=== PATIENT | female | born 1955 | race Caucasian/White ===

== ENCOUNTER 2020-04-05 02:11 | Emergency (ER) | payer MEDICARE, OTHER ==
[2020-04-05 02:26] VITALS: TEMP 97
--- NOTE | 2020-04-05 02:40 | ED ---
Fall HPI - General Chief Complaint: Fall Stated Complaint: Fall Time Seen by Provider: 04/05/20 02:13 Source: patient, EMS, RN notes reviewed, old records reviewed Mode of arrival: EMS Limitations: no limitations - History of Present Illness Initial Comments: This is a 64-year-old female DF for evaluation of fall fall from standing. Patient suffers from severe Down syndrome unable to speak unable to give complaints. Patient did have facial left frontal face injury patient does have loose teeth. Patient again is refusing treatment, patient denying any need for pain medications but again she is a poor story currently with question secondary severe Down syndrome stress reaction MD Complaint: fall -: minutes(s) Fall From: standing When Fall Occurred: unsure Fall Witnessed: yes, by living facility staff Place Fall Occurred: home, jail/SNF Loss of Consciousness: none Prolonged Down Time?: no Symptoms Prior to Fall: none Location: head Severity: moderate Severity scale (1-10): 2 Context: tripped/slipped Associated Symptoms: denies - Related Data Home Medications Medication Instructions Recorded Confirmed Acetaminophen Oral Susp [Tylenol] 650 mg PO Q4H PRN 04/07/20 04/07/20 Acetaminophen Suppository [Tylenol 650 mg RECTAL Q4H PRN 04/07/20 04/07/20 Suppository] Acetaminophen Tab [Tylenol] 650 mg PO Q4H PRN 04/07/20 04/07/20 Acetaminophen Tab [Tylenol] 650 mg PO TID@0800,1200,1700 04/07/20 04/07/20 Artificial Tears-Hypromellose 1 drop BOTH EYES DAILY PRN 04/07/20 04/07/20 [Artificial Tear Drops] Artificial Tears-Hypromellose 1 drop BOTH EYES QID 04/07/20 04/07/20 [Artificial Tear Drops] Baclofen [Lioresal] 20 mg PO HS@209904/07/20 04/07/20 Bisacodyl [Dulcolax] 10 mg RECTAL DAILY PRN 04/07/20 04/07/20 Docusate [Colace] 100 mg PO BID@0800,1700 04/07/20 04/07/20 Doxepin [SINEquan] 10 mg PO HS@209904/07/20 04/07/20 Ergocalciferol [Vitamin D2] 50,000 unit PO TH 04/07/20 04/07/20 Loperamide [Imodium] 2 mg PO DAILY PRN 04/07/20 04/07/20 Magnesium Hydroxide [Milk of 7,200 mg PO Q48H PRN 04/07/20 04/07/20 Magnesia Concentrate] Menthol [Biofreeze] 1 applic TOPICAL Q12H PRN 04/07/20 04/07/20 Na Phos,M-B/Na Phos,Di-Ba [Fleet 133 ml RECTAL DAILY PRN 04/07/20 04/07/20 Adult] Raloxifene [Evista] 60 mg PO DAILY@0800 04/07/20 04/07/20 Selsun Blue Deep Cleansing Shampoo 1 applic TOPICAL MO 04/07/20 04/07/20 3%(Salicylic Acid) Sertraline [Zoloft] 100 mg PO DAILY@0800 04/07/20 04/07/20 guaiFENesin [guaiFENesin Oral 200 mg PO Q4H PRN 04/07/20 04/07/20 Solution] traMADol HCL 50 mg PO TID@0600,1400,2100 04/07/20 04/07/20 traZODone HCL 200 mg PO HS@2100 04/07/20 04/07/20 Allergies Allergy/AdvReac Type Severity Reaction Status Date / Time No Known Allergies Allergy Verified 04/07/20 18:29 Review of Systems ROS Statement: Those systems with pertinent positive or pertinent negative responses have been documented in the HPI. ROS Other: All systems not noted in ROS Statement are negative. Past Medical History Past Medical History: Osteoarthritis (OA) Additional Past Medical History / Comment(s): down syndrome, cerebral palsy, nonverbal History of Any Multi-Drug Resistant Organisms: None Reported Past Surgical History: No Surgical Hx Reported Past Psychological History: No Psychological Hx Reported, Depression Smoking Status: Never smoker Past Alcohol Use History: None Reported Past Drug Use History: None Reported General Exam Limitations: no limitations General appearance: alert, in no apparent distress Head exam: Present: normocephalic, normal inspection. Absent: atraumatic (Patient does have significant loose teeth on abrasion follow-up) Eye exam: Present: normal appearance, PERRL, EOMI. Absent: scleral icterus, conjunctival injection, periorbital swelling ENT exam: Present: normal exam, mucous membranes moist Neck exam: Present: normal inspection. Absent: tenderness, meningismus, lymphadenopathy Respiratory exam: Present: normal lung sounds bilaterally. Absent: respiratory distress, wheezes, rales, rhonchi, stridor Cardiovascular Exam: Present: regular rate, normal rhythm, normal heart sounds. Absent: systolic murmur, diastolic murmur, rubs, gallop, clicks GI/Abdominal exam: Present: soft, normal bowel sounds. Absent: distended, tenderness, guarding, rebound, rigid Extremities exam: Present: normal inspection, full ROM, normal capillary refill. Absent: tenderness, pedal edema, joint swelling, calf tenderness Back exam: Present: normal inspection Neurological exam: Present: alert, oriented X3, CN II-XII intact Psychiatric exam: Present: normal affect, normal mood Skin exam: Present: warm, dry, intact, normal color. Absent: rash Course Vital Signs 04/05/20 04/05/20 04/05/20 02:13 02:26 04:20 Temperature 97 F L Pulse Rate 90 70 Respiratory 18 Rate Blood Pressure 133/89 108/61 O2 Sat by Pulse 97 99 Oximetry - Reevaluation(s) Reevaluation #1: Medical records reviewed No complaints here in the ER Medical Decision Making - Medical Decision Making 64 female DF for evaluation. Patient presents today for evaluation of fussiness pain facial pain and loose teeth. Patient has normal CT scans and can be discharged home - Radiology Data Radiology results: report reviewed (CT brain patient was negative for acute disease), image reviewed Disposition Clinical Impression: Fall, Loose, teeth, Loose tooth due to trauma Disposition: HOME SELF-CARE Condition: Good Instructions (If sedation given, give patient instructions): Fall Prevention for Older Adults (ED), Head Injury (ED) Is patient prescribed a controlled substance at d/c from ED?: No Referrals: David Gutierrez MD [Primary Care Provider] - 1-2 days
--- NOTE | 2020-04-05 03:40 | CT ---
EXAMINATION TYPE: CT brain cspine wo con DATE OF EXAM: 04/05/2020 COMPARISON: None HISTORY: Fall Headache. Neck pain CT DLP: mGycm Automated exposure control for dose reduction was used. There is marked enlargement of the left lateral ventricle. There is hypodensity in the periventricula r white matter. There is no midline shift. There is no sign of intracranial hemorrhage. The calvarium is intact. There is hypodensity in the bilateral internal capsule and left centrum semiovale. The cervical vertebra show some straightening. There is some degenerative mild disc space narrowing t hroughout the cervical spine. There is no compression fracture. The facet joints are intact. Exam patrick ited slightly by motion. There is no evidence of cervical spine fracture. IMPRESSION: Spondylotic changes in the cervical spine. No fracture. Limited exam. Old left side cerebral hemisphere encephalomalacia with enlargement of the left lateral ventricle. Ch ronic small vessel ischemia. No acute intracranial abnormality. No hemorrhage.
[2020-04-05 04:20] VITALS: BP 108/61; PULSE 70; RESP 18
--- NOTE | 2020-04-05 05:42 | CT ---
EXAMINATION TYPE: CT discontinued procedure DATE OF EXAM: 04/05/2020 COMPARISON: None HISTORY: Fall CT DLP: Not recorded mGycm Automated exposure control for dose reduction was used. FINDINGS: The patient was moving excessively within the gantry. No diagnostic images were obtained. The procedu re was discontinued. IMPRESSION: DISCONTINUED PROCEDURE.
== END 2020-04-05 04:45 | disposition home or self-care (01) ==
LOC: EC 02:11 → EEVIPCON 02:11 → EC 04:45
DX: K08.89 Other specified disorders of teeth and supporting structures (principal); M19.90 Unspecified osteoarthritis, unspecified site; Z79.891 Long term (current) use of opiate analgesic; Z79.899 Other long term (current) drug therapy; W01.0XXA Fall on same level from slipping, tripping and stumbling without subsequent striking against object, initial encounter; Y92.129 Unspecified place in nursing home as the place of occurrence of the external cause
CPT/HCPCS: 70450; 72125; 76380; 99284

== ENCOUNTER 2020-04-07 18:11 | Emergency (ER) | payer MEDICARE, OTHER ==
[2020-04-07 18:28] VITALS: TEMP 98.6
[2020-04-07] MEDS ORDERED: LORazepam 2 MG/ML INJ IV STA (18:31)
[2020-04-07] MEDS ORDERED: LORazepam 2 MG/ML INJ IM STA (18:50)
--- NOTE | 2020-04-07 19:11 | ED ---
General Adult HPI - General Chief complaint: Extremity Injury, Lower Stated complaint: fall/hip pain Time Seen by Provider: 04/07/20 18:11 Source: patient, EMS, RN notes reviewed, old records reviewed Mode of arrival: EMS Limitations: language barrier, altered mental status, physical limitation - History of Present Illness Initial comments: This is a 64-year-old female presents emergency Department with a past history of Down syndrome. She is unable to give any history on her own. Patient had a fall on Monday and was brought to the emergency department and sent back to the facility. Staff wanted her to come in because she was complaining and acting a lot more as if she was in pain they couldn't tell where they thought maybe her right hip but it is very difficult to tell because she is very histrionic normally according to the staff member. There are some bruises on the lateral aspect of the right leg so we will be examining that area. Patient does not normally walk but she does help to assist in transfer. - Related Data Home Medications Medication Instructions Recorded Confirmed Acetaminophen Oral Susp [Tylenol] 650 mg PO Q4H PRN 04/07/20 04/07/20 Acetaminophen Suppository [Tylenol 650 mg RECTAL Q4H PRN 04/07/20 04/07/20 Suppository] Acetaminophen Tab [Tylenol] 650 mg PO Q4H PRN 04/07/20 04/07/20 Acetaminophen Tab [Tylenol] 650 mg PO TID@0800,1200,1700 04/07/20 04/07/20 Artificial Tears-Hypromellose 1 drop BOTH EYES DAILY PRN 04/07/20 04/07/20 [Artificial Tear Drops] Artificial Tears-Hypromellose 1 drop BOTH EYES QID 04/07/20 04/07/20 [Artificial Tear Drops] Baclofen [Lioresal] 20 mg PO HS@209904/07/20 04/07/20 Bisacodyl [Dulcolax] 10 mg RECTAL DAILY PRN 04/07/20 04/07/20 Docusate [Colace] 100 mg PO BID@0800,1700 04/07/20 04/07/20 Doxepin [SINEquan] 10 mg PO HS@209904/07/20 04/07/20 Ergocalciferol [Vitamin D2] 50,000 unit PO TH 04/07/20 04/07/20 Loperamide [Imodium] 2 mg PO DAILY PRN 04/07/20 04/07/20 Magnesium Hydroxide [Milk of 7,200 mg PO Q48H PRN 04/07/20 04/07/20 Magnesia Concentrate] Menthol [Biofreeze] 1 applic TOPICAL Q12H PRN 04/07/20 04/07/20 Na Phos,M-B/Na Phos,Di-Ba [Fleet 133 ml RECTAL DAILY PRN 04/07/20 04/07/20 Adult] Raloxifene [Evista] 60 mg PO DAILY@0800 04/07/20 04/07/20 Selsun Blue Deep Cleansing Shampoo 1 applic TOPICAL MO 04/07/20 04/07/20 3%(Salicylic Acid) Sertraline [Zoloft] 100 mg PO DAILY@0800 04/07/20 04/07/20 guaiFENesin [guaiFENesin Oral 200 mg PO Q4H PRN 04/07/20 04/07/20 Solution] traMADol HCL 50 mg PO TID@0600,1400,2100 04/07/20 04/07/20 traZODone HCL 200 mg PO HS@2100 04/07/20 04/07/20 Allergies Allergy/AdvReac Type Severity Reaction Status Date / Time No Known Allergies Allergy Verified 04/07/20 18:29 Review of Systems ROS Statement: Those systems with pertinent positive or pertinent negative responses have been documented in the HPI. ROS Other: All systems not noted in ROS Statement are negative. Past Medical History Past Medical History: Osteoarthritis (OA) Additional Past Medical History / Comment(s): down syndrome, cerebral palsy, nonverbal History of Any Multi-Drug Resistant Organisms: None Reported Past Surgical History: No Surgical Hx Reported Past Psychological History: No Psychological Hx Reported, Depression Smoking Status: Never smoker Past Alcohol Use History: None Reported Past Drug Use History: None Reported General Exam - General Exam Comments Initial Comments: GENERAL: Patient is well-developed and well-nourished. Patient is nontoxic and well- hydrated and is in moderate distress. ENT: Neck is soft and supple. No significant lymphadenopathy is noted. Oropharynx is clear. Moist mucous membranes. Neck has full range of motion without eliciting any pain. EYES: The sclera were anicteric and conjunctiva were pink and moist. Extraocular movements were intact and pupils were equal round and reactive to light. Eyelids were unremarkable. PULMONARY: Unlabored respirations. Good breath sounds bilaterally. No audible rales rhonchi or wheezing was noted. CARDIOVASCULAR: There is a regular rate and rhythm without any murmurs gallops or rubs. ABDOMEN: Soft and nontender with normal bowel sounds. SKIN: Patient had a small bruise to the mid lateral aspect of the right thigh NEUROLOGIC: Patient is alert and oriented at her baseline per staff. Cranial nerves II through XII are grossly intact. MUSCULOSKELETAL: Patient had full range of motion with the upper extremity as well as the left lower extremity. Patient's left hip appeared to hurt her when I try to flex it but other times I was able to flex without her yelling out. LYMPHATICS: No significant lymphadenopathy is noted PSYCHIATRIC: Unable to assess Limitations: language barrier, altered mental status, physical limitation Course Vital Signs 04/07/20 18:12 Temperature 98.6 F Pulse Rate 130 H Respiratory 18 Rate Blood Pressure 135/104 O2 Sat by Pulse 96 Oximetry Medical Decision Making - Medical Decision Making X-ray of the hip shows no acute abnormality. X-ray of the knee shows no acute abnormality. Patient still was planning at the mid thighs I did one view x-ray of the femur and it showed no acute abnormality. Disposition Clinical Impression: Contusion, thigh Disposition: HOME SELF-CARE Condition: Good Instructions (If sedation given, give patient instructions): Contusion in Adults (ED) Is patient prescribed a controlled substance at d/c from ED?: No Referrals: David Gutierrez MD [Primary Care Provider] - 1-2 days Time of Disposition: 20:50
--- NOTE | 2020-04-07 20:09 | XR ---
EXAMINATION TYPE: XR knee complete RT DATE OF EXAM: 04/07/2020 COMPARISON: NONE HISTORY: Knee pain TECHNIQUE: 3 views FINDINGS: There is some mild soft tissue swelling anteriorly below the patella. There is no sign of j oint effusion. I see no fracture nor dislocation. IMPRESSION: Mild soft tissue swelling. No fracture seen.
--- NOTE | 2020-04-07 20:11 | XR ---
EXAMINATION TYPE: XR Hip RT and AP Pelvis DATE OF EXAM: 04/07/2020 COMPARISON: NONE HISTORY: Hip pain TECHNIQUE: 3 views FINDINGS: Pelvic ring is intact. Proximal femurs are intact. There is no sign of hip dysplasia. Sacro iliac joints appear normal. There is no evidence of a fracture. IMPRESSION: Negative exam. No fracture seen. No evidence of right hip fracture.
[2020-04-07] MEDS ORDERED: KETOROLAC 60 MG/2 ML VIAL IM STA (20:42)
[2020-04-07 21:02] VITALS: BP 96/64; PULSE 75; RESP 20
--- NOTE | 2020-04-07 21:13 | XR ---
EXAMINATION TYPE: XR Femur RT 1 View DATE OF EXAM: 04/07/2020 COMPARISON: NONE HISTORY: Right hip pain TECHNIQUE: 2 views FINDINGS: The hip joint is intact. Knee joint appears intact. There is no evidence of femoral fractur e. There is no evidence of a soft tissue mass. IMPRESSION: No fracture seen.
== END 2020-04-07 21:52 | disposition home or self-care (01) ==
LOC: EC 18:11
DX: S70.11XA Contusion of right thigh, initial encounter (principal); R41.82 Altered mental status, unspecified; F32.9 Major depressive disorder, single episode, unspecified; M19.90 Unspecified osteoarthritis, unspecified site; Z79.1 Long term (current) use of non-steroidal anti-inflammatories (NSAID); Z79.899 Other long term (current) drug therapy; Q90.9 Down syndrome, unspecified; W18.30XA Fall on same level, unspecified, initial encounter
CPT/HCPCS: 73502; 73551; 73562; 99284; 96372 ×2; J2060; J1885

== ENCOUNTER 2022-03-10 14:33 | Emergency (ER) | payer MEDICARE, OTHER ==
[2022-03-10] MEDS ORDERED: IBUPROFEN 800 MG TAB PO STA (15:45)
[2022-03-10 15:57] LABS: Appearance,Urine Cloudy (Clear); Bacteria,Urine Few /hpf; Bilirubin,Urine Negative (Negative); Blood,Urine Small (Negative); Color,Urine Light Yellow; Glucose,Urine (UA) Negative (Negative); Ketones,Urine Negative (Negative); Leukocyte Esterase,Urine Small (Negative); Nitrite,Urine Negative (Negative); Protein,Urine Negative (Negative); RBC,Urine 1 /hpf (0-5); Specific Gravity,Urine 1.009 (1.001-1.035); Squamous Epithelial Cell,Urine <1 /hpf (0-4); Urobilinogen,Urine <2.0 mg/dL (<2.0); WBC,Urine 2 /hpf (0-5)
--- NOTE | 2022-03-10 16:05 | XR ---
EXAMINATION TYPE: XR foot complete RT DATE OF EXAM: 03/10/2022 COMPARISON: NONE HISTORY: Pain TECHNIQUE: Three views are submitted. FINDINGS: The osseous structures are intact. There is no acute fracture or dislocation. Joint spaces are p reserved. Diffuse osteopenia. IMPRESSION: 1. No acute fracture or dislocation. If symptoms persist, follow-up exam in 7 to 10 days could be ob tained.
--- NOTE | 2022-03-10 16:34 | CT ---
EXAMINATION TYPE: CT brain kristinaine wo con DATE OF EXAM: 03/10/2022 COMPARISON: 04/05/2020 HISTORY: 66-year-old female pain after Fall. CT DLP: 1915.5 mGycm Automated exposure control for dose reduction was used. Technique: Examination of the head was done in axial plane without intravenous contrast. Coronal and sagittal reconstructions performed. CT of the cervical spine was obtained in axial plane without intravenous injection of contrast mater ial. Coronal and sagittal reformatted images were obtained from the axial views for evaluation of f ractures, spinal alignment and canal. FINDINGS: Head: Unchanged ballooning of the body and frontal horn of the left lateral ventricle. Overall unchanged ap pearance. Moderate confluent white matter hypodensities in the periventricular and deep white matter regions. There is no evidence of acute intracranial hemorrhage, acute ischemic changes, mass, mass-effect, or extra-axial fluid collection. There is no effacement of cerebral sulci or basal subarachnoid cister ns. There is no hydrocephalus. There is no midline shift. Corrigan-white matter distinction is preserv ed. No calvarial fracture. Trace mucosal thickening ethmoid air cells. Rightward nasal septal deviation. Mastoid air cells well pneumatized. Orbits and globes are intact. Cervical spine: No craniocervical junction abnormality, predental space widening, or prevertebral soft tissue swellin g. Resolving normal cervical lordosis but with preserved alignment. Moderate disc/endplate degenerative change C2-C7 levels. Disc osteophyte complexes contribute to vari able mild to moderate spinal canal stenoses. Excessive motion artifact limiting the evaluation. No definite acute fracture identified. Uncovertebral joint arthropathy especially mid cervical spine. Extensive breathing motion artifact limiting the upper chest Compatible moderate to severe bilateral neuroforaminal stenosis. Sagittal and coronal reformatted images confirm above findings. COMBINED IMPRESSION: 1. Chronic dilatation frontal horn and body of the left lateral ventricle, similar appearance compare d to 04/05/2020. Moderate burden of chronic small vessel ischemic disease. No acute intracranial abnor mality seen. 2. Excessive motion artifact limiting evaluation. No definite acute fracture of the cervical spine. R eversal of the normal cervical lordosis but with preserved alignment. Moderate to advanced multilevel spondylotic change.
--- NOTE | 2022-03-10 17:06 | ED ---
Fall HPI - General Chief Complaint: Fall Stated Complaint: fall Time Seen by Provider: 03/10/22 14:57 Source: EMS Mode of arrival: EMS - History of Present Illness Initial Comments: Patient is a 66-year-old female who presents with her pipe covering molder for evaluation of fall. Patient has cerebral palsy and is mostly nonverbal. Patient was sitting on her chair in the shower and fell out of it today onto her left side. Patient did hit the left side of her forehead. She did not lose consciousness. She is not on blood thinners. Patient was able to ambulate after the fall. Although patient is mostly nonverbal she is able to answer my questions about pain. Patient has small abrasions underneath her second, third, and fourth right toe. She reports pain in these toes otherwise denies pain. Denies headache, chest pain, shortness of breath, abdominal pain, and other concerns. Patient's pipe covering molder also reports the patient has had trouble urinating. She has concern patient has urinary tract infection. - Related Data Home Medications Medication Instructions Recorded Confirmed Acetaminophen Oral Susp [Tylenol] 650 mg PO Q4H PRN 04/07/20 04/07/20 Acetaminophen Suppository [Tylenol 650 mg RECTAL Q4H PRN 04/07/20 04/07/20 Suppository] Acetaminophen Tab [Tylenol] 650 mg PO Q4H PRN 04/07/20 04/07/20 Acetaminophen Tab [Tylenol] 650 mg PO TID@0800,1200,1700 04/07/20 04/07/20 Artificial Tears-Hypromellose 1 drop BOTH EYES DAILY PRN 04/07/20 04/07/20 [Artificial Tear Drops] Artificial Tears-Hypromellose 1 drop BOTH EYES QID 04/07/20 04/07/20 [Artificial Tear Drops] Baclofen [Lioresal] 20 mg PO HS@209904/07/20 04/07/20 Docusate [Colace] 100 mg PO BID@0800,1700 04/07/20 04/07/20 Doxepin [SINEquan] 10 mg PO HS@209904/07/20 04/07/20 Ergocalciferol [Vitamin D2] 50,000 unit PO TH 04/07/20 04/07/20 Loperamide [Imodium] 2 mg PO DAILY PRN 04/07/20 04/07/20 Magnesium Hydroxide [Milk of 7,200 mg PO Q48H PRN 04/07/20 04/07/20 Magnesia Concentrate] Menthol [Biofreeze] 1 applic TOPICAL Q12H PRN 04/07/20 04/07/20 Na Phos,M-B/Na Phos,Di-Ba [Fleet 133 ml RECTAL DAILY PRN 04/07/20 04/07/20 Adult] Raloxifene [Evista] 60 mg PO DAILY@0800 04/07/20 04/07/20 Selsun Blue Deep Cleansing Shampoo 1 applic TOPICAL MO 04/07/20 04/07/20 3%(Salicylic Acid) Sertraline [Zoloft] 100 mg PO DAILY@0800 04/07/20 04/07/20 bisacodyL [Dulcolax] 10 mg RECTAL DAILY PRN 04/07/20 04/07/20 guaiFENesin [guaiFENesin Oral 200 mg PO Q4H PRN 04/07/20 04/07/20 Solution] traMADol HCL 50 mg PO TID@0600,1400,2100 04/07/20 04/07/20 traZODone HCL 200 mg PO HS@2100 04/07/20 04/07/20 Allergies Allergy/AdvReac Type Severity Reaction Status Date / Time No Known Allergies Allergy Verified 04/07/20 18:29 Review of Systems ROS Statement: Those systems with pertinent positive or pertinent negative responses have been documented in the HPI. ROS Other: All systems not noted in ROS Statement are negative. Past Medical History Past Medical History: Osteoarthritis (OA) Additional Past Medical History / Comment(s): down syndrome, cerebral palsy, nonverbal History of Any Multi-Drug Resistant Organisms: None Reported Past Surgical History: No Surgical Hx Reported Past Psychological History: No Psychological Hx Reported, Depression Past Alcohol Use History: None Reported Past Drug Use History: None Reported General Exam Limitations: altered mental status, physical limitation General appearance: alert, in no apparent distress Head exam: Absent: normal inspection (Small hematoma over left forehead otherwise normocephalic/atraumatic) Eye exam: Present: normal appearance, PERRL, EOMI. Absent: scleral icterus, conjunctival injection, periorbital swelling ENT exam: Present: TM's normal bilaterally Neck exam: Present: normal inspection, full ROM. Absent: tenderness Respiratory exam: Present: normal lung sounds bilaterally. Absent: respiratory distress, wheezes, rales, rhonchi, stridor Cardiovascular Exam: Present: regular rate, normal rhythm, normal heart sounds. Absent: systolic murmur, diastolic murmur, rubs, gallop, clicks GI/Abdominal exam: Present: soft, normal bowel sounds. Absent: distended, tenderness, guarding, rebound, rigid Right Foot/Toe exam: Present: full ROM, abrasion (2-4 phalanges ). Absent: swelling, laceration, deformity, dislocation, erythema Neurovascular tendon exam: Present: no vascular compromise. Absent: pulse deficit, pallor, foot drop Neurological exam: Present: alert, CN II-XII intact Psychiatric exam: Present: normal affect, normal mood Skin exam: Present: warm, dry, intact, normal color. Absent: rash Course Vital Signs 03/10/22 14:34 Temperature 97.4 F L Pulse Rate 81 Respiratory 16 Rate Blood Pressure 132/74 O2 Sat by Pulse 100 Oximetry Medical Decision Making - Medical Decision Making This is a 66-year-old female who presents for evaluation of fall. Thorough history and examination were performed. Patient is well-appearing and in no apparent distress. There is a small hematoma over the left forehead. Patient is not on blood thinners. Patient also has small abrasions in the plantar region of the second through fourth phalanges of the right foot with no deformity, swelling, erythema, or other abnormalities. Patient's pipe covering molder and I utilized shared decision making. Patient's pipe covering molder does request head scan. CT of the brain and C-spine without contrast was obtained which is negative for acute process. With patient being mostly nonverbal with pain in her toes I did obtain a right foot x-ray which is negative for fracture or dislocation. Urinalysis obtained due to pipe covering molder's concern for urinary tract infection which does not indicate infection. Results discussed with patient's caregiver. Patient will be discharged with hematoma education. Her caregiver is instructed to follow-up with primary care provider in one to 2 days. Return parameters discussed. She verbalizes understanding and is agreeable to this plan. Dr. Ring is my attending. - Lab Data Lab Results 03/10/22 Range/Units 15:27 Urine Color Light Yellow Urine Appearance Cloudy H (Clear) Urine pH 6.0 (5.0-8.0) Ur Specific Higbee 1.009 (1.001-1.035) Urine Protein Negative (Negative) Urine Glucose (UA) Negative (Negative) Urine Ketones Negative (Negative) Urine Blood Small H (Negative) Urine Nitrite Negative (Negative) Urine Bilirubin Negative (Negative) Urine Urobilinogen <2.0 (<2.0) mg/dL Ur Leukocyte Esterase Small H (Negative) Urine RBC 1 (0-5) /hpf Urine WBC 2 (0-5) /hpf Ur Squamous Epith Cells <1 (0-4) /hpf Urine Bacteria Few H (None) /hpf Disposition Clinical Impression: Fall Disposition: HOME SELF-CARE Condition: Good Instructions (If sedation given, give patient instructions): Fall Prevention for Older Adults (ED), Hematoma (ED) Additional Instructions: For patient's hematoma on her forehead you can apply cold compress for the first 24-48 hours and if patient still has symptoms you can then apply warm compress. Give Tylenol or Motrin for pain. Follow-up with primary care provider in one to 2 days. Return to the emergency department if patient experiences new, concerning, worsening symptoms. Is patient prescribed a controlled substance at d/c from ED?: No Referrals: David Gutierrez MD [Primary Care Provider] - 1-2 days Time of Disposition: 17:10
[2022-03-10 17:32] VITALS: BP 114/78; PULSE 80; RESP 18; TEMP 98.6
== END 2022-03-10 17:31 | disposition home or self-care (01) ==
LOC: EC 14:33
DX: S00.83XA Contusion of other part of head, initial encounter (principal); S90.414A Abrasion, right lesser toe(s), initial encounter; M19.90 Unspecified osteoarthritis, unspecified site; Z79.899 Other long term (current) drug therapy; W07.XXXA Fall from chair, initial encounter
CPT/HCPCS: 70450; 72125; 81001; 99284

== ENCOUNTER 2023-10-10 04:09 | Inpatient (IN) | payer MEDICARE, OTHER ==
[2023-10-10] MEDS ORDERED: SODIUM CHLORIDE 0.9% 500 ML 500 ML IV STA (04:29)
[2023-10-10] MEDS: SODIUM CHLORIDE 0.9% 1,000 ML IV SCH ×3 (04:40→19:42)
[2023-10-10 04:45] LABS: Basophils % (A) 0 %; Eosinophils % (A) 1 %; HCT 40.4 % (34.0-46.0); HGB 13.2 gm/dL (11.4-16.0); Lymphocytes # (A) 0.8 k/uL (1.0-4.8); Lymphocytes % (A) 21 %; MCH 30.2 pg (25.0-35.0); MCHC 32.5 g/dL (31.0-37.0); MCV 92.7 fL (80.0-100.0); Mean Platelet Volume 8.4; Monocytes # (A) 0.2 k/uL (0-1.0); Monocytes % (A) 4 %; Neutrophils % (A) 74 %; Platelet Count 163 k/uL (150-450); RBC 4.36 m/uL (3.80-5.40); WBC 4.1 k/uL (3.8-10.6)
[2023-10-10 04:53] LABS: ALT 22 U/L (4-34); AST 27 U/L (14-36); African American GFR (CKD) 70 (>60 ml/min/1.73 sqM); Albumin 4.3 g/dL (3.5-5.0); Alkaline Phosphatase 110 U/L (38-126); Anion Gap 16 mmol/L; Blood Urea Nitrogen 29 mg/dL (7-17); Calcium 9.4 mg/dL (8.4-10.2); Carbon Dioxide 24 mmol/L (22-30); Chloride 102 mmol/L (98-107); Glucose 133 mg/dL (74-99); Magnesium 2.1 mg/dL (1.6-2.3); Non-African American GFR(CKD) 61 (>60 ml/min/1.73 sqM); Potassium 4.4 mmol/L (3.5-5.1); Sodium 142 mmol/L (137-145); Total Bilirubin 0.6 mg/dL (0.2-1.3)
[2023-10-10] MEDS ORDERED: AZITHROMYCIN 500 MG in SODIUM CHLORIDE 0.9% 250 ML IVPB STA (05:11)
[2023-10-10 05:16] LABS: INR 0.9 (<1.2); Prothrombin Time 10.2 sec (10.0-12.5)
[2023-10-10 05:43] LABS: Partial Thromboplastin Time 18.1 sec (22.0-30.0)
[2023-10-10 06:02] LABS: Appearance,Urine Cloudy (Clear); Bacteria,Urine Many /hpf; Bilirubin,Urine Negative (Negative); Blood,Urine Small (Negative); Color,Urine Light Yellow; Glucose,Urine (UA) Negative (Negative); Granular Casts,Urine 6 /lpf (0); Hyaline Casts,Urine 14 /lpf (0-2); Ketones,Urine Negative (Negative); Leukocyte Esterase,Urine Large (Negative); Mucus,Urine Rare /hpf; Nitrite,Urine Negative (Negative); PH, Urine 6.5 (5.0-8.0); Protein,Urine Negative (Negative); RBC,Urine 7 /hpf (0-5); Specific Gravity,Urine 1.011 (1.001-1.035); Squamous Epithelial Cell,Urine 5 /hpf (0-4); Urobilinogen,Urine <2.0 mg/dL (<2.0); WBC,Urine 71 /hpf (0-5)
[2023-10-10] MEDS ORDERED: ACETAMINOPHEN TAB 325 MG TAB PO PRN (06:11)
[2023-10-10] MEDS ORDERED: NALOXONE 0.4 MG/ML 1 ML VIAL IV PRN (06:11)
[2023-10-10] MEDS ORDERED: ACETAMINOPHEN IV (For NPO) 1,000 MG in EMPTY BAG 1 BAG IVPB ONE (06:15)
--- NOTE | 2023-10-10 06:21 | ED ---
General Adult HPI - General Chief complaint: Shortness of Breath Stated complaint: AMS Time Seen by Provider: 10/10/23 04:12 Source: EMS, RN notes reviewed, old records reviewed Mode of arrival: EMS Limitations: altered mental status - History of Present Illness Initial comments: 68 yo female presenting for evaluation of cough, dyspnea, fever. Patient's is coming from retirement or assisted living facility. She does have history of recurrent UTI. History is limited. - Related Data Home Medications Medication Instructions Recorded Confirmed Acetaminophen Oral Susp [Tylenol] 650 mg PO Q4H PRN 04/07/20 04/07/20 Acetaminophen Suppository [Tylenol 650 mg RECTAL Q4H PRN 04/07/20 04/07/20 Suppository] Acetaminophen Tab [Tylenol] 650 mg PO Q4H PRN 04/07/20 04/07/20 Acetaminophen Tab [Tylenol] 650 mg PO TID@0800,1200,1700 04/07/20 04/07/20 Artificial Tears-Hypromellose 1 drop BOTH EYES DAILY PRN 04/07/20 04/07/20 [Artificial Tear Drops] Artificial Tears-Hypromellose 1 drop BOTH EYES QID 04/07/20 04/07/20 [Artificial Tear Drops] Baclofen [Lioresal] 20 mg PO HS@209904/07/20 04/07/20 Docusate [Colace] 100 mg PO BID@0800,1700 04/07/20 04/07/20 Doxepin [SINEquan] 10 mg PO HS@209904/07/20 04/07/20 Ergocalciferol [Vitamin D2] 50,000 unit PO TH 04/07/20 04/07/20 Loperamide [Imodium] 2 mg PO DAILY PRN 04/07/20 04/07/20 Magnesium Hydroxide [Milk of 7,200 mg PO Q48H PRN 04/07/20 04/07/20 Magnesia Concentrate] Menthol [Biofreeze] 1 applic TOPICAL Q12H PRN 04/07/20 04/07/20 Na Phos,M-B/Na Phos,Di-Ba [Fleet 133 ml RECTAL DAILY PRN 04/07/20 04/07/20 Adult] Raloxifene [Evista] 60 mg PO DAILY@0800 04/07/20 04/07/20 Selsun Blue Deep Cleansing Shampoo 1 applic TOPICAL MO 04/07/20 04/07/20 3%(Salicylic Acid) Sertraline [Zoloft] 100 mg PO DAILY@0800 04/07/20 04/07/20 bisacodyL [Dulcolax] 10 mg RECTAL DAILY PRN 04/07/20 04/07/20 guaiFENesin [guaiFENesin Oral 200 mg PO Q4H PRN 04/07/20 04/07/20 Solution] traMADol HCL 50 mg PO TID@0600,1400,209904/07/20 04/07/20 traZODone HCL 200 mg PO HS@209904/07/20 04/07/20 Allergies Allergy/AdvReac Type Severity Reaction Status Date / Time No Known Allergies Allergy Verified 04/07/20 18:29 Review of Systems ROS Statement: Those systems with pertinent positive or pertinent negative responses have been documented in the HPI. ROS Other: All systems not noted in ROS Statement are negative. Past Medical History Past Medical History: Osteoarthritis (OA) Additional Past Medical History / Comment(s): down syndrome, cerebral palsy, n onverbal History of Any Multi-Drug Resistant Organisms: None Reported Past Surgical History: No Surgical Hx Reported Past Psychological History: No Psychological Hx Reported, Depression Past Alcohol Use History: None Reported Past Drug Use History: None Reported General Exam Limitations: no limitations General appearance: lethargic, in distress Head exam: Present: atraumatic, normocephalic Eye exam: Present: normal appearance, PERRL ENT exam: Present: mucous membranes dry Neck exam: Present: normal inspection. Absent: tenderness, meningismus Respiratory exam: Present: respiratory distress, rhonchi, decreased breath sounds Cardiovascular Exam: Present: normal rhythm, tachycardia GI/Abdominal exam: Present: distended. Absent: tenderness Neurological exam: Present: alert, motor sensory deficit Skin exam: Present: warm, dry Course Vital Signs 10/10/23 10/10/23 10/10/23 04:13 04:28 04:35 Temperature 100.1 F H Pulse Rate 122 H 122 H Respiratory 26 H 26 H Rate Blood Pressure 95/55 91/49 104/46 O2 Sat by Pulse 97 98 Oximetry 10/10/23 10/10/23 05:38 05:54 Temperature 99.8 F H Pulse Rate 120 H Respiratory 24 Rate Blood Pressure 116/48 O2 Sat by Pulse 100 99 Oximetry Medical Decision Making - Medical Decision Making Was pt. sent in by a medical professional or institution (TRIP Clifford, COSMETOLOGY TEACHER, urgent care, hospital, or penitentiary...) When possible be specific @ -Sent in from a retirement Did you speak to anyone other than the patient for history (EMS, parent, family, police, friend...)? What history was obtained from this source @ -No Did you review nursing and triage notes (agree or disagree)? Why? @ -I reviewed and agree with nursing and triage notes Were old charts reviewed (outside hosp., previous admission, EMS record, old EKG, old radiological studies, urgent care reports/EKG's, penitentiary records)? Report findings @ -No old charts were reviewed Differential Diagnosis (chest pain, altered mental status, abdominal pain women, abdominal pain men, vaginal bleeding, weakness, fever, dyspnea, syncope, headache, dizziness, GI bleed, back pain, seizure, CVA, palpatations, mental health, musculoskeletal)? @ -[Differential Dyspnea: Coronary syndrome, arrhythmia, tamponade, asthma, COPD, pulmonary embolism, pneumonia, pneumothorax, pulmonary effusion, anaphylaxis, diabetic ketoacidosis, flailed chest, pulmonary contusion, diaphragmatic rupture, anemia, neuromuscular, this is not meant to be an all-inclusive list. EKG interpreted by me (3pts min.). @ -EKG sinus tachycardia with tremor artifact limiting assessment, ventricular rate of 121, W[place] interval 96, QRS duration 86, QTC 327 T-wave inversion inferiorly X-rays interpreted by me (1pt min.). @ -Chest x-ray showed multifocal pneumonia CT interpreted by me (1pt min.). @ -None done U/S interpreted by me (1pt. min.). @ -None done What testing was considered but not performed or refused? (CT, X-rays, U/S, labs)? Why? @ -None What meds were considered but not given or refused? Why? @ -None Did you discuss the management of the patient with other professionals (professionals i.e. TRIP Clifford, COSMETOLOGY TEACHER, lab, RT, psych nurse, oncology social worker, beach lifeguard, teacher, [place] police officer, case reviewer)? Give summary @ Discussed with [facility] Was smoking cessation discussed for >3mins.? @ -No Was critical care preformed (if so, how long)? @ -No Were there social determinants of health that impacted care today? How? (Homelessness, low income, unemployed, alcoholism, drug addiction, transportation, low edu. Level, literacy, decrease access to med. care, assisted, rehab)? @ -No Was there de-escalation of care discussed even if they declined (Discuss DNR or withdrawal of care, Hospice)? DNR status @ -No What co-morbidities impacted this encounter? (DM, HTN, Smoking, COPD, CAD, Cancer, CVA, ARF, Chemo, Hep., AIDS, mental health diagnosis, sleep apnea, morbid obesity)? @ -None Was patient admitted / discharged? Hospital course, mention meds given and route, prescriptions, significant lab abnormalities, going to OR and other pertinent info. @ - admitted for treatment of pneumonia Undiagnosed new problem with uncertain prognosis? @ -No Drug Therapy requiring intensive monitoring for toxicity (Heparin, Nitro, Insulin, Cardizem)? @ -No Were any procedures done? @ -No Diagnosis/symptom? @ -Pneumonia Acute, or Chronic, or Acute on Chronic? @ -acute Uncomplicated (without systemic symptoms) or Complicated (systemic symptoms)? @ -complicated Side effects of treatment? @ -No Exacerbation, Progression, or Severe Exacerbation? @ -No Poses a threat to life or bodily function? How? (Chest pain, [place], [place], pneumonia, PE, COPD, DKA, ARF, appy, cholecystitis, CVA, Diverticulitis, Homicidal, Suicidal, threat to staff... and all critical care pts) @ -[yes, sepsis, resp failure - Lab Data Result diagrams: 10/10/23 04:31 10/10/23 04:31 Lab Results 10/10/23 10/10/23 10/10/23 Range/Units 04:31 04:31 04:31 WBC 4.1 (3.8-10.6) k/uL RBC 4.36 (3.80-5.40) m/uL Hgb 13.2 (11.4-16.0) gm/dL Hct 40.4 (34.0-46.0) % MCV 92.7 (80.0-100.0) fL MCH 30.2 (25.0-35.0) pg MCHC 32.5 (31.0-37.0) g/dL RDW 15.0 (11.5-15.5) % Plt Count 163 (150-450) k/uL MPV 8.4 Neutrophils % 74 % Lymphocytes % 21 % Monocytes % 4 % Eosinophils % 1 % Basophils % 0 % Neutrophils # 3.0 (1.3-7.7) k/uL Lymphocytes # 0.8 L (1.0-4.8) k/uL Monocytes # 0.2 (0-1.0) k/uL Eosinophils # 0.0 (0-0.7) k/uL Basophils # 0.0 (0-0.2) k/uL PT 10.2 (10.0-12.5) sec INR 0.9 (<1.2) APTT 18.1 L (22.0-30.0) sec Sodium 142 (137-145) mmol/L Potassium 4.4 (3.5-5.1) mmol/L Chloride 102 (98-107) mmol/L Carbon Dioxide 24 (22-30) mmol/L Anion Gap 16 mmol/L BUN 29 H (7-17) mg/dL Creatinine 0.97 (0.52-1.04) mg/dL Est GFR (CKD-EPI)AfAm 70 (>60 ml/min/1.73 sqM) Est GFR (CKD-EPI)NonAf 61 (>60 ml/min/1.73 sqM) Glucose 133 H (74-99) mg/dL Plasma Lactic Acid Jeramy (0.7-2.0) mmol/L Calcium 9.4 (8.4-10.2) mg/dL Magnesium 2.1 (1.6-2.3) mg/dL Total Bilirubin 0.6 (0.2-1.3) mg/dL AST 27 (14-36) U/L ALT 22 (4-34) U/L Alkaline Phosphatase 110 (38-126) U/L Troponin I (0.000-0.034) ng/mL Total Protein 7.0 (6.3-8.2) g/dL Albumin 4.3 (3.5-5.0) g/dL Urine Color Urine Appearance (Clear) Urine pH (5.0-8.0) Ur Specific [place] (1.001-1.035) Urine Protein (Negative) Urine Glucose (UA) (Negative) Urine Ketones (Negative) Urine Blood (Negative) Urine Nitrite (Negative) Urine Bilirubin (Negative) Urine Urobilinogen (<2.0) mg/dL Ur Leukocyte Esterase (Negative) Urine RBC (0-5) /hpf Urine WBC (0-5) /hpf Urine WBC Clumps (None) /hpf Ur Squamous Epith Cells (0-4) /hpf Urine Bacteria (None) /hpf Hyaline Casts (0-2) /lpf Granular Casts (0) /lpf Urine Mucus (None) /hpf Influenza Type A (PCR) (Not Detectd) Influenza Type B (PCR) (Not Detectd) RSV (PCR) (Not Detectd) SARS-CoV-2 (PCR) (Not Detectd) 10/10/23 10/10/23 10/10/23 Range/Units 04:31 04:31 04:31 WBC (3.8-10.6) k/uL RBC (3.80-5.40) m/uL Hgb (11.4-16.0) gm/dL Hct (34.0-46.0) % MCV (80.0-100.0) fL MCH (25.0-35.0) pg MCHC (31.0-37.0) g/dL RDW (11.5-15.5) % Plt Count (150-450) k/uL MPV Neutrophils % % Lymphocytes % % Monocytes % % Eosinophils % % Basophils % % Neutrophils # (1.3-7.7) k/uL Lymphocytes # (1.0-4.8) k/uL Monocytes # (0-1.0) k/uL Eosinophils # (0-0.7) k/uL Basophils # (0-0.2) k/uL PT (10.0-12.5) sec INR (<1.2) APTT (22.0-30.0) sec Sodium (137-145) mmol/L Potassium (3.5-5.1) mmol/L Chloride (98-107) mmol/L Carbon Dioxide (22-30) mmol/L Anion Gap mmol/L BUN (7-17) mg/dL Creatinine (0.52-1.04) mg/dL Est GFR (CKD-EPI)AfAm (>60 ml/min/1.73 sqM) Est GFR (CKD-EPI)NonAf (>60 ml/min/1.73 sqM) Glucose (74-99) mg/dL Plasma Lactic Acid Jeramy 3.9 H* (0.7-2.0) mmol/L Calcium (8.4-10.2) mg/dL Magnesium (1.6-2.3) mg/dL Total Bilirubin (0.2-1.3) mg/dL AST (14-36) U/L ALT (4-34) U/L Alkaline Phosphatase (38-126) U/L Troponin I <0.012 (0.000-0.034) ng/mL Total Protein (6.3-8.2) g/dL Albumin (3.5-5.0) g/dL Urine Color Urine Appearance (Clear) Urine pH (5.0-8.0) Ur Specific [place] (1.001-1.035) Urine Protein (Negative) Urine Glucose (UA) (Negative) Urine Ketones (Negative) Urine Blood (Negative) Urine Nitrite (Negative) Urine Bilirubin (Negative) Urine Urobilinogen (<2.0) mg/dL Ur Leukocyte Esterase (Negative) Urine RBC (0-5) /hpf Urine WBC (0-5) /hpf Urine WBC Clumps (None) /hpf Ur Squamous Epith Cells (0-4) /hpf Urine Bacteria (None) /hpf Hyaline Casts (0-2) /lpf Granular Casts (0) /lpf Urine Mucus (None) /hpf Influenza Type A (PCR) Not Detected (Not Detectd) Influenza Type B (PCR) Not Detected (Not Detectd) RSV (PCR) Not Detected (Not Detectd) SARS-CoV-2 (PCR) Not Detected (Not Detectd) 10/10/23 Range/Units 05:38 WBC (3.8-10.6) k/uL RBC (3.80-5.40) m/uL Hgb (11.4-16.0) gm/dL Hct (34.0-46.0) % MCV (80.0-100.0) fL MCH (25.0-35.0) pg MCHC (31.0-37.0) g/dL RDW (11.5-15.5) % Plt Count (150-450) k/uL MPV Neutrophils % % Lymphocytes % % Monocytes % % Eosinophils % % Basophils % % Neutrophils # (1.3-7.7) k/uL Lymphocytes # (1.0-4.8) k/uL Monocytes # (0-1.0) k/uL Eosinophils # (0-0.7) k/uL Basophils # (0-0.2) k/uL PT (10.0-12.5) sec INR (<1.2) APTT (22.0-30.0) sec Sodium (137-145) mmol/L Potassium (3.5-5.1) mmol/L Chloride (98-107) mmol/L Carbon Dioxide (22-30) mmol/L Anion Gap mmol/L BUN (7-17) mg/dL Creatinine (0.52-1.04) mg/dL Est GFR (CKD-EPI)AfAm (>60 ml/min/1.73 sqM) Est GFR (CKD-EPI)NonAf (>60 ml/min/1.73 sqM) Glucose (74-99) mg/dL Plasma Lactic Acid Jeramy (0.7-2.0) mmol/L Calcium (8.4-10.2) mg/dL Magnesium (1.6-2.3) mg/dL Total Bilirubin (0.2-1.3) mg/dL AST (14-36) U/L ALT (4-34) U/L Alkaline Phosphatase (38-126) U/L Troponin I (0.000-0.034) ng/mL Total Protein (6.3-8.2) g/dL Albumin (3.5-5.0) g/dL Urine Color Light Yellow Urine Appearance Cloudy H (Clear) Urine pH 6.5 (5.0-8.0) Ur Specific [place] 1.011 (1.001-1.035) Urine Protein Negative (Negative) Urine Glucose (UA) Negative (Negative) Urine Ketones Negative (Negative) Urine Blood Small H (Negative) Urine Nitrite Negative (Negative) Urine Bilirubin Negative (Negative) Urine Urobilinogen <2.0 (<2.0) mg/dL Ur Leukocyte Esterase Large H (Negative) Urine RBC 7 H (0-5) /hpf Urine WBC 71 H (0-5) /hpf Urine WBC Clumps Rare H (None) /hpf Ur Squamous Epith Cells 5 H (0-4) /hpf Urine Bacteria Many H (None) /hpf Hyaline Casts 14 H (0-2) /lpf Granular Casts 6 (0) /lpf Urine Mucus Rare H (None) /hpf Influenza Type A (PCR) (Not Detectd) Influenza Type B (PCR) (Not Detectd) RSV (PCR) (Not Detectd) SARS-CoV-2 (PCR) (Not Detectd) Disposition Clinical Impression: Community acquired pneumonia Disposition: ADMITTED IP TO THIS [facility] Condition: Stable Is patient prescribed a controlled substance at d/c from ED?: No Referrals: David Gutierrez MD [Primary Care Provider] - 1-2 days Time of Disposition: 06:21
--- NOTE | 2023-10-10 07:33 | XR ---
EXAMINATION TYPE: XR chest 1V portable DATE OF EXAM: 10/10/2023 COMPARISON: None INDICATION: Cough fever TECHNIQUE: Single frontal view of the chest is obtained. FINDINGS: The heart size is normal. The pulmonary vasculature is normal. Slight increased central lung markings are present. Correlate for early volume overload. IMPRESSION: 1. Prominent pulmonary vascular markings with increased central lung markings. Correlate for early vo lume overload
--- NOTE | 2023-10-10 07:33 | P.CNPUL ---
History of Present Illness Consult date: 10/10/23 Requesting physician: William Buckner Reason for consult: dyspnea, cough Chief complaint: Fever, congested cough History of present illness: I am seeing this patient in consultation today 10/10/2023 in the emergency room after she was brought in from her [facility] home. Apparently she's been having shortness of breath, congested cough, and fever. Patient is cognitively impaired and nonverbal at baseline. Other than that, little is known about the patient's past medical history. Her listed, patient is unable to provide any medical history. It looks like the patient had a positive UTI at the beginning of September, isolated organism enterococcus faecalis. She apparently was brought in for evaluation for a congested cough, shortness of breath, and fever. She is currently lying in bed, on 2 L/m nasal cannula, in no acute distress. SpO2 is 98%. She does have a congested cough. She was febrile on arrival with a T-max of 100.1F. She is tachycardic. Blood pressure stable. Chest x-ray arrival shows diffuse bilateral infiltrates. Negative for influenza, RSV, COVID-19. CBC was unremarkable. No leukocytosis. BMP shows sodium 142, potassium 4.4, chloride 102, serum bicarb 24, BUN 29, creatinine 0.97, glucose 133. Lactic acid level was mildly elevated at 3.9. Normal saline infusing at 75 ml/hr. Troponins less than 0.012. NT proBNP not elevated. Urinalysis appears to be contaminated. We'll repeat. Vital signs are stable. Review of Systems ROS unobtainable: due to mental status Past Medical History Past Medical History: Osteoarthritis (OA) Additional Past Medical History / Comment(s): down syndrome, cerebral palsy, nonverbal History of Any Multi-Drug Resistant Organisms: None Reported Past Surgical History: No Surgical Hx Reported Past Psychological History: No Psychological Hx Reported, Depression Past Alcohol Use History: None Reported Past Drug Use History: None Reported Medications and Allergies Home Medications Medication Instructions Recorded Confirmed Type Acetaminophen Oral Susp [Tylenol] 650 mg PO Q4H PRN 04/07/04/07/20 History Acetaminophen Suppository [Tylenol 650 mg RECTAL Q4H PRN 04/07/04/07/20 History Suppository] Acetaminophen Tab [Tylenol] 650 mg PO Q4H PRN 04/07/20 04/07/20 History Acetaminophen Tab [Tylenol] 650 mg PO TID@0800,1200,1700 04/07/20 04/07/20 History Artificial Tears-Hypromellose 1 drop BOTH EYES DAILY PRN 04/07/20 04/07/20 History [Artificial Tear Drops] Artificial Tears-Hypromellose 1 drop BOTH EYES QID 04/07/20 04/07/20 History [Artificial Tear Drops] Baclofen [Lioresal] 20 mg PO HS@209904/07/20 04/07/20 History Docusate [Colace] 100 mg PO BID@0800,1700 04/07/20 04/07/20 History Doxepin [SINEquan] 10 mg PO HS@209904/07/20 04/07/20 History Ergocalciferol [Vitamin D2] 50,000 unit PO TH 04/07/20 04/07/20 History Loperamide [Imodium] 2 mg PO DAILY PRN 04/07/20 04/07/20 History Magnesium Hydroxide [Milk of 7,200 mg PO Q48H PRN 04/07/20 04/07/20 History Magnesia Concentrate] Menthol [Biofreeze] 1 applic TOPICAL Q12H PRN 04/07/20 04/07/20 History Na Phos,M-B/Na Phos,Di-Ba [Fleet 133 ml RECTAL DAILY PRN 04/07/20 04/07/20 History Adult] Raloxifene [Evista] 60 mg PO DAILY@0804/07/20 04/07/20 History Selsun Blue Deep Cleansing Shampoo 1 applic TOPICAL MO 04/07/20 04/07/20 History 3%(Salicylic Acid) Sertraline [Zoloft] 100 mg PO DAILY@0800 04/07/20 04/07/20 History bisacodyL [Dulcolax] 10 mg RECTAL DAILY PRN 04/07/20 04/07/20 History guaiFENesin [guaiFENesin Oral 200 mg PO Q4H PRN 04/07/20 04/07/20 History Solution] traMADol HCL 50 mg PO TID@0600,1400,209904/07/20 04/07/20 History traZODone HCL 200 mg PO HS@209904/07/2004/07/20 History Allergies Allergy/AdvReac Type Severity Reaction Status Date / Time No Known Allergies Allergy Verified 04/07/20 18:29 Physical Exam Vitals: Vital Signs Temp Pulse Resp BP Pulse Ox 10/10/23 06:55 110 H 20 108/53 97 10/10/23 05:54 99 10/10/23 05:38 99.8 F H 120 H 24 116/48 100 10/10/23 04:35 104/46 10/10/23 04:28 122 H 26 H 91/49 98 10/10/23 04:13 100.1 F H 122 H 26 H 95/55 97 Intake and Output 10/09/23 10/10/23 10/10/23 22:59 06:59 14:59 Other: Weight 58.967 kg GENERAL EXAM: Lethargic, responds to verbal stimulus, but does not follow any commands. HEAD: Normocephalic and atraumatic EYES: Normal reaction of pupils, equal size. NOSE: Clear with pink turbinates. THROAT: No erythema or exudates. NECK: No masses, no JVD. CHEST: No chest wall deformity. LUNGS: Equal air entry with bilateral coarse rhonchi. On 2 L/m nasal cannula. Congested cough. No accessory muscle use.. CVS: S1 and S2 normal with no audible murmur, regular rhythm. No extra heart sounds ABDOMEN: No hepatosplenomegaly, active bowel sounds, no guarding or rigidity. SPINE: No scoliosis or deformity SKIN: No rashes CENTRAL NERVOUS SYSTEM: No focal deficits, tone is normal in all 4 extremities. EXTREMITIES: There is 1-2+ bilateral lower extremity edema. No clubbing, or cyanosis. Peripheral pulses are intact. Results - Laboratory Findings CBC and BMP: 10/10/23 04:31 10/10/23 04:31 PT/INR, D-dimer PT 10.2 sec (10.0-12.5) 10/10/23 04:31 INR 0.9 (<1.2) 10/10/23 04:31 Abnormal lab findings: Abnormal Labs 10/10/23 10/10/23 10/10/23 04:31 04:31 04:31 Lymphocytes # 0.8 L APTT 18.1 L BUN 29 H Glucose 133 H Plasma Lactic Acid Jeramy Urine Appearance Urine Blood Ur Leukocyte Esterase Urine RBC Urine WBC Urine WBC Clumps Ur Squamous Epith Cells Urine Bacteria Hyaline Casts Urine Mucus 10/10/23 10/10/23 04:31 05:38 Lymphocytes # APTT BUN Glucose Plasma Lactic Acid Jeramy 3.9 H* Urine Appearance Cloudy H Urine Blood Small H Ur Leukocyte Esterase Large H Urine RBC 7 H Urine WBC 71 H Urine WBC Clumps Rare H Ur Squamous Epith Cells 5 H Urine Bacteria Many H Hyaline Casts 14 H Urine Mucus Rare H - Diagnostic Findings Chest x-ray: image reviewed Assessment and Plan Assessment: Acute hypoxemic respiratory failure, secondary to suspected community acquired pneumonia. Chest x-ray showing diffuse bilateral infiltrates. Negative for influenza, RSV, COVID-19. Acute febrile illness Sinus tachycardia History of frequent UTI History of cognitive impairment Plan: Patient's medications, labs, chest x-ray reviewed Continue supplemental oxygen Patient is empirically covered on antibiotics Negative for influenza, RSV, COVID-19 Encourage pulmonary toileting. Repeat UA. We will continue to follow I have personally seen and examined the patient, performed the documentation and the assessment and plan as written. Number of minutes spent on the visit:20 Time with Patient: Greater than 30
[2023-10-10] MEDS: PIPERACILLIN-TAZOBACTAM 3.375 GM in SODIUM CHLORIDE 0.9% 100 ML IVPB SCH ×2 (07:52→15:33)
[2023-10-10] MEDS: ALBUTEROL NEBULIZED 2.5 MG/3 ML INHALATION PRN ×2 (08:03→15:14)
[2023-10-10 08:36] LABS: Appearance,Urine Cloudy (Clear); Bacteria,Urine Occasional /hpf; Bilirubin,Urine Negative (Negative); Blood,Urine Moderate (Negative); Color,Urine Yellow; Glucose,Urine (UA) Negative (Negative); Hyaline Casts,Urine 8 /lpf (0-2); Ketones,Urine Negative (Negative); Leukocyte Esterase,Urine Large (Negative); Mucus,Urine Rare /hpf; Nitrite,Urine Positive (Negative); PH, Urine 5.5 (5.0-8.0); Protein,Urine 1+ (Negative); RBC,Urine 33 /hpf (0-5); Squamous Epithelial Cell,Urine 2 /hpf (0-4); Urobilinogen,Urine <2.0 mg/dL (<2.0); WBC,Urine 111 /hpf (0-5)
[2023-10-10] MEDS ORDERED: SIMETHICONE 80 MG CHEWABLE PO PRN (10:09)
[2023-10-10] MEDS ORDERED: KETOTIFEN 0.025% OPHTH DROPS 5 ML BTL BOTH EYES PRN (10:09)
[2023-10-10] MEDS: ACETAMINOPHEN IV (For NPO) 1,000 MG in EMPTY BAG 1 BAG IVPB SCH ×3 (12:09→23:47)
--- NOTE | 2023-10-10 12:40 | P.HPIM ---
History of Present Illness H&P Date: 10/10/23 History of present illness: Patient is 68-year-old lady who is a resident of [facility] brought to the ER for evaluation for fever and shortness of breath. Most of the history is limited as Patient is cognitively impaired and nonverbal at baseline. According to EMR, patient was having cough and shortness of breath for the last few days. Patient was also spiking fevers at facility. There was no nausea or vomiting. Because of the symptoms, patient was bedridden the ER, initially in the ER, patient of fever of 100.1. And she was tachycardic. Initial lab work done in the ER showed WBC 4.1, hemoglobin 13.2, platelet count 163, sodium 142, potassium 4.4, BUN/creatinine, creatinine 0.97, lactate 3.9 UA done showed large amount of leukocyte Estrace, urine WBC 7 Influenza A not detected Influenza B not detected RSV not detected COVID-19 not detected EKG done in the ER showed heart rate of 121, no ST segment elevation or depr ession seen, T-wave inversions seen in leads V4 and V5 and V6. Chest x-ray done in the ER shows prominent pulmonary vascular markings increased central lung markings. Patient admitted to internal medicine service REVIEW OF SYSTEMS: Review of systems cannot be obtained as patient is nonverbal at baseline PHYSICAL EXAMINATION: GENERAL: The patient is cognitively impaired, nonverbal at baseline, chronic ill-looking HEENT: Pupils are round and equally reacting to light. EOMI. No scleral icterus. No conjunctival pallor. Normocephalic, atraumatic. No pharyngeal erythema. No thyromegaly. CARDIOVASCULAR: S1 and S2 present. No murmurs, rubs, or gallops. PULMONARY: Chest is clear to auscultation, no wheezing or crackles. ABDOMEN: Soft, nontender, nondistended, normoactive bowel sounds. No palpable organomegaly. MUSCULOSKELETAL: Right upper extremity contracture seen, erythema at right cu bital area EXTREMITIES: No cyanosis, clubbing, or pedal edema. NEUROLOGICAL: Cognitively impaired SKIN: No rashes. Assessment and plan Acute hypoxemic respiratory failure Bacterial pneumonia UTI Acute febrile illness Sinus tachycardia History of frequent UTI History of cognitive impairment Hyperlipidemia Monitor vital signs Monitor CBC Monitor CMP Continue telemetry monitoring Follow-up on blood cultures Follow-up urine cultures Continue breathing treatments Continue IV Zosyn Consult ID Consult pulmonary Labs and medication were reviewed.. Continue same treatment. Continue with symptomatic treatment. Resume home medication. Monitor labs and vitals. DVT and GI prophylaxis. Further recommendations as per clinical course of the patient Dictation was produced using [employer] dictation software. please excuse any grammatical, word or spelling errors. Past Medical History Past Medical History: Osteoarthritis (OA) Additional Past Medical History / Comment(s): down syndrome, cerebral palsy, nonverbal History of Any Multi-Drug Resistant Organisms: None Reported Past Surgical History: No Surgical Hx Reported Past Psychological History: No Psychological Hx Reported, Depression Past Alcohol Use History: None Reported Past Drug Use History: None Reported Medications and Allergies Home Medications Medication Instructions Recorded Confirmed Type Acetaminophen Tab [Tylenol] 650 mg PO Q4H PRN MDD 10 tabs 04/07/20 10/10/23 History Baclofen [Lioresal] 20 mg PO HS 04/07/20 10/10/23 History Menthol [Biofreeze] 1 applic TOPICAL Q12H PRN 04/07/20 10/10/23 History Raloxifene [Evista] 60 mg PO DAILY 04/07/20 10/10/23 History ALPRAZolam [Xanax] 0.25 mg PO HS 10/10/23 10/10/23 History Albuterol Nebulized [Ventolin 2.5 mg INHALATION RT-TID PRN 10/10/23 10/10/23 History Nebulized] Aspirin EC [Ecotrin Low Dose] 81 mg PO DAILY 10/10/23 10/10/23 History Cranberry 450 mg PO HS 10/10/23 10/10/23 History Eucalyptus Oil/Menthol/Camphor 1 applic TOPICAL BID PRN 10/10/23 10/10/23 Hist ory [Vicks Vaporub Ointment] Fexofenadine HCl [Children's 60 mg PO BID 10/10/23 10/10/23 History Rosi Susp] Furosemide [Lasix] 40 mg PO DAILY 10/10/23 10/10/23 History Hydrocortisone/Aloe Vera 1 applic TOPICAL DIRECTED PRN 10/10/23 10/10/23 History [Cortizone-10 with Aloe 1% Crm] Ibuprofen [Motrin] 600 mg PO Q8HR PRN 10/10/23 10/10/23 History Magnesium Hydroxide [Milk of 2,400 mg PO DAILY PRN 10/10/23 10/10/23 History Magnesia] Nystatin 100,000 Unit/gm Powd 1 applic TOPICAL BID 10/10/23 10/10/23 History [Mycostatin Powder] Nystatin 100,000Unit/gm Cream 1 applic TOPICAL BID PRN 10/10/23 10/10/23 History [Mycostatin Cream] Olopatadine HCl [Pataday] 1 drop BOTH EYES BID PRN 10/10/23 10/10/23 History Pantoprazole Sodium [Protonix] 20 mg PO DAILY 10/10/23 10/10/23 History Phenylephrine/Dm/Acetaminop/GG 20 ml PO Q6H PRN 10/10/23 10/10/23 History [Mucinex Fast-Max Cold-Flu Liq] Potassium Chloride [Klor-Con M20] 20 meq PO DAILY 10/10/23 10/10/23 History Pyrithione Zinc 1% Shampoo 1 applic TOPICAL DAILY PRN 10/10/23 10/10/23 History QUEtiapine FUMARATE [SEROquel] 400 mg PO HS 10/10/23 10/10/23 History SILVER sulfADIAZINE Cream 1 applic TOPICAL DAILY PRN 10/10/23 10/10/23 History [Silvadene 1% Cream] Siltussin Sa 200 mg PO Q4H PRN 10/10/23 10/10/23 History Simethicone [Gas-X] 125 mg PO BID PRN 10/10/23 10/10/23 History Simvastatin [Zocor] 40 mg PO HS 10/10/23 10/10/23 History Stomach Relief 262.5 mg PO DAILY PRN 10/10/23 10/10/23 History busPIRone HCl [Buspar] 10 mg PO BID 10/10/23 10/10/23 History diphenhydrAMINE HCL [Benadryl] 50 mg PO Q4H PRN 10/10/23 10/10/23 History polyethylene glycoL 3350 [Miralax] 17 gm PO DAILY 10/10/23 10/10/23 History Allergies Allergy/AdvReac Type Severity Reaction Status Date / Time No Known Allergies Allergy Verified 10/10/23 08:24 Physical Exam Vitals: Vital Signs Temp Pulse Resp BP Pulse Ox 10/10/23 08:15 110 H 10/10/23 08:12 98 10/10/23 08:04 112 H 10/10/23 07:51 100.2 F H 10/10/23 07:24 111 H 16 118/68 97 10/10/23 06:55 110 H 20 108/53 97 10/10/23 05:54 99 10/10/23 05:38 99.8 F H 120 H 24 116/48 100 10/10/23 04:35 104/46 10/10/23 04:28 122 H 26 H 91/49 98 10/10/23 04:13 100.1 F H 122 H 26 H 95/55 97 Intake and Output 10/09/23 10/10/23 10/10/23 22:59 06:59 14:59 Output Total 50 Balance -50 Output: Urine 50 Straight 50 Other: Weight 58.967 kg Results CBC & Chem 7: 10/10/23 04:31 10/10/23 04:31 Labs: Abnormal Lab Results - Last 24 Hours (Table) 10/10/23 10/10/23 10/10/23 Range/Units 04:31 04:31 04:31 Lymphocytes # 0.8 L (1.0-4.8) k/uL APTT 18.1 L (22.0-30.0) sec BUN 29 H (7-17) mg/dL Glucose 133 H (74-99) mg/dL Plasma Lactic Acid Jeramy (0.7-2.0) mmol/L Urine Appearance (Clear) Urine Protein (Negative) Urine Blood (Negative) Urine Nitrite (Negative) Ur Leukocyte Esterase (Negative) Urine RBC (0-5) /hpf Urine WBC (0-5) /hpf Urine WBC Clumps (None) /hpf Ur Squamous Epith Cells (0-4) /hpf Urine Bacteria (None) /hpf Hyaline Casts (0-2) /lpf Urine Mucus (None) /hpf 10/10/23 10/10/23 10/10/23 Range/Units 04:31 05:38 07:27 Lymphocytes # (1.0-4.8) k/uL APTT (22.0-30.0) sec BUN (7-17) mg/dL Glucose (74-99) mg/dL Plasma Lactic Acid Jeramy 3.9 H* 2.1 H* (0.7-2.0) mmol/L Urine Appearance Cloudy H (Clear) Urine Protein (Negative) Urine Blood Small H (Negative) Urine Nitrite (Negative) Ur Leukocyte Esterase Large H (Negative) Urine RBC 7 H (0-5) /hpf Urine WBC 71 H (0-5) /hpf Urine WBC Clumps Rare H (None) /hpf Ur Squamous Epith Cells 5 H (0-4) /hpf Urine Bacteria Many H (None) /hpf Hyaline Casts 14 H (0-2) /lpf Urine Mucus Rare H (None) /hpf 10/10/23 Range/Units 08:13 Lymphocytes # (1.0-4.8) k/uL APTT (22.0-30.0) sec BUN (7-17) mg/dL Glucose (74-99) mg/dL Plasma Lactic Acid Jeramy (0.7-2.0) mmol/L Urine Appearance Cloudy H (Clear) Urine Protein 1+ H (Negative) Urine Blood Moderate H (Negative) Urine Nitrite Positive H (Negative) Ur Leukocyte Esterase Large H (Negative) Urine RBC 33 H (0-5) /hpf Urine WBC 111 H (0-5) /hpf Urine WBC Clumps Few H (None) /hpf Ur Squamous Epith Cells (0-4) /hpf Urine Bacteria Occasional H (None) /hpf Hyaline Casts 8 H (0-2) /lpf Urine Mucus Rare H (None) /hpf
[2023-10-10] MEDS ORDERED: SODIUM CHLORIDE 0.9% 500 ML 500 ML IV ONE (14:19)
--- NOTE | 2023-10-10 20:04 | P.CONS ---
History of Present Illness - Reason for Consult Consult date: 10/10/23 - History of Present Illness Patient is a 68-year-old female with a past medical history significant for osteoarthritis Down syndrome cerebral palsy patient was sent to the ER earlier this morning from assisted living facility for evaluation of cough shortness of breath and fever and this patient send apparently has been going on for a day or 2 before the patient was brought into the hospital patient on arrival to the ER was febrile with temperature 100.1 F patient was tachycardic hypotensive and hypoxic requiring supplemental oxygen patient did have a white count of 4.1 creatinine 0.97 lactic acid 3.9 urine positive influenza RSV and COVID testing was negative patient did have a chest x-ray, and abdominal vascular congestion with increased central lung markings correlate for early volume overload the patient was started on Zosyn infectious he was consulted for further management of antibiotic therapy patient has received Rocephin and Zithromax in the ER most information has been obtained from review the chart on the nursing staff as the patient nonverbal and no caregiver at the bedside Past Medical History Past Medical History: Osteoarthritis (OA) Additional Past Medical History / Comment(s): down syndrome, cerebral palsy, non verbal History of Any Multi-Drug Resistant Organisms: None Reported Past Surgical History: No Surgical Hx Reported Past Psychological History: No Psychological Hx Reported, Depression Past Alcohol Use History: None Reported Past Drug Use History: None Reported Medications and Allergies Home Medications Medication Instructions Recorded Confirmed Type Acetaminophen Tab [Tylenol] 650 mg PO Q4H PRN MDD 10 tabs 04/07/20 10/10/23 History Baclofen [Lioresal] 20 mg PO HS 04/07/20 10/10/23 History Menthol [Biofreeze] 1 applic TOPICAL Q12H PRN 04/07/20 10/10/23 History Raloxifene [Evista] 60 mg PO DAILY 04/07/20 10/10/23 History ALPRAZolam [Xanax] 0.25 mg PO HS 10/10/23 10/10/23 History Albuterol Nebulized [Ventolin 2.5 mg INHALATION RT-TID PRN 10/10/23 10/10/23 History Nebulized] Aspirin EC [Ecotrin Low Dose] 81 mg PO DAILY 10/10/23 10/10/23 History Cranberry 450 mg PO HS 10/10/23 10/10/23 History Eucalyptus Oil/Menthol/Camphor 1 applic TOPICAL BID PRN 10/10/23 10/10/23 History [Vicks Vaporub Ointment] Fexofenadine HCl [Children's 60 mg PO BID 10/10/23 10/10/23 History Rosi Susp] Furosemide [Lasix] 40 mg PO DAILY 10/10/23 10/10/23 History Hydrocortisone/Aloe Vera 1 applic TOPICAL DIRECTED PRN 10/10/23 10/10/23 History [Cortizone-10 with Aloe 1% Crm] Ibuprofen [Motrin] 600 mg PO Q8HR PRN 10/10/23 10/10/23 History Magnesium Hydroxide [Milk of 2,400 mg PO DAILY PRN 10/10/23 10/10/23 History Magnesia] Nystatin 100,000 Unit/gm Powd 1 applic TOPICAL BID 10/10/23 10/10/23 History [Mycostatin Powder] Nystatin 100,000Unit/gm Cream 1 applic TOPICAL BID PRN 10/10/23 10/10/23 History [Mycostatin Cream] Olopatadine HCl [Pataday] 1 drop BOTH EYES BID PRN 10/10/23 10/10/23 History Pantoprazole Sodium [Protonix] 20 mg PO DAILY 10/10/23 10/10/23 History Phenylephrine/Dm/Acetaminop/GG 20 ml PO Q6H PRN 10/10/23 10/10/23 History [Mucinex Fast-Max Cold-Flu Liq] Potassium Chloride [Klor-Con M20] 20 meq PO DAILY 10/10/23 10/10/23 History Pyrithione Zinc 1% Shampoo 1 applic TOPICAL DAILY PRN 10/10/23 10/10/23 History QUEtiapine FUMARATE [SEROquel] 400 mg PO HS 10/10/23 10/10/23 History SILVER sulfADIAZINE Cream 1 applic TOPICAL DAILY PRN 10/10/23 10/10/23 History [Silvadene 1% Cream] Siltussin Sa 200 mg PO Q4H PRN 10/10/23 10/10/23 History Simethicone [Gas-X] 125 mg PO BID PRN 10/10/23 10/10/23 History Simvastatin [Zocor] 40 mg PO HS 10/10/23 10/10/23 History Stomach Relief 262.5 mg PO DAILY PRN 10/10/23 10/10/23 History busPIRone HCl [Buspar] 10 mg PO BID 10/10/23 10/10/23 History diphenhydrAMINE HCL [Benadryl] 50 mg PO Q4H PRN 10/10/23 10/10/23 History polyethylene glycoL 3350 [Miralax] 17 gm PO DAILY 10/10/23 10/10/23 History Allergies Allergy/AdvReac Type Severity Reaction Status Date / Time No Known Allergies Allergy Verified 10/10/23 08:24 Physical Exam Vitals: Vital Signs Temp Pulse Resp BP Pulse Ox 10/10/23 10:20 98.8 F 106 H 18 96/70 100 10/10/23 08:15 110 H 10/10/23 08:12 98 10/10/23 08:04 112 H 10/10/23 07:51 100.2 F H 10/10/23 07:24 111 H 16 118/68 97 10/10/23 06:55 110 H 20 108/53 97 10/10/23 05:54 99 10/10/23 05:38 99.8 F H 120 H 24 116/48 100 10/10/23 04:35 104/46 10/10/23 04:28 122 H 26 H 91/49 98 10/10/23 04:13 100.1 F H 122 H 26 H 95/55 97 Intake and Output 10/09/23 10/10/23 10/10/23 22:59 06:59 14:59 Output Total 50 Balance -50 Output: Urine 50 Straight 50 Other: Weight 58.967 kg Results CBC & Chem 7: 10/10/23 04:31 10/10/23 04:31 Labs: Abnormal Lab Results - Last 24 Hours (Table) 10/10/23 10/10/23 10/10/23 Range/Units 04:31 04:31 04:31 Lymphocytes # 0.8 L (1.0-4.8) k/uL APTT 18.1 L (22.0-30.0) sec BUN 29 H (7-17) mg/dL Glucose 133 H (74-99) mg/dL Plasma Lactic Acid Jeramy (0.7-2.0) mmol/L Urine Appearance (Clear) Urine Protein (Negative) Urine Blood (Negative) Urine Nitrite (Negative) Ur Leukocyte Esterase (Negative) Urine RBC (0-5) /hpf Urine WBC (0-5) /hpf Urine WBC Clumps (None) /hpf Ur Squamous Epith Cells (0-4) /hpf Urine Bacteria (None) /hpf Hyaline Casts (0-2) /lpf Urine Mucus (None) /hpf 10/10/23 10/10/23 10/10/23 Range/Units 04:31 05:38 07:27 Lymphocytes # (1.0-4.8) k/uL APTT (22.0-30.0) sec BUN (7-17) mg/dL Glucose (74-99) mg/dL Plasma Lactic Acid Jeramy 3.9 H* 2.1 H* (0.7-2.0) mmol/L Urine Appearance Cloudy H (Clear) Urine Protein (Negative) Urine Blood Small H (Negative) Urine Nitrite (Negative) Ur Leukocyte Esterase Large H (Negative) Urine RBC 7 H (0-5) /hpf Urine WBC 71 H (0-5) /hpf Urine WBC Clumps Rare H (None) /hpf Ur Squamous Epith Cells 5 H (0-4) /hpf Urine Bacteria Many H (None) /hpf Hyaline Casts 14 H (0-2) /lpf Urine Mucus Rare H (None) /hpf 10/10/23 Range/Units 08:13 Lymphocytes # (1.0-4.8) k/uL APTT (22.0-30.0) sec BUN (7-17) mg/dL Glucose (74-99) mg/dL Plasma Lactic Acid Jeramy (0.7-2.0) mmol/L Urine Appearance Cloudy H (Clear) Urine Protein 1+ H (Negative) Urine Blood Moderate H (Negative) Urine Nitrite Positive H (Negative) Ur Leukocyte Esterase Large H (Negative) Urine RBC 33 H (0-5) /hpf Urine WBC 111 H (0-5) /hpf Urine WBC Clumps Few H (None) /hpf Ur Squamous Epith Cells (0-4) /hpf Urine Bacteria Occasional H (None) /hpf Hyaline Casts 8 H (0-2) /lpf Urine Mucus Rare H (None) /hpf Assessment and Plan Plan: 1patient was in the hospital with sepsis in this patient noted to have a fever tachycardia hypotension source likely urinary underlying pneumonia not entirely excluded 2-we will check CRP procalcitonin and try to obtain a sputum for Gram stain and culture 3-continue with Zosyn 3.37 g every 8 hour while waiting for the workup to be completed We will follow on clinical condition and cultures to further adjust medication if needed Thank you for this consultation we will follow the patient along with you Dictation was produced using [employer] dictation software. please excuse any grammatical, word or spelling errors. Time with Patient: Greater than 30
[2023-10-10] MEDS: ATORVASTATIN 20 MG TAB PO SCH (22:32)
[2023-10-10] MEDS: BACLOFEN 10 MG TAB PO SCH (22:32)
[2023-10-10] MEDS: ALPRAZolam 0.25 MG TAB PO SCH (22:32)
[2023-10-10] MEDS: QUEtiapine 400 MG TAB PO SCH (22:32)
[2023-10-10] MEDS: busPIRone HCl 10 MG TAB PO SCH (22:32)
[2023-10-11] MEDS: PIPERACILLIN-TAZOBACTAM 3.375 GM in SODIUM CHLORIDE 0.9% 100 ML IVPB SCH ×4 (00:10→23:37)
[2023-10-11] MEDS: SODIUM CHLORIDE 0.9% 1,000 ML IV SCH ×2 (05:19→19:45)
[2023-10-11] MEDS: ACETAMINOPHEN IV (For NPO) 1,000 MG in EMPTY BAG 1 BAG IVPB SCH (06:32)
[2023-10-11] MEDS: PANTOPRAZOLE SODIUM 40 MG GRANULE PKT PO SCH (06:43)
[2023-10-11] MEDS: ASPIRIN 81 MG PO SCH (08:40)
[2023-10-11] MEDS: busPIRone HCl 10 MG TAB PO SCH ×2 (08:40→20:38)
[2023-10-11] MEDS: polyethylene glycoL 3350 17 GM POWD.PACK PO SCH (08:40)
[2023-10-11] MEDS ORDERED: AZITHROMYCIN 500 MG in SODIUM CHLORIDE 0.9% 250 ML IVPB SCH (09:00)
[2023-10-11 11:19] LABS: Basophils % (A) 0 %; Eosinophils # (A) 0.1 k/uL (0-0.7); Eosinophils % (A) 1 %; HCT 33.5 % (34.0-46.0); HGB 10.5 gm/dL (11.4-16.0); Hypochromasia Marked; Lymphocytes # (A) 0.9 k/uL (1.0-4.8); Lymphocytes % (A) 10 %; MCH 30.8 pg (25.0-35.0); MCHC 31.4 g/dL (31.0-37.0); Mean Platelet Volume 8.1; Monocytes # (A) 0.3 k/uL (0-1.0); Monocytes % (A) 4 %; Neutrophils # (A) 7.4 k/uL (1.3-7.7); Neutrophils % (A) 84 %; Platelet Count 116 k/uL (150-450); RBC 3.42 m/uL (3.80-5.40); RDW 14.7 % (11.5-15.5); WBC 8.9 k/uL (3.8-10.6)
[2023-10-11 11:25] LABS: MCV 97.9 fL (80.0-100.0)
[2023-10-11 11:40] LABS: ALT 17 U/L (4-34); AST 28 U/L (14-36); African American GFR (CKD) 88 (>60 ml/min/1.73 sqM); Albumin/Globulin Ratio 1.2; Alkaline Phosphatase 85 U/L (38-126); Anion Gap 9 mmol/L; Blood Urea Nitrogen 27 mg/dL (7-17); Calcium 8.1 mg/dL (8.4-10.2); Carbon Dioxide 21 mmol/L (22-30); Chloride 111 mmol/L (98-107); Globulin 2.5 g/dL; Glucose 86 mg/dL (74-99); Non-African American GFR(CKD) 76 (>60 ml/min/1.73 sqM); Potassium 3.8 mmol/L (3.5-5.1); Sodium 141 mmol/L (137-145); Total Bilirubin 0.5 mg/dL (0.2-1.3); Total Protein 5.5 g/dL (6.3-8.2)
--- NOTE | 2023-10-11 12:48 | P.PN ---
Subjective Progress Note Date: 10/11/23 Patient is 68-year-old lady who is a resident of [facility] facility brought to the ER for evaluation for fever and shortness of breath. Most of the history is limited as Patient is cognitively impaired and nonverbal at baseline. According to EMR, patient was having cough and shortness of breath for the last few days. Patient was also spiking fevers at facility. There was no nausea or vomiting. Because of the symptoms, patient was bedridden the ER, initially in the ER, patient of fever of 100.1. And she was tachycardic. Initial lab work done in the ER showed WBC 4.1, hemoglobin 13.2, platelet count 163, sodium 142, potassium 4.4, BUN/creatinine, creatinine 0.97, lactate 3.9 UA done showed large amount of leukocyte Estrace, urine WBC 7 Influenza A not detected Influenza B not detected RSV not detected COVID-19 not detected EKG done in the ER showed heart rate of 121, no ST segment elevation or depression seen, T-wave inversions seen in leads V4 and V5 and V6. Chest x-ray done in the ER shows prominent pulmonary vascular markings increased central lung markings. Patient admitted to internal medicine service 10/11. Patient seen and examined. Continues to be afebrile. REVIEW OF SYSTEMS: Review of systems cannot be obtained as patient is nonverbal at baseline PHYSICAL EXAMINATION: GENERAL: The patient is cognitively impaired, nonverbal at baseline, chronic ill-looking HEENT: Pupils are round and equally reacting to light. EOMI. No scleral icterus. No conjunctival pallor. Normocephalic, atraumatic. No pharyngeal erythema. No thyromegaly. CARDIOVASCULAR: S1 and S2 present. No murmurs, rubs, or gallops. PULMONARY: Chest is clear to auscultation, no wheezing or crackles. ABDOMEN: Soft, nontender, nondistended, normoactive bowel sounds. No palpable organomegaly. MUSCULOSKELETAL: Right upper extremity contracture seen, erythema at right cubital area EXTREMITIES: No cyanosis, clubbing, or pedal edema. NEUROLOGICAL: Cognitively impaired SKIN: No rashes. Assessment and plan Acute hypoxemic respiratory failure Sepsis Bacterial pneumonia UTI Acute febrile illness Sinus tachycardia History of frequent UTI History of cognitive impairment Hyperlipidemia Monitor vital signs Monitor CBC Monitor CMP Continue telemetry monitoring Follow-up on blood cultures Follow-up on urine cultures Aspiration precautions Continue IV Zosyn Follow-up in ID recs Follow-up on pulmonary recs Labs and medication were reviewed.. Continue same treatment. Continue with symptomatic treatment. Resume home medication. Monitor labs and vitals. DVT and GI prophylaxis. Further recommendations as per clinical course of the patient Dictation was produced using [employer] dictation software. please excuse any grammatical, word or spelling errors. Objective - Vital Signs Vital signs: Vital Signs Temp 97.8 F 10/11/23 06:53 Pulse 88 10/11/23 06:53 Resp 19 10/11/23 06:53 BP 94/55 10/11/23 06:53 Pulse Ox 96 10/11/23 06:53 FiO2 Intake & Output 10/10/23 10/11/23 10/11/23 18:59 06:59 18:59 Output Total 50 350 Balance -50 -350 Weight 58.967 kg Output: Urine 50 350 Straight 50 Other: Voiding Method Diaper Incontinent - Labs CBC & Chem 7: 10/11/23 10:57 10/11/23 10:57 Labs: Abnormal Lab Results - Last 24 Hours (Table) 10/10/23 10/10/23 Range/Units 06:30 10:37 Plasma Lactic Acid Jeramy 2.4 H* (0.7-2.0) mmol/L Procalcitonin 0.30 H (0.02-0.09) ng/mL
--- NOTE | 2023-10-11 13:38 | P.PN ---
Subjective Progress Note Date: 10/11/23 Principal diagnosis: Acute hypoxic respiratory failure secondary to acute community-acquired pneumonia I am seeing this patient in consultation today 10/10/2023 in the emergency room after she was brought in from her [facility] home. Apparently she's been having shortness of breath, congested cough, and fever. Patient is cognitively impaired and nonverbal at baseline. Other than that, little is known about the patient's past medical history. Her listed, patient is unable to provide any medical history. It looks like the patient had a positive UTI at the beginning of September, isolated organism enterococcus faecalis. She apparently was brought in for evaluation for a congested cough, shortness of breath, and fever. She is currently lying in bed, on 2 L/m nasal cannula, in no acute distress. SpO2 is 98%. She does have a congested cough. She was febrile on arrival with a T-max of 100.1F. She is tachycardic. Blood pressure stable. Chest x-ray arrival shows diffuse bilateral infiltrates. Negative for influenza, RSV, COVID-19. CBC was unremarkable. No leukocytosis. BMP shows sodium 142, potassium 4.4, chloride 102, serum bicarb 24, BUN 29, creatinine 0.97, glucose 133. Lactic acid level was mildly elevated at 3.9. Normal saline infusing at 75 ml/hr. Tr oponins less than 0.012. NT proBNP not elevated. Urinalysis appears to be contaminated. We'll repeat. Vital signs are stable. Reevaluated today on 10/11/2023, patient seems to be quite comfortable, she is on nasal cannula, nonverbal, not in any distress, remains on antibiotics for her acute pneumonia as noted on admission chest x-ray. WBC count is 8.9 hemoglobin 10.5 basic metabolic profile is normal renal profile is Objective - Vital Signs Vital signs: Vital Signs Temp 96.6 F L 10/11/23 13:04 Pulse 96 10/11/23 13:04 Resp 18 10/11/23 13:04 BP 131/73 10/11/23 13:04 Pulse Ox 99 10/11/23 13:04 FiO2 Intake & Output 10/10/23 10/11/23 10/11/23 18:59 06:59 18:59 Output Total 50 350 Balance -50 -350 Weight 58.967 kg Output: Urine 50 350 Straight 50 Other: Voiding Method Diaper Diaper Incontinent Incontinent - Exam Physical Exam: Revealed 68-year-old female in no distress, on 2 L nasal cannula O2 sat 99% Head: Atraumatic, normocephalic. HEENT:[Neck is supple.] [No neck masses.] [No thyromegaly.] [No JVD.] Chest: [Diminished breath sound bilaterally no rhonchi and no wheezes.] Cardiac Exam: [Normal S1 and S2, no S3 gallop, no murmur.] Abdomen: [Soft, nontender, no megaly, no rebound, no guarding, normal bowel sounds.] Extremities: flexion contractures noted on both upper extremities and significant deformities noted in both hands Neurological Exam: Cannot assess, patient is nonverbal and does not follow any instructions - Labs CBC & Chem 7: 10/11/23 10:57 10/11/23 10:57 Labs: Abnormal Lab Results - Last 24 Hours (Table) 10/10/23 10/11/23 10/11/23 Range/Units 06:30 10:57 10:57 RBC 3.42 L (3.80-5.40) m/uL Hgb 10.5 L (11.4-16.0) gm/dL Hct 33.5 L (34.0-46.0) % Plt Count 116 L (150-450) k/uL Lymphocytes # 0.9 L (1.0-4.8) k/uL Chloride 111 H (98-107) mmol/L Carbon Dioxide 21 L (22-30) mmol/L BUN 27 H (7-17) mg/dL Calcium 8.1 L (8.4-10.2) mg/dL Total Protein 5.5 L (6.3-8.2) g/dL Albumin 3.0 L (3.5-5.0) g/dL Procalcitonin 0.30 H (0.02-0.09) ng/mL Microbiology - Last 24 Hours (Table) 10/10/23 04:31 Blood Culture - Preliminary Blood 10/10/23 04:29 Blood Culture - Preliminary Blood Assessment and Plan Assessment: Impression: Acute hypoxic respiratory failure Acute community-acquired pneumonia or possibly aspiration pneumonia most likely. Acute febrile illness History of recurrent urinary tract infection Cognitive impairment Recommendation: Continue Zosyn Continue oxygen and titrate accordingly Continue bronchodilators Resume home meds We'll continue to follow Time with Patient: Less than 30
[2023-10-11] MEDS: ATORVASTATIN 20 MG TAB PO SCH (20:38)
[2023-10-11] MEDS: ALPRAZolam 0.25 MG TAB PO SCH (20:38)
[2023-10-11] MEDS: QUEtiapine 400 MG TAB PO SCH (20:38)
[2023-10-11] MEDS: BACLOFEN 10 MG TAB PO SCH (20:38)
[2023-10-12] MEDS: SODIUM CHLORIDE 0.9% 1,000 ML IV SCH ×2 (03:34→20:36)
[2023-10-12] MEDS: PANTOPRAZOLE SODIUM 40 MG GRANULE PKT PO SCH (06:32)
[2023-10-12] MEDS: ASPIRIN 81 MG PO SCH (08:32)
[2023-10-12] MEDS: busPIRone HCl 10 MG TAB PO SCH ×2 (08:32→20:53)
[2023-10-12] MEDS: PIPERACILLIN-TAZOBACTAM 3.375 GM in SODIUM CHLORIDE 0.9% 100 ML IVPB SCH ×2 (08:32→16:19)
[2023-10-12] MEDS: polyethylene glycoL 3350 17 GM POWD.PACK PO SCH (08:33)
[2023-10-12 11:09] LABS: HCT 29.6 % (37.2-46.3); MCH 29.5 pg (27.0-32.0); MCHC 30.4 g/dL (32.0-37.0); Mean Platelet Volume 10.6 FL (9.5-12.2); NRBC Per 100 WBC 0 X 10*3/uL (0.00-0.01); Platelet Count 108 X 10*3/uL (140-440); RBC 3.05 X 10*6/uL (4.10-5.20); RDW 15.1 % (11.5-14.5); WBC 8.26 X 10*3/uL (4.50-10.00)
[2023-10-12 12:10] LABS: Basophils # (A) 0.03 X 10*3/uL (0.00-0.10); Basophils % (A) 0.4 %; Eosinophils % (A) 1.2 %; Lymphocytes # (A) 1.05 X 10*3/uL (0.90-5.00); Lymphocytes % (A) 12.7 %; Monocytes # (A) 0.56 X 10*3/uL (0.20-1.00); Monocytes % (A) 6.8 %; Neutrophils # (A) 6.43 X 10*3/uL (1.80-7.70); Neutrophils % (A) 77.8 %; RBC Morphology Normal (Normal)
[2023-10-12 12:11] LABS: ALT 14 U/L (8-44); AST 17 U/L (13-35); Albumin/Globulin Ratio 1.58 Ratio (1.60-3.17); Alkaline Phosphatase 81 U/L (41-126); BUN/Creat Ratio 24.57 Ratio (12.00-20.00); Blood Urea Nitrogen 17.2 mg/dL (9.0-27.0); Calcium 7.6 mg/dL (8.7-10.3); Carbon Dioxide 20.7 mmol/L (21.6-31.8); Chloride 115 mmol/L (96-109); Globulin 1.9 g/dL (1.6-3.3); Glucose 106 mg/dL (70-110); Potassium 3.7 mmol/L (3.5-5.5); Sodium 146 mmol/L (135-145); Total Bilirubin 0.3 mg/dL (0.3-1.2); Total Protein 4.9 g/dL (6.2-8.2)
--- NOTE | 2023-10-12 13:15 | P.PN ---
Subjective Progress Note Date: 10/12/23 Patient is 68-year-old lady who is a resident [facility] brought to the ER for evaluation for fever and shortness of breath. Most of the history is limited as Patient is cognitively impaired and nonverbal at baseline. According to EMR, patient was having cough and shortness of breath for the last few days. Patient was also spiking fevers at facility. There was no nausea or vomiting. Because of the symptoms, patient was bedridden the ER, initially in the ER, patient of fever of 100.1. And she was tachycardic. Initial lab work done in the ER showed WBC 4.1, hemoglobin 13.2, platelet count 163, sodium 142, potassium 4.4, BUN/creatinine, creatinine 0.97, lactate 3.9 UA done showed large amount of leukocyte Estrace, urine WBC 7 Influenza A not detected Influenza B not detected RSV not detected COVID-19 not detected EKG done in the ER showed heart rate of 121, no ST segment elevation or depression seen, T-wave inversions seen in leads V4 and V5 and V6. Chest x-ray done in the ER shows prominent pulmonary vascular markings increased central lung markings. Patient admitted to internal medicine service 10/11. Patient seen and examined. Continues to be afebrile. 10/12. Patient seen and examined. Currently does not look in any acute distress. Blood work showed WBC 8.26, hemoglobin 9, platelet count 108, sodium 146, 3.7, BUN 17.2, creatinine 0.7 REVIEW OF SYSTEMS: Review of systems cannot be obtained as patient is nonverbal at baseline PHYSICAL EXAMINATION: GENERAL: The patient is cognitively impaired, nonverbal at baseline, chronic ill-looking HEENT: Pupils are round and equally reacting to light. EOMI. No scleral icterus. No conjunctival pallor. Normocephalic, atraumatic. No pharyngeal erythema. No thyromegaly. CARDIOVASCULAR: S1 and S2 present. No murmurs, rubs, or gallops. PULMONARY: Chest is clear to auscultation, no wheezing or crackles. ABDOMEN: Soft, nontender, nondistended, normoactive bowel sounds. No palpable organomegaly. MUSCULOSKELETAL: Right upper extremity contracture seen, erythema at right cubital area EXTREMITIES: No cyanosis, clubbing, or pedal edema. NEUROLOGICAL: Cognitively impaired SKIN: No rashes. Assessment and plan Acute hypoxemic respiratory failure Sepsis Bacterial pneumonia UTI Acute febrile illness Sinus tachycardia History of frequent UTI History of cognitive impairment Hyperlipidemia Monitor vital signs Monitor CBC Monitor CMP Continue telemetry monitoring Follow-up on blood cultures Follow-up on urine cultures Aspiration precautions Continue IV Zosyn Current IV fluids to 50 per hour Speech therapy consulted for evaluation for any aspiration Follow-up in ID recs Follow-up on pulmonary recs Labs and medication were reviewed.. Continue same treatment. Continue with symptomatic treatment. Resume home medication. Monitor labs and vitals. DVT and GI prophylaxis. Further recommendations as per clinical course of the patient Dictation was produced using [employer] dictation software. please excuse any grammatical, word or spelling errors. Objective - Vital Signs Vital signs: Vital Signs Temp 98.6 F 10/12/23 07:03 Pulse 100 10/12/23 07:03 Resp 22 10/12/23 07:03 BP 117/63 10/12/23 07:03 Pulse Ox 93 L 10/12/23 07:03 FiO2 Intake & Output 10/11/23 10/12/23 10/12/23 18:59 06:59 18:59 Output Total 200 300 Balance -200 -300 Output: Urine 200 300 Other: Voiding Method Diaper Diaper Diaper Incontinent Incontinent Incontinent External Catheter External Catheter - Labs CBC & Chem 7: 10/12/23 07:28 10/12/23 07:28 Labs: Abnormal Lab Results - Last 24 Hours (Table) 10/12/23 10/12/23 Range/Units 07:28 07:28 RBC 3.05 L (4.10-5.20) X 10*6/uL Hgb 9.0 L (12.0-15.0) g/dL Hct 29.6 L (37.2-46.3) % MCHC 30.4 L (32.0-37.0) g/dL RDW 15.1 H (11.5-14.5) % Plt Count 108 L (140-440) X 10*3/uL Immature Gran # 0.09 H (0.00-0.04) X 10*3/uL Sodium 146 H (135-145) mmol/L Chloride 115 H (96-109) mmol/L Carbon Dioxide 20.7 L (21.6-31.8) mmol/L BUN/Creatinine Ratio 24.57 H (12.00-20.00) Ratio Calcium 7.6 L (8.7-10.3) mg/dL Total Protein 4.9 L (6.2-8.2) g/dL Albumin 3.0 L (3.8-4.9) g/dL Albumin/Globulin Ratio 1.58 L (1.60-3.17) Ratio Microbiology - Last 24 Hours (Table) 10/10/23 04:31 Blood Culture - Preliminary Blood 10/10/23 04:29 Blood Culture - Preliminary Blood
--- NOTE | 2023-10-12 15:20 | P.PN ---
Subjective Progress Note Date: 10/11/23 Principal diagnosis: Reason for follow-up UTI and question of pneumonia Patient is a 68-year-old female with a past medical history significant for osteoarthritis Down syndrome cerebral palsy patient was sent to the ER for evaluation of increased shortness of breath and fever, patient did have a positive UA concerning for UTI and also noticed to have a chest x-ray mo stly with a pulmonary vascular congestion. On today's evaluation that is 10/11/2023, patient did have resolution of her fever and is afebrile today patient is breathing comfortably on 2 L nasal cannula oxygen no vomiting has been reported by the nursing staff patient still cannot provide any history. Patient white count of 8.9, creatinine 0.81 procalcitonin was 0.30 cultures are pending Objective - Vital Signs Vital signs: Vital Signs Temp 97.8 F 10/11/23 06:53 Pulse 88 10/11/23 06:53 Resp 19 10/11/23 06:53 BP 94/55 10/11/23 06:53 Pulse Ox 96 10/11/23 06:53 FiO2 Intake & Output 10/10/23 10/11/23 10/11/23 18:59 06:59 18:59 Output Total 50 350 Balance -50 -350 Weight 58.967 kg Output: Urine 50 350 Straight 50 Other: Voiding Method Diaper Diaper Incontinent Incontinent - Exam GENERAL DESCRIPTION: An elderly female lying in bed in no distress RESPIRATORY SYSTEM: Unlabored breathing , decreased breath sounds at bases HEART: S1 S2 regular rate and rhythm , ABDOMEN: Soft , distention but no tenderness EXTREMITIES: No edema feet - Labs CBC & Chem 7: 10/12/23 07:28 10/12/23 07:28 Labs: Abnormal Lab Results - Last 24 Hours (Table) 10/10/23 10/11/23 10/11/23 Range/Units 06:30 10:57 10:57 RBC 3.42 L (3.80-5.40) m/uL Hgb 10.5 L (11.4-16.0) gm/dL Hct 33.5 L (34.0-46.0) % Plt Count 116 L (150-450) k/uL Lymphocytes # 0.9 L (1.0-4.8) k/uL Chloride 111 H (98-107) mmol/L Carbon Dioxide 21 L (22-30) mmol/L BUN 27 H (7-17) mg/dL Calcium 8.1 L (8.4-10.2) mg/dL Total Protein 5.5 L (6.3-8.2) g/dL Albumin 3.0 L (3.5-5.0) g/dL Procalcitonin 0.30 H (0.02-0.09) ng/mL Assessment and Plan (1) UTI (urinary tract infection) Current Visit: Yes Status: Acute Code(s): N39.0 - URINARY TRACT INFECTION, SITE NOT SPECIFIED SNOMED Code(s): 85709964 (2) Community acquired pneumonia Current Visit: Yes Status: Acute Code(s): J18.9 - PNEUMONIA, UNSPECIFIED ORGANISM SNOMED Code(s): 862193194 Plan: 1patient was in the hospital with sepsis in this patient noted to have a fever tachycardia hypotension source likely urinary underlying pneumonia not entirely excluded 2the patient had mild elevated procalcitonin cultures are currently pending. Patient to continue with Zosyn while waiting for the culture to finalize and monitor clinical course closely Dictation was produced using [employer] dictation software. please excuse any grammatical, word or spelling errors. Time with Patient: Less than 30
--- NOTE | 2023-10-12 15:24 | P.PN ---
Subjective Progress Note Date: 10/12/23 Principal diagnosis: Reason for follow-up UTI and question of pneumonia Patient is a 68-year-old female with a past medical history significant for osteoarthritis Down syndrome cerebral palsy patient was sent to the ER for evaluation of increased shortness of breath and fever, patient did have a positive UA concerning for UTI and also noticed to have a chest x-ray mo stly with a pulmonary vascular congestion. On today's evaluation that is 10/12/2023, patient remains to be afebrile, the patient seem to be slightly more awake today however nonverbal unable to provide any history patient did have some abdominal distention and did not have any bowel movement per the nursing staff however patient has been eating pudding and no vomiting has been reported Patient white count of 8.26 creatinine is 0.7 cultures currently pending Objective - Vital Signs Vital signs: Vital Signs Temp 98.6 F 10/12/23 07:03 Pulse 100 10/12/23 07:03 Resp 22 10/12/23 07:03 BP 117/63 10/12/23 07:03 Pulse Ox 93 L 10/12/23 07:03 FiO2 Intake & Output 10/11/23 10/12/23 10/12/23 18:59 06:59 18:59 Output Total 200 300 Balance -200 -300 Output: Urine 200 300 Other: Voiding Method Diaper Diaper Diaper Incontinent Incontinent Incontinent External Catheter External Catheter - Exam GENERAL DESCRIPTION: An elderly female lying in bed in no distress RESPIRATORY SYSTEM: Unlabored breathing , decreased breath sounds at bases HEART: S1 S2 regular rate and rhythm , ABDOMEN: Soft , distention but no tenderness EXTREMITIES: No edema feet - Labs CBC & Chem 7: 10/12/23 07:28 10/12/23 07:28 Labs: Abnormal Lab Results - Last 24 Hours (Table) 10/12/23 10/12/23 Range/Units 07:28 07:28 RBC 3.05 L (4.10-5.20) X 10*6/uL Hgb 9.0 L (12.0-15.0) g/dL Hct 29.6 L (37.2-46.3) % MCHC 30.4 L (32.0-37.0) g/dL RDW 15.1 H (11.5-14.5) % Plt Count 108 L (140-440) X 10*3/uL Immature Gran # 0.09 H (0.00-0.04) X 10*3/uL Sodium 146 H (135-145) mmol/L Chloride 115 H (96-109) mmol/L Carbon Dioxide 20.7 L (21.6-31.8) mmol/L BUN/Creatinine Ratio 24.57 H (12.00-20.00) Ratio Calcium 7.6 L (8.7-10.3) mg/dL Total Protein 4.9 L (6.2-8.2) g/dL Albumin 3.0 L (3.8-4.9) g/dL Albumin/Globulin Ratio 1.58 L (1.60-3.17) Ratio Microbiology - Last 24 Hours (Table) 10/10/23 04:31 Blood Culture - Preliminary Blood 10/10/23 04:29 Blood Culture - Preliminary Blood Assessment and Plan (1) Community acquired pneumonia Current Visit: Yes Status: Acute Code(s): J18.9 - PNEUMONIA, UNSPECIFIED ORGANISM SNOMED Code(s): 741032202 (2) UTI (urinary tract infection) Current Visit: Yes Status: Acute Code(s): N39.0 - URINARY TRACT INFECTION, SITE NOT SPECIFIED SNOMED Code(s): 93111677 Plan: 1patient was in the hospital with sepsis in this patient noted to have a fever tachycardia hypotension source likely urinary underlying pneumonia not entirely excluded 2the patient had mild elevated procalcitonin cultures are currently pending. 3patient did have some abdominal distention will obtain acute abdominal series continue with Zosyn while waiting for the culture to finalize Dictation was produced using [employer] dictation software. please excuse any grammatical, word or spelling errors. Time with Patient: Less than 30
--- NOTE | 2023-10-12 15:38 | P.PN ---
Subjective Progress Note Date: 10/12/23 Principal diagnosis: Acute hypoxic respiratory failure secondary to acute community-acquired pneumonia possible aspiration pneumonia I am seeing this patient in consultation today 10/10/2023 in the emergency room after she was brought in from her [facility] home. Apparently she's been having shortness of breath, congested cough, and fever. Patient is cognitively impaired and nonverbal at baseline. Other than that, little is known about the patient's past medical history. Her listed, patient is unable to provide any medical history. It looks like the patient had a positive UTI at the beginning of September, isolated organism enterococcus faecalis. She apparently was brought in for evaluation for a congested cough, shortness of breath, and fever. She is currently lying in bed, on 2 L/m nasal cannula, in no acute distress. SpO2 is 98%. She does have a congested cough. She was febrile on arrival with a T-max of 100.1F. She is tachycardic. Blood pressure stable. Chest x-ray arrival shows diffuse bilateral infiltrates. Negative for influenza, RSV, COVID-19. CBC was unremarkable. No leukocytosis. BMP shows sodium 142, potassium 4.4, chloride 102, serum bicarb 24, BUN 29, creatinine 0.97, glucose 133. Lactic acid level was mildly elevated at 3.9. Normal saline infusing at 75 ml/hr. Troponins less than 0.012. NT proBNP not elevated. Urinalysis appears to be contaminated. We'll repeat. Vital signs are stable. Reevaluated today on 10/11/2023, patient seems to be quite comfortable, she is on nasal cannula, nonverbal, not in any distress, remains on antibiotics for her acute pneumonia as noted on admission chest x-ray. WBC count is 8.9 hemoglobin 10.5 basic metabolic profile is normal renal profile is normal Reevaluated today on 10/12/2023 , Patient is doing well, seems to be very comfortable, she is now on 3 L nasal cannula with O2 sats of 93% and blood pressure 94/74 temp is 97.3, patient again is nonverbal, and she seems to be doing well clinically. I am recommending repeat chest x-ray on this patient, and this will be done tomorrow. Patient has urinary tract infection in addition to her pneumonia, remains on Zosyn in the meantime Objective - Vital Signs Vital signs: Vital Signs Temp 97.9 F 10/12/23 13:26 Pulse 100 10/12/23 13:26 Resp 23 10/12/23 13:26 BP 131/64 10/12/23 13:26 Pulse Ox 95 10/12/23 13:26 FiO2 Intake & Output 10/11/23 10/12/23 10/12/23 18:59 06:59 18:59 Output Total 200 300 Balance -200 -300 Output: Urine 200 300 Other: Voiding Method Diaper Diaper Diaper Incontinent Incontinent Incontinent External Catheter External Catheter - Exam Physical Exam: Revealed 68-year-old female in no distress, on nasal cannula Head: Atraumatic, normocephalic. HEENT:[Neck is supple.] [No neck masses.] [No thyromegaly.] [No JVD.] Chest: [Diminished breath sound bilaterally no rhonchi and no wheezes.] Cardiac Exam: [Normal S1 and S2, no S3 gallop, no murmur.] Abdomen: [Soft, nontender, no megaly, no rebound, no guarding, normal bowel sounds.] Extremities: flexion contractures noted on both upper extremities and significant deformities noted in both hands Neurological Exam: Cannot assess, patient is nonverbal and does not follow any instructions - Labs CBC & Chem 7: 10/12/23 07:28 10/12/23 07:28 Labs: Abnormal Lab Results - Last 24 Hours (Table) 10/12/23 10/12/23 Range/Units 07:28 07:28 RBC 3.05 L (4.10-5.20) X 10*6/uL Hgb 9.0 L (12.0-15.0) g/dL Hct 29.6 L (37.2-46.3) % MCHC 30.4 L (32.0-37.0) g/dL RDW 15.1 H (11.5-14.5) % Plt Count 108 L (140-440) X 10*3/uL Immature Gran # 0.09 H (0.00-0.04) X 10*3/uL Sodium 146 H (135-145) mmol/L Chloride 115 H (96-109) mmol/L Carbon Dioxide 20.7 L (21.6-31.8) mmol/L BUN/Creatinine Ratio 24.57 H (12.00-20.00) Ratio Calcium 7.6 L (8.7-10.3) mg/dL Total Protein 4.9 L (6.2-8.2) g/dL Albumin 3.0 L (3.8-4.9) g/dL Albumin/Globulin Ratio 1.58 L (1.60-3.17) Ratio Microbiology - Last 24 Hours (Table) 10/10/23 04:31 Blood Culture - Preliminary Blood 10/10/23 04:29 Blood Culture - Preliminary Blood Assessment and Plan Assessment: Impression: Acute hypoxic respiratory failure Acute community-acquired pneumonia or possibly aspiration pneumonia most likely. Acute febrile illness History of recurrent urinary tract infection Cognitive impairment Recommendation: Repeat chest x-ray in a.m. Continue Zosyn Continue oxygen and titrate accordingly Continue bronchodilators Resume home meds We'll continue to follow Time with Patient: Less than 30
--- NOTE | 2023-10-12 18:30 | XR ---
EXAMINATION TYPE: XR abdomen acute w cxr DATE OF EXAM: 10/12/2023 5:42 PM CLINICAL INDICATION:Female, 68 years old with history of abd distension; [facility] COMPARISON: None. TECHNIQUE: Two radiographic views of the abdomen (upright and supine) and a frontal chest radiograph were obtained. FINDINGS CHEST: Lungs/Pleura: Limited evaluation of the right perihilar region due to patient's hand. There may be so me right lower perihilar airspace opacities. Is no evidence of pleural effusion, focal consolidation or pneumothorax. Mediastinum: Unremarkable. Vasculature: Normal. Heart: Normal in size. Musculoskeletal: The osseous structures are intact. Other findings: No significant. FINDINGS ABDOMEN: Bowel gas pattern: Normal without dilated loops of small or large bowel. Fecal material and gas are d emonstrated throughout the colon and rectum. Abnormal calcifications: None. Musculoskeletal: Normal. Other: None. IMPRESSION: 1. Limited evaluation right midlung secondary to patient's hand. There appears to be right perihilar airspace opacities correlate for pneumonia. 2. Nonspecific bowel gas pattern.
[2023-10-12] MEDS: ATORVASTATIN 20 MG TAB PO SCH (20:53)
[2023-10-12] MEDS: QUEtiapine 400 MG TAB PO SCH (20:53)
[2023-10-12] MEDS: ALPRAZolam 0.25 MG TAB PO SCH (20:53)
[2023-10-12] MEDS: BACLOFEN 10 MG TAB PO SCH (20:53)
[2023-10-13] MEDS: PIPERACILLIN-TAZOBACTAM 3.375 GM in SODIUM CHLORIDE 0.9% 100 ML IVPB SCH ×3 (00:33→15:50)
[2023-10-13] MEDS: SODIUM CHLORIDE 0.9% 1,000 ML IV SCH (00:35)
[2023-10-13] MEDS: PANTOPRAZOLE SODIUM 40 MG GRANULE PKT PO SCH (06:54)
[2023-10-13] MEDS: polyethylene glycoL 3350 17 GM POWD.PACK PO SCH (08:22)
[2023-10-13] MEDS: ASPIRIN 81 MG PO SCH (08:22)
[2023-10-13] MEDS: busPIRone HCl 10 MG TAB PO SCH ×2 (08:22→22:00)
[2023-10-13 11:07] LABS: ALT 14 U/L (8-44); AST 16 U/L (13-35); Albumin 3.3 g/dL (3.8-4.9); Alkaline Phosphatase 101 U/L (41-126); Blood Urea Nitrogen 10.5 mg/dL (9.0-27.0); Calcium 8.3 mg/dL (8.7-10.3); Carbon Dioxide 21.7 mmol/L (21.6-31.8); Chloride 112 mmol/L (96-109); Globulin 2.2 g/dL (1.6-3.3); Glucose 105 mg/dL (70-110); Potassium 3.4 mmol/L (3.5-5.5); Sodium 144 mmol/L (135-145); Total Bilirubin 0.5 mg/dL (0.3-1.2); Total Protein 5.5 g/dL (6.2-8.2)
[2023-10-13 11:22] LABS: Basophils # (A) 0.04 X 10*3/uL (0.00-0.10); Basophils % (A) 0.5 %; Eosinophils # (A) 0.13 X 10*3/uL (0.04-0.35); Eosinophils % (A) 1.5 %; HCT 32.7 % (37.2-46.3); HGB 10.3 g/dL (12.0-15.0); Lymphocytes # (A) 1.49 X 10*3/uL (0.90-5.00); Lymphocytes % (A) 17.6 %; MCH 29.4 pg (27.0-32.0); MCHC 31.5 g/dL (32.0-37.0); MCV 93.4 FL (80.0-97.0); Mean Platelet Volume 10.5 FL (9.5-12.2); Monocytes # (A) 0.57 X 10*3/uL (0.20-1.00); Monocytes % (A) 6.7 %; NRBC Per 100 WBC 0 X 10*3/uL (0.00-0.01); Neutrophils # (A) 6.13 X 10*3/uL (1.80-7.70); Neutrophils % (A) 72.6 %; Platelet Count 144 X 10*3/uL (140-440); RDW 14.7 % (11.5-14.5); WBC 8.45 X 10*3/uL (4.50-10.00)
[2023-10-13] MEDS ORDERED: POTASSIUM CHLORIDE ER 10 MEQ TAB.ER.PRT PO STA (13:36)
--- NOTE | 2023-10-13 15:40 | P.PN ---
Subjective Progress Note Date: 10/13/23 I am seeing this patient in consultation today 10/10/2023 in the emergency room after she was brought in from her [facility] home. Apparently she's been having shortness of breath, congested cough, and fever. Patient is cognitively impaired and nonverbal at baseline. Other than that, little is known about the patient's past medical history. Her listed, patient is unable to provide any medical history. It looks like the patient had a positive UTI at the beginning of September, isolated organism enterococcus faecalis. She apparently was brought in for evaluation for a congested cough, shortness of breath, and fever. She is currently lying in bed, on 2 L/m nasal cannula, in no acute distress. SpO2 is 98%. She does have a congested cough. She was febrile on arrival with a T-max of 100.1F. She is tachycardic. Blood pressure stable. Chest x-ray arrival shows diffuse bilateral infiltrates. Negative for influenza, RSV, COVID-19. CBC was unremarkable. No leukocytosis. BMP shows sodium 142, potassium 4.4, chloride 102, serum bicarb 24, BUN 29, creatinine 0.97, glucose 133. Lactic acid level was mildly elevated at 3.9. Normal saline infusing at 75 ml/hr. Troponins less than 0.012. NT proBNP not elevated. Urinalysis appears to be contaminated. We'll repeat. Vital signs are stable. Reevaluated today on 10/11/2023, patient seems to be quite comfortable, she is on nasal cannula, nonverbal, not in any distress, remains on antibiotics for her acute pneumonia as noted on admission chest x-ray. WBC count is 8.9 hemoglobin 10.5 basic metabolic profile is normal renal profile is normal Reevaluated today on 10/12/2023 , Patient is doing well, seems to be very comfortable, she is now on 3 L nasal cannula with O2 sats of 93% and blood pressure 94/74 temp is 97.3, patient again is nonverbal, and she seems to be doing well clinically. I am recommending repeat chest x-ray on this patient, and this will be done tomorrow. Patient has urinary tract infection in addition to her pneumonia, remains on Zosyn in the meantime The patient is seen today 10/13/2023 in follow-up on the regular medical floor. She is currently resting in bed. Awake. No acute distress. Maintaining O2 saturations in the mid 90s on room air. She's been afebrile. Hemodynamically stable. Chest x-ray revealed limited evaluation of the right midlung secondary to the patient's hand. Abdomen revealed non-specific all gas pattern. Cultures reveal no growth. White count 8.4. Hemoglobin 10.3. Platelets 144. Sodium 144. Potassium 3.4. Bicarb 22. BUN 10. Creatinine 0.7. She is continued on antibiotics in the form of Zosyn. Remains on bronchodilators. Normal saline at 50 MLS per hour. Objective - Vital Signs Vital signs: Vital Signs Temp 98.4 F 10/13/23 13:08 Pulse 110 H 10/13/23 13:08 Resp 22 10/13/23 13:08 BP 122/65 10/13/23 13:08 Pulse Ox 96 10/13/23 13:08 FiO2 Intake & Output 10/12/23 10/13/23 10/13/23 18:59 06:59 18:59 Output Total 800 800 Balance -800 -800 Output: Urine 800 800 Other: Voiding Method Diaper Diaper Diaper Incontinent Incontinent Incontinent External Catheter External Catheter External Catheter - Exam Physical Exam: Revealed 68-year-old female in no distress, on room air Head: Atraumatic, normocephalic. HEENT:Neck is supple. No neck masses. No thyromegaly. No JVD. Chest: Diminished breath sound bilaterally no rhonchi and no wheezes. Cardiac Exam: Normal S1 and S2, no S3 gallop, no murmur. Abdomen: Soft, nontender, no megaly, no rebound, no guarding, normal bowel sounds. Extremities: fFexion contractures noted on both upper extremities and significant deformities noted in both hands Neurological Exam: Cannot assess, patient is nonverbal and does not follow any instructions - Labs CBC & Chem 7: 10/13/23 06:16 10/13/23 06:16 Labs: Abnormal Lab Results - Last 24 Hours (Table) 10/13/23 10/13/23 Range/Units 06:16 06:16 RBC 3.50 L (4.10-5.20) X 10*6/uL Hgb 10.3 L (12.0-15.0) g/dL Hct 32.7 L (37.2-46.3) % MCHC 31.5 L (32.0-37.0) g/dL RDW 14.7 H (11.5-14.5) % Immature Gran # 0.09 H (0.00-0.04) X 10*3/uL Potassium 3.4 L (3.5-5.5) mmol/L Chloride 112 H (96-109) mmol/L Calcium 8.3 L (8.7-10.3) mg/dL Total Protein 5.5 L (6.2-8.2) g/dL Albumin 3.3 L (3.8-4.9) g/dL Albumin/Globulin Ratio 1.50 L (1.60-3.17) Ratio Microbiology - Last 24 Hours (Table) 10/10/23 04:31 Blood Culture - Preliminary Blood 10/10/23 04:29 Blood Culture - Preliminary Blood Assessment and Plan Assessment: Acute hypoxic respiratory failure secondary to acute community-acquired pneumonia or possibly aspiration pneumonia most likely Acute febrile illness History of recurrent urinary tract infection Cognitive impairment Plan: The patient was seen and evaluated Chest x-ray, labs and medications reviewed Continue the current treatment plan Currently stable on room air Remains on Zosyn We will continue to follow I have personally seen and examined the patient, performed the documentation and the assessment and plan as written. Number of minutes spent on the visit: 10.
--- NOTE | 2023-10-13 16:26 | P.PN ---
Subjective Progress Note Date: 10/13/23 Principal diagnosis: Reason for follow-up UTI and question of pneumonia Patient is a 68-year-old female with a past medical history significant for osteoarthritis Down syndrome cerebral palsy patient was sent to the ER for evaluation of increased shortness of breath and fever, patient did have a positive UA concerning for UTI and also noticed to have a chest x-ray mo stly with a pulmonary vascular congestion. On today's evaluation that is 10/13/2023, the patient continues to be afebrile the patient is breathing comfortably on room air, the patient seem to be slightly more awake and alert today and asking when she can go home no other questions were answered no vomiting has been reported by the nursing staff patient seem to be tolerating her diet Patient did have vital of 8.45, creatinine 0.7 acute abdominal series right midlung/perihilar airspace opacity correlate for pneumonia Objective - Vital Signs Vital signs: Vital Signs Temp 98.4 F 10/13/23 13:08 Pulse 110 H 10/13/23 13:08 Resp 22 10/13/23 13:08 BP 122/65 10/13/23 13:08 Pulse Ox 96 10/13/23 13:08 FiO2 Intake & Output 10/12/23 10/13/23 10/13/23 18:59 06:59 18:59 Output Total 800 800 Balance -800 -800 Output: Urine 800 800 Other: Voiding Method Diaper Diaper Diaper Incontinent Incontinent Incontinent External Catheter External Catheter External Catheter - Exam GENERAL DESCRIPTION: An elderly female lying in bed in no distress RESPIRATORY SYSTEM: Unlabored breathing , decreased breath sounds at bases HEART: S1 S2 regular rate and rhythm , ABDOMEN: Soft , distention but no tenderness EXTREMITIES: No edema feet - Labs CBC & Chem 7: 10/13/23 06:16 10/13/23 06:16 Labs: Abnormal Lab Results - Last 24 Hours (Table) 10/13/23 10/13/23 Range/Units 06:16 06:16 RBC 3.50 L (4.10-5.20) X 10*6/uL Hgb 10.3 L (12.0-15.0) g/dL Hct 32.7 L (37.2-46.3) % MCHC 31.5 L (32.0-37.0) g/dL RDW 14.7 H (11.5-14.5) % Immature Gran # 0.09 H (0.00-0.04) X 10*3/uL Potassium 3.4 L (3.5-5.5) mmol/L Chloride 112 H (96-109) mmol/L Calcium 8.3 L (8.7-10.3) mg/dL Total Protein 5.5 L (6.2-8.2) g/dL Albumin 3.3 L (3.8-4.9) g/dL Albumin/Globulin Ratio 1.50 L (1.60-3.17) Ratio Microbiology - Last 24 Hours (Table) 10/10/23 04:31 Blood Culture - Preliminary Blood 10/10/23 04:29 Blood Culture - Preliminary Blood Assessment and Plan (1) Community acquired pneumonia Current Visit: Yes Status: Acute Code(s): J18.9 - PNEUMONIA, UNSPECIFIED ORGANISM SNOMED Code(s): 990755708 (2) UTI (urinary tract infection) Current Visit: Yes Status: Acute Code(s): N39.0 - URINARY TRACT INFECTION, SITE NOT SPECIFIED SNOMED Code(s): 60122982 Plan: 1patient was in the hospital with sepsis in this patient noted to have a fever tachycardia hypotension source likely urinary underlying pneumonia not entirely excluded 2the patient had mild elevated procalcitonin cultures are currently pending. 3abdominal x-rays did not show any evidence of obstruction mention right middle lung opacity concerning for possible aspiration pneumonia patient is covered with Zosyn along with aspiration precaution Dictation was produced using [employer] dictation software. please excuse any grammatical, word or spelling errors. Time with Patient: Less than 30
[2023-10-13] MEDS: ALPRAZolam 0.25 MG TAB PO SCH (21:59)
[2023-10-13] MEDS: ATORVASTATIN 20 MG TAB PO SCH (21:59)
[2023-10-13] MEDS: BACLOFEN 10 MG TAB PO SCH (21:59)
[2023-10-13] MEDS: QUEtiapine 400 MG TAB PO SCH (22:00)
[2023-10-14] MEDS: PIPERACILLIN-TAZOBACTAM 3.375 GM in SODIUM CHLORIDE 0.9% 100 ML IVPB SCH ×4 (00:51→23:56)
[2023-10-14] MEDS: SODIUM CHLORIDE 0.9% 1,000 ML IV SCH ×2 (00:53→20:34)
[2023-10-14] MEDS: PANTOPRAZOLE SODIUM 40 MG GRANULE PKT PO SCH (06:34)
[2023-10-14] MEDS: ASPIRIN 81 MG PO SCH ×2 (09:06→09:13)
[2023-10-14] MEDS: polyethylene glycoL 3350 17 GM POWD.PACK PO SCH ×2 (09:06→09:13)
[2023-10-14] MEDS: busPIRone HCl 10 MG TAB PO SCH ×2 (09:06→09:09)
[2023-10-14 09:21] LABS: Basophils # (A) 0.06 X 10*3/uL (0.00-0.10); Basophils % (A) 0.9 %; Eosinophils # (A) 0.11 X 10*3/uL (0.04-0.35); Eosinophils % (A) 1.6 %; HCT 34.7 % (37.2-46.3); HGB 10.9 g/dL (12.0-15.0); Lymphocytes # (A) 1.44 X 10*3/uL (0.90-5.00); Lymphocytes % (A) 21.5 %; MCH 29.5 pg (27.0-32.0); MCHC 31.4 g/dL (32.0-37.0); MCV 93.8 FL (80.0-97.0); Mean Platelet Volume 10.5 FL (9.5-12.2); Monocytes # (A) 0.62 X 10*3/uL (0.20-1.00); Monocytes % (A) 9.2 %; NRBC Per 100 WBC 0 X 10*3/uL (0.00-0.01); Neutrophils # (A) 4.39 X 10*3/uL (1.80-7.70); Neutrophils % (A) 65.5 %; Platelet Count 164 X 10*3/uL (140-440); RDW 14.9 % (11.5-14.5); WBC 6.71 X 10*3/uL (4.50-10.00)
[2023-10-14 09:45] LABS: BUN/Creat Ratio 11.86 Ratio (12.00-20.00); Blood Urea Nitrogen 8.3 mg/dL (9.0-27.0); Glucose 82 mg/dL (70-110)
[2023-10-14 09:46] LABS: Calcium 8.7 mg/dL (8.7-10.3); Carbon Dioxide 15.7 mmol/L (21.6-31.8); Chloride 108 mmol/L (96-109); Potassium 3.7 mmol/L (3.5-5.5); Sodium 141 mmol/L (135-145)
--- NOTE | 2023-10-14 14:43 | P.PN ---
Subjective Progress Note Date: 10/14/23 Principal diagnosis: Acute hypoxic respiratory failure secondary to acute community-acquired pneumonia possible aspiration pneumonia I am seeing this patient in consultation today 10/10/2023 in the emergency room after she was brought in from her [facility] home. Apparently she's been having shortness of breath, congested cough, and fever. Patient is cognitively impaired and nonverbal at baseline. Other than that, little is known about the patient's past medical history. Her listed, patient is unable to provide any medical history. It looks like the patient had a positive UTI at the beginning of September, isolated organism enterococcus faecalis. She apparently was brought in for evaluation for a congested cough, shortness of breath, and fever. She is currently lying in bed, on 2 L/m nasal cannula, in no acute distress. SpO2 is 98%. She does have a congested cough. She was febrile on arrival with a T-max of 100.1F. She is tachycardic. Blood pressure stable. Chest x-ray arrival shows diffuse bilateral infiltrates. Negative for influenza, RSV, COVID-19. CBC was unremarkable. No leukocytosis. BMP shows sodium 142, potassium 4.4, chloride 102, serum bicarb 24, BUN 29, creatinine 0.97, glucose 133. Lactic acid level was mildly elevated at 3.9. Normal saline infusing at 75 ml/hr. Troponins less than 0.012. NT proBNP not elevated. Urinalysis appears to be contaminated. We'll repeat. Vital signs are stable. Reevaluated today on 10/11/2023, patient seems to be quite comfortable, she is on nasal cannula, nonverbal, not in any distress, remains on antibiotics for her acute pneumonia as noted on admission chest x-ray. WBC count is 8.9 hemoglobin 10.5 basic metabolic profile is normal renal profile is normal Reevaluated today on 10/12/2023 , Patient is doing well, seems to be very comfortable, she is now on 3 L nasal cannula with O2 sats of 93% and blood pressure 94/74 temp is 97.3, patient again is nonverbal, and she seems to be doing well clinically. I am recommending repeat chest x-ray on this patient, and this will be done tomorrow. Patient has urinary tract infection in addition to her pneumonia, remains on Zosyn in the meantime Reevaluated today on 10/14/23, patient is basically about the same, remains very comfortable, not in any distress, nonverbal, does not follow any instructions, then receiving antibiotics for presumptive aspiration pneumonia. I am planning to repeat chest x-ray on this patient in the next 24-48 hours. In the meantime I plan is to continue antibiotics. CBC today is relatively normal basic metabolic profile is normal and renal profile is normal Objective - Vital Signs Vital signs: Vital Signs Temp 99.2 F 10/14/23 12:48 Pulse 124 H 10/14/23 12:48 Resp 18 10/14/23 12:48 BP 159/64 10/14/23 12:48 Pulse Ox 97 10/14/23 12:48 FiO2 Intake & Output 10/13/23 10/14/23 10/14/23 18:59 06:59 18:59 Output Total 800 300 Balance -800 -300 Output: Urine 800 300 Other: Voiding Method Diaper Diaper Diaper Incontinent Incontinent Incontinent External Catheter External Catheter External Catheter # Voids 3 1 # Bowel Movements 1 - Exam Physical Exam: Revealed 68-year-old female in no distress, on room air today, O2 sats is 97% Head: Atraumatic, normocephalic. HEENT:[Neck is supple.] [No neck masses.] [No thyromegaly.] [No JVD.] Chest: [Diminished breath sound bilaterally no rhonchi and no wheezes.] Cardiac Exam: [Normal S1 and S2, no S3 gallop, no murmur.] Abdomen: [Soft, nontender, no megaly, no rebound, no guarding, normal bowel sounds.] Extremities: flexion contractures noted on both upper extremities and significant deformities noted in both hands Neurological Exam: Cannot assess, patient is nonverbal and does not follow any instructions - Labs CBC & Chem 7: 10/14/23 06:07 10/14/23 06:07 Labs: Abnormal Lab Results - Last 24 Hours (Table) 10/14/23 10/14/23 Range/Units 06:07 06:07 RBC 3.70 L (4.10-5.20) X 10*6/uL Hgb 10.9 L (12.0-15.0) g/dL Hct 34.7 L (37.2-46.3) % MCHC 31.4 L (32.0-37.0) g/dL RDW 14.9 H (11.5-14.5) % Immature Gran # 0.09 H (0.00-0.04) X 10*3/uL Carbon Dioxide 15.7 L (21.6-31.8) mmol/L Anion Gap 17.30 H (4.00-12.00) mmol/L BUN 8.3 L (9.0-27.0) mg/dL BUN/Creatinine Ratio 11.86 L (12.00-20.00) Ratio Microbiology - Last 24 Hours (Table) 10/10/23 04:31 Blood Culture - Preliminary Blood 10/10/23 04:29 Blood Culture - Preliminary Blood Assessment and Plan Assessment: Impression: Acute hypoxic respiratory failure Acute community-acquired pneumonia or possibly aspiration pneumonia most likely. Acute febrile illness History of recurrent urinary tract infection Cognitive impairment Recommendation: Continue Zosyn Continue oxygen and titrate accordingly Continue bronchodilators Repeat chest x-ray on Monday We'll continue to follow Time with Patient: Less than 30
--- NOTE | 2023-10-14 19:00 | P.PN ---
Subjective Progress Note Date: 10/13/23 68-year-old lady who is a resident of [facility] facility brought to the ER for evaluation for fever and shortness of breath. Most of the history is limited as Patient is cognitively impaired and nonverbal at baseline. According to EMR, patient was having cough and shortness of breath for the last few days. Patient was also spiking fevers at facility. There was no nausea or vomiting. Because of the symptoms, patient was bedridden the ER, initially in the ER, patient of fever of 100.1. And she was tachycardic. Initial lab work done in the ER showed WBC 4.1, hemoglobin 13.2, platelet count 163, sodium 142, potassium 4.4, BUN/creatinine, creatinine 0.97, lactate 3.9 UA done showed large amount of leukocyte Estrace, urine WBC 7 Influenza A not detected Influenza B not detected RSV not detected COVID-19 not detected EKG done in the ER showed heart rate of 121, no ST segment elevation or d epression seen, T-wave inversions seen in leads V4 and V5 and V6. Chest x-ray done in the ER shows prominent pulmonary vascular markings increased central lung markings. Objective - Vital Signs Vital signs: Vital Signs Temp 98.4 F 10/13/23 13:08 Pulse 110 H 10/13/23 13:08 Resp 22 10/13/23 13:08 BP 122/65 10/13/23 13:08 Pulse Ox 96 10/13/23 13:08 FiO2 Intake & Output 10/12/23 10/13/23 10/13/23 18:59 06:59 18:59 Output Total 800 800 Balance -800 -800 Output: Urine 800 800 Other: Voiding Method Diaper Diaper Diaper Incontinent Incontinent Incontinent External Catheter External Catheter External Catheter - Exam GENERAL: The patient is cognitively impaired, nonverbal at baseline, chronic ill-looking HEENT: Pupils are round and equally reacting to light. EOMI. No scleral icterus. No conjunctival pallor. Normocephalic, atraumatic. No pharyngeal erythema. No thyromegaly. CARDIOVASCULAR: S1 and S2 present. No murmurs, rubs, or gallops. PULMONARY: Chest is clear to auscultation, no wheezing or crackles. ABDOMEN: Soft, nontender, nondistended, normoactive bowel sounds. No palpable organomegaly. MUSCULOSKELETAL: Right upper extremity contracture seen, erythema at right cubital area EXTREMITIES: No cyanosis, clubbing, or pedal edema. NEUROLOGICAL: Cognitively impaired SKIN: No rashes. - Labs CBC & Chem 7: 10/14/23 06:07 10/14/23 06:07 Labs: Abnormal Lab Results - Last 24 Hours (Table) 10/13/23 10/13/23 Range/Units 06:16 06:16 RBC 3.50 L (4.10-5.20) X 10*6/uL Hgb 10.3 L (12.0-15.0) g/dL Hct 32.7 L (37.2-46.3) % MCHC 31.5 L (32.0-37.0) g/dL RDW 14.7 H (11.5-14.5) % Immature Gran # 0.09 H (0.00-0.04) X 10*3/uL Potassium 3.4 L (3.5-5.5) mmol/L Chloride 112 H (96-109) mmol/L Calcium 8.3 L (8.7-10.3) mg/dL Total Protein 5.5 L (6.2-8.2) g/dL Albumin 3.3 L (3.8-4.9) g/dL Albumin/Globulin Ratio 1.50 L (1.60-3.17) Ratio Microbiology - Last 24 Hours (Table) 10/10/23 04:31 Blood Culture - Preliminary Blood 10/10/23 04:29 Blood Culture - Preliminary Blood Assessment and Plan Assessment: Acute hypoxemic respiratory failure Sepsis Bacterial pneumonia UTI Acute febrile illness Sinus tachycardia History of frequent UTI History of cognitive impairment Hyperlipidemia Monitor vital signs Monitor CBC Monitor CMP Continue telemetry monitoring Follow-up on blood cultures Follow-up on urine cultures Aspiration precautions Continue IV Zosyn Current IV fluids to 50 per hour Speech therapy consulted for evaluation for any aspiration Follow-up in ID recs Follow-up on pulmonary recs
--- NOTE | 2023-10-14 19:19 | P.PN ---
Subjective Progress Note Date: 10/14/23 68-year-old lady who is a resident of custodial facility brought to the ER for evaluation for fever and shortness of breath. Most of the history is limited as Patient is cognitively impaired and nonverbal at baseline. According to EMR, patient was having cough and shortness of breath for the last few days. Patient was also spiking fevers at facility. There was no nausea or vomiting. Because of the symptoms, patient was bedridden the ER, initially in the ER, patient of fever of 100.1. And she was tachycardic. Initial lab work done in the ER showed WBC 4.1, hemoglobin 13.2, platelet count 163, sodium 142, potassium 4.4, BUN/creatinine, creatinine 0.97, lactate 3.9 UA done showed large amount of leukocyte Estrace, urine WBC 7 Influenza A not detected Influenza B not detected RSV not detected COVID-19 not detected EKG done in the ER showed heart rate of 121, no ST segment elevation or d epression seen, T-wave inversions seen in leads V4 and V5 and V6. Chest x-ray done in the ER shows prominent pulmonary vascular markings increased central lung markings. 10/14/2023 Patient is seen and evaluated in room at bedside; discussed with nursing staff and no specific complaints reported Vital signs are reviewed with temperature 99.2, pulse 124, respiration 18 and blood pressure 159/64 Lab review shows to CBC of 6.7, hemoglobin of 10.9 and platelet count of 164, sodium 141, potassium 3.7, BUN/creatinine of 3.3/0.7 Patient remains on IV Zosyn therapy -- pulmonary service on board and recommending to chest x-ray next 24-48 hours with further plan of care Objective - Vital Signs Vital signs: Vital Signs Temp 99.2 F 10/14/23 07:03 Pulse 70 10/14/23 09:06 Resp 16 10/14/23 09:06 BP 107/65 10/14/23 07:03 Pulse Ox 92 L 10/14/23 07:03 FiO2 Intake & Output 10/13/23 10/14/23 10/14/23 18:59 06:59 18:59 Output Total 800 300 Balance -800 -300 Output: Urine 800 300 Other: Voiding Method Diaper Diaper Diaper Incontinent Incontinent Incontinent External Catheter External Catheter External Catheter # Voids 3 1 # Bowel Movements 1 - Exam GENERAL: The patient is cognitively impaired, nonverbal at baseline, chronic ill-looking HEENT: Pupils are round and equally reacting to light. EOMI. No scleral icterus. No conjunctival pallor. Normocephalic, atraumatic. No pharyngeal erythema. No thyromegaly. CARDIOVASCULAR: S1 and S2 present. No murmurs, rubs, or gallops. PULMONARY: Chest is clear to auscultation, no wheezing or crackles. ABDOMEN: Soft, nontender, nondistended, normoactive bowel sounds. No palpable organomegaly. MUSCULOSKELETAL: Right upper extremity contracture seen, erythema at right cubital area EXTREMITIES: No cyanosis, clubbing, or pedal edema. NEUROLOGICAL: Cognitively impaired SKIN: No rashes. - Labs CBC & Chem 7: 10/14/23 06:07 10/14/23 06:07 Labs: Abnormal Lab Results - Last 24 Hours (Table) 10/14/23 10/14/23 Range/Units 06:07 06:07 RBC 3.70 L (4.10-5.20) X 10*6/uL Hgb 10.9 L (12.0-15.0) g/dL Hct 34.7 L (37.2-46.3) % MCHC 31.4 L (32.0-37.0) g/dL RDW 14.9 H (11.5-14.5) % Immature Gran # 0.09 H (0.00-0.04) X 10*3/uL Carbon Dioxide 15.7 L (21.6-31.8) mmol/L Anion Gap 17.30 H (4.00-12.00) mmol/L BUN 8.3 L (9.0-27.0) mg/dL BUN/Creatinine Ratio 11.86 L (12.00-20.00) Ratio Microbiology - Last 24 Hours (Table) 10/10/23 04:31 Blood Culture - Preliminary Blood 10/10/23 04:29 Blood Culture - Preliminary Blood Assessment and Plan Assessment: Acute hypoxemic respiratory failure Sepsis Bacterial pneumonia UTI Acute febrile illness Sinus tachycardia History of frequent UTI History of cognitive impairment Hyperlipidemia Monitor vital signs Monitor CBC Monitor CMP Continue telemetry monitoring Follow-up on blood cultures Follow-up on urine cultures Aspiration precautions Continue IV Zosyn Current IV fluids to 50 per hour Speech therapy consulted for evaluation for any aspiration Follow-up in ID recs Follow-up on pulmonary recs
[2023-10-14] MEDS: ALPRAZolam 0.25 MG TAB PO SCH (20:48)
[2023-10-14] MEDS: QUEtiapine 400 MG TAB PO SCH (20:48)
[2023-10-14] MEDS: ATORVASTATIN 20 MG TAB PO SCH (20:48)
[2023-10-14] MEDS: BACLOFEN 10 MG TAB PO SCH (20:49)
[2023-10-15] MEDS: PANTOPRAZOLE SODIUM 40 MG GRANULE PKT PO SCH (06:39)
--- NOTE | 2023-10-15 07:01 | P.PN ---
Subjective Progress Note Date: 10/15/23 68-year-old lady who is a resident of group home facility brought to the ER for evaluation for fever and shortness of breath. Most of the history is limited as Patient is cognitively impaired and nonverbal at baseline. According to EMR, patient was having cough and shortness of breath for the last few days. Patient was also spiking fevers at facility. There was no nausea or vomiting. Because of the symptoms, patient was bedridden the ER, initially in the ER, patient of fever of 100.1. And she was tachycardic. Initial lab work done in the ER showed WBC 4.1, hemoglobin 13.2, platelet count 163, sodium 142, potassium 4.4, BUN/creatinine, creatinine 0.97, lactate 3.9 UA done showed large amount of leukocyte Estrace, urine WBC 7 Influenza A not detected Influenza B not detected RSV not detected COVID-19 not detected EKG done in the ER showed heart rate of 121, no ST segment elevation or d epression seen, T-wave inversions seen in leads V4 and V5 and V6. Chest x-ray done in the ER shows prominent pulmonary vascular markings increased central lung markings. 10/14/2023 Patient is seen and evaluated in room at bedside; discussed with nursing staff and no specific complaints reported Vital signs are reviewed with temperature 99.2, pulse 124, respiration 18 and blood pressure 159/64 Lab review shows to CBC of 6.7, hemoglobin of 10.9 and platelet count of 164, sodium 141, potassium 3.7, BUN/creatinine of 3.3/0.7 Patient remains on IV Zosyn therapy -- pulmonary service on board and recommending to chest x-ray next 24-48 hours with further plan of care 10/15/2023 Patient is seen and evaluated in room at bedside; discussed with nursing staff; patient continues to have occasional tantrums and demanding to be discharged home -- Vital signs temperature 97.4, pulse 116, respiration 21 and blood pressure of 96/53 with O2 saturation 94% on room air -- Blood pressure is soft; patient not on any antihypertensive therapy; we will admit and transferred -- Remains on Zosyn 3.375 g IV every 8 hours; continue with bronchodilator nebulizer treatments -- Pulmonary service on board for acute hypoxic respiratory failure related to community-acquired versus aspiration pneumonia; pulmonary recommending to repeat chest exit morning and make further recommendations Objective - Vital Signs Vital signs: Vital Signs Temp 98.1 F 10/14/23 19:00 Pulse 120 H 10/14/23 19:00 Resp 21 10/14/23 19:00 BP 166/64 10/14/23 19:00 Pulse Ox 94 L 10/14/23 19:00 FiO2 Intake & Output 10/14/23 10/14/23 10/15/23 06:59 18:59 06:59 Output Total 300 500 Balance -300 -500 Output: Urine 300 500 Other: Voiding Method Diaper Diaper Diaper Incontinent Incontinent Incontinent External Catheter External Catheter External Catheter # Voids 1 - Exam GENERAL: The patient is cognitively impaired, nonverbal at baseline, chronic ill-looking HEENT: Pupils are round and equally reacting to light. EOMI. No scleral icterus. No conjunctival pallor. Normocephalic, atraumatic. No pharyngeal erythema. No thyromegaly. CARDIOVASCULAR: S1 and S2 present. No murmurs, rubs, or gallops. PULMONARY: Chest is clear to auscultation, no wheezing or crackles. ABDOMEN: Soft, nontender, nondistended, normoactive bowel sounds. No palpable organomegaly. MUSCULOSKELETAL: Right upper extremity contracture seen, erythema at right cubital area EXTREMITIES: No cyanosis, clubbing, or pedal edema. NEUROLOGICAL: Cognitively impaired SKIN: No rashes. - Labs CBC & Chem 7: 10/14/23 06:07 10/14/23 06:07 Labs: Abnormal Lab Results - Last 24 Hours (Table) 10/14/23 10/14/23 Range/Units 06:07 06:07 RBC 3.70 L (4.10-5.20) X 10*6/uL Hgb 10.9 L (12.0-15.0) g/dL Hct 34.7 L (37.2-46.3) % MCHC 31.4 L (32.0-37.0) g/dL RDW 14.9 H (11.5-14.5) % Immature Gran # 0.09 H (0.00-0.04) X 10*3/uL Carbon Dioxide 15.7 L (21.6-31.8) mmol/L Anion Gap 17.30 H (4.00-12.00) mmol/L BUN 8.3 L (9.0-27.0) mg/dL BUN/Creatinine Ratio 11.86 L (12.00-20.00) Ratio Assessment and Plan Assessment: Acute hypoxemic respiratory failure Sepsis Bacterial pneumonia UTI Acute febrile illness Sinus tachycardia History of frequent UTI History of cognitive impairment Hyperlipidemia Monitor vital signs Monitor CBC Monitor CMP Continue telemetry monitoring Follow-up on blood cultures Follow-up on urine cultures Aspiration precautions Continue IV Zosyn Current IV fluids to 50 per hour Speech therapy consulted for evaluation for any aspiration Follow-up in ID recs Follow-up on pulmonary recs
[2023-10-15] MEDS: busPIRone HCl 10 MG TAB PO SCH ×2 (07:56→20:48)
[2023-10-15] MEDS: polyethylene glycoL 3350 17 GM POWD.PACK PO SCH (07:56)
[2023-10-15] MEDS: ASPIRIN 81 MG PO SCH (07:56)
[2023-10-15] MEDS: PIPERACILLIN-TAZOBACTAM 3.375 GM in SODIUM CHLORIDE 0.9% 100 ML IVPB SCH ×2 (07:56→15:23)
[2023-10-15] MEDS ORDERED: FUROSEMIDE 10 MG/ML 2 ML VIAL IV ONE (09:52)
[2023-10-15 10:10] LABS: Basophils # (A) 0.03 X 10*3/uL (0.00-0.10); Basophils % (A) 0.5 %; Eosinophils # (A) 0.01 X 10*3/uL (0.04-0.35); Eosinophils % (A) 0.2 %; HCT 28.6 % (37.2-46.3); HGB 9.2 g/dL (12.0-15.0); Lymphocytes # (A) 1.34 X 10*3/uL (0.90-5.00); Lymphocytes % (A) 21.2 %; MCH 29.7 pg (27.0-32.0); MCHC 32.2 g/dL (32.0-37.0); MCV 92.3 FL (80.0-97.0); Mean Platelet Volume 10.3 FL (9.5-12.2); Monocytes # (A) 0.42 X 10*3/uL (0.20-1.00); Monocytes % (A) 6.6 %; NRBC Per 100 WBC 0 X 10*3/uL (0.00-0.01); Neutrophils # (A) 4.37 X 10*3/uL (1.80-7.70); Platelet Count 160 X 10*3/uL (140-440); WBC 6.33 X 10*3/uL (4.50-10.00)
[2023-10-15 10:14] LABS: Blood Urea Nitrogen 14.4 mg/dL (9.0-27.0); Chloride 112 mmol/L (96-109); Glucose 86 mg/dL (70-110); Potassium 3.3 mmol/L (3.5-5.5); Sodium 146 mmol/L (135-145)
[2023-10-15 10:15] LABS: Calcium 8.1 mg/dL (8.7-10.3); Carbon Dioxide 17.7 mmol/L (21.6-31.8)
--- NOTE | 2023-10-15 14:24 | P.PN ---
Subjective Progress Note Date: 10/15/23 I am seeing this patient in consultation today 10/10/2023 in the emergency room after she was brought in from her [facility] home. Apparently she's been having shortness of breath, congested cough, and fever. Patient is cognitively impaired and nonverbal at baseline. Other than that, little is known about the patient's past medical history. Her listed, patient is unable to provide any medical history. It looks like the patient had a positive UTI at the beginning of September, isolated organism enterococcus faecalis. She apparently was brought in for evaluation for a congested cough, shortness of breath, and fever. She is currently lying in bed, on 2 L/m nasal cannula, in no acute distress. SpO2 is 98%. She does have a congested cough. She was febrile on arrival with a T-max of 100.1F. She is tachycardic. Blood pressure stable. Chest x-ray arrival shows diffuse bilateral infiltrates. Negative for influenza, RSV, COVID-19. CBC was unremarkable. No leukocytosis. BMP shows sodium 142, potassium 4.4, chloride 102, serum bicarb 24, BUN 29, creatinine 0.97, glucose 133. Lactic acid level was mildly elevated at 3.9. Normal saline infusing at 75 ml/hr. Troponins less than 0.012. NT proBNP not elevated. Urinalysis appears to be contaminated. We'll repeat. Vital signs are stable. Reevaluated today on 10/11/2023, patient seems to be quite comfortable, she is on nasal cannula, nonverbal, not in any distress, remains on antibiotics for her acute pneumonia as noted on admission chest x-ray. WBC count is 8.9 hemoglobin 10.5 basic metabolic profile is normal renal profile is normal Reevaluated today on 10/12/2023 , Patient is doing well, seems to be very comfortable, she is now on 3 L nasal cannula with O2 sats of 93% and blood pressure 94/74 temp is 97.3, patient again is nonverbal, and she seems to be doing well clinically. I am recommending repeat chest x-ray on this patient, and this will be done tomorrow. Patient has urinary tract infection in addition to her pneumonia, remains on Zosyn in the meantime The patient is seen today 10/13/2023 in follow-up on the regular medical floor. She is currently resting in bed. Awake. No acute distress. Maintaining O2 saturations in the mid 90s on room air. She's been afebrile. Hemodynamically stable. Chest x-ray revealed limited evaluation of the right midlung secondary to the patient's hand. Abdomen revealed non-specific all gas pattern. Cultures reveal no growth. White count 8.4. Hemoglobin 10.3. Platelets 144. Sodium 144. Potassium 3.4. Bicarb 22. BUN 10. Creatinine 0.7. She is continued on antibiotics in the form of Zosyn. Remains on bronchodilators. Normal saline at 50 MLS per hour. Reevaluated today on 10/14/23, patient is basically about the same, remains very comfortable, not in any distress, nonverbal, does not follow any instructions, then receiving antibiotics for presumptive aspiration pneumonia. I am planning to repeat chest x-ray on this patient in the next 24-48 hours. In the meantime I plan is to continue antibiotics. CBC today is relatively normal basic metabolic profile is normal and renal profile is normal The patient is seen today 10/15/2023 in follow-up on the regular medical floor. She is currently resting in bed. Awake and alert. Maintaining O2 saturations in the 90s on room air. She's been afebrile. Hemodynamically stable. She does have some lower extremity edema. Blood cultures revealed no growth. White count 6.3. Hemoccult 9.2. Sodium 146. Potassium 3.3. Bicarb 18. BUN 14. Creatinine 0.8. Glucose 86. She is continued on Zosyn. Objective - Vital Signs Vital signs: Vital Signs Temp 97.1 F L 10/15/23 12:15 Pulse 114 H 10/15/23 12:15 Resp 13 10/15/23 12:15 BP 137/78 10/15/23 12:15 Pulse Ox 94 L 10/15/23 12:15 FiO2 Intake & Output 10/14/23 10/15/23 10/15/23 18:59 06:59 18:59 Output Total 500 Balance -500 Output: Urine 500 Other: Voiding Method Diaper Diaper Diaper Incontinent Incontinent Incontinent External Catheter External Catheter External Catheter # Voids 2 # Bowel Movements 1 - Exam Physical Exam: Revealed awake, confused 68-year-old female, in no distress, on room air Head: Atraumatic, normocephalic. HEENT:Neck is supple. No neck masses. No thyromegaly. No JVD. Chest: Diminished breath sound bilaterally no rhonchi and no wheezes. Cardiac Exam: Normal S1 and S2, no S3 gallop, no murmur. Abdomen: Soft, nontender, no megaly, no rebound, no guarding, normal bowel sounds. Extremities: Fexion contractures noted on both upper extremities and significant deformities noted in both hands Neurological Exam: Cannot assess, patient is nonverbal and does not follow any instructions - Labs CBC & Chem 7: 10/15/23 05:35 10/15/23 05:35 Labs: Abnormal Lab Results - Last 24 Hours (Table) 10/15/23 10/15/23 Range/Units 05:35 05:35 RBC 3.10 L (4.10-5.20) X 10*6/uL Hgb 9.2 L (12.0-15.0) g/dL Hct 28.6 L (37.2-46.3) % RDW 15.0 H (11.5-14.5) % Immature Gran # 0.16 H (0.00-0.04) X 10*3/uL Eosinophils # 0.01 L (0.04-0.35) X 10*3/uL Sodium 146 H (135-145) mmol/L Potassium 3.3 L (3.5-5.5) mmol/L Chloride 112 H (96-109) mmol/L Carbon Dioxide 17.7 L (21.6-31.8) mmol/L Anion Gap 16.30 H (4.00-12.00) mmol/L Calcium 8.1 L (8.7-10.3) mg/dL Microbiology - Last 24 Hours (Table) 10/10/23 04:31 Blood Culture - Final Blood 10/10/23 04:29 Blood Culture - Final Blood Assessment and Plan Assessment: Acute hypoxic respiratory failure secondary to acute community-acquired pneumonia or possibly aspiration pneumonia most likely Acute febrile illness, recovered History of recurrent urinary tract infection Cognitive impairment Acute on chronic anemia Hypokalemia Hypernatremia Plan: The patient was seen and evaluated Labs and medications reviewed Currently stable on room air Remains on Zosyn Follow-up chest x-ray in a.m. DO NOT RESUSCITATE/DO NOT INTUBATE CODE STATUS We will continue to follow I have personally seen and examined the patient, performed the documentation and the assessment and plan as written. Number of minutes spent on the visit: 10.
--- NOTE | 2023-10-15 17:37 | P.PN ---
Subjective Progress Note Date: 10/14/23 Principal diagnosis: Reason for follow-up UTI and question of pneumonia Patient is a 68-year-old female with a past medical history significant for osteoarthritis Down syndrome cerebral palsy patient was sent to the ER for evaluation of increased shortness of breath and fever, patient did have a positive UA concerning for UTI and also noticed to have a chest x-ray mo stly with a pulmonary vascular congestion. On today's evaluation that is 10/14/2023 the patient remains to be afebrile the patient is breathing comfortably on room air without need for supplemental oxyg en, the patient nonverbal and unable to block any history however has been asking wants to go home. Patient white count is 6.71, creatinine 0.71 Objective - Vital Signs Vital signs: Vital Signs Temp 97.7 F 10/14/23 00:55 Pulse 113 H 10/14/23 00:55 Resp 18 10/14/23 00:55 BP 166/88 10/14/23 00:55 Pulse Ox 93 L 10/14/23 00:55 FiO2 Intake & Output 10/13/23 10/14/23 10/14/23 18:59 06:59 18:59 Output Total 800 300 Balance -800 -300 Output: Urine 800 300 Other: Voiding Method Diaper Diaper Incontinent Incontinent External Catheter External Catheter # Voids 3 1 # Bowel Movements 1 - Exam GENERAL DESCRIPTION: An elderly female lying in bed in no distress RESPIRATORY SYSTEM: Unlabored breathing , decreased breath sounds at bases HEART: S1 S2 regular rate and rhythm , ABDOMEN: Soft , distention but no tenderness EXTREMITIES: No edema feet - Labs CBC & Chem 7: 10/15/23 05:35 10/15/23 05:35 Labs: Abnormal Lab Results - Last 24 Hours (Table) 10/13/23 10/13/23 Range/Units 06:16 06:16 RBC 3.50 L (4.10-5.20) X 10*6/uL Hgb 10.3 L (12.0-15.0) g/dL Hct 32.7 L (37.2-46.3) % MCHC 31.5 L (32.0-37.0) g/dL RDW 14.7 H (11.5-14.5) % Immature Gran # 0.09 H (0.00-0.04) X 10*3/uL Potassium 3.4 L (3.5-5.5) mmol/L Chloride 112 H (96-109) mmol/L Calcium 8.3 L (8.7-10.3) mg/dL Total Protein 5.5 L (6.2-8.2) g/dL Albumin 3.3 L (3.8-4.9) g/dL Albumin/Globulin Ratio 1.50 L (1.60-3.17) Ratio Microbiology - Last 24 Hours (Table) 10/10/23 04:31 Blood Culture - Preliminary Blood 10/10/23 04:29 Blood Culture - Preliminary Blood Assessment and Plan (1) Community acquired pneumonia Current Visit: Yes Status: Acute Code(s): J18.9 - PNEUMONIA, UNSPECIFIED ORGANISM SNOMED Code(s): 298115197 (2) UTI (urinary tract infection) Current Visit: Yes Status: Acute Code(s): N39.0 - URINARY TRACT INFECTION, SITE NOT SPECIFIED SNOMED Code(s): 05924778 Plan: 1patient was in the hospital with sepsis in this patient noted to have a fever tachycardia hypotension source likely urinary underlying pneumonia not entirely excluded 2the patient had mild elevated procalcitonin cultures are negative. 3patient remains to be afebrile patient white count normal right midlung opacity concerning for aspiration pneumonia covered with Zosyn and monitor clinical course closely Dictation was produced using [employer] dictation software. please excuse any grammatical, word or spelling errors.
--- NOTE | 2023-10-15 17:38 | P.PN ---
Subjective Progress Note Date: 10/15/23 Principal diagnosis: Reason for follow-up UTI and question of pneumonia Patient is a 68-year-old female with a past medical history significant for osteoarthritis Down syndrome cerebral palsy patient was sent to the ER for evaluation of increased shortness of breath and fever, patient did have a positive UA concerning for UTI and also noticed to have a chest x-ray mo stly with a pulmonary vascular congestion. On today's evaluation that is 10/15/2023 the patient continues to be afebrile, the patient is breathing comfortably on room air, patient nonverbal unable to obtain reliable history has been asking wants to go home no vomiting diarrhea or any other changes reported by nursing staff Patient white count is 6.33 and creatinine 0.8 Objective - Vital Signs Vital signs: Vital Signs Temp 97.1 F L 10/15/23 12:15 Pulse 114 H 10/15/23 12:15 Resp 13 10/15/23 12:15 BP 137/78 10/15/23 12:15 Pulse Ox 94 L 10/15/23 12:15 FiO2 Intake & Output 10/14/23 10/15/23 10/15/23 18:59 06:59 18:59 Output Total 500 1200 Balance -500 -1200 Output: Urine 500 1200 Other: Voiding Method Diaper Diaper Diaper Incontinent Incontinent Incontinent External Catheter External Catheter External Catheter # Voids 2 # Bowel Movements 1 1 - Exam GENERAL DESCRIPTION: An elderly female lying in bed in no distress RESPIRATORY SYSTEM: Unlabored breathing , decreased breath sounds at bases HEART: S1 S2 regular rate and rhythm , ABDOMEN: Soft , distention but no tenderness EXTREMITIES: No edema feet - Labs CBC & Chem 7: 10/15/23 05:35 10/15/23 05:35 Labs: Abnormal Lab Results - Last 24 Hours (Table) 10/15/23 10/15/23 Range/Units 05:35 05:35 RBC 3.10 L (4.10-5.20) X 10*6/uL Hgb 9.2 L (12.0-15.0) g/dL Hct 28.6 L (37.2-46.3) % RDW 15.0 H (11.5-14.5) % Immature Gran # 0.16 H (0.00-0.04) X 10*3/uL Eosinophils # 0.01 L (0.04-0.35) X 10*3/uL Sodium 146 H (135-145) mmol/L Potassium 3.3 L (3.5-5.5) mmol/L Chloride 112 H (96-109) mmol/L Carbon Dioxide 17.7 L (21.6-31.8) mmol/L Anion Gap 16.30 H (4.00-12.00) mmol/L Calcium 8.1 L (8.7-10.3) mg/dL Microbiology - Last 24 Hours (Table) 10/10/23 04:31 Blood Culture - Final Blood 10/10/23 04:29 Blood Culture - Final Blood Assessment and Plan (1) Community acquired pneumonia Current Visit: Yes Status: Acute Code(s): J18.9 - PNEUMONIA, UNSPECIFIED ORGANISM SNOMED Code(s): 086887932 (2) UTI (urinary tract infection) Current Visit: Yes Status: Acute Code(s): N39.0 - URINARY TRACT INFECTION, SITE NOT SPECIFIED SNOMED Code(s): 59369960 Plan: 1patient was in the hospital with sepsis in this patient noted to have a fever tachycardia hypotension source likely urinary underlying pneumonia not entirely excluded 2the patient had mild elevated procalcitonin cultures are negative. 3patient remains to be afebrile patient white count normal right midlung opacity concerning for aspiration pneumonia covered with Zosyn and monitor clinical course closely Dictation was produced using [employer] dictation software. please excuse any grammatical, word or spelling errors.
[2023-10-15] MEDS: SODIUM CHLORIDE 0.9% 1,000 ML IV SCH (19:18)
[2023-10-15] MEDS: ATORVASTATIN 20 MG TAB PO SCH (20:48)
[2023-10-15] MEDS: ALPRAZolam 0.25 MG TAB PO SCH (20:48)
[2023-10-15] MEDS: BACLOFEN 10 MG TAB PO SCH (20:48)
[2023-10-15] MEDS: QUEtiapine 400 MG TAB PO SCH (20:48)
[2023-10-16] MEDS: PIPERACILLIN-TAZOBACTAM 3.375 GM in SODIUM CHLORIDE 0.9% 100 ML IVPB SCH ×3 (00:33→16:51)
--- NOTE | 2023-10-16 08:38 | XR ---
EXAMINATION TYPE: XR chest 2V DATE OF EXAM: 10/16/2023 COMPARISON: 10/10/2023 HISTORY: 68-year-old female pneumonia TECHNIQUE: AP and lateral views FINDINGS: Heart mildly enlarged. Undergoing medium diffuse interstitial opacities. No pleural effusion. IMPRESSION: Similar mild cardiomegaly and bilateral interstitial infiltrates.
[2023-10-16] MEDS: PANTOPRAZOLE SODIUM 40 MG GRANULE PKT PO SCH ×2 (08:45→09:44)
[2023-10-16 08:47] LABS: BUN/Creat Ratio 24.14 Ratio (12.00-20.00); Blood Urea Nitrogen 16.9 mg/dL (9.0-27.0); Carbon Dioxide 20.2 mmol/L (21.6-31.8); Chloride 109 mmol/L (96-109); Glucose 93 mg/dL (70-110); Potassium 2.9 mmol/L (3.5-5.5); Sodium 147 mmol/L (135-145)
[2023-10-16] MEDS: polyethylene glycoL 3350 17 GM POWD.PACK PO SCH (08:49)
[2023-10-16] MEDS: ASPIRIN 81 MG PO SCH (08:49)
[2023-10-16] MEDS: busPIRone HCl 10 MG TAB PO SCH ×2 (08:49→21:01)
[2023-10-16 08:52] LABS: Basophils # (A) 0.04 X 10*3/uL (0.00-0.10); Basophils % (A) 0.5 %; Eosinophils # (A) 0.07 X 10*3/uL (0.04-0.35); Eosinophils % (A) 0.8 %; HCT 30.9 % (37.2-46.3); HGB 10.1 g/dL (12.0-15.0); Lymphocytes # (A) 1.94 X 10*3/uL (0.90-5.00); MCH 29.7 pg (27.0-32.0); MCHC 32.7 g/dL (32.0-37.0); MCV 90.9 FL (80.0-97.0); Mean Platelet Volume 9.8 FL (9.5-12.2); Monocytes # (A) 0.64 X 10*3/uL (0.20-1.00); Monocytes % (A) 7.6 %; NRBC Per 100 WBC 0 X 10*3/uL (0.00-0.01); Neutrophils # (A) 5.55 X 10*3/uL (1.80-7.70); Neutrophils % (A) 65.8 %; Platelet Count 190 X 10*3/uL (140-440); RDW 14.9 % (11.5-14.5); WBC 8.43 X 10*3/uL (4.50-10.00)
[2023-10-16] MEDS ORDERED: Potassium Replacement Protocol 1 EACH MISC MISCELLANE PRN ×2 (09:09→13:52)
[2023-10-16] MEDS: POTASSIUM CHLORIDE 20 MEQ in WATER FOR INJECTION 1 100ML.BAG IVPB SCH ×2 (12:30→14:36)
[2023-10-16] MEDS: SODIUM CHLORIDE 0.9% 1,000 ML IV SCH (13:18)
[2023-10-16] MEDS ORDERED: Magnesium Replacement Protocol 1 EACH MISC MISCELLANE PRN (13:52)
--- NOTE | 2023-10-16 13:52 | P.PN ---
Subjective Progress Note Date: 10/16/23 Principal diagnosis: Pneumonia. I am seeing this patient in consultation today 10/10/2023 in the emergency room after she was brought in from her [facility] home. Apparently she's been having shortness of breath, congested cough, and fever. Patient is cognitively impaired and nonverbal at baseline. Other than that, little is known about the patient's past medical history. Her listed, patient is unable to provide any medical history. It looks like the patient had a positive UTI at the beginning of September, isolated organism enterococcus faecalis. She apparently was brought in for evaluation for a congested cough, shortness of breath, and fever. She is currently lying in bed, on 2 L/m nasal cannula, in no acute distress. SpO2 is 98%. She does have a congested cough. She was febrile on arrival with a T-max of 100.1F. She is tachycardic. Blood pressure stable. Chest x-ray arrival shows diffuse bilateral infiltrates. Negative for influenza, RSV, COVID-19. CBC was unremarkable. No leukocytosis. BMP shows sodium 142, potassium 4.4, chloride 102, serum bicarb 24, BUN 29, creatinine 0.97, glucose 133. Lactic acid level was mildly elevated at 3.9. Normal saline infusing at 75 ml/hr. Troponins less than 0.012. NT proBNP not elevated. Urinalysis appears to be contaminated. We'll repeat. Vital signs are stable. Reevaluated today on 10/11/2023, patient seems to be quite comfortable, she is on nasal cannula, nonverbal, not in any distress, remains on antibiotics for her acute pneumonia as noted on admission chest x-ray. WBC count is 8.9 hemoglobin 10.5 basic metabolic profile is normal renal profile is normal Reevaluated today on 10/12/2023 , Patient is doing well, seems to be very comfortable, she is now on 3 L nasal cannula with O2 sats of 93% and blood pressure 94/74 temp is 97.3, patient again is nonverbal, and she seems to be doing well clinically. I am recommending repeat chest x-ray on this patient, and this will be done tomorrow. Patient has urinary tract infection in addition to her pneumonia, remains on Zosyn in the meantime The patient is seen today 10/13/2023 in follow-up on the regular medical floor. She is currently resting in bed. Awake. No acute distress. Maintaining O2 saturations in the mid 90s on room air. She's been afebrile. Hemodynamically stable. Chest x-ray revealed limited evaluation of the right midlung secondary to the patient's hand. Abdomen revealed non-specific all gas pattern. Cultures reveal no growth. White count 8.4. Hemoglobin 10.3. Platelets 144. Sodium 144. Potassium 3.4. Bicarb 22. BUN 10. Creatinine 0.7. She is continued on antibiotics in the form of Zosyn. Remains on bronchodilators. Normal saline at 50 MLS per hour. Reevaluated today on 10/14/23, patient is basically about the same, remains very comfortable, not in any distress, nonverbal, does not follow any instructions, then receiving antibiotics for presumptive aspiration pneumonia. I am planning to repeat chest x-ray on this patient in the next 24-48 hours. In the meantime I plan is to continue antibiotics. CBC today is relatively normal basic metabolic profile is normal and renal profile is normal The patient is seen today 10/15/2023 in follow-up on the regular medical floor. She is currently resting in bed. Awake and alert. Maintaining O2 saturations in the 90s on room air. She's been afebrile. Hemodynamically stable. She does have some lower extremity edema. Blood cultures revealed no growth. White count 6.3. Hemoccult 9.2. Sodium 146. Potassium 3.3. Bicarb 18. BUN 14. Creatinine 0.8. Glucose 86. She is continued on Zosyn. Progress note dated 10/16/2023. The patient is seen today in room 450. I can obtain no history from the patient. All she is doing is yelling and screaming out loud. The patient is currently on room air. She's getting saline at 50 mL an hour. She continues on Zosyn. Labs today include a white count of 8.4, hemoglobin 10.1, crit 30.9, and a normal platelet count. Sodium 147, potassium 2.9, chlorides 109, CO2 20, anion gap 18, BUN 17, and creatinine 0.7. Calcium is 8.0. Chest x-ray shows cardiomegaly, and bilateral interstitial infiltrates. Objective - Vital Signs Vital signs: Vital Signs Temp 99.1 F 10/16/23 06:59 Pulse 105 H 10/16/23 06:59 Resp 19 10/16/23 06:59 BP 135/72 10/16/23 06:59 Pulse Ox 96 10/16/23 06:59 FiO2 Intake & Output 10/15/23 10/16/23 10/16/23 18:59 06:59 18:59 Output Total 1200 374 Balance -1200 -374 Output: Urine 1200 Post Void Residual 374 Other: Voiding Method Diaper Diaper Diaper Incontinent Incontinent Incontinent External Catheter External Catheter External Catheter # Voids 0 # Bowel Movements 1 - Exam No acute distress, poorly responsive. Yelling out, and can provide no additional history. Room air saturation is 96%. HEENT examination is grossly unremarkable. Neck supple. Full range of motion. No adenopathy thyromegaly or neck vein distention. Cardiovascular examination reveals regular rhythm rate. S1-S2 normal. No S3 or S4. No discernible murmur noted. Heart rate 92 bpm. Lungs reveal mild scattered rhonchi. No wheezes. No crackles. Room air saturation 96-98%. Breath sounds are equal bilaterally. Abdomen soft bowel sounds are heard. No masses or tenderness. Extremities are intact. Flexion contractures of both upper extremities. No cyanosis or significant clubbing. Skin is without rash or lesion. Neurologic examination is unable to be evaluated. - Labs CBC & Chem 7: 10/16/23 06:01 10/16/23 06:01 Labs: Abnormal Lab Results - Last 24 Hours (Table) 10/16/23 10/16/23 Range/Units 06:01 06:01 RBC 3.40 L (4.10-5.20) X 10*6/uL Hgb 10.1 L (12.0-15.0) g/dL Hct 30.9 L (37.2-46.3) % RDW 14.9 H (11.5-14.5) % Immature Gran # 0.19 H (0.00-0.04) X 10*3/uL Sodium 147 H (135-145) mmol/L Potassium 2.9 L (3.5-5.5) mmol/L Carbon Dioxide 20.2 L (21.6-31.8) mmol/L Anion Gap 17.80 H (4.00-12.00) mmol/L BUN/Creatinine Ratio 24.14 H (12.00-20.00) Ratio Calcium 8.0 L (8.7-10.3) mg/dL Microbiology - Last 24 Hours (Table) 10/10/23 04:31 Blood Culture - Final Blood 10/10/23 04:29 Blood Culture - Final Blood Assessment and Plan Assessment: Acute hypoxic respiratory failure secondary to acute community-acquired p neumonia or possibly aspiration pneumonia. Acute febrile illness, recovered. History of recurrent urinary tract infection. Cognitive impairment. Acute on chronic anemia. Hypokalemia. Hypernatremia. Plan: Plan dated 10/16/2023. The patient is seen in room 450. She's on room air. The patient's getting Zosyn, for her pneumonia. Additional recommendations and suggestions are fo rthcoming. The patient is a DO NOT RESUSCITATE/DO NOT INTUBATE patient. Labs, x-rays, and medications are reviewed. The patient's prognosis is poor. We will continue to follow make recommendations. Time with Patient: Less than 30
[2023-10-16] MEDS ORDERED: MAGNESIUM HYDROXIDE 2,400 MG/30 ML CUP PO PRN (13:53)
[2023-10-16] MEDS ORDERED: PYRITHIONE ZINC TOPICAL PRN (13:53)
[2023-10-16] MEDS ORDERED: HYDROCORTISONE 1% CREAM 30 GM TUBE TOPICAL PRN (13:53)
[2023-10-16] MEDS ORDERED: diphenhydrAMINE 25 MG CAP PO PRN (13:53)
[2023-10-16] MEDS ORDERED: [UNRECOGNIZED DRUG - OTHER] PO PRN (13:53)
[2023-10-16] MEDS ORDERED: NON FORMULARY DRUG (Menthol [Biofreeze] 89 ML Gel..Ml.) TOPICAL PRN (13:53)
[2023-10-16] MEDS: POTASSIUM BICARBONATE/CIT AC 20 MEQ TABLET.EFF PO SCH (14:36)
[2023-10-16] MEDS: POTASSIUM BICARBONATE/CIT AC 20 MEQ TABLET.EFF NG-TUBE SCH ×3 (14:37→16:51)
[2023-10-16] MEDS: HEPARIN SODIUM,PORCINE 5,000 UNIT/ML 1 ML VIAL SQ SCH ×2 (15:50→21:08)
[2023-10-16] MEDS: ALBUTEROL NEBULIZED 2.5 MG/3 ML INHALATION SCH ×2 (16:37→20:39)
[2023-10-16 20:39] LABS: African American GFR (CKD) >90 (>60 ml/min/1.73 sqM); Anion Gap 13 mmol/L; Blood Urea Nitrogen 17 mg/dL (7-17); Calcium 8.5 mg/dL (8.4-10.2); Carbon Dioxide 22 mmol/L (22-30); Chloride 110 mmol/L (98-107); Glucose 95 mg/dL (74-99); Non-African American GFR(CKD) >90 (>60 ml/min/1.73 sqM); Potassium 4.3 mmol/L (3.5-5.1); Sodium 145 mmol/L (137-145)
[2023-10-16] MEDS ORDERED: CRANBERRY 450 MG PO SCH (21:00)
[2023-10-16] MEDS: LORATADINE 10 MG TAB PO SCH (21:01)
[2023-10-16] MEDS: ALPRAZolam 0.25 MG TAB PO SCH (21:01)
[2023-10-16] MEDS: BACLOFEN 10 MG TAB PO SCH (21:01)
[2023-10-16] MEDS: ATORVASTATIN 20 MG TAB PO SCH (21:01)
[2023-10-16] MEDS: QUEtiapine 400 MG TAB PO SCH (21:01)
[2023-10-17] MEDS: PIPERACILLIN-TAZOBACTAM 3.375 GM in SODIUM CHLORIDE 0.9% 100 ML IVPB SCH ×3 (00:41→16:35)
--- NOTE | 2023-10-17 00:45 | CT ---
EXAM: CT Abdomen and Pelvis With Intravenous Contrast CLINICAL HISTORY: ITS.REASON CT Reason: rule out bowel obstruction TECHNIQUE: Axial computed tomography images of the abdomen and pelvis with intravenous contrast. CTDI is 7.4 mGy and DLP is 642.05 mGy-cm. This CT exam was performed using one or more of the following dose reduction techniques: automated exposure control, adjustment of the mA and/or kV according to patient size, and/or use of iterative reconstruction technique. COMPARISON: No relevant prior studies available. FINDINGS: Lung bases: Dependent airspace consolidations, consistent with multilobar pneumonia. ABDOMEN: Liver: Unremarkable. No mass. Gallbladder and bile ducts: Unremarkable. No calcified stones. No ductal dilation. Pancreas: Unremarkable. No mass. No ductal dilation. Spleen: Unremarkable. No splenomegaly. Adrenals: Unremarkable. No mass. Kidneys and ureters: Unremarkable. No hydronephrosis or delayed nephrogram. Stomach and bowel: Liquid stool in the colon, correlate for diarrheal disease. No obstruction. No mucosal thickening. PELVIS: Appendix: No findings to suggest acute appendicitis. Bladder: Unremarkable. No mass. Reproductive: Unremarkable as visualized. ABDOMEN and PELVIS: Intraperitoneal space: Unremarkable. No free air. No significant fluid collection. Bones/joints: No acute fracture. No dislocation. Soft tissues: Unremarkable. Vasculature: Unremarkable. No abdominal aortic aneurysm. Lymph nodes: Unremarkable. No enlarged lymph nodes. IMPRESSION: 1. No hydronephrosis or delayed nephrogram. 2. Dependent airspace consolidations, consistent with multilobar pneumonia. 3. Liquid stool in the colon, correlate for diarrheal disease.
--- NOTE | 2023-10-17 00:52 | CT ---
EXAM: CT Angiography Chest With Intravenous Contrast CLINICAL HISTORY: ITS.REASON CT Reason: pe TECHNIQUE: Axial computed tomographic angiography images of the chest with intravenous contrast. CTDI is 7.4 mGy and DLP is 642.05 mGy-cm. This CT exam was performed using one or more of the following dose reduction techniques: automated exposure control, adjustment of the mA and/or kV according to patient size, and/or use of iterative reconstruction technique. MIP reconstructed images were created and reviewed. COMPARISON: No relevant prior studies available. FINDINGS: Pulmonary arteries: Unremarkable. No acute pulmonary embolism. Aorta: No acute findings. No thoracic aortic aneurysm. Lungs: Patchy bilateral airspace consolidations, consistent with multilobar pneumonia. Pleural space: Unremarkable. No pneumothorax or pleural effusion. Heart: Cardiomegaly. No significant pericardial effusion. No evidence of RV dysfunction. Bones/joints: No acute fracture. No dislocation. Soft tissues: Unremarkable. Lymph nodes: Unremarkable. No enlarged lymph nodes. IMPRESSION: 1. No acute pulmonary embolism. 2. Patchy bilateral airspace consolidations, consistent with multilobar pneumonia.
[2023-10-17] MEDS: PANTOPRAZOLE SODIUM 40 MG GRANULE PKT PO SCH (06:35)
[2023-10-17] MEDS: ALBUTEROL NEBULIZED 2.5 MG/3 ML INHALATION SCH ×4 (08:32→20:46)
[2023-10-17] MEDS: HEPARIN SODIUM,PORCINE 5,000 UNIT/ML 1 ML VIAL SQ SCH ×2 (08:51→21:51)
[2023-10-17] MEDS: ASPIRIN 81 MG PO SCH (08:51)
[2023-10-17] MEDS: POTASSIUM BICARBONATE/CIT AC 20 MEQ TABLET.EFF PO SCH (08:51)
[2023-10-17] MEDS: polyethylene glycoL 3350 17 GM POWD.PACK PO SCH (08:51)
[2023-10-17] MEDS: busPIRone HCl 10 MG TAB PO SCH ×2 (08:51→21:51)
[2023-10-17] MEDS: RALOXIFENE 60 MG TAB PO SCH (08:52)
[2023-10-17 10:48] LABS: Basophils # (A) 0.05 X 10*3/uL (0.00-0.10); Basophils % (A) 0.7 %; Eosinophils # (A) 0.23 X 10*3/uL (0.04-0.35); Eosinophils % (A) 3.3 %; HCT 31.6 % (37.2-46.3); HGB 10.3 g/dL (12.0-15.0); Lymphocytes # (A) 1.71 X 10*3/uL (0.90-5.00); Lymphocytes % (A) 24.9 %; MCH 29.7 pg (27.0-32.0); MCHC 32.6 g/dL (32.0-37.0); MCV 91.1 FL (80.0-97.0); Mean Platelet Volume 10.1 FL (9.5-12.2); Monocytes # (A) 0.65 X 10*3/uL (0.20-1.00); Monocytes % (A) 9.4 %; NRBC Per 100 WBC 0 X 10*3/uL (0.00-0.01); Neutrophils # (A) 4.09 X 10*3/uL (1.80-7.70); Neutrophils % (A) 59.5 %; Platelet Count 174 X 10*3/uL (140-440); RBC 3.47 X 10*6/uL (4.10-5.20); RDW 15.1 % (11.5-14.5); WBC 6.88 X 10*3/uL (4.50-10.00)
[2023-10-17 11:15] LABS: ALT 13 U/L (8-44); AST 17 U/L (13-35); Albumin 3.4 g/dL (3.8-4.9); Albumin/Globulin Ratio 1.55 Ratio (1.60-3.17); Alkaline Phosphatase 88 U/L (41-126); BUN/Creat Ratio 20.29 Ratio (12.00-20.00); Blood Urea Nitrogen 14.2 mg/dL (9.0-27.0); Calcium 8.5 mg/dL (8.7-10.3); Carbon Dioxide 21.9 mmol/L (21.6-31.8); Chloride 107 mmol/L (96-109); Globulin 2.2 g/dL (1.6-3.3); Glucose 83 mg/dL (70-110); Sodium 143 mmol/L (135-145); Total Bilirubin 0.4 mg/dL (0.3-1.2); Total Protein 5.6 g/dL (6.2-8.2)
--- NOTE | 2023-10-17 12:07 | PN ---
PROGRESS NOTE DATE OF SERVICE: 10/16/2023 SUBJECTIVE: This 68-year-old woman, who was admitted with acute hypoxic respiratory failure, also had bacterial pneumonia and sepsis. The patient is closely monitored. The patient continues to be barely responsive at this time. The cultures are negative. Multiple consultants are following the patient closely. The patient is on broad spectrum IV antibiotics. Most recent chest x-ray done today, which was reviewed personally by me showed satisfactory. PAST MEDICAL HISTORY: Reviewed. REVIEW OF SYSTEMS: Could not be taken. CURRENT MEDICATIONS: Reviewed include, 1. Ventolin. 2. Zosyn. PHYSICAL EXAMINATION: VITAL SIGNS: Pulse is 105, blood pressure 135/72, and respirations 19. HEENT: Conjunctivae normal. CARDIOVASCULAR: S1, S2. RESPIRATIONS: Diminished at the bases, few scattered rhonchi. ABDOMEN: Soft. EXTREMITIES: Contractures. LABORATORY DATA: Reviewed potassium 2.9. ASSESSMENT: 1. Acute bilateral pneumonia possibly aspiration with sepsis and acute hypoxic respiratory failure, present on admission. 2. Severe hypokalemia. 3. History of frequent urinary tract infections. 4. History of dementia. 5. Hyperlipidemia. 6. No code. No CPR. 7. Multiple complex medical issues. RECOMMENDATIONS: Recommend to continue current management and treatment, otherwise at this time, continue with broad-spectrum IV antibiotics. Monitor and replace potassium. Check magnesium and replace magnesium also. Overall prognosis is guarded because of multiple complex medical issues. Further recommendations to follow. See orders for details. I will stop the IV fluids at this time. MMODL / IJN: [id number] / MTDD
[2023-10-17 13:29] VITALS: BMI 29.1
--- NOTE | 2023-10-17 16:37 | P.PN ---
Subjective Progress Note Date: 10/17/23 I am seeing this patient in consultation today 10/10/2023 in the emergency room after she was brought in from her [facility] home. Apparently she's been having shortness of breath, congested cough, and fever. Patient is cognitively impaired and nonverbal at baseline. Other than that, little is known about the patient's past medical history. Her listed, patient is unable to provide any medical history. It looks like the patient had a positive UTI at the beginning of September, isolated organism enterococcus faecalis. She apparently was brought in for evaluation for a congested cough, shortness of breath, and fever. She is currently lying in bed, on 2 L/m nasal cannula, in no acute distress. SpO2 is 98%. She does have a congested cough. She was febrile on arrival with a T-max of 100.1F. She is tachycardic. Blood pressure stable. Chest x-ray arrival shows diffuse bilateral infiltrates. Negative for influenza, RSV, COVID-19. CBC was unremarkable. No leukocytosis. BMP shows sodium 142, potassium 4.4, chloride 102, serum bicarb 24, BUN 29, creatinine 0.97, glucose 133. Lactic acid level was mildly elevated at 3.9. Normal saline infusing at 75 ml/hr. Troponins less than 0.012. NT proBNP not elevated. Urinalysis appears to be contaminated. We'll repeat. Vital signs are stable. Reevaluated today on 10/11/2023, patient seems to be quite comfortable, she is on nasal cannula, nonverbal, not in any distress, remains on antibiotics for her acute pneumonia as noted on admission chest x-ray. WBC count is 8.9 hemoglobin 10.5 basic metabolic profile is normal renal profile is normal Reevaluated today on 10/12/2023 , Patient is doing well, seems to be very comfortable, she is now on 3 L nasal cannula with O2 sats of 93% and blood pressure 94/74 temp is 97.3, patient again is nonverbal, and she seems to be doing well clinically. I am recommending repeat chest x-ray on this patient, and this will be done tomorrow. Patient has urinary tract infection in addition to her pneumonia, remains on Zosyn in the meantime The patient is seen today 10/13/2023 in follow-up on the regular medical floor. She is currently resting in bed. Awake. No acute distress. Maintaining O2 saturations in the mid 90s on room air. She's been afebrile. Hemodynamically stable. Chest x-ray revealed limited evaluation of the right midlung secondary to the patient's hand. Abdomen revealed non-specific all gas pattern. Cultures reveal no growth. White count 8.4. Hemoglobin 10.3. Platelets 144. Sodium 144. Potassium 3.4. Bicarb 22. BUN 10. Creatinine 0.7. She is continued on antibiotics in the form of Zosyn. Remains on bronchodilators. Normal saline at 50 MLS per hour. Reevaluated today on 10/14/23, patient is basically about the same, remains very comfortable, not in any distress, nonverbal, does not follow any instructions, then receiving antibiotics for presumptive aspiration pneumonia. I am planning to repeat chest x-ray on this patient in the next 24-48 hours. In the meantime I plan is to continue antibiotics. CBC today is relatively normal basic metabolic profile is normal and renal profile is normal The patient is seen today 10/15/2023 in follow-up on the regular medical floor. She is currently resting in bed. Awake and alert. Maintaining O2 saturations in the 90s on room air. She's been afebrile. Hemodynamically stable. She does have some lower extremity edema. Blood cultures revealed no growth. White count 6.3. Hemoccult 9.2. Sodium 146. Potassium 3.3. Bicarb 18. BUN 14. Creatinine 0.8. Glucose 86. She is continued on Zosyn. Progress note dated 10/16/2023. The patient is seen today in room 450. I can obtain no history from the patient. All she is doing is yelling and screaming out loud. The patient is currently on room air. She's getting saline at 50 mL an hour. She continues on Zosyn. Labs today include a white count of 8.4, hemoglobin 10.1, crit 30.9, and a normal platelet count. Sodium 147, potassium 2.9, chlorides 109, CO2 20, anion gap 18, BUN 17, and creatinine 0.7. Calcium is 8.0. Chest x-ray shows cardiomegaly, and bilateral interstitial infiltrates. The patient is seen today 10/17/2023 in follow-up on the regular medical floor. She is currently resting in bed. Awake and alert. Currently maintaining O2 saturations in the 90s on air. Continues with a loose nonproductive cough. She's afebrile. Hemodynamically stable. CT angiogram today revealed no acute pulmonary embolism. There is patchy bilateral airspace consolidations consistent with multilobar pneumonia. CTscan of the abdomen and pelvis revealed no hydronephrosis or delayed nephrogram. Dependent airspace consolidations consistent with multilobar pneumonia. Liquid stool in the colon. Blood cultures revealed no growth. White count 6.8. Humulin 10.3. Platelets 174. Sodium 143. Potassium 4.0. BUN 14. Creatinine 0.7. She remains on bronchodilators and Zosyn. Objective - Vital Signs Vital signs: Vital Signs Temp 98.2 F 10/17/23 13:32 Pulse 108 H 10/17/23 13:32 Resp 20 10/17/23 13:32 BP 151/87 10/17/23 13:32 Pulse Ox 94 L 10/17/23 13:32 FiO2 Intake & Output 10/16/23 10/17/23 10/17/23 18:59 06:59 18:59 Weight 58.967 kg Other: Voiding Method Diaper Diaper Incontinent Incontinent # Voids 2 1 # Bowel Movements 1 - Exam Physical Exam: Awake, confused 68-year-old female, in no distress, on room air Head: Atraumatic, normocephalic. HEENT:Neck is supple. No neck masses. No thyromegaly. No JVD. Chest: Diminished breath sound bilaterally few scattered rhonchi, no wheezes. Cardiac Exam: Normal S1 and S2, no S3 gallop, no murmur. Abdomen: Soft, nontender, no megaly, no rebound, no guarding, normal bowel sounds. Extremities: Fexion contractures noted on both upper extremities and significant deformities noted in both hands Neurological Exam: Cannot assess, patient is nonverbal and does not follow any instructions - Labs CBC & Chem 7: 10/17/23 06:03 10/17/23 06:03 Labs: Abnormal Lab Results - Last 24 Hours (Table) 10/16/23 10/17/23 10/17/23 Range/Units 19:42 06:03 06:03 RBC 3.47 L (4.10-5.20) X 10*6/uL Hgb 10.3 L (12.0-15.0) g/dL Hct 31.6 L (37.2-46.3) % RDW 15.1 H (11.5-14.5) % Immature Gran # 0.15 H (0.00-0.04) X 10*3/uL Chloride 110 H (98-107) mmol/L Anion Gap 14.10 H (4.00-12.00) mmol/L BUN/Creatinine Ratio 20.29 H (12.00-20.00) Ratio Calcium 8.5 L (8.7-10.3) mg/dL Total Protein 5.6 L (6.2-8.2) g/dL Albumin 3.4 L (3.8-4.9) g/dL Albumin/Globulin Ratio 1.55 L (1.60-3.17) Ratio Assessment and Plan Assessment: Acute hypoxic respiratory failure secondary to acute community-acquired pneumonia or possibly aspiration pneumonia most likely Acute febrile illness, recovered History of recurrent urinary tract infection Cognitive impairment Acute on chronic anemia Hypokalemia Hypernatremia Plan: The patient was seen and evaluated Computed tomography scan of the chest, abdomen, labs and medications reviewed Currently stable on room air Remains on Zosyn DO NOT RESUSCITATE/DO NOT INTUBATE CODE STATUS Plan is to return to her [facility] at discharge I have personally seen and examined the patient, performed the documentation and the assessment and plan as written. Number of minutes spent on the visit: 10.
--- NOTE | 2023-10-17 17:10 | P.PN ---
Subjective Progress Note Date: 10/16/23 Principal diagnosis: Reason for follow-up UTI and question of pneumonia Patient is a 68-year-old female with a past medical history significant for osteoarthritis Down syndrome cerebral palsy patient was sent to the ER for evaluation of increased shortness of breath and fever, patient did have a positive UA concerning for UTI and also noticed to have a chest x-ray mo stly with a pulmonary vascular congestion. On today's evaluation that is 10/16/2023 the patient remains to be afebrile, the patient is breathing comfortably on room air, patient nonverbal unable to obtain reliable history because of underlying mental condition no respiratory distress have been noticed no vomiting or diarrhea has been reported Patient white count is 8.43, creatinine 0.7 Objective - Vital Signs Vital signs: Vital Signs Temp 99.1 F 10/16/23 06:59 Pulse 105 H 10/16/23 06:59 Resp 19 10/16/23 06:59 BP 135/72 10/16/23 06:59 Pulse Ox 96 10/16/23 06:59 FiO2 Intake & Output 10/15/23 10/16/23 10/16/23 18:59 06:59 18:59 Output Total 1200 374 Balance -1200 -374 Output: Urine 1200 Post Void Residual 374 Other: Voiding Method Diaper Diaper Incontinent Incontinent External Catheter External Catheter # Voids 0 # Bowel Movements 1 - Exam GENERAL DESCRIPTION: An elderly female lying in bed in no distress RESPIRATORY SYSTEM: Unlabored breathing , decreased breath sounds at bases HEART: S1 S2 regular rate and rhythm , ABDOMEN: Soft , distention but no tenderness EXTREMITIES: No edema feet - Labs CBC & Chem 7: 10/17/23 06:03 10/17/23 06:03 Labs: Abnormal Lab Results - Last 24 Hours (Table) 10/16/23 10/16/23 Range/Units 06:01 06:01 RBC 3.40 L (4.10-5.20) X 10*6/uL Hgb 10.1 L (12.0-15.0) g/dL Hct 30.9 L (37.2-46.3) % RDW 14.9 H (11.5-14.5) % Immature Gran # 0.19 H (0.00-0.04) X 10*3/uL Sodium 147 H (135-145) mmol/L Potassium 2.9 L (3.5-5.5) mmol/L Carbon Dioxide 20.2 L (21.6-31.8) mmol/L Anion Gap 17.80 H (4.00-12.00) mmol/L BUN/Creatinine Ratio 24.14 H (12.00-20.00) Ratio Calcium 8.0 L (8.7-10.3) mg/dL Microbiology - Last 24 Hours (Table) 10/10/23 04:31 Blood Culture - Final Blood 10/10/23 04:29 Blood Culture - Final Blood Assessment and Plan (1) Community acquired pneumonia Current Visit: Yes Status: Acute Code(s): J18.9 - PNEUMONIA, UNSPECIFIED ORGANISM SNOMED Code(s): 686253248 (2) UTI (urinary tract infection) Current Visit: Yes Status: Acute Code(s): N39.0 - URINARY TRACT INFECTION, SITE NOT SPECIFIED SNOMED Code(s): 85319638 Plan: 1patient was in the hospital with sepsis in this patient noted to have a fever tachycardia hypotension source likely urinary underlying pneumonia not entirely excluded 2the patient had mild elevated procalcitonin cultures are negative. 3patient remains to be afebrile patient white count normal right midlung opacity concerning for aspiration pneumonia patient to continue with Zosyn while inpatient along with aspiration precaution Dictation was produced using [employer] dictation software. please excuse any grammatical, word or spelling errors. Time with Patient: Less than 30
--- NOTE | 2023-10-17 17:12 | P.PN ---
Subjective Progress Note Date: 10/17/23 Principal diagnosis: Reason for follow-up UTI and question of pneumonia Patient is a 68-year-old female with a past medical history significant for osteoarthritis Down syndrome cerebral palsy patient was sent to the ER for evaluation of increased shortness of breath and fever, patient did have a positive UA concerning for UTI and also noticed to have a chest x-ray mo stly with a pulmonary vascular congestion. On today's evaluation that is 10/17/2023 the patient continues to be afebrile, the patient is breathing comfortably on room air without need for supplemental oxygen, patient nonverbal unable to obtain reliable history, no vomiting diarrhea or any other changes reported by the nursing staff Patient white count is 6.88, creatinine 0.7 Objective - Vital Signs Vital signs: Vital Signs Temp 98.2 F 10/17/23 13:32 Pulse 108 H 10/17/23 13:32 Resp 20 10/17/23 13:32 BP 151/87 10/17/23 13:32 Pulse Ox 94 L 10/17/23 13:32 FiO2 Intake & Output 10/16/23 10/17/23 10/17/23 18:59 06:59 18:59 Weight 58.967 kg Other: Voiding Method Diaper Diaper Incontinent Incontinent # Voids 2 1 # Bowel Movements 1 - Exam GENERAL DESCRIPTION: An elderly female lying in bed in no distress RESPIRATORY SYSTEM: Unlabored breathing , decreased breath sounds at bases HEART: S1 S2 regular rate and rhythm , ABDOMEN: Soft , distention but no tenderness EXTREMITIES: No edema feet - Labs CBC & Chem 7: 10/17/23 06:03 10/17/23 06:03 Labs: Abnormal Lab Results - Last 24 Hours (Table) 10/16/23 10/17/23 10/17/23 Range/Units 19:42 06:03 06:03 RBC 3.47 L (4.10-5.20) X 10*6/uL Hgb 10.3 L (12.0-15.0) g/dL Hct 31.6 L (37.2-46.3) % RDW 15.1 H (11.5-14.5) % Immature Gran # 0.15 H (0.00-0.04) X 10*3/uL Chloride 110 H (98-107) mmol/L Anion Gap 14.10 H (4.00-12.00) mmol/L BUN/Creatinine Ratio 20.29 H (12.00-20.00) Ratio Calcium 8.5 L (8.7-10.3) mg/dL Total Protein 5.6 L (6.2-8.2) g/dL Albumin 3.4 L (3.8-4.9) g/dL Albumin/Globulin Ratio 1.55 L (1.60-3.17) Ratio Assessment and Plan (1) UTI (urinary tract infection) Current Visit: Yes Status: Acute Code(s): N39.0 - URINARY TRACT INFECTION, SITE NOT SPECIFIED SNOMED Code(s): 15426479 (2) Aspiration pneumonia Current Visit: Yes Status: Acute Code(s): J69.0 - PNEUMONITIS DUE TO INHALATION OF FOOD AND VOMIT SNOMED Code(s): 128024799 Plan: 1patient was in the hospital with sepsis in this patient noted to have a fever tachycardia hypotension source likely urinary underlying pneumonia not entirely excluded 2the patient had mild elevated procalcitonin cultures are negative. 3patient remains to be afebrile patient white count normal right midlung opacity concerning for aspiration pneumonia 4-patient to continue with Zosyn along with aspiration precaution and monitor clinical course closely Dictation was produced using [employer] dictation software. please excuse any grammatical, word or spelling errors. Time with Patient: Less than 30
[2023-10-17] MEDS: ALPRAZolam 0.25 MG TAB PO SCH (21:51)
[2023-10-17] MEDS: ATORVASTATIN 20 MG TAB PO SCH (21:51)
[2023-10-17] MEDS: BACLOFEN 10 MG TAB PO SCH (21:51)
[2023-10-17] MEDS: QUEtiapine 400 MG TAB PO SCH (21:51)
[2023-10-17] MEDS: LORATADINE 10 MG TAB PO SCH (21:51)
[2023-10-18] MEDS: PIPERACILLIN-TAZOBACTAM 3.375 GM in SODIUM CHLORIDE 0.9% 100 ML IVPB SCH ×3 (00:13→16:15)
[2023-10-18] MEDS: PANTOPRAZOLE SODIUM 40 MG GRANULE PKT PO SCH (06:22)
--- NOTE | 2023-10-18 07:48 | PN ---
PROGRESS NOTE DATE OF SERVICE: 10/17/2023 SUBJECTIVE: This 68-year-old woman was admitted with acute bilateral pneumonia, possibly aspiration pneumonia, also had history of UTI. The patient also had some swelling of the arm. Abdominal pelvis CAT scan which I reviewed personally showed no hydronephrosis and chest CTA was done which I reviewed personally, showed patchy bilateral pneumonia. The COVID test is negative. The patient will be closely monitored. PAST MEDICAL HISTORY: Reviewed. REVIEW OF SYSTEMS: Could not be taken. CURRENT MEDICATIONS: Reviewed include IV Zosyn. PHYSICAL EXAMINATION: VITAL SIGNS: Pulse is 100, blood pressure 130/60, respirations 20. CHEST: Few scattered rhonchi and crackles. ABDOMEN: Soft, nontender. LEGS: No edema, no swelling. NERVOUS SYSTEM: Unchanged contractures. LABORATORY DATA: Hemoglobin 10.3, rest of the labs are noted. D-dimer is 2.33. ASSESSMENT: 1. Acute bilateral pneumonia, possibly aspiration as well as sepsis, acute hypoxic respiratory failure present on admission, rule out COVID-19 pneumonia. 2. Severe hypokalemia. 3. History of frequent UTIs. 4. History of dementia. 5. Hyperlipidemia. 6. Multiple complex medical issues. 7. No code, no CPR, no vent. RECOMMENDATIONS AND DISCUSSION: Recommended to continue current management, continue symptomatic treatment. Potassium is improved currently. Continue the antibiotics. Modified barium swallow with speech. Guarded prognosis. Further recommendations to follow. See orders for further details. MMODL / IJN: [id number] /
[2023-10-18] MEDS: ALBUTEROL NEBULIZED 2.5 MG/3 ML INHALATION SCH ×4 (08:23→21:08)
[2023-10-18] MEDS: busPIRone HCl 10 MG TAB PO SCH ×2 (10:29→20:56)
[2023-10-18] MEDS: RALOXIFENE 60 MG TAB PO SCH ×2 (10:30→10:38)
[2023-10-18] MEDS: ASPIRIN 81 MG PO SCH ×2 (10:30→10:38)
[2023-10-18] MEDS: HEPARIN SODIUM,PORCINE 5,000 UNIT/ML 1 ML VIAL SQ SCH ×3 (10:30→20:56)
[2023-10-18] MEDS: polyethylene glycoL 3350 17 GM POWD.PACK PO SCH ×2 (10:30→10:38)
[2023-10-18] MEDS: POTASSIUM BICARBONATE/CIT AC 20 MEQ TABLET.EFF PO SCH (10:37)
[2023-10-18 10:51] LABS: HCT 31.8 % (37.2-46.3); HGB 10.3 g/dL (12.0-15.0); MCH 29.5 pg (27.0-32.0); MCHC 32.4 g/dL (32.0-37.0); MCV 91.1 FL (80.0-97.0); Mean Platelet Volume 10.2 FL (9.5-12.2); NRBC Per 100 WBC 0 X 10*3/uL (0.00-0.01); Platelet Count 202 X 10*3/uL (140-440); RBC 3.49 X 10*6/uL (4.10-5.20); WBC 6.79 X 10*3/uL (4.50-10.00)
[2023-10-18 10:52] LABS: Basophils # (A) 0.04 X 10*3/uL (0.00-0.10); Basophils % (A) 0.6 %; Eosinophils # (A) 0.24 X 10*3/uL (0.04-0.35); Eosinophils % (A) 3.5 %; Lymphocytes # (A) 1.83 X 10*3/uL (0.90-5.00); Monocytes # (A) 0.48 X 10*3/uL (0.20-1.00); Monocytes % (A) 7.1 %; Neutrophils # (A) 4.03 X 10*3/uL (1.80-7.70); Neutrophils % (A) 59.3 %
[2023-10-18 11:01] LABS: Blood Urea Nitrogen 11.7 mg/dL (9.0-27.0); Calcium 8.2 mg/dL (8.7-10.3); Carbon Dioxide 24.2 mmol/L (21.6-31.8); Chloride 108 mmol/L (96-109); Glucose 114 mg/dL (70-110); Potassium 3.6 mmol/L (3.5-5.5); Sodium 144 mmol/L (135-145)
--- NOTE | 2023-10-18 14:42 | P.PN ---
Subjective Progress Note Date: 10/18/23 Principal diagnosis: Pneumonia. I am seeing this patient in consultation today 10/10/2023 in the emergency room after she was brought in from her [facility] home. Apparently she's been having shortness of breath, congested cough, and fever. Patient is cognitively impaired and nonverbal at baseline. Other than that, little is known about the patient's past medical history. Her listed, patient is unable to provide any medical history. It looks like the patient had a positive UTI at the beginning of September, isolated organism enterococcus faecalis. She apparently was brought in for evaluation for a congested cough, shortness of breath, and fever. She is currently lying in bed, on 2 L/m nasal cannula, in no acute distress. SpO2 is 98%. She does have a congested cough. She was febrile on arrival with a T-max of 100.1F. She is tachycardic. Blood pressure stable. Chest x-ray arrival shows diffuse bilateral infiltrates. Negative for influenza, RSV, COVID-19. CBC was unremarkable. No leukocytosis. BMP shows sodium 142, potassium 4.4, chloride 102, serum bicarb 24, BUN 29, creatinine 0.97, glucose 133. Lactic acid level was mildly elevated at 3.9. Normal saline infusing at 75 ml/hr. Troponins less than 0.012. NT proBNP not elevated. Urinalysis appears to be contaminated. We'll repeat. Vital signs are stable. Reevaluated today on 10/11/2023, patient seems to be quite comfortable, she is on nasal cannula, nonverbal, not in any distress, remains on antibiotics for her acute pneumonia as noted on admission chest x-ray. WBC count is 8.9 hemoglobin 10.5 basic metabolic profile is normal renal profile is normal Reevaluated today on 10/12/2023 , Patient is doing well, seems to be very comfortable, she is now on 3 L nasal cannula with O2 sats of 93% and blood pressure 94/74 temp is 97.3, patient again is nonverbal, and she seems to be doing well clinically. I am recommending repeat chest x-ray on this patient, and this will be done tomorrow. Patient has urinary tract infection in addition to her pneumonia, remains on Zosyn in the meantime The patient is seen today 10/13/2023 in follow-up on the regular medical floor. She is currently resting in bed. Awake. No acute distress. Maintaining O2 saturations in the mid 90s on room air. She's been afebrile. Hemodynamically stable. Chest x-ray revealed limited evaluation of the right midlung secondary to the patient's hand. Abdomen revealed non-specific all gas pattern. Cultures reveal no growth. White count 8.4. Hemoglobin 10.3. Platelets 144. Sodium 144. Potassium 3.4. Bicarb 22. BUN 10. Creatinine 0.7. She is continued on antibiotics in the form of Zosyn. Remains on bronchodilators. Normal saline at 50 MLS per hour. Reevaluated today on 10/14/23, patient is basically about the same, remains very comfortable, not in any distress, nonverbal, does not follow any instructions, then receiving antibiotics for presumptive aspiration pneumonia. I am planning to repeat chest x-ray on this patient in the next 24-48 hours. In the meantime I plan is to continue antibiotics. CBC today is relatively normal basic metabolic profile is normal and renal profile is normal The patient is seen today 10/15/2023 in follow-up on the regular medical floor. She is currently resting in bed. Awake and alert. Maintaining O2 saturations in the 90s on room air. She's been afebrile. Hemodynamically stable. She does have some lower extremity edema. Blood cultures revealed no growth. White count 6.3. Hemoccult 9.2. Sodium 146. Potassium 3.3. Bicarb 18. BUN 14. Creatinine 0.8. Glucose 86. She is continued on Zosyn. Progress note dated 10/16/2023. The patient is seen today in room 450. I can obtain no history from the patient. All she is doing is yelling and screaming out loud. The patient is currently on room air. She's getting saline at 50 mL an hour. She continues on Zosyn. Labs today include a white count of 8.4, hemoglobin 10.1, crit 30.9, and a normal platelet count. Sodium 147, potassium 2.9, chlorides 109, CO2 20, anion gap 18, BUN 17, and creatinine 0.7. Calcium is 8.0. Chest x-ray shows cardiomegaly, and bilateral interstitial infiltrates. Progress note dated 10/18/2023. This is a 68-year-old female seen today in room 450. The patient cannot give any additional history. All she does is moan and screams out. She's currently on room air. She's not on any IV fluids. She continues on Zosyn, for bilateral pneumonia. Current labs reveal a white count of 6.8, hemoglobin 10.3, hematocrit 31.8, and a platelet count of 202,000. Sodium 144, potassium 3.6, chlorides 108, CO2 24, anion gap is 12, BUN is 12, creatinine 0.6. Glucose is 98. Objective - Vital Signs Vital signs: Vital Signs Temp 98.4 F 10/18/23 13:06 Pulse 118 H 10/18/23 13:06 Resp 18 10/18/23 13:06 BP 134/62 10/18/23 13:06 Pulse Ox 95 10/18/23 13:06 FiO2 Intake & Output 10/17/23 10/18/23 10/18/23 18:59 06:59 18:59 Intake Total 240 240 Balance 240 240 Weight 58.967 kg Intake: Oral 240 240 Other: Voiding Method Diaper Diaper Incontinent Incontinent # Voids 1 1 # Bowel Movements 1 - Exam No acute distress, poorly responsive. Yelling out, and can provide no additional history. Room air saturation is 95 %. HEENT examination is grossly unremarkable. Neck supple. Full range of motion. No adenopathy thyromegaly or neck vein distention. Cardiovascular examination reveals regular rhythm rate. S1-S2 normal. No S3 or S4. No discernible murmur noted. Heart rate 100 bpm. Lungs reveal mild scattered rhonchi. No wheezes. No crackles. Room air saturation is 95%. Breath sounds are equal bilaterally. Abdomen soft bowel sounds are heard. No masses or tenderness. Extremities are intact. Flexion contractures of both upper extremities. No cyanosis or significant clubbing. Skin is without rash or lesion. Neurologic examination is unable to be evaluated. - Labs CBC & Chem 7: 10/18/23 07:15 10/18/23 07:15 Labs: Abnormal Lab Results - Last 24 Hours (Table) 10/18/23 10/18/23 Range/Units 07:15 07:15 RBC 3.49 L (4.10-5.20) X 10*6/uL Hgb 10.3 L (12.0-15.0) g/dL Hct 31.8 L (37.2-46.3) % RDW 15.0 H (11.5-14.5) % Immature Gran # 0.17 H (0.00-0.04) X 10*3/uL Glucose 114 H (70-110) mg/dL Calcium 8.2 L (8.7-10.3) mg/dL Assessment and Plan Assessment: Acute hypoxic respiratory failure secondary to acute community-acquired pneumonia or possibly aspiration pneumonia. Acute febrile illness, recovered. History of recurrent urinary tract infection. Cognitive impairment. Acute on chronic anemia. Hypokalemia. Hypernatremia. Plan: Plan dated 10/16/2023. The patient is seen in room 450. She's on room air. The patient's getting Zo syn, for her pneumonia. Additional recommendations and suggestions are forthcoming. The patient is a DO NOT RESUSCITATE/DO NOT INTUBATE patient. Labs, x-rays, and medications are reviewed. The patient's prognosis is poor. We will continue to follow make recommendations. Plan dated 10/18/2023. The patient is seen again today in room 450. She appears to be relatively stable. She is not manifesting any signs or symptoms of respiratory distress or difficulty. She cannot provide any additional history. The patient is currently on room air. Saturations are in the mid 90s. She's not receiving any IV fluids. She continues on Zosyn for her aspiration pneumonia. Labs, x-rays, and medications are all reviewed. Prognosis is guarded. Time with Patient: Less than 30
--- NOTE | 2023-10-18 19:00 | PN ---
PROGRESS NOTE DATE OF SERVICE: 10/18/2023 SUBJECTIVE: This is a 68-year-old woman who was admitted with acute bilateral pneumonia, possibly aspiration, is being closely monitored. No chest pain, no palpitations. The patient is on broad-spectrum IV antibiotics. OBJECTIVE: VITAL SIGNS: Pulse 97, blood pressure 113/82, and respirations 18. CHEST: Few scattered rhonchi. ABDOMEN: Soft. NERVOUS SYSTEM: Nonfocal. LABORATORY DATA: Reviewed. ASSESSMENT: 1. Acute bilateral pneumonia, possibly aspiration as well as sepsis with acute hypoxic respiratory failure present on admission, rule out COVID-19 pneumonia. 2. Severe hypokalemia. 3. History of frequent UTIs. 4. History of dementia. 5. Hyperlipidemia. 6. Multiple complex medical issues. 7. No code, no CPR, no vent. RECOMMENDATIONS: Recommended to continue current medications, continue the broad-spectrum IV antibiotics. Speech pathology recommendations forthcoming. I would recommend repeat labs and possible ECF rehab in the next 24 to 48 hours once the consultants clear the patient and outpatient antibiotic recommendations are formulated. MMARSALANL / IJN: [id number] /
[2023-10-18] MEDS: BACLOFEN 10 MG TAB PO SCH (20:56)
[2023-10-18] MEDS: ALPRAZolam 0.25 MG TAB PO SCH (20:56)
[2023-10-18] MEDS: QUEtiapine 400 MG TAB PO SCH (20:56)
[2023-10-18] MEDS: ATORVASTATIN 20 MG TAB PO SCH (20:56)
[2023-10-18] MEDS: LORATADINE 10 MG TAB PO SCH (20:56)
[2023-10-19] MEDS: HEPARIN SODIUM,PORCINE 5,000 UNIT/ML 1 ML VIAL SQ SCH (07:41)
[2023-10-19] MEDS: PIPERACILLIN-TAZOBACTAM 3.375 GM in SODIUM CHLORIDE 0.9% 100 ML IVPB SCH ×3 (07:41)
[2023-10-19] MEDS: polyethylene glycoL 3350 17 GM POWD.PACK PO SCH (07:44)
[2023-10-19] MEDS: POTASSIUM BICARBONATE/CIT AC 20 MEQ TABLET.EFF PO SCH (07:45)
[2023-10-19] MEDS: RALOXIFENE 60 MG TAB PO SCH (07:46)
[2023-10-19] MEDS: busPIRone HCl 10 MG TAB PO SCH (07:46)
[2023-10-19] MEDS: PANTOPRAZOLE SODIUM 40 MG GRANULE PKT PO SCH (07:46)
[2023-10-19] MEDS: ASPIRIN 81 MG PO SCH (07:46)
[2023-10-19] MEDS: ALBUTEROL NEBULIZED 2.5 MG/3 ML INHALATION SCH ×3 (07:46→15:15)
[2023-10-19 08:28] VITALS: BP 175/107; PULSE 103; RESP 19; TEMP 98.2
[2023-10-19 09:08] LABS: BUN/Creat Ratio 12.17 Ratio (12.00-20.00); Blood Urea Nitrogen 7.3 mg/dL (9.0-27.0); Calcium 8.1 mg/dL (8.7-10.3); Carbon Dioxide 23.8 mmol/L (21.6-31.8); Chloride 109 mmol/L (96-109); Glucose 107 mg/dL (70-110); Potassium 3.4 mmol/L (3.5-5.5); Sodium 145 mmol/L (135-145)
[2023-10-19 09:20] LABS: Basophils # (A) 0.05 X 10*3/uL (0.00-0.10); Eosinophils # (A) 0.19 X 10*3/uL (0.04-0.35); Eosinophils % (A) 3.7 %; HCT 32.2 % (37.2-46.3); HGB 10.3 g/dL (12.0-15.0); Lymphocytes # (A) 1.65 X 10*3/uL (0.90-5.00); Lymphocytes % (A) 32.5 %; MCH 29.3 pg (27.0-32.0); MCV 91.7 FL (80.0-97.0); Mean Platelet Volume 10.1 FL (9.5-12.2); Monocytes # (A) 0.44 X 10*3/uL (0.20-1.00); Monocytes % (A) 8.7 %; NRBC Per 100 WBC 0 X 10*3/uL (0.00-0.01); Neutrophils # (A) 2.67 X 10*3/uL (1.80-7.70); Neutrophils % (A) 52.7 %; Platelet Count 211 X 10*3/uL (140-440); RBC 3.51 X 10*6/uL (4.10-5.20); WBC 5.07 X 10*3/uL (4.50-10.00)
--- NOTE | 2023-10-19 14:18 | P.PN ---
Subjective Progress Note Date: 10/18/23 Principal diagnosis: Reason for follow-up UTI and question of pneumonia Patient is a 68-year-old female with a past medical history significant for osteoarthritis Down syndrome cerebral palsy patient was sent to the ER for evaluation of increased shortness of breath and fever, patient did have a positive UA concerning for UTI and also noticed to have a chest x-ray mo stly with a pulmonary vascular congestion. On today's evaluation that is 10/18/2023 the patient remains to be afebrile, the patient is breathing comfortably on room air, patient nonverbal unable to obtain reliable history, no vomiting diarrhea, however keep on saying go home, no changes reported by the nursing staff Patient white count is 6.79, creatinine 0.6 Objective - Vital Signs Vital signs: Vital Signs Temp 99.1 F 10/18/23 07:01 Pulse 97 10/18/23 09:13 Resp 18 10/18/23 09:13 BP 139/83 10/18/23 07:01 Pulse Ox 97 10/18/23 08:23 FiO2 Intake & Output 10/17/23 10/18/23 10/18/23 18:59 06:59 18:59 Intake Total 240 240 Balance 240 240 Weight 58.967 kg Intake: Oral 240 240 Other: Voiding Method Diaper Diaper Incontinent Incontinent # Voids 1 1 # Bowel Movements 1 - Exam GENERAL DESCRIPTION: An elderly female lying in bed in no distress RESPIRATORY SYSTEM: Unlabored breathing , decreased breath sounds at bases HEART: S1 S2 regular rate and rhythm , ABDOMEN: Soft , distention but no tenderness EXTREMITIES: No edema feet - Labs CBC & Chem 7: 10/19/23 06:31 10/19/23 06:31 Labs: Abnormal Lab Results - Last 24 Hours (Table) 10/18/23 10/18/23 Range/Units 07:15 07:15 RBC 3.49 L (4.10-5.20) X 10*6/uL Hgb 10.3 L (12.0-15.0) g/dL Hct 31.8 L (37.2-46.3) % RDW 15.0 H (11.5-14.5) % Immature Gran # 0.17 H (0.00-0.04) X 10*3/uL Glucose 114 H (70-110) mg/dL Calcium 8.2 L (8.7-10.3) mg/dL Assessment and Plan (1) UTI (urinary tract infection) Current Visit: Yes Status: Acute Code(s): N39.0 - URINARY TRACT INFECTION, SITE NOT SPECIFIED SNOMED Code(s): 82860798 (2) Aspiration pneumonia Current Visit: Yes Status: Acute Code(s): J69.0 - PNEUMONITIS DUE TO INHALATION OF FOOD AND VOMIT SNOMED Code(s): 893009371 Plan: 1patient was in the hospital with sepsis in this patient noted to have a fever tachycardia hypotension source likely urinary underlying pneumonia not entirely excluded 2the patient had mild elevated procalcitonin cultures are negative. 3patient remains to be afebrile patient white count normal right midlung opacity concerning for aspiration pneumonia 4-patient slowly clinical vomiting, patient to continue with Zosyn along with aspiration precaution and continue with supportive care Dictation was produced using [employer] dictation software. please excuse any grammatical, word or spelling errors. Time with Patient: Less than 30
--- NOTE | 2023-10-19 14:20 | P.PN ---
Subjective Progress Note Date: 10/19/23 Principal diagnosis: Reason for follow-up UTI and question of pneumonia Patient is a 68-year-old female with a past medical history significant for osteoarthritis Down syndrome cerebral palsy patient was sent to the ER for evaluation of increased shortness of breath and fever, patient did have a positive UA concerning for UTI and also noticed to have a chest x-ray mo stly with a pulmonary vascular congestion. On today's evaluation that is 10/19/2023 the patient continues to be afebrile, the patient is breathing comfortably on room air, patient nonverbal unable to o btain reliable history, patient seems to be more calmer today no vomiting diarrhea or any other changes reported by nursing staff Patient white count is 5.07, creatinine 0.6 Objective - Vital Signs Vital signs: Vital Signs Temp 98.2 F 10/19/23 07:04 Pulse 103 H 10/19/23 07:41 Resp 19 10/19/23 07:41 BP 175/107 10/19/23 07:04 Pulse Ox 93 L 10/19/23 07:04 FiO2 Intake & Output 10/18/23 10/19/23 10/19/23 18:59 06:59 18:59 Intake Total 300 Balance 300 Weight 58.967 kg Intake: Oral 300 Other: Voiding Method Diaper Diaper Diaper Incontinent Incontinent Incontinent # Voids 4 2 2 # Bowel Movements 3 1 - Exam GENERAL DESCRIPTION: An elderly female lying in bed in no distress RESPIRATORY SYSTEM: Unlabored breathing , decreased breath sounds at bases HEART: S1 S2 regular rate and rhythm , ABDOMEN: Soft , distention but no tenderness EXTREMITIES: No edema feet - Labs CBC & Chem 7: 10/19/23 06:31 10/19/23 06:31 Labs: Abnormal Lab Results - Last 24 Hours (Table) 10/19/23 10/19/23 Range/Units 06:31 06:31 RBC 3.51 L (4.10-5.20) X 10*6/uL Hgb 10.3 L (12.0-15.0) g/dL Hct 32.2 L (37.2-46.3) % RDW 15.0 H (11.5-14.5) % Immature Gran # 0.07 H (0.00-0.04) X 10*3/uL Potassium 3.4 L (3.5-5.5) mmol/L Anion Gap 12.20 H (4.00-12.00) mmol/L BUN 7.3 L (9.0-27.0) mg/dL Calcium 8.1 L (8.7-10.3) mg/dL Assessment and Plan (1) UTI (urinary tract infection) Current Visit: Yes Status: Acute Code(s): N39.0 - URINARY TRACT INFECTION, SITE NOT SPECIFIED SNOMED Code(s): 86425719 (2) Aspiration pneumonia Current Visit: Yes Status: Acute Code(s): J69.0 - PNEUMONITIS DUE TO INHALATION OF FOOD AND VOMIT SNOMED Code(s): 283642763 Plan: 1patient was in the hospital with sepsis in this patient noted to have a fever tachycardia hypotension source likely urinary underlying pneumonia not entirely excluded 2the patient had mild elevated procalcitonin cultures are negative. 3patient remains to be afebrile patient white count normal right midlung opacity concerning for aspiration pneumonia, patient is currently covered with Zosyn and will be transition to oral Augmentin on discharge Dictation was produced using [employer] dictation software. please excuse any grammatical, word or spelling errors. Time with Patient: Less than 30
--- NOTE | 2023-10-19 14:22 | P.PN ---
Subjective Progress Note Date: 10/19/23 Principal diagnosis: Pneumonia. I am seeing this patient in consultation today 10/10/2023 in the emergency room after she was brought in from her [facility] home. Apparently she's been having shortness of breath, congested cough, and fever. Patient is cognitively impaired and nonverbal at baseline. Other than that, little is known about the patient's past medical history. Her listed, patient is unable to provide any medical history. It looks like the patient had a positive UTI at the beginning of September, isolated organism enterococcus faecalis. She apparently was brought in for evaluation for a congested cough, shortness of breath, and fever. She is currently lying in bed, on 2 L/m nasal cannula, in no acute distress. SpO2 is 98%. She does have a congested cough. She was febrile on arrival with a T-max of 100.1F. She is tachycardic. Blood pressure stable. Chest x-ray arrival shows diffuse bilateral infiltrates. Negative for influenza, RSV, COVID-19. CBC was unremarkable. No leukocytosis. BMP shows sodium 142, potassium 4.4, chloride 102, serum bicarb 24, BUN 29, creatinine 0.97, glucose 133. Lactic acid level was mildly elevated at 3.9. Normal saline infusing at 75 ml/hr. Troponins less than 0.012. NT proBNP not elevated. Urinalysis appears to be contaminated. We'll repeat. Vital signs are stable. Reevaluated today on 10/11/2023, patient seems to be quite comfortable, she is on nasal cannula, nonverbal, not in any distress, remains on antibiotics for her acute pneumonia as noted on admission chest x-ray. WBC count is 8.9 hemoglobin 10.5 basic metabolic profile is normal renal profile is normal Reevaluated today on 10/12/2023 , Patient is doing well, seems to be very comfortable, she is now on 3 L nasal cannula with O2 sats of 93% and blood pressure 94/74 temp is 97.3, patient again is nonverbal, and she seems to be doing well clinically. I am recommending repeat chest x-ray on this patient, and this will be done tomorrow. Patient has urinary tract infection in addition to her pneumonia, remains on Zosyn in the meantime The patient is seen today 10/13/2023 in follow-up on the regular medical floor. She is currently resting in bed. Awake. No acute distress. Maintaining O2 saturations in the mid 90s on room air. She's been afebrile. Hemodynamically stable. Chest x-ray revealed limited evaluation of the right midlung secondary to the patient's hand. Abdomen revealed non-specific all gas pattern. Cultures reveal no growth. White count 8.4. Hemoglobin 10.3. Platelets 144. Sodium 144. Potassium 3.4. Bicarb 22. BUN 10. Creatinine 0.7. She is continued on antibiotics in the form of Zosyn. Remains on bronchodilators. Normal saline at 50 MLS per hour. Reevaluated today on 10/14/23, patient is basically about the same, remains very comfortable, not in any distress, nonverbal, does not follow any instructions, then receiving antibiotics for presumptive aspiration pneumonia. I am planning to repeat chest x-ray on this patient in the next 24-48 hours. In the meantime I plan is to continue antibiotics. CBC today is relatively normal basic metabolic profile is normal and renal profile is normal The patient is seen today 10/15/2023 in follow-up on the regular medical floor. She is currently resting in bed. Awake and alert. Maintaining O2 saturations in the 90s on room air. She's been afebrile. Hemodynamically stable. She does have some lower extremity edema. Blood cultures revealed no growth. White count 6.3. Hemoccult 9.2. Sodium 146. Potassium 3.3. Bicarb 18. BUN 14. Creatinine 0.8. Glucose 86. She is continued on Zosyn. Progress note dated 10/16/2023. The patient is seen today in room 450. I can obtain no history from the patient. All she is doing is yelling and screaming out loud. The patient is currently on room air. She's getting saline at 50 mL an hour. She continues on Zosyn. Labs today include a white count of 8.4, hemoglobin 10.1, crit 30.9, and a normal platelet count. Sodium 147, potassium 2.9, chlorides 109, CO2 20, anion gap 18, BUN 17, and creatinine 0.7. Calcium is 8.0. Chest x-ray shows cardiomegaly, and bilateral interstitial infiltrates. Progress note dated 10/18/2023. This is a 68-year-old female seen today in room 450. The patient cannot give any additional history. All she does is moan and screams out. She's currently on room air. She's not on any IV fluids. She continues on Zosyn, for bilateral pneumonia. Current labs reveal a white count of 6.8, hemoglobin 10.3, hematocrit 31.8, and a platelet count of 202,000. Sodium 144, potassium 3.6, chlorides 108, CO2 24, anion gap is 12, BUN is 12, creatinine 0.6. Glucose is 98. Progress note dated 10/19/2023. 68-year-old female seen again in room 450. The patient cannot give any history, as she has not been able to over the last few days. She continues on room air. She's getting Zosyn. She's being followed by infectious diseases. She's not receiving any IV fluids. From my perspective, the patient could be considered for possible discharge. White count is 5.07. Hemoglobin 10.3, hematocrit 32.2, and a platelet count that was normal. Sodium 145, potassium 3.4, chlorides 109, CO2 24, BUN 7.3, and creatinine 0.6. Calcium is 8.1. Objective - Vital Signs Vital signs: Vital Signs Temp 98.2 F 10/19/23 07:04 Pulse 103 H 10/19/23 07:41 Resp 19 10/19/23 07:41 BP 175/107 10/19/23 07:04 Pulse Ox 93 L 10/19/23 07:04 FiO2 Intake & Output 10/18/23 10/19/23 10/19/23 18:59 06:59 18:59 Intake Total 300 Balance 300 Weight 58.967 kg Intake: Oral 300 Other: Voiding Method Diaper Diaper Diaper Incontinent Incontinent Incontinent # Voids 4 2 2 # Bowel Movements 3 1 - Exam No acute distress, poorly responsive. Yelling out, and can provide no additional history. Room air saturation is 96 %. HEENT examination is grossly unremarkable. Neck supple. Full range of motion. No adenopathy thyromegaly or neck vein distention. Cardiovascular examination reveals regular rhythm rate. S1-S2 normal. No S3 or S4. No discernible murmur noted. Heart rate 98 bpm. Lungs reveal mild scattered rhonchi. No wheezes. No crackles. Room air saturation is 95%. Breath sounds are equal bilaterally. Abdomen soft bowel sounds are heard. No masses or tenderness. Extremities are intact. Flexion contractures of both upper extremities. No cyanosis or significant clubbing. Skin is without rash or lesion. Neurologic examination is unable to be evaluated. - Labs CBC & Chem 7: 10/19/23 06:31 10/19/23 06:31 Labs: Abnormal Lab Results - Last 24 Hours (Table) 10/19/23 10/19/23 Range/Units 06:31 06:31 RBC 3.51 L (4.10-5.20) X 10*6/uL Hgb 10.3 L (12.0-15.0) g/dL Hct 32.2 L (37.2-46.3) % RDW 15.0 H (11.5-14.5) % Immature Gran # 0.07 H (0.00-0.04) X 10*3/uL Potassium 3.4 L (3.5-5.5) mmol/L Anion Gap 12.20 H (4.00-12.00) mmol/L BUN 7.3 L (9.0-27.0) mg/dL Calcium 8.1 L (8.7-10.3) mg/dL Assessment and Plan Assessment: Acute hypoxic respiratory failure secondary to acute community-acquired pneumonia or possibly aspiration pneumonia. Acute febrile illness, recovered. History of recurrent urinary tract infection. Cognitive impairment. Acute on chronic anemia. Hypokalemia. Hypernatremia. Plan: Plan dated 10/16/2023. The patient is seen in room 450. She's on room air. The patient's getting Zosyn, for her pneumonia. Additional recommendations and suggestions are forthcoming. The patient is a DO NOT RESUSCITATE/DO NOT INTUBATE patient. Labs, x-rays, and medications are reviewed. The patient's prognosis is poor. We will continue to follow make recommendations. Plan dated 10/18/2023. The patient is seen again today in room 450. She appears to be relatively stable. She is not manifesting any signs or symptoms of respiratory distress or difficulty. She cannot provide any additional history. The patient is currently on room air. Saturations are in the mid 90s. She's not receiving any IV fluids. She continues on Zosyn for her aspiration pneumonia. Labs, x-rays, and medications are all reviewed. Prognosis is guarded. Plan dated 10/19/2023. As mentioned above, the patient is stable, and has been on room air for a number of days. She's not manifesting any signs or symptoms of respiratory distress. Unfortunately, she cannot give any additional history. Labs, x-rays, and medications are reviewed. From my perspective, the patient is stable for discharge. The patient continues on Zosyn. The infectious disease Dr. will have to come up with a discharge antibiotic, if one is even needed. Time with Patient: Less than 30
--- NOTE | 2023-10-19 21:13 | DS ---
DISCHARGE SUMMARY FINAL DIAGNOSES: 1. Acute bilateral pneumonia, possibly aspiration as well as sepsis with acute hypoxic respiratory failure present on admission, rule out COVID-19 pneumonia. 2. Severe hypokalemia. 3. History of frequent urinary tract infections. 4. History of dementia. 5. Hyperlipidemia. 6. Multiple complex medical issues. 7. No code, no CPR, no vent. DISCHARGE DISPOSITION: The patient will be discharged in stable condition. Guarded prognosis. HISTORY OF PRESENT ILLNESS: This is a 68-year-old woman, who was admitted with bilateral pneumonia, pneumonia was suggestive of aspiration pneumonia and also possibly COVID pneumonia also, but repeat COVID-19 testing was negative, so the patient treated as aspiration pneumonia, improved significantly and chest CTA did not show any acute abnormality. Pulmonary saw the patient and recommended outpatient followup. PHYSICAL EXAMINATION: VITAL SIGNS: Stable. CARDIOVASCULAR: S1, S2. RESPIRATIONS: A few scattered rhonchi. The patient will be discharged in stable condition and guarded prognosis with plans to follow up with Dr. Gutierrez in the ECF and as well as Pulmonary, Dr. Ennis in the outpatient setting. DISCHARGE ADVICE AND MEDICATIONS: Please refer to the discharge advice and medications for list of medications. Add Augmentin syrup 600 mg/5 mL p.o. b.i.d. for 10 days and continue to monitor. MMODL / IJN: [id number] /
== END 2023-10-19 15:40 | disposition home or self-care (01) | DRG 871 ==
LOC: EC 04:09 → 4SSUR 06:12
PROVIDERS: ADMIT Hospitalist; ATTEND Hospitalist
DX: A41.9 Sepsis, unspecified organism (principal); J15.9 Unspecified bacterial pneumonia; J69.0 Pneumonitis due to inhalation of food and vomit; J96.01 Acute respiratory failure with hypoxia; E87.0 Hyperosmolality and hypernatremia; N17.9 Acute kidney failure, unspecified; N39.0 Urinary tract infection, site not specified; E87.20 Acidosis, unspecified; T17.918A Gastric contents in respiratory tract, part unspecified causing other injury, initial encounter; M19.90 Unspecified osteoarthritis, unspecified site; D64.9 Anemia, unspecified; E78.5 Hyperlipidemia, unspecified; E87.6 Hypokalemia; G80.9 Cerebral palsy, unspecified; F03.90 Unspecified dementia, unspecified severity, without behavioral disturbance, psychotic disturbance, mood disturbance, and anxiety; I95.9 Hypotension, unspecified; I11.9 Hypertensive heart disease without heart failure; Z66 Do not resuscitate; Z11.52 Encounter for screening for COVID-19; Q90.9 Down syndrome, unspecified; Z79.82 Long term (current) use of aspirin; Z74.01 Bed confinement status; Z79.899 Other long term (current) drug therapy; Z87.440 Personal history of urinary (tract) infections; Z71.3 Dietary counseling and surveillance
CPT/HCPCS: 36410; 36415; 71045; 71046; 71275; 74022; 74177; 76937; 80048; 80053; 81001; 83605; 83735; 83880; 84145; 84484; 85025; 85379; 85610; 85730; 87040; 87449; 87636; 93005; 94640; 94760; 96361; 96365; 96366; 96367; 96368; 99285

== ENCOUNTER 2023-11-14 22:28 | Emergency (ER) | payer MEDICARE, OTHER ==
[2023-11-14 22:47] VITALS: TEMP 98
[2023-11-15] MEDS ORDERED: KETOROLAC 15 MG/ML 1 ML VIAL IVP STA (01:36)
[2023-11-15 01:54] LABS: Basophils % (A) 1 %; Eosinophils # (A) 0.2 k/uL (0-0.7); Eosinophils % (A) 4 %; HCT 33.4 % (34.0-46.0); Lymphocytes % (A) 39 %; MCH 30.1 pg (25.0-35.0); MCHC 33.1 g/dL (31.0-37.0); Mean Platelet Volume 8.2; Monocytes # (A) 0.4 k/uL (0-1.0); Monocytes % (A) 8 %; Neutrophils # (A) 2.3 k/uL (1.3-7.7); Neutrophils % (A) 45 %; RBC 3.67 m/uL (3.80-5.40); RDW 14.9 % (11.5-15.5)
[2023-11-15 02:09] LABS: ALT 14 U/L (4-34); AST 20 U/L (14-36); African American GFR (CKD) >90 (>60 ml/min/1.73 sqM); Albumin 3.6 g/dL (3.5-5.0); Alkaline Phosphatase 78 U/L (38-126); Amylase 85 U/L (30-110); Anion Gap 9 mmol/L; Blood Urea Nitrogen 33 mg/dL (7-17); Calcium 9.3 mg/dL (8.4-10.2); Carbon Dioxide 24 mmol/L (22-30); Chloride 105 mmol/L (98-107); Glucose 105 mg/dL (74-99); Lipase 202 U/L (23-300); Non-African American GFR(CKD) 89 (>60 ml/min/1.73 sqM); Potassium 4.2 mmol/L (3.5-5.1); Sodium 138 mmol/L (137-145); Total Bilirubin 0.3 mg/dL (0.2-1.3); Total Protein 6.4 g/dL (6.3-8.2)
[2023-11-15 02:23] LABS: MCV 90.9 fL (80.0-100.0)
[2023-11-15 02:24] LABS: Platelet Count 196 k/uL (150-450)
[2023-11-15 02:31] LABS: INR 1.5 (<1.2); Partial Thromboplastin Time 18.3 sec (22.0-30.0); Prothrombin Time 15.2 sec (10.0-12.5)
--- NOTE | 2023-11-15 02:38 | CT ---
EXAM: CT Abdomen and Pelvis Without Intravenous Contrast CLINICAL HISTORY: ITS.REASON CT Reason: abdominal pain TECHNIQUE: Axial computed tomography images of the abdomen and pelvis without intravenous contrast. CTDI is 9.6 mGy and DLP is 472.5 mGy-cm. This CT exam was performed using one or more of the following dose reduction techniques: automated exposure control, adjustment of the mA and/or kV according to patient size, and/or use of iterative reconstruction technique. COMPARISON: 10/16/2023 FINDINGS: Lung bases: Peripheral consolidations within the left base and lingula. Mediastinum: Small hiatal hernia. ABDOMEN: Liver: Unremarkable. Gallbladder and bile ducts: Gallbladder is contracted with diffuse prominence of the wall likely secondary to under distention. Likely gallstones. Pancreas: Unremarkable. No ductal dilation. Spleen: Unremarkable. No splenomegaly. Adrenals: Unremarkable. No mass. Kidneys and ureters: Unremarkable. No obstructing stones. No hydronephrosis. Stomach and bowel: Unremarkable. No obstruction. No mucosal thickening. PELVIS: Appendix: No findings to suggest acute appendicitis. Bladder: Unremarkable. No stones. Reproductive: Unremarkable as visualized. ABDOMEN and PELVIS: Intraperitoneal space: Unremarkable. No free air. No significant fluid collection. Bones/joints: L3 superior endplate compression fracture unchanged from prior study. No dislocation. Soft tissues: Unremarkable. Vasculature: Unremarkable. No abdominal aortic aneurysm. Lymph nodes: Unremarkable. No enlarged lymph nodes. IMPRESSION: Peripheral consolidations within the left base and lingula. No acute abdominal or pelvic process. Cholelithiasis.
--- NOTE | 2023-11-15 03:29 | ED ---
Abdominal Pain HPI - General Chief Complaint: Abdominal Pain Stated Complaint: Nausea, Vomiting Time Seen by Provider: 11/14/23 23:31 Source: patient Mode of arrival: ambulatory Limitations: no limitations - History of Present Illness Initial Comments: 68-year-old female brought from [facility] secondary to complaints of abdominal pain for the last 3 months. At this time history is limited as patient is n largely nonverbal and and vocabulary. - Related Data Home Medications Medication Instructions Recorded Confirmed Acetaminophen Tab [Tylenol] 650 mg PO Q4H PRN MDD 10 tabs 04/07/20 10/10/23 Baclofen [Lioresal] 20 mg PO HS 04/07/20 10/10/23 Menthol [Biofreeze] 1 applic TOPICAL Q12H PRN 04/07/20 10/10/23 Raloxifene [Evista] 60 mg PO DAILY 04/07/20 10/10/23 ALPRAZolam [Xanax] 0.25 mg PO HS 10/10/23 10/10/23 Aspirin EC [Ecotrin Low Dose] 81 mg PO DAILY 10/10/23 10/10/23 Cranberry 450 mg PO HS 10/10/23 10/10/23 Eucalyptus Oil/Menthol/Camphor 1 applic TOPICAL BID PRN 10/10/23 10/10/23 [Vicks Vaporub Ointment] Fexofenadine HCl [Children's 60 mg PO BID 10/10/23 10/10/23 Rosi Susp] Furosemide [Lasix] 40 mg PO DAILY 10/10/23 10/10/23 Hydrocortisone/Aloe Vera 1 applic TOPICAL DIRECTED PRN 10/10/23 10/10/23 [Cortizone-10 with Aloe 1% Crm] Ibuprofen [Motrin] 600 mg PO Q8HR PRN 10/10/23 10/10/23 Magnesium Hydroxide [Milk of 2,400 mg PO DAILY PRN 10/10/23 10/10/23 Magnesia] Nystatin 100,000 Unit/gm Powd 1 applic TOPICAL BID 10/10/23 10/10/23 [Mycostatin Powder] Nystatin 100,000Unit/gm Cream 1 applic TOPICAL BID PRN 10/10/23 10/10/23 [Mycostatin Cream] Olopatadine HCl [Pataday] 1 drop BOTH EYES BID PRN 10/10/23 10/10/23 Pantoprazole Sodium [Protonix] 20 mg PO DAILY 10/10/23 10/10/23 Phenylephrine/Dm/Acetaminop/GG 20 ml PO Q6H PRN 10/10/23 10/10/23 [Mucinex Fast-Max Cold-Flu Liq] Potassium Chloride [Klor-Con M20] 20 meq PO DAILY 10/10/23 10/10/23 Pyrithione Zinc 1% Shampoo 1 applic TOPICAL DAILY PRN 10/10/23 10/10/23 QUEtiapine FUMARATE [SEROquel] 400 mg PO HS 10/10/23 10/10/23 SILVER sulfADIAZINE Cream 1 applic TOPICAL DAILY PRN 10/10/23 10/10/23 [Silvadene 1% Cream] Siltussin Sa 200 mg PO Q4H PRN 10/10/23 10/10/23 Simethicone [Gas-X] 125 mg PO BID PRN 10/10/23 10/10/23 Simvastatin [Zocor] 40 mg PO HS 10/10/23 10/10/23 Stomach Relief 262.5 mg PO DAILY PRN 10/10/23 10/10/23 busPIRone HCl [Buspar] 10 mg PO BID 10/10/23 10/10/23 diphenhydrAMINE HCL [Benadryl] 50 mg PO Q4H PRN 10/10/23 10/10/23 polyethylene glycoL 3350 [Miralax] 17 gm PO DAILY 10/10/23 10/10/23 Previous Rx's Medication Instructions Recorded Albuterol Nebulized [Ventolin 2.5 mg INHALATION RT-TID #120 10/19/23 Nebulized] Amoxic-Pot Clav 600-42.9MG/5Ml 5 ml PO Q12H #100 ml 10/19/23 [Augmentin 600-42.9 mg/5 ml Liquid] Amoxic-Pot Clav 875-125Mg 1 tab PO Q12HR 5 Days #10 tab 11/15/23 [Augmentin 875-125] Azithromycin [Zithromax Z Pack] 0 tab PO DIRECTED #6 tab 11/15/23 Allergies Allergy/AdvReac Type Severity Reaction Status Date / Time No Known Allergies Allergy Verified 11/14/23 22:43 Review of Systems ROS Statement: Those systems with pertinent positive or pertinent negative responses have been documented in the HPI. ROS Other: All systems not noted in ROS Statement are negative. Past Medical History Past Medical History: Osteoarthritis (OA) Additional Past Medical History / Comment(s): down syndrome, cerebral palsy, nonverbal, aspiration History of Any Multi-Drug Resistant Organisms: None Reported Past Surgical History: No Surgical Hx Reported Past Psychological History: No Psychological Hx Reported, Depression Past Alcohol Use History: None Reported Past Drug Use History: None Reported General Exam Limitations: language barrier General appearance: alert Eye exam: Present: normal appearance Neck exam: Present: normal inspection Respiratory exam: Present: normal lung sounds bilaterally Cardiovascular Exam: Present: regular rate GI/Abdominal exam: Present: soft Neurological exam: Present: alert Skin exam: Present: warm, dry Course Vital Signs 11/14/23 22:37 Temperature 98.0 F Pulse Rate 100 Respiratory 18 Rate Blood Pressure 105/80 O2 Sat by Pulse 95 Oximetry Medical Decision Making - Medical Decision Making Was pt. sent in by a medical professional or institution (, PA, SAFEMAKER, urgent care, hospital, or correction...) When possible be specific @ -[facility] Did you speak to anyone other than the patient for history (EMS, parent, family, police, friend...)? What history was obtained from this source @ -No Did you review nursing and triage notes (agree or disagree)? Why? @ -I reviewed and agree with nursing and triage notes Were old charts reviewed (outside hosp., previous admission, EMS record, old EKG, old radiological studies, urgent care reports/EKG's, correction records)? Report findings @ -Information from [facility] reviewed however was very limited I did not provide any information specific to patient's complaints today. Differential Diagnosis (chest pain, altered mental status, abdominal pain women, abdominal pain men, vaginal bleeding, weakness, fever, dyspnea, syncope, headache, dizziness, GI bleed, back pain, seizure, CVA, palpatations, mental health, musculoskeletal)? @ -Differential Abdominal Pain Women: Appendicitis, Cholecystitis, diverticulosis, ischemic bowel, pancreatitis, hepatitis, UTI, gastroenteritis, AAA, incarcerated hernia, bowel obstruction, constipation, inflammatory bowel, hepatitis, peptic ulcer disease, splenic infarction, perforated viscus, vulvitis, ovarian torsion, PID, kidney stone, placenta abruption, this is not meant to be an all-inclusive list EKG interpreted by me (3pts min.). @ -None X-rays interpreted by me (1pt min.). @ -None done CT interpreted by me (1pt min.). @ -CT abdomen pelvis interpreted by me showing no evidence of acute findings however did show gallstones. U/S interpreted by me (1pt. min.). @ -None done What testing was considered but not performed or refused? (CT, X-rays, U/S, labs)? Why? @ -None What meds were considered but not given or refused? Why? @ -None Did you discuss the management of the patient with other professionals (professionals i.e. Dr., PA, SAFEMAKER, lab, RT, psych nurse, social media campaign manager, woodworking bench carpenter, teacher, marketing and communications officer, case fitter)? Give summary @ -No Was smoking cessation discussed for >3mins.? @ -No Was critical care preformed (if so, how long)? @ -No Were there social determinants of health that impacted care today? How? (Homelessness, low income, unemployed, alcoholism, drug addiction, transportation, low edu. Level, literacy, decrease access to med. care, long term, rehab)? @ -No Was there de-escalation of care discussed even if they declined (Discuss DNR or withdrawal of care, Hospice)? DNR status @ -No What co-morbidities impacted this encounter? (DM, HTN, Smoking, COPD, CAD, Cancer, CVA, ARF, Chemo, Hep., AIDS, mental health diagnosis, sleep apnea, morbid obesity)? @ -Nonverbal Was patient admitted / discharged? Hospital course, mention meds given and route, prescriptions, significant lab abnormalities, going to OR and other pertinent info. @ -Discharge 68-year-old female brought from [facility] secondary to complaints of abdominal pain for the last 3 months. At this time unable to elicit any other complaints as patient has a very limited vocabulary. However laboratory studies performed and are largely unremarkable for evidence of acute process. CT abdomen pelvis did not show any evidence of acute process however did show evidence of gallstones. Also does show consolidations in left lung base and lingula LFTs at this time unremarkable. At this time vital signs stable. Patient discharged home in stable condition with prescription for antibiotics. Advised and discharge instructions to have follow-up with surgery secondary to these gallstones. Undiagnosed new problem with uncertain prognosis? @ -No Drug Therapy requiring intensive monitoring for toxicity (Heparin, Nitro, Insulin, Cardizem)? @ -No Were any procedures done? @ -No Diagnosis/symptom? @ -Abdominal pain Acute, or Chronic, or Acute on Chronic? @ -Chronic Uncomplicated (without systemic symptoms) or Complicated (systemic symptoms)? @ -Uncomplicated Side effects of treatment? @ -No Exacerbation, Progression, or Severe Exacerbation? @ -No Poses a threat to life or bodily function? How? (Chest pain, USA, [place], pneumonia, PE, COPD, DKA, ARF, appy, cholecystitis, CVA, Diverticulitis, Homicidal, Suicidal, threat to staff... and all critical care pts) @ -No - Lab Data Result diagrams: 11/15/23 01:40 11/15/23 01:40 Lab Results 11/15/23 11/15/23 11/15/23 Range/Units 01:40 01:40 01:40 WBC 5.0 (3.8-10.6) k/uL RBC 3.67 L (3.80-5.40) m/uL Hgb 11.0 L (11.4-16.0) gm/dL Hct 33.4 L (34.0-46.0) % MCV 90.9 D (80.0-100.0) fL MCH 30.1 (25.0-35.0) pg MCHC 33.1 (31.0-37.0) g/dL RDW 14.9 (11.5-15.5) % Plt Count 196 D (150-450) k/uL MPV 8.2 Neutrophils % 45 % Lymphocytes % 39 % Monocytes % 8 % Eosinophils % 4 % Basophils % 1 % Neutrophils # 2.3 (1.3-7.7) k/uL Lymphocytes # 2.0 (1.0-4.8) k/uL Monocytes # 0.4 (0-1.0) k/uL Eosinophils # 0.2 (0-0.7) k/uL Basophils # 0.0 (0-0.2) k/uL PT 15.2 H (10.0-12.5) sec INR 1.5 H (<1.2) APTT 18.3 L (22.0-30.0) sec Sodium 138 (137-145) mmol/L Potassium 4.2 (3.5-5.1) mmol/L Chloride 105 (98-107) mmol/L Carbon Dioxide 24 (22-30) mmol/L Anion Gap 9 mmol/L BUN 33 H (7-17) mg/dL Creatinine 0.71 (0.52-1.04) mg/dL Est GFR (CKD-EPI)AfAm >90 (>60 ml/min/1.73 sqM) Est GFR (CKD-EPI)NonAf 89 (>60 ml/min/1.73 sqM) Glucose 105 H (74-99) mg/dL Calcium 9.3 (8.4-10.2) mg/dL Total Bilirubin 0.3 (0.2-1.3) mg/dL AST 20 (14-36) U/L ALT 14 (4-34) U/L Alkaline Phosphatase 78 (38-126) U/L Total Protein 6.4 (6.3-8.2) g/dL Albumin 3.6 (3.5-5.0) g/dL Amylase 85 (30-110) U/L Lipase 202 (23-300) U/L Disposition Clinical Impression: Abdominal pain Disposition: HOME SELF-CARE Condition: Good Additional Instructions: Please return to the Emergency Department if symptoms worsen or any other concerns. There was evidence of gallstones on the patient's CAT scan performed today. Patient also did have evidence of possible developing pneumonia and was provided a prescription of antibiotics. Please pick these up and provide to the patient as directed on the prescription. Please follow-up with general surgery in regards to gallstones. Prescriptions: Amoxic-Pot Clav 875-125Mg [Augmentin 875-125] 1 tab PO Q12HR 5 Days #10 tab Azithromycin [Zithromax Z Pack] 0 tab PO DIRECTED #6 tab Is patient prescribed a controlled substance at d/c from ED?: No Referrals: Ozzie Azul MD [Primary Care Provider] - 1-2 days Time of Disposition: 03:38
[2023-11-15 07:05] VITALS: BP 110/61; PULSE 94; RESP 20
== END 2023-11-15 06:28 | disposition home or self-care (01) ==
LOC: EC 22:28
DX: K80.20 Calculus of gallbladder without cholecystitis without obstruction (principal); M19.90 Unspecified osteoarthritis, unspecified site; Z79.899 Other long term (current) drug therapy
CPT/HCPCS: 36415; 74176; 80053; 82150; 83690; 84484; 85025; 85610; 85730; 99285

== ENCOUNTER 2024-01-03 22:49 | Inpatient (IN) | payer MEDICARE, OTHER ==
--- NOTE | 2024-01-03 23:20 | ED ---
General Adult HPI - General Chief complaint: Nausea/Vomiting/Diarrhea Stated complaint: Vomiting, Congestion Time Seen by Provider: 01/03/24 22:50 Source: EMS Mode of arrival: EMS - History of Present Illness Initial comments: Dictation was produced using [employer] dictation software. please excuse any grammatical, word or spelling errors. Chief Complaint: 68-year-old mentally debilitated female presents emergency department for cough and congestion for couple days History of Present Illness: Patient 68-year-old female with past medical history of cerebral palsy, mental debility. She lives currently at a halfway. She has history of Down syndrome. She also has had bouts of bacterial pneumonia and aspiration pneumonia. Last 2 to 3 days she has been having cough congestion nausea and vomiting. There is no concern by EMS that patient has decreased mentation though she does appear to be more malaised than usual. unable to obtain ROS secondary to mental status - Related Data Home Medications Medication Instructions Recorded Confirmed Acetaminophen Tab [Tylenol] 650 mg PO Q4H PRN MDD 10 tabs 04/07/20 10/10/23 Baclofen [Lioresal] 20 mg PO HS 04/07/20 10/10/23 Menthol [Biofreeze] 1 applic TOPICAL Q12H PRN 04/07/20 10/10/23 Raloxifene [Evista] 60 mg PO DAILY 04/07/20 10/10/23 ALPRAZolam [Xanax] 0.25 mg PO HS 10/10/23 10/10/23 Aspirin EC [Ecotrin Low Dose] 81 mg PO DAILY 10/10/23 10/10/23 Cranberry 450 mg PO HS 10/10/23 10/10/23 Eucalyptus Oil/Menthol/Camphor 1 applic TOPICAL BID PRN 10/10/23 10/10/23 [Vicks Vaporub Ointment] Fexofenadine HCl [Children's 60 mg PO BID 10/10/23 10/10/23 Rosi Susp] Furosemide [Lasix] 40 mg PO DAILY 10/10/23 10/10/23 Hydrocortisone/Aloe Vera 1 applic TOPICAL DIRECTED PRN 10/10/23 10/10/23 [Cortizone-10 with Aloe 1% Crm] Ibuprofen [Motrin] 600 mg PO Q8HR PRN 10/10/23 10/10/23 Magnesium Hydroxide [Milk of 2,400 mg PO DAILY PRN 10/10/23 10/10/23 Magnesia] Nystatin 100,000 Unit/gm Powd 1 applic TOPICAL BID 10/10/23 10/10/23 [Mycostatin Powder] Nystatin 100,000Unit/gm Cream 1 applic TOPICAL BID PRN 10/10/23 10/10/23 [Mycostatin Cream] Olopatadine HCl [Pataday] 1 drop BOTH EYES BID PRN 10/10/23 10/10/23 Pantoprazole Sodium [Protonix] 20 mg PO DAILY 10/10/23 10/10/23 Phenylephrine/Dm/Acetaminop/GG 20 ml PO Q6H PRN 10/10/23 10/10/23 [Mucinex Fast-Max Cold-Flu Liq] Potassium Chloride [Klor-Con M20] 20 meq PO DAILY 10/10/23 10/10/23 Pyrithione Zinc 1% Shampoo 1 applic TOPICAL DAILY PRN 10/10/23 10/10/23 QUEtiapine FUMARATE [SEROquel] 400 mg PO HS 10/10/23 10/10/23 SILVER sulfADIAZINE Cream 1 applic TOPICAL DAILY PRN 10/10/23 10/10/23 [Silvadene 1% Cream] Siltussin Sa 200 mg PO Q4H PRN 10/10/23 10/10/23 Simethicone [Gas-X] 125 mg PO BID PRN 10/10/23 10/10/23 Simvastatin [Zocor] 40 mg PO HS 10/10/23 10/10/23 Stomach Relief 262.5 mg PO DAILY PRN 10/10/23 10/10/23 busPIRone HCl [Buspar] 10 mg PO BID 10/10/23 10/10/23 diphenhydrAMINE HCL [Benadryl] 50 mg PO Q4H PRN 10/10/23 10/10/23 polyethylene glycoL 3350 [Miralax] 17 gm PO DAILY 10/10/23 10/10/23 Previous Rx's Medication Instructions Recorded Albuterol Nebulized [Ventolin 2.5 mg INHALATION RT-TID #120 10/19/23 Nebulized] Amoxic-Pot Clav 600-42.9MG/5Ml 5 ml PO Q12H #100 ml 10/19/23 [Augmentin 600-42.9 mg/5 ml Liquid] Amoxic-Pot Clav 875-125Mg 1 tab PO Q12HR 5 Days #10 tab 11/15/23 [Augmentin 875-125] Azithromycin [Zithromax Z Pack] 0 tab PO DIRECTED #6 tab 11/15/23 Allergies Allergy/AdvReac Type Severity Reaction Status Date / Time No Known Allergies Allergy Verified 01/03/24 22:59 Review of Systems ROS Statement: Those systems with pertinent positive or pertinent negative responses have been documented in the HPI. ROS Other: All systems not noted in ROS Statement are negative. Past Medical History Past Medical History: Heart Failure, Osteoarthritis (OA) Additional Past Medical History / Comment(s): down syndrome, cerebral palsy, nonverbal, aspiration History of Any Multi-Drug Resistant Organisms: None Reported Past Surgical History: No Surgical Hx Reported Past Psychological History: No Psychological Hx Reported, Depression Smoking Status: Never smoker Past Alcohol Use History: None Reported Past Drug Use History: None Reported General Exam - General Exam Comments Initial Comments: PHYSICAL EXAM: General Impression: not in acute distress HEENT: Normocephalic atraumatic, extra-ocular movements intact, pupils equal and reactive to light bilaterally, mucous membranes moist. Cardiovascular: Heart regular rate and rhythm Chest: Auscultatory rhonchi mild diffusely no retractions, no tachypnea Abdomen: abdomen soft, non-tender, non-distended, no organomegaly Musculoskeletal: Pulses present and equal in all extremities, no peripheral edema Motor: no focal deficits noted Neurological: CN II-XII grossly intact, no focal motor or sensory deficits noted, chronic contractures to the extremities Skin: Intact with no visualized rashes Course Vital Signs 01/03/24 01/03/24 01/04/24 22:50 23:26 00:00 Temperature 97.5 F L Pulse Rate 87 86 Respiratory 20 20 20 Rate Blood Pressure 118/92 113/48 O2 Sat by Pulse 94 L 94 L Oximetry EKG Findings - EKG Comments: EKG Findings:: My EKG interpretation: Ventricular rate 86, sinus rhythm, KS interval 137, QRS 90, QTc 4 2. No KS prolongation, no QTC prolongation, no ST or T-wave changes noted. EKG compared to October 10, 2023 showing no changes. Overall, this EKG is unremarkable Medical Decision Making - Medical Decision Making Was pt. sent in by a medical professional or institution (, PA, SPECIAL ASSEMBLIES SUPERVISOR, urgent care, hospital, or usp...) When possible be specific @ -Sent in from halfway Did you speak to anyone other than the patient for history (EMS, parent, family, police, friend...)? What history was obtained from this source @ -EMS provides entirety of HPI Did you review nursing and triage notes (agree or disagree)? Why? @ -I reviewed and agree with nursing and triage notes Were old charts reviewed (outside hosp., previous admission, EMS record, old EKG, old radiological studies, urgent care reports/EKG's, usp records)? Report findings @ -No old charts were reviewed Differential Diagnosis (chest pain, altered mental status, abdominal pain women, abdominal pain men, vaginal bleeding, musculoskeletal, weakness, fever, dyspnea, syncope, headache, dizziness, GI bleed, back pain, seizure, CVA, palpatations, mental health)? @ -Differential Weakness: Hypoglycemia, shock, sepsis, hyponatremia, anemia, infection, MA, ETOH, adverse medicine reaction, overdose, stroke, this is not meant to be an all-inclusive list. EKG interpreted by me (3pts min.). @ -See above X-rays interpreted by me (1pt min.). @ -Chest x-ray is nonacute CT interpreted by me (1pt min.). @ -None done U/S interpreted by me (1pt. min.). @ -None done What testing was considered but not performed or refused? (CT, X-rays, U/S, labs)? Why? @ -None What meds were considered but not given or refused? Why? @ -None Did you discuss the management of the patient with other professionals (alisha macedofesshailee i.e. , PA, SPECIAL ASSEMBLIES SUPERVISOR, lab, RT, psych nurse, social work case manager, supervisor instant potato processing, teacher, [place] police officer, case assistant)? Give summary @ -Case discussed with hospitalist for admission Was smoking cessation discussed for >3mins.? @ -No Was critical care preformed (if so, how long)? @ -No Were there social determinants of health that impacted care today? How? (Homelessness, low income, unemployed, alcoholism, drug addiction, transportation, low edu. Level, literacy, decrease access to med. care, care home, rehab)? @ -No Was there de-escalation of care discussed even if they declined (Discuss DNR or withdrawal of care, Hospice)? DNR status @ -No What co-morbidities impacted this encounter? (DM, HTN, Smoking, COPD, CAD, Cancer, CVA, ARF, Chemo, Hep., AIDS, mental health diagnosis, sleep apnea, morbi d obesity)? @ -None Was patient admitted / discharged? Hospital course, mention meds given and rout e, prescriptions, significant lab abnormalities, going to OR and other pertinent info. @ -68-year-old female with history of dense mental debility presents to the ER for suspicion of respiratory infectious symptoms. They also report malaise. Vital signs are stable. According to EMS there was no significant send for patient's mentation. Laboratory evaluation obtained. No leukocytosis. Potass ium was 2.6. Rest of labs within acceptable limits. There is some degree of dehydration with a BUN of 60 and creatinine of 1.12. Viral testing is negative. Chest x-ray is nonacute. Given parenteral potassium. Will be admitted observation for potassium replacement and medical monitoring. Undiagnosed new problem with uncertain prognosis? @ -No Drug Therapy requiring intensive monitoring for toxicity (Heparin, Nitro, Insulin, Cardizem)? @ -No Were any procedures done? @ -No Diagnosis/symptom? Acute, or Chronic, or Acute on Chronic? Uncomplicated (without systemic symptoms) or Complicated (systemic symptoms)? @ -Hypokalemia Side effects of treatment? @ -No Exacerbation, Progression, or Severe Exacerbation? @ -No Poses a threat to life or bodily function? How? (Chest pain, [place], [place], pneumonia, PE, COPD, DKA, ARF, appy, cholecystitis, CVA, Diverticulitis, Homicidal, Suicidal, threat to staff... and all critical care pts) @ -yes - Lab Data Result diagrams: 01/03/24 23:22 01/03/24 23:22 Lab Results 01/03/24 01/03/24 01/03/24 Range/Units 23:22 23:22 23:22 WBC 6.8 (3.8-10.6) k/uL RBC 3.95 (3.80-5.40) m/uL Hgb 11.5 (11.4-16.0) gm/dL Hct 36.1 (34.0-46.0) % MCV 91.5 (80.0-100.0) fL MCH 29.1 (25.0-35.0) pg MCHC 31.8 (31.0-37.0) g/dL RDW 14.7 (11.5-15.5) % Plt Count 147 L (150-450) k/uL MPV 8.3 Neutrophils % 60 % Lymphocytes % 27 % Monocytes % 7 % Eosinophils % 2 % Basophils % 1 % Neutrophils # 4.1 (1.3-7.7) k/uL Lymphocytes # 1.9 (1.0-4.8) k/uL Monocytes # 0.5 (0-1.0) k/uL Eosinophils # 0.2 (0-0.7) k/uL Basophils # 0.0 (0-0.2) k/uL Sodium 139 (137-145) mmol/L Potassium 2.6 L* (3.5-5.1) mmol/L Chloride 99 (98-107) mmol/L Carbon Dioxide 28 (22-30) mmol/L Anion Gap 12 mmol/L BUN 60 H (7-17) mg/dL Creatinine 1.12 H (0.52-1.04) mg/dL Est GFR (CKD-EPI)AfAm 59 (>60 ml/min/1.73 sqM) Est GFR (CKD-EPI)NonAf 51 (>60 ml/min/1.73 sqM) Glucose 171 H (74-99) mg/dL Plasma Lactic Acid Jeramy 1.7 (0.7-2.0) mmol/L Calcium 8.2 L (8.4-10.2) mg/dL Total Bilirubin 0.3 (0.2-1.3) mg/dL AST 24 (14-36) U/L ALT 20 (4-34) U/L Alkaline Phosphatase 109 (38-126) U/L NT-Pro-B Natriuret Pep pg/mL Total Protein 6.7 (6.3-8.2) g/dL Albumin 3.9 (3.5-5.0) g/dL Influenza Type A (PCR) (Not Detectd) Influenza Type B (PCR) (Not Detectd) RSV (PCR) (Not Detectd) SARS-CoV-2 (PCR) (Not Detectd) 01/03/24 01/03/24 Range/Units 23:22 23:22 WBC (3.8-10.6) k/uL RBC (3.80-5.40) m/uL Hgb (11.4-16.0) gm/dL Hct (34.0-46.0) % MCV (80.0-100.0) fL MCH (25.0-35.0) pg MCHC (31.0-37.0) g/dL RDW (11.5-15.5) % Plt Count (150-450) k/uL MPV Neutrophils % % Lymphocytes % % Monocytes % % Eosinophils % % Basophils % % Neutrophils # (1.3-7.7) k/uL Lymphocytes # (1.0-4.8) k/uL Monocytes # (0-1.0) k/uL Eosinophils # (0-0.7) k/uL Basophils # (0-0.2) k/uL Sodium (137-145) mmol/L Potassium (3.5-5.1) mmol/L Chloride (98-107) mmol/L Carbon Dioxide (22-30) mmol/L Anion Gap mmol/L BUN (7-17) mg/dL Creatinine (0.52-1.04) mg/dL Est GFR (CKD-EPI)AfAm (>60 ml/min/1.73 sqM) Est GFR (CKD-EPI)NonAf (>60 ml/min/1.73 sqM) Glucose (74-99) mg/dL Plasma Lactic Acid Jeramy (0.7-2.0) mmol/L Calcium (8.4-10.2) mg/dL Total Bilirubin (0.2-1.3) mg/dL AST (14-36) U/L ALT (4-34) U/L Alkaline Phosphatase (38-126) U/L NT-Pro-B Natriuret Pep 46 pg/mL Total Protein (6.3-8.2) g/dL Albumin (3.5-5.0) g/dL Influenza Type A (PCR) Not Detected (Not Detectd) Influenza Type B (PCR) Not Detected (Not Detectd) RSV (PCR) Not Detected (Not Detectd) SARS-CoV-2 (PCR) Not Detected (Not Detectd) Disposition Clinical Impression: Hypokalemia Disposition: ADMITTED IP TO THIS HOSP Condition: Fair Referrals: Ozzie Azul MD [Primary Care Provider] - 1-2 days Decision Time: 02:29
[2024-01-03 23:36] LABS: Basophils % (A) 1 %; Eosinophils # (A) 0.2 k/uL (0-0.7); Eosinophils % (A) 2 %; HCT 36.1 % (34.0-46.0); HGB 11.5 gm/dL (11.4-16.0); Lymphocytes # (A) 1.9 k/uL (1.0-4.8); Lymphocytes % (A) 27 %; MCH 29.1 pg (25.0-35.0); MCHC 31.8 g/dL (31.0-37.0); MCV 91.5 fL (80.0-100.0); Mean Platelet Volume 8.3; Monocytes # (A) 0.5 k/uL (0-1.0); Monocytes % (A) 7 %; Neutrophils # (A) 4.1 k/uL (1.3-7.7); Neutrophils % (A) 60 %; Platelet Count 147 k/uL (150-450); RBC 3.95 m/uL (3.80-5.40); RDW 14.7 % (11.5-15.5); WBC 6.8 k/uL (3.8-10.6)
--- NOTE | 2024-01-04 00:17 | XR ---
EXAM: XR Chest, 2 Views CLINICAL HISTORY: ITS.REASON XR Reason: cough and congestion TECHNIQUE: Frontal and lateral views of the chest. COMPARISON: No relevant prior studies available. FINDINGS: Lungs: Unremarkable. No consolidation. Pleural space: Unremarkable. No pneumothorax. Heart: Cardiomegaly. Mediastinum: Unremarkable. Normal mediastinal contour. Bones/joints: Unremarkable. No acute fracture. IMPRESSION: No pneumonia.
[2024-01-04 01:15] LABS: ALT 20 U/L (4-34); AST 24 U/L (14-36); African American GFR (CKD) 59 (>60 ml/min/1.73 sqM); Albumin 3.9 g/dL (3.5-5.0); Alkaline Phosphatase 109 U/L (38-126); Anion Gap 12 mmol/L; Blood Urea Nitrogen 60 mg/dL (7-17); Calcium 8.2 mg/dL (8.4-10.2); Carbon Dioxide 28 mmol/L (22-30); Chloride 99 mmol/L (98-107); Glucose 171 mg/dL (74-99); Non-African American GFR(CKD) 51 (>60 ml/min/1.73 sqM); Sodium 139 mmol/L (137-145); Total Bilirubin 0.3 mg/dL (0.2-1.3); Total Protein 6.7 g/dL (6.3-8.2)
[2024-01-04 01:20] LABS: Potassium 2.6 mmol/L (3.5-5.1)
[2024-01-04] MEDS ORDERED: NALOXONE 0.4 MG/ML 1 ML VIAL IV PRN (02:26)
[2024-01-04] MEDS: SODIUM CHLORIDE 0.9% 500 ML 500 ML IV STA (02:47)
[2024-01-04] MEDS: POTASSIUM CHLORIDE 20 MEQ in WATER FOR INJECTION 1 100ML.BAG IVPB STA (02:47)
[2024-01-04] MEDS: SODIUM CHLORIDE 0.9% 1,000 ML IV SCH (04:58)
[2024-01-04] MEDS ORDERED: SIMETHICONE 80 MG CHEWABLE PO PRN (09:38)
[2024-01-04] MEDS ORDERED: POTASSIUM CHLORIDE ER 20 MEQ TAB.ER PO SCH (10:00)
[2024-01-04] MEDS: ALBUTEROL NEBULIZED 2.5 MG/3 ML INHALATION PRN (11:53)
[2024-01-04] MEDS: ASPIRIN 81 MG PO SCH (12:26)
[2024-01-04] MEDS: busPIRone HCl 10 MG TAB PO SCH (12:26)
[2024-01-04] MEDS: ENOXAPARIN 40 MG/0.4 ML SYRINGE SQ SCH (12:26)
[2024-01-04] MEDS: PANTOPRAZOLE 40 MG TABLET PO SCH (12:26)
[2024-01-04] MEDS: RALOXIFENE 60 MG TAB PO SCH (12:31)
[2024-01-04] MEDS: NYSTATIN 100,000 UNIT/GM POWD 15 GM TOPICAL SCH (12:32)
[2024-01-04] MEDS: POTASSIUM BICARBONATE/CIT AC 20 MEQ TABLET.EFF PO SCH (12:50)
[2024-01-04] MEDS: LACTATED RINGERS 1,000 ML IV SCH (13:15)
--- NOTE | 2024-01-04 17:43 | P.HPIM ---
History of Present Illness H&P Date: 01/04/24 Chief Complaint: Cough congestion This is a 68-year-old patient, follows with visiting physician Dr. Azul. Chronic stable medical conditions include cerebral palsy, Down syndrome, nonverbal, nonambulatory. Osteoarthritis. Patient is brought by the EMS to the ER. As per the ER notation: Per the [facility]dc patient's has been audibly congested and coughing. Patient is on a mechanically pured diet with thickened liquids. And is prone to aspiration pneumonias. The past 3 days she been coughing up more mucus. Progressively getting worse. She also vomited prior to the EMS coming in. On 2 L nasal cannula. Patient had been receiving as needed albuterol tr eatment. Patient does have a public guardian. Who was contacted by the [facility]dc for transfer to the hospital. Patient not able to still give any history. Sounds audibly congested cough. Nasal cannula. Review of systems: Patient unable to give any history past self Social history: Lives at [facility]. Nonverbal. Nonambulatory. Physical examination: VITAL SIGNS: 97.5, 87, 20, 1 one 8 x 92, 94% room air upon presentation GENERAL: BMI 35.1, laying in bed bouts of coughing., Audibly congested EYES: Pupils equal. Conjunctiva sage l. HEENT: External appearance of nose and ears normal, oral cavity dry. NECK: JVD unable to assess d; masses not palpable. HEART: First and second heart sounds are normal; no edema. LUNGS: Respiratory rate increased, some scattered expiratory coarse crackles wheezing. ABDOMEN: Soft, nontender, liver spleen not palpable, no masses palpable. PSYCH: Unable to assess patient nonverbal l. MUSCULOSKELETAL: Patient contracted in the hand with extension of metacarpophalangeal and proximal IP joints. Bilateral foot drop NEUROLOGICAL: Cranial nerves grossly intact; no facial asymmetry, some movement in the limbs. LYMPHATICS: No lymph nodes palpable in the axilla and neck INVESTIGATIONS, reviewed in the clinical context: January 03, 2024: White count 6.8 hemoglobin 9.5 platelets 147 sodium 139 potassium 2.6 BUN 60 creatinine 1.12 procalcitonin 0.13 Influenza type A, type B, RSV, COVID-19: Not detected EKG tracing personally reviewed by mn-normal sinus rhythm. ST/T wave changes. Chest x-ray film personally reviewed by me-possible basilar infiltrates Assessment and plan: -Suspect bilateral aspiration pneumonitis in a patient with known prior history of recurrent aspiration Aspiration precaution. IV ceftriaxone. Feeding with assistance. -Probable hypoxic respiratory failure from aspiration pneumonitis. Supplemental oxygen -Secondary bronchospasm secondary to aspiration pneumonia Bronchodilators -Chronic dysphagia At the baseline takes pured diet and honey thick liquids All feeding with supervision -Chronic cerebral palsy -Down syndrome -Cerebral palsy with severe cognitive impairment -Obesity BMI 35.1 -Bilateral foot drop, chronic -Chronic medical debility, patient nonambulatory -Primary/secondary osteoarthritis Pain medications as needed -Check CODE STATUS from fdc -Public guardian Patient has aspiration pneumonitis. Borderline hypoxia. Patient will need IV antibiotics inpatient management for at least for 2 nights. Past Medical History Past Medical History: Heart Failure, Osteoarthritis (OA) Additional Past Medical History / Comment(s): down syndrome, cerebral palsy, nonverbal, aspiration History of Any Multi-Drug Resistant Organisms: None Reported Past Surgical History: No Surgical Hx Reported Past Psychological History: No Psychological Hx Reported, Depression Smoking Status: Never smoker Past Alcohol Use History: None Reported Past Drug Use History: None Reported Medications and Allergies Home Medications Medication Instructions Recorded Confirmed Type Acetaminophen Tab [Tylenol] 650 mg PO Q4H PRN MDD 10 tabs 04/07/20 01/04/24 History Baclofen [Lioresal] 20 mg PO HS@199904/07/20 01/04/24 History Raloxifene [Evista] 60 mg PO DAILY@0800 04/07/20 01/04/24 History ALPRAZolam [Xanax] 0.25 mg PO HS@199910/10/23 01/04/24 History Aspirin EC [Ecotrin Low Dose] 81 mg PO DAILY@0800 10/10/23 01/04/24 History Cranberry 450 mg PO HS@199910/10/23 01/04/24 History Eucalyptus Oil/Menthol/Camphor 1 applic TOPICAL BID PRN 10/10/23 01/04/24 History [Vicks Vaporub Ointment] Fexofenadine HCl [Children's 60 mg PO BID@0800,199910/10/23 01/04/24 History Rosi Susp] Furosemide [Lasix] 40 mg PO DAILY@0800 10/10/23 01/04/24 History Hydrocortisone/Aloe Vera 1 applic TOPICAL DIRECTED PRN 10/10/23 01/04/24 History [Cortizone-10 with Aloe 1% Crm] Ibuprofen [Motrin] 600 mg PO TID PRN 10/10/23 01/04/24 History Magnesium Hydroxide [Milk of 2,400 mg PO DAILY PRN 10/10/23 01/04/24 History Magnesia] Nystatin 100,000 Unit/gm Powd 1 applic TOPICAL BID@799,199910/10/23 01/04/24 History [Mycostatin Powder] Nystatin 100,000Unit/gm Cream 1 applic TOPICAL BID PRN 10/10/23 01/04/24 History [Mycostatin Cream] Olopatadine HCl [Pataday] 1 drop BOTH EYES BID PRN 10/10/23 01/04/24 History Phenylephrine/Dm/Acetaminop/GG 20 ml PO Q6H PRN 10/10/23 01/04/24 History [Mucinex Fast-Max Cold-Flu Liq] Potassium Chloride [Klor-Con M20] 20 meq PO DAILY@0800 10/10/23 01/04/24 History Pyrithione Zinc 1% Shampoo 1 applic TOPICAL DAILY PRN 10/10/23 01/04/24 History QUEtiapine FUMARATE [SEROquel] 400 mg PO HS@199910/10/23 01/04/24 History SILVER sulfADIAZINE Cream 1 applic TOPICAL DAILY PRN 10/10/23 01/04/24 History [Silvadene 1% Cream] Siltussin Sa 200 mg PO Q4H PRN 10/10/23 01/04/24 History Simethicone [Gas-X] 125 mg PO BID PRN 10/10/23 01/04/24 History Simvastatin [Zocor] 40 mg PO HS@199910/10/23 01/04/24 History busPIRone HCl [Buspar] 10 mg PO BID@799,199910/10/23 01/04/24 History diphenhydrAMINE HCL [Benadryl] 50 mg PO Q4-6H PRN 10/10/23 01/04/24 History polyethylene glycoL 3350 [Miralax] 17 gm PO DAILY@0800 10/10/23 01/04/24 History ALPRAZolam [Xanax] 1 mg PO DIRECTED PRN 01/04/24 01/04/24 History Albuterol Nebulized [Ventolin 2.5 mg INHALATION RT-TID PRN 01/04/24 01/04/24 History Nebulized] Calcium Carbonate [Tums] 500 mg PO DIRECTED PRN 01/04/24 01/04/24 History Carbamide Peroxide [Debrox Otic] 5 - 10 drops BOTH EARS BID PRN 01/04/24 01/04/24 History Omeprazole 40 mg PO DAILY@0800 01/04/24 01/04/24 History Sodium Chloride [Saline Mist] 1 spray EA NOSTRIL DIRECTED PRN 01/04/24 01/04/24 History Stomach Relief 525-30ml 262.5 ml PO DAILY PRN 01/04/24 01/04/24 History Thick-It Original Powder 1 dose PO DIRECTED PRN 01/04/24 01/04/24 History guaiFENesin [guaiFENesin Oral 200 mg PO Q4H PRN 01/04/24 01/04/24 History Solution] metOLazone [Zaroxolyn] 5 mg PO DAILY@0800 01/04/24 01/04/24 History Allergies Allergy/AdvReac Type Severity Reaction Status Date / Time No Known Allergies Allergy Verified 01/04/24 06:44 Physical Exam Vitals: Vital Signs Temp Pulse Resp BP Pulse Ox 01/04/24 10:07 101 H 16 102/45 98 01/04/24 09:59 101 H 16 98/54 96 01/04/24 09:53 16 01/04/24 09:32 99 01/04/24 07:35 98.9 F 108 H 17 114/47 99 01/04/24 06:00 99.3 F 112 H 20 107/57 94 L 01/04/24 04:00 106 H 20 119/77 94 L 01/04/24 02:30 98 20 121/78 95 01/04/24 00:00 86 20 113/48 94 L 01/03/24 23:26 20 01/03/24 22:50 97.5 F L 87 20 118/92 94 L Intake and Output 01/03/24 01/04/24 01/04/24 22:59 06:59 14:59 Other: Weight 58.967 kg Results CBC & Chem 7: 01/03/24 23:22 01/03/24 23:22 Labs: Abnormal Lab Results - Last 24 Hours (Table) 01/03/24 01/03/24 Range/Units 23:22 23:22 Plt Count 147 L (150-450) k/uL Potassium 2.6 L* (3.5-5.1) mmol/L BUN 60 H (7-17) mg/dL Creatinine 1.12 H (0.52-1.04) mg/dL Glucose 171 H (74-99) mg/dL Calcium 8.2 L (8.4-10.2) mg/dL
[2024-01-04] MEDS: ALBUTEROL NEBULIZED 2.5 MG/3 ML INHALATION SCH (18:29)
[2024-01-04 19:25] LABS: African American GFR (CKD) 88 (>60 ml/min/1.73 sqM); Anion Gap 7 mmol/L; Blood Urea Nitrogen 46 mg/dL (7-17); Calcium 8.1 mg/dL (8.4-10.2); Carbon Dioxide 33 mmol/L (22-30); Chloride 100 mmol/L (98-107); Glucose 99 mg/dL (74-99); Non-African American GFR(CKD) 76 (>60 ml/min/1.73 sqM); Potassium 3.6 mmol/L (3.5-5.1); Sodium 140 mmol/L (137-145)
[2024-01-04] MEDS: BACLOFEN 10 MG TAB PO SCH (21:17)
[2024-01-04] MEDS: ALPRAZolam 0.25 MG TAB PO SCH (21:17)
[2024-01-04] MEDS: ATORVASTATIN 20 MG TAB PO SCH (21:17)
[2024-01-04] MEDS: QUEtiapine 400 MG TAB PO SCH (21:17)
[2024-01-05] MEDS: polyethylene glycoL 3350 17 GM POWD.PACK PO SCH (10:59)
--- NOTE | 2024-01-05 13:47 | P.PN ---
Progress Note - Text Progress Note Date: 01/05/24 Chief Complaint: Cough congestion This is a 68-year-old patient, follows with visiting physician Dr. Azul. Chronic stable medical conditions include cerebral palsy, Down syndrome, nonverbal, nonambulatory. Osteoarthritis. Patient is brought by the EMS to the ER. As per the ER notation: Per the intermediate patient's has been audibly congested and coughing. Patient is on a mechanically pured diet with thickened liquids. And is prone to aspiration pneumonias. The past 3 days she been coughing up more mucus. Progressively getting worse. She also vomited prior to the EMS coming in. On 2 L nasal cannula. Patient had been receiving as needed albuterol treatment. Patient does have a public guardian. Who was contacted by the intermediate for transfer to the hospital. Patient not able to still give any history. Sounds audibly congested cough. Nasal cannula. January 04: Patient reported to have about 50% of breakfast and lunch with assistance. Laying in bed. Looking about. Chest congestion audibly decreased. On 1 L nasal cannula. Active Medications Acetaminophen (Acetaminophen Tab 325 Mg Tab) 650 mg PO Q4H PRN PRN Reason: Pain or Fever > 100.5 Albuterol Sulfate (Albuterol Nebulized 2.5 Mg/3 Ml) 2.5 mg INHALATION RT-TID [facility] Last Admin: 01/05/24 12:03 Dose: Not Given Alprazolam (Alprazolam 0.25 Mg Tab) 0.25 mg PO HS@1999 [facility] Last Admin: 01/04/24 21:17 Dose: 0.25 mg Aspirin (Aspirin 81 Mg) 81 mg PO DAILY@0800 [facility] Last Admin: 01/05/24 11:00 Dose: 81 mg Atorvastatin Calcium (Atorvastatin 20 Mg Tab) 20 mg PO HS@1999 [facility] Last Admin: 01/04/24 21:17 Dose: 20 mg Baclofen (Baclofen 10 Mg Tab) 20 mg PO HS@1999 [facility] Last Admin: 01/04/24 21:17 Dose: 20 mg Buspirone HCl (Buspirone Hcl 10 Mg Tab) 10 mg PO BID@0800,1999 [facility] Last Admin: 01/05/24 11:00 Dose: 10 mg Enoxaparin Sodium (Enoxaparin 40 Mg/0.4 Ml Syringe) 40 mg SQ DAILY [facility] Last Admin: 01/05/24 10:59 Dose: 40 mg Lactated Ringer's (Lactated Ringers) 1,000 mls @ 125 mls/hr IV .Q8H [facility] Last Admin: 01/05/24 02:48 Dose: Not Given Ceftriaxone Sodium 1 gm/ (Sodium Chloride) 50 mls @ 100 mls/hr IVPB Q24HR [facility]; Protocol Last Admin: 01/05/24 10:59 Dose: 100 mls/hr Naloxone HCl (Naloxone 0.4 Mg/Ml 1 Ml Vial) 0.2 mg IV Q2M PRN PRN Reason: Opioid Reversal Nystatin (Nystatin 100,000 Unit/Gm Powd 15 Gm) 1 applic TOPICAL BID@799,1999 [facility]; Protocol Last Admin: 01/05/24 11:00 Dose: 1 applic Pantoprazole Sodium (Pantoprazole 40 Mg Tablet) 40 mg PO DAILY@0800 [facility] Last Admin: 01/05/24 11:00 Dose: 40 mg Polyethylene Glycol (Polyethylene Glycol 3350 17 Gm Powd.Pack) 17 gm PO DAILY@08 [facility] Last Admin: 01/05/24 10:59 Dose: 17 gm Quetiapine Fumarate (Quetiapine 400 Mg Tab) 400 mg PO HS@1999 [facility] Last Admin: 01/04/24 21:17 Dose: 400 mg Raloxifene HCl (Raloxifene 60 Mg Tab) 60 mg PO DAILY@0800 [facility] Last Admin: 01/05/24 11:00 Dose: 60 mg Simethicone (Simethicone 80 Mg Chewable) 160 mg PO BID PRN PRN Reason: gas relief Social history: Lives at [facility]. Nonverbal. Nonambulatory. Physical examination: VITAL SIGNS: 98, 89, 16, , 96% on 1 L GENERAL: BMI 35. laying in bed, audible congestion much better EYES: Pupils equal. Conjunctiva sage l. HEENT: External appearance of nose and ears normal, oral cavity dry. NECK: JVD unable to assess d; masses not palpable. HEART: First and second heart sounds are normal; no edema. LUNGS: Respiratory rate increased, some scattered expiratory coarse crackles wheezing. ABDOMEN: Soft, nontender, liver spleen not palpable, no masses palpable. PSYCH: Unable to assess patient nonverbal MUSCULOSKELETAL: Patient contracted in the hand with extension of metacarpophalangeal and proximal IP joints. Bilateral foot drop NEUROLOGICAL: Cranial nerves grossly intact; no facial asymmetry, INVESTIGATIONS, reviewed in the clinical context: January 03, 2024: White count 6.8 hemoglobin 9.5 platelets 147 sodium 139 potassium 2.6 BUN 60 creatinine 1.12 procalcitonin 0.13 Influenza type A, type B, RSV, COVID-19: Not detected EKG tracing personally reviewed by me-normal sinus rhythm. ST/T wave changes. Chest x-ray film personally reviewed by me-possible basilar infiltrates Assessment and plan: -Suspect bilateral aspiration pneumonitis in a patient with known prior history of recurrent aspiration: Clinically improving Aspiration precaution. IV ceftriaxone. Feeding with assistance. -Probable hypoxic respiratory failure from aspiration pneumonitis.: Improving Supplemental oxygen -Secondary bronchospasm secondary to aspiration pneumonia Bronchodilators -Chronic dysphagia At the baseline takes pured diet and honey thick liquids All feeding with supervision -Chronic cerebral palsy -Down syndrome -Cerebral palsy with severe cognitive impairment -Obesity BMI 35.1 -Bilateral foot drop, chronic -Chronic medical debility, patient nonambulatory -Primary/secondary osteoarthritis Pain medications as needed -Full code -Public guardian Continue current treatment plan. Past Medical History Past Medical History: Heart Failure, Osteoarthritis (OA) Additional Past Medical History / Comment(s): down syndrome, cerebral palsy, nonverbal, aspiration History of Any Multi-Drug Resistant Organisms: None Reported Past Surgical History: No Surgical Hx Reported Past Psychological History: No Psychological Hx Reported, Depression Smoking Status: Never smoker Past Alcohol Use History: None Reported Past Drug Use History: None Reported
[2024-01-06 04:52] LABS: Basophils % (A) 0 %; Eosinophils # (A) 0.1 k/uL (0-0.7); Eosinophils % (A) 1 %; HCT 34.1 % (34.0-46.0); Lymphocytes # (A) 1.7 k/uL (1.0-4.8); Lymphocytes % (A) 18 %; MCH 29.6 pg (25.0-35.0); MCHC 32.2 g/dL (31.0-37.0); MCV 91.8 fL (80.0-100.0); Mean Platelet Volume 7.8; Monocytes # (A) 0.6 k/uL (0-1.0); Monocytes % (A) 6 %; Neutrophils # (A) 6.6 k/uL (1.3-7.7); Neutrophils % (A) 71 %; Platelet Count 163 k/uL (150-450); RBC 3.71 m/uL (3.80-5.40); RDW 14.8 % (11.5-15.5); WBC 9.3 k/uL (3.8-10.6)
[2024-01-06 05:05] LABS: African American GFR (CKD) >90 (>60 ml/min/1.73 sqM); Anion Gap 5 mmol/L; Blood Urea Nitrogen 23 mg/dL (7-17); Calcium 8.8 mg/dL (8.4-10.2); Carbon Dioxide 33 mmol/L (22-30); Chloride 103 mmol/L (98-107); Glucose 108 mg/dL (74-99); Non-African American GFR(CKD) >90 (>60 ml/min/1.73 sqM); Potassium 3.3 mmol/L (3.5-5.1); Sodium 141 mmol/L (137-145)
--- NOTE | 2024-01-06 09:34 | P.PN ---
Progress Note - Text Progress Note Date: 01/06/24 Chief Complaint: Cough congestion This is a 68-year-old patient, follows with visiting physician Dr. Azul. Chronic stable medical conditions include cerebral palsy, Down syndrome, nonverbal, nonambulatory. Osteoarthritis. Patient is brought by the EMS to the ER. As per the ER notation: Per the senior living patient's has been audibly congested and coughing. Patient is on a mechanically pured diet with thickened liquids. And is prone to aspiration pneumonias. The past 3 days she been coughing up more mucus. Progressively getting worse. She also vomited prior to the EMS coming in. On 2 L nasal cannula. Patient had been receiving as needed albuterol treatment. Patient does have a public guardian. Who was contacted by the senior living for transfer to the hospital. Patient not able to still give any history. Sounds audibly congested cough. Nasal cannula. January 04: Patient reported to have about 50% of breakfast and lunch with assistance. Laying in bed. Looking about. Chest congestion audibly decreased. On 1 L nasal cannula. January 05: Some swelling of the left arm. Keep elevated. IV went bad. Cut back IV fluids. Less congestion. Oral intake fair with assistance Active Medications Acetaminophen (Acetaminophen Tab 325 Mg Tab) 650 mg PO Q4H PRN PRN Reason: Pain or Fever > 100.5 Albuterol Sulfate (Albuterol Nebulized 2.5 Mg/3 Ml) 2.5 mg INHALATION RT-TID [facility] Last Admin: 01/06/24 09:23 Dose: Not Given Alprazolam (Alprazolam 0.25 Mg Tab) 0.25 mg PO HS@1999 [facility] Last Admin: 01/05/24 20:06 Dose: 0.25 mg Aspirin (Aspirin 81 Mg) 81 mg PO DAILY@0800 [facility] Last Admin: 01/05/24 11:00 Dose: 81 mg Atorvastatin Calcium (Atorvastatin 20 Mg Tab) 20 mg PO HS@1999 [facility] Last Admin: 01/05/24 20:06 Dose: 20 mg Baclofen (Baclofen 10 Mg Tab) 20 mg PO HS@1999 [facility] Last Admin: 01/05/24 20:06 Dose: 20 mg Buspirone HCl (Buspirone Hcl 10 Mg Tab) 10 mg PO BID@ [facility] Last Admin: 01/05/24 20:06 Dose: 10 mg Enoxaparin Sodium (Enoxaparin 40 Mg/0.4 Ml Syringe) 40 mg SQ DAILY [facility] Last Admin: 01/05/24 10:59 Dose: 40 mg Lactated Ringer's (Lactated Ringers) 1,000 mls @ 50 mls/hr IV .Q20H [facility] Last Admin: 01/06/24 02:18 Dose: 125 mls/hr Ceftriaxone Sodium 1 gm/ (Sodium Chloride) 50 mls @ 100 mls/hr IVPB Q24HR [facility]; Protocol Last Admin: 01/05/24 10:59 Dose: 100 mls/hr Naloxone HCl (Naloxone 0.4 Mg/Ml 1 Ml Vial) 0.2 mg IV Q2M PRN PRN Reason: Opioid Reversal Nystatin (Nystatin 100,000 Unit/Gm Powd 15 Gm) 1 applic TOPICAL BID@799,1999 [facility]; Protocol Last Admin: 01/05/24 20:06 Dose: 1 applic Pantoprazole Sodium (Pantoprazole 40 Mg Tablet) 40 mg PO DAILY@0800 [facility] Last Admin: 01/05/24 11:00 Dose: 40 mg Polyethylene Glycol (Polyethylene Glycol 3350 17 Gm Powd.Pack) 17 gm PO DAILY@0800 [facility] Last Admin: 01/05/24 10:59 Dose: 17 gm Quetiapine Fumarate (Quetiapine 400 Mg Tab) 400 mg PO HS@1999 [facility] Last Admin: 01/05/24 20:06 Dose: 400 mg Raloxifene HCl (Raloxifene 60 Mg Tab) 60 mg PO DAILY@0800 [facility] Last Admin: 01/05/24 11:00 Dose: 60 mg Simethicone (Simethicone 80 Mg Chewable) 160 mg PO BID PRN PRN Reason: gas relief Social history: Lives at [facility]. Nonverbal. Nonambulatory. Physical examination: VITAL SIGNS: 98.6, 109, 18, 159 x 75, 93% room air GENERAL: BMI 35. laying in bed,, chest congestion better EYES: Pupils equal. Conjunctiva sage l. HEENT: External appearance of nose and ears normal, oral cavity dry. NECK: JVD unable to assess d; masses not palpable. HEART: First and second heart sounds are normal; no edema. LUNGS: Respiratory rate increased, some scattered expiratory coarse crackles whe ezing. ABDOMEN: Soft, nontender, liver spleen not palpable, no masses palpable. PSYCH: Unable to assess patient nonverbal MUSCULOSKELETAL: Patient contracted in the hand with extension of metacar pophalangeal and proximal IP joints. Bilateral foot drop NEUROLOGICAL: Cranial nerves grossly intact; no facial asymmetry, INVESTIGATIONS, reviewed in the clinical context: January 05: White count 9.3 hemoglobin 11 potassium 3.3 creatinine 0.65 January 03, 2024: White count 6.8 hemoglobin 9.5 platelets 147 sodium 139 potassium 2.6 BUN 60 creatinine 1.12 procalcitonin 0.13 Influenza type A, type B, RSV, COVID-19: Not detected EKG tracing personally reviewed by me-normal sinus rhythm. ST/T wave changes. Chest x-ray film personally reviewed by me-possible basilar infiltrates Assessment and plan: -Suspect bilateral aspiration pneumonitis in a patient with known prior history of recurrent aspiration: Clinically improving Aspiration precaution. IV ceftriaxone. Feeding with assistance. -Probable hypoxic respiratory failure from aspiration pneumonitis.: Improving Supplemental oxygen -Secondary bronchospasm secondary to aspiration pneumonia Bronchodilators -Chronic dysphagia At the baseline takes pured diet and honey thick liquids All feeding with supervision -Chronic cerebral palsy -Down syndrome -Cerebral palsy with severe cognitive impairment -Obesity BMI 35.1 -Bilateral foot drop, chronic -Chronic medical debility, patient nonambulatory -Primary/secondary osteoarthritis Pain medications as needed -Full code -Public guardian Continue current treatment plan. Past Medical History Past Medical History: Heart Failure, Osteoarthritis (OA) Additional Past Medical History / Comment(s): down syndrome, cerebral palsy, nonverbal, aspiration History of Any Multi-Drug Resistant Organisms: None Reported Past Surgical History: No Surgical Hx Reported Past Psychological History: No Psychological Hx Reported, Depression Smoking Status: Never smoker Past Alcohol Use History: None Reported Past Drug Use History: None Reported
[2024-01-06] MEDS: POTASSIUM CHLORIDE ER 20 MEQ TAB.ER PO STA (10:48)
[2024-01-06] MEDS: ACETAMINOPHEN TAB 325 MG TAB PO PRN (20:22)
[2024-01-07 15:26] VITALS: RESP 16
--- NOTE | 2024-01-07 18:23 | P.PN ---
Progress Note - Text Progress Note Date: 01/07/24 Chief Complaint: Cough congestion This is a 68-year-old patient, follows with visiting physician Dr. Azul. Chronic stable medical conditions include cerebral palsy, Down syndrome, nonverbal, nonambulatory. Osteoarthritis. Patient is brought by the EMS to the ER. As per the ER notation: [facility] the [facility] patient's has been audibly congested and coughing. Patient is on a mechanically pured diet with thickened liquids. And is prone to aspiration pneumonias. The past 3 days she been coughing up more mucus. Progressively getting worse. She also vomited prior to the EMS coming in. On 2 L nasal cannula. Patient had been receiving as needed albuterol treatment. Patient does have a public guardian. Who was contacted by the prison for transfer to the hospital. Patient not able to still give any history. Sounds audibly congested cough. Nasal cannula. January 04: Patient reported to have about 50% of breakfast and lunch with assistance. Laying in bed. Looking about. Chest congestion audibly decreased. On 1 L nasal cannula. January 05: Some swelling of the left arm. Keep elevated. IV went bad. Cut back IV fluids. Less congestion. Oral intake fair with assistance January 06: Patient more restful today. Staff tells me patient likes to watch [employer] videos. Breathing better. Slight tachycardia Active Medications Acetaminophen (Acetaminophen Tab 325 Mg Tab) 650 mg PO Q4H PRN PRN Reason: Pain or Fever > 100.5 Last Admin: 01/06/24 20:22 Dose: 650 mg Albuterol Sulfate (Albuterol Nebulized 2.5 Mg/3 Ml) 2.5 mg INHALATION RT-TID [facility] Last Admin: 01/07/24 11:15 Dose: Not Given Alprazolam (Alprazolam 0.25 Mg Tab) 0.25 mg PO HS@1999 [facility] Last Admin: 01/06/24 20:23 Dose: 0.25 mg Aspirin (Aspirin 81 Mg) 81 mg PO DAILY@0800 [facility] Last Admin: 01/07/24 09:01 Dose: 81 mg Atorvastatin Calcium (Atorvastatin 20 Mg Tab) 20 mg PO HS@1999 [facility] Last Admin: 01/06/24 20:23 Dose: 20 mg Baclofen (Baclofen 10 Mg Tab) 20 mg PO HS@1999 [facility] Last Admin: 03/30/24 20:23 Dose: 20 mg Buspirone HCl (Buspirone Hcl 10 Mg Tab) 10 mg PO BID@ [facility] Last Admin: 01/07/24 09:01 Dose: 10 mg Enoxaparin Sodium (Enoxaparin 40 Mg/0.4 Ml Syringe) 40 mg SQ DAILY [facility] Last Admin: 01/07/24 09:01 Dose: 40 mg Lactated Ringer's (Lactated Ringers) 1,000 mls @ 50 mls/hr IV .Q20H [facility] Last Admin: 01/07/24 09:11 Dose: 50 mls/hr Ceftriaxone Sodium 1 gm/ (Sodium Chloride) 50 mls @ 100 mls/hr IVPB Q24HR [facility]; Protocol Last Admin: 01/07/24 09:02 Dose: 100 mls/hr Naloxone HCl (Naloxone 0.4 Mg/Ml 1 Ml Vial) 0.2 mg IV Q2M PRN PRN Reason: Opioid Reversal Nystatin (Nystatin 100,000 Unit/Gm Powd 15 Gm) 1 applic TOPICAL BID@ [facility]; Protocol Last Admin: 01/07/24 09:32 Dose: 1 applic Pantoprazole Sodium (Pantoprazole 40 Mg Tablet) 40 mg PO DAILY@08 [facility] Last Admin: 01/07/24 09:01 Dose: 40 mg Polyethylene Glycol (Polyethylene Glycol 3350 17 Gm Powd.Pack) 17 gm PO DAILY@08 [facility] Last Admin: 01/06/24 10:50 Dose: 17 gm Quetiapine Fumarate (Quetiapine 400 Mg Tab) 400 mg PO HS@1999 [facility] Last Admin: 01/06/24 20:23 Dose: 400 mg Raloxifene HCl (Raloxifene 60 Mg Tab) 60 mg PO DAILY@0800 [facility] Last Admin: 01/07/24 09:01 Dose: 60 mg Simethicone (Simethicone 80 Mg Chewable) 160 mg PO BID PRN PRN Reason: gas relief Social history: Lives at [facility]. Nonverbal. Nonambulatory. Physical examination: VITAL SIGNS: 98.6, 109, 18, 159 x 75, 93% room air GENERAL: laying in bed,, chest congestion improved EYES: Pupils equal. Conjunctiva sage l. HEENT: External appearance of nose and ears normal, oral cavity dry. NECK: JVD unable to assess d; masses not palpable. HEART: First and second heart sounds are normal; no edema. LUNGS: Respiratory rate increased, extra sounds better ABDOMEN: Soft, nontender, liver spleen not palpable, no masses palpable. PSYCH: Unable to assess patient nonverbal MUSCULOSKELETAL: Patient contracted in the hand with extension of metacarpophalangeal and proximal IP joints. Bilateral foot drop NEUROLOGICAL: Cranial nerves grossly intact; no facial asymmetry, INVESTIGATIONS, reviewed in the clinical context: January 05: White count 9.3 hemoglobin 11 potassium 3.3 creatinine 0.65 January 03, 2024: White count 6.8 hemoglobin 9.5 platelets 147 sodium 139 potassium 2.6 BUN 60 creatinine 1.12 procalcitonin 0.13 Influenza type A, type B, RSV, COVID-19: Not detected EKG tracing personally reviewed by me-normal sinus rhythm. ST/T wave changes. Chest x-ray film personally reviewed by me-possible basilar infiltrates Assessment and plan: -Suspect bilateral aspiration pneumonitis in a patient with known prior history of recurrent aspiration: Better Aspiration precaution. IV ceftriaxone. Feeding with assistance. -Probable hypoxic respiratory failure from aspiration pneumonitis.: Improving Supplemental oxygen -Secondary bronchospasm secondary to aspiration pneumonia Bronchodilators -Chronic dysphagia At the baseline takes pured diet and honey thick liquids All feeding with supervision -Chronic cerebral palsy -Down syndrome -Cerebral palsy with severe cognitive impairment -Obesity BMI 35.1 -Bilateral foot drop, chronic -Chronic medical debility, patient nonambulatory -Primary/secondary osteoarthritis Pain medications as needed -Full code -Public guardian Continues to do better. Continue antibiotic. Possible discharge tomorrow Past Medical History Past Medical History: Heart Failure, Osteoarthritis (OA) Additional Past Medical History / Comment(s): down syndrome, cerebral palsy, n onverbal, aspiration History of Any Multi-Drug Resistant Organisms: None Reported Past Surgical History: No Surgical Hx Reported Past Psychological History: No Psychological Hx Reported, Depression Smoking Status: Never smoker Past Alcohol Use History: None Reported Past Drug Use History: None Reported
[2024-01-08 06:57] VITALS: PULSE 100
[2024-01-08 10:16] LABS: African American GFR (CKD) >90 (>60 ml/min/1.73 sqM); Anion Gap 7 mmol/L; Blood Urea Nitrogen 13 mg/dL (7-17); Calcium 8.7 mg/dL (8.4-10.2); Carbon Dioxide 28 mmol/L (22-30); Chloride 107 mmol/L (98-107); Glucose 110 mg/dL (74-99); Non-African American GFR(CKD) >90 (>60 ml/min/1.73 sqM); Potassium 3.1 mmol/L (3.5-5.1); Sodium 142 mmol/L (137-145)
--- NOTE | 2024-01-08 10:43 | CDI ---
Documentation Clarification Form Date: 01/08/2024 09:59:37 AM From: Hannah Bach RN, CCDS Phone: [phone] Admit Date: 01/04/2024 05:42:00 PM Patient Name: Luz Maria Bynum Visit Number: [id number] Discharge Date: ATTENTION: The Clinical Documentation Specialists (CDI) and [facility] Coding Staff appreciate your assistance in clarifying documentation. Please respond to the clarification below the line at the bottom and electronically sign. The CDI & [facility] Coding staff will review the response and follow-up if needed. Please note: Queries are made part of the Legal Health Record. If you have any questions, please contact the author of this message via ITS. Dr. Tomasz Blackwood Your patient has an abnormal lab value: Potassium 2.6, Creatine 1.12. Please clarify if there is an additional diagnosis and/or clinical significance related to this value. History/Risk Factors: Heart Failure, Osteoarthritis (OA) cerebral palsy, Down syndrome, nonverbal, nonambulatory. Clinical indicators: 68-year-old female presenting with cough congestion nausea and vomiting. Per Ed review there is some degree of dehydration with Potassium is 2.6. 01/03 Potassium 3.6 01/05 Potassium 3.3 / Potassium 3.1 Treatment: .9NS 500 Bolus 01/03 Potassium Chloride 20 meq IVPB once 01/03 K-Dur 20 meq PO Q 2 HR X 2 Doses 01/05-01/05 K-Dur 20 meq PO Once 01/07 Is there an additional diagnosis and/or clinical significance related to the above lab result/information? [ + ] Hypokalemia, present on admission. [ ] Other, please specify [ ] Unable to determine (Template Last Revised: November 2020) MTDD
[2024-01-08 11:17] VITALS: BP 165/72; TEMP 99
[2024-01-08] MEDS: POTASSIUM CHLORIDE ER 20 MEQ TAB.ER PO STA (11:57)
--- NOTE | 2024-01-08 15:46 | P.DS ---
Providers Date of admission: 01/04/24 17:42 Expected date of discharge: 01/08/24 Attending physician: Tomasz Blackwood Primary care physician: Ozzie Azul MD Hospital Course: Chief Complaint: Cough congestion This is a 68-year-old patient, follows with visiting physician Dr. Azul. Chronic stable medical conditions include cerebral palsy, Down syndrome, nonverbal, nonambulatory. Osteoarthritis. Patient is brought by the EMS to the ER. As per the ER notation: Per the [facility] patient's has been audibly congested and coughing. Patient is on a mechanically pured diet with thickened liquids. And is prone to aspiration pneumonias. The past 3 days she been coughing up more mucus. Progressively getting worse. She also vomited prior to the EMS coming in. On 2 L nasal cannula. Patient had been receiving as needed albuterol treatment. Patient does have a public guardian. Who was contacted by the [facility] for transfer to the hospital. Patient not able to still give any history. Sounds audibly congested cough. Nasal cannula. January 04: Patient reported to have about 50% of breakfast and lunch with assistance. Laying in bed. Looking about. Chest congestion audibly decreased. On 1 L nasal cannula. January 05: Some swelling of the left arm. Keep elevated. IV went bad. Cut back IV fluids. Less congestion. Oral intake fair with assistance January 06: Patient more restful today. Staff tells me patient likes to watch [employer] videos. Breathing better. Slight tachycardia January 07: Comfortable. Eating fair. Stop antibiotics after today. Discharge back to her place. Occasional cough Social history: Lives at [facility]. Nonverbal. Nonambulatory. Physical examination: VITAL SIGNS: 99, 100, 16, 160 x 72, 92% room air GENERAL: laying in bed,, comfortable EYES: Pupils equal. Conjunctiva sage l. HEENT: External appearance of nose and ears normal, oral cavity dry. NECK: JVD unable to assess d; masses not palpable. HEART: First and second heart sounds are normal; no edema. LUNGS: Respiratory rate increased, air entry improved ABDOMEN: Soft, nontender, liver spleen not palpable, no masses palpable. PSYCH: Unable to assess MUSCULOSKELETAL: Patient contracted in the hand with extension of metacarpophalangeal and proximal IP joints. Bilateral foot drop NEUROLOGICAL: Cranial nerves grossly intact; no facial asymmetry, chronic dysarthria INVESTIGATIONS, reviewed in the clinical context: January 07: Creatinine 0.69 January 05: White count 9.3 hemoglobin 11 potassium 3.3 creatinine 0.65 January 03, 2024: White count 6.8 hemoglobin 9.5 platelets 147 sodium 139 potassium 2.6 BUN 60 creatinine 1.12 procalcitonin 0.13 Influenza type A, type B, RSV, COVID-19: Not detected EKG tracing personally reviewed by me-normal sinus rhythm. ST/T wave changes. Chest x-ray film personally reviewed by me-possible basilar infiltrates Assessment and plan: -Suspect bilateral aspiration pneumonitis in a patient with known prior history of recurrent aspiration: Better Aspiration precaution. IV ceftriaxone. Feeding with assistance. Antibiotic course done -Probable hypoxic respiratory failure from aspiration pneumonitis.: Improved Supplemental oxygen -Secondary bronchospasm secondary to aspiration pneumonia Bronchodilators -Chronic dysphagia At the baseline takes pured diet and honey thick liquids All feeding with supervision -Chronic cerebral palsy -Down syndrome -Cerebral palsy with severe cognitive impairment -Obesity BMI 35.1 -Bilateral foot drop, chronic -Chronic medical debility, patient nonambulatory -Primary/secondary osteoarthritis Pain medications as needed -Full code -Public guardian Disposition: [facility] Past Medical History Past Medical History: Heart Failure, Osteoarthritis (OA) Additional Past Medical History / Comment(s): down syndrome, cerebral palsy, nonverbal, aspiration History of Any Multi-Drug Resistant Organisms: None Reported Past Surgical History: No Surgical Hx Reported Past Psychological History: No Psychological Hx Reported, Depression Smoking Status: Never smoker Past Alcohol Use History: None Reported Past Drug Use History: None Reported Plan - Discharge Summary New Discharge Prescriptions: Continue Acetaminophen Tab [Tylenol] 650 mg PO Q4H PRN MDD 10 tabs PRN Reason: Pain Or Fever > 100.5 Raloxifene [Evista] 60 mg PO DAILY@0800 Baclofen [Lioresal] 20 mg PO HS@1999 Pyrithione Zinc 1% Shampoo 1 applic TOPICAL DAILY PRN PRN Reason: scalp Magnesium Hydroxide [Milk of Magnesia] 2,400 mg PO DAILY PRN PRN Reason: Constipation Simethicone [Gas-X] 125 mg PO BID PRN PRN Reason: gas relief Ibuprofen [Motrin] 600 mg PO TID PRN PRN Reason: pain QUEtiapine FUMARATE [SEROquel] 400 mg PO HS@2000 Potassium Chloride [Klor-Con M20] 20 meq PO DAILY@0800 polyethylene glycoL 3350 [Miralax] 17 gm PO DAILY@0800 Furosemide [Lasix] 40 mg PO DAILY@0800 Cranberry 450 mg PO HS@1999 busPIRone HCl [Buspar] 10 mg PO BID@799,1999 Stomach Relief 525-30ml 262.5 ml PO DAILY PRN PRN Reason: Gi Upset Thick-It Original Powder 1 dose PO DIRECTED PRN PRN Reason: w/all liquids ALPRAZolam [Xanax] 1 mg PO DIRECTED PRN PRN Reason: 1 hour prior to procedure Carbamide Peroxide [Debrox Otic] 5 - 10 drops BOTH EARS BID PRN PRN Reason: excessive ear wax guaiFENesin [guaiFENesin Oral Solution] 200 mg PO Q4H PRN PRN Reason: Cough Omeprazole 40 mg PO DAILY@0800 Sodium Chloride [Saline Mist] 1 spray EA NOSTRIL DIRECTED PRN PRN Reason: sinus/nasal congestion SILVER sulfADIAZINE Cream [Silvadene 1% Cream] 1 applic TOPICAL DAILY PRN PRN Reason: Skin Irritation Siltussin Sa 200 mg PO Q4H PRN PRN Reason: cough/congestion Olopatadine HCl [Pataday] 1 drop BOTH EYES BID PRN PRN Reason: itching/redness Nystatin 100,000Unit/gm Cream [Mycostatin Cream] 1 applic TOPICAL BID PRN PRN Reason: Skin Irritation Hydrocortisone/Aloe Vera [Cortizone-10 with Aloe 1% Crm] 1 applic TOPICAL DIRECTED PRN PRN Reason: insect bites & hives Simvastatin [Zocor] 40 mg PO HS@1999 Nystatin 100,000 Unit/gm Powd [Mycostatin Powder] 1 applic TOPICAL BID@799,1999 Aspirin EC [Ecotrin Low Dose] 81 mg PO DAILY@0800 ALPRAZolam [Xanax] 0.25 mg PO HS@1999 Eucalyptus Oil/Menthol/Camphor [Vicks Vaporub Ointment] 1 applic TOPICAL BID PRN PRN Reason: Congestion Calcium Carbonate [Tums] 500 mg PO DIRECTED PRN PRN Reason: Heartburn Albuterol Nebulized [Ventolin Nebulized] 2.5 mg INHALATION RT-TID PRN PRN Reason: Shortness Of Breath Discontinued diphenhydrAMINE HCL [Benadryl] 50 mg PO Q4-6H PRN PRN Reason: Allergy Symptoms metOLazone [Zaroxolyn] 5 mg PO DAILY@0800 Phenylephrine/Dm/Acetaminop/GG [Mucinex Fast-Max Cold-Flu Liq] 20 ml PO Q6H PRN PRN Reason: Cough Fexofenadine HCl [Children's Rosi Susp] 60 mg PO BID@799,1999 Discharge Medication List Acetaminophen Tab [Tylenol] 650 mg PO Q4H PRN MDD 10 tabs 04/07/20 [History] Baclofen [Lioresal] 20 mg PO HS@199904/07/20 [History] Raloxifene [Evista] 60 mg PO DAILY@79904/07/20 [History] ALPRAZolam [Xanax] 0.25 mg PO HS@199910/10/23 [History] Aspirin EC [Ecotrin Low Dose] 81 mg PO DAILY@79910/10/23 [History] Cranberry 450 mg PO HS@199910/10/23 [History] Eucalyptus Oil/Menthol/Camphor [Vicks Vaporub Ointment] 1 applic TOPICAL BID PRN 10/10/23 [History] Furosemide [Lasix] 40 mg PO DAILY@79910/10/23 [History] Hydrocortisone/Aloe Vera [Cortizone-10 with Aloe 1% Crm] 1 applic TOPICAL DIRECTED PRN 10/10/23 [History] Ibuprofen [Motrin] 600 mg PO TID PRN 10/10/23 [History] Magnesium Hydroxide [Milk of Magnesia] 2,400 mg PO DAILY PRN 10/10/23 [History] Nystatin 100,000 Unit/gm Powd [Mycostatin Powder] 1 applic TOPICAL BID@799,199910/10/23 [History] Nystatin 100,000Unit/gm Cream [Mycostatin Cream] 1 applic TOPICAL BID PRN 10/10/23 [History] Olopatadine HCl [Pataday] 1 drop BOTH EYES BID PRN 10/10/23 [History] Potassium Chloride [Klor-Con M20] 20 meq PO DAILY@0810/10/23 [History] Pyrithione Zinc 1% Shampoo 1 applic TOPICAL DAILY PRN 10/10/23 [History] QUEtiapine FUMARATE [SEROquel] 400 mg PO HS@199910/10/23 [History] SILVER sulfADIAZINE Cream [Silvadene 1% Cream] 1 applic TOPICAL DAILY PRN 10/10/23 [History] Siltussin Sa 200 mg PO Q4H PRN 10/10/23 [History] Simethicone [Gas-X] 125 mg PO BID PRN 10/10/23 [History] Simvastatin [Zocor] 40 mg PO HS@199910/10/23 [History] busPIRone HCl [Buspar] 10 mg PO BID@0800,199910/10/23 [History] polyethylene glycoL 3350 [Miralax] 17 gm PO DAILY@0810/10/23 [History] ALPRAZolam [Xanax] 1 mg PO DIRECTED PRN 01/04/24 [History] Albuterol Nebulized [Ventolin Nebulized] 2.5 mg INHALATION RT-TID PRN 01/04/24 [History] Calcium Carbonate [Tums] 500 mg PO DIRECTED PRN 01/04/24 [History] Carbamide Peroxide [Debrox Otic] 5 - 10 drops BOTH EARS BID PRN 01/04/24 [History] Omeprazole 40 mg PO DAILY@0801/04/24 [History] Sodium Chloride [Saline Mist] 1 spray EA NOSTRIL DIRECTED PRN 01/04/24 [History] Stomach Relief 525-30ml 262.5 ml PO DAILY PRN 01/04/24 [History] Thick-It Original Powder 1 dose PO DIRECTED PRN 01/04/24 [History] guaiFENesin [guaiFENesin Oral Solution] 200 mg PO Q4H PRN 01/04/24 [History] Follow up Appointment(s)/Referral(s): Ozzie Azul MD [Primary Care Provider] - 1-2 days Patient Instructions/Handouts: Urinary Tract Infection in Women (GEN), Hypokalemia (DC), Aspiration Pneumonia (IP) Activity/Diet/Wound Care/Special Instructions: pt will need EMS transport at time of d/c. form on chart. Please call [facility] and let them know that the pt is being d/c with transport time - [phone] Discharge Disposition: TRANSFER TO SNF/ECF
--- NOTE | 2024-01-10 09:05 | CDI ---
Documentation Clarification Form Date: 01/10/24 From: Gladys Floyd Admit Date: 01/04/2024 05:42:00 PM Patient Name: Luz Maria Bynum Visit Number: [id number] Discharge Date: 01/08/2024 02:00:00 PM ATTENTION: The Clinical Documentation Specialists (CDI) and [facility] Coding Staff appreciate your assistance in clarifying documentation. Please respond to the clarification below the line at the bottom and electronically sign. The CDI & [facility] Coding staff will review the response and follow-up if needed. Please note: Queries are made part of the Legal Health Record. If you have any questions, please contact the author of this message via ITS. Dr. Tomasz Blackwood, There is documentation of probable hypoxic respiratory from aspiration pneumonia per H&P, PNs & DS. Additional clarification of the acuity of the condition is requested. History/Risk Factors: Aspiration pneumonia, cerebral palsy with cognitive impairment, Down syndrome, HTN w heart failure, obesity w BMI 35.4 Clinical Indicators: VITAL SIGNS:97.5, 87, 20, 1 one 8 x 92, 94% room air upon presentation.CO2 33 (01/03) Treatment: supplemental oxygen Can you please clarify the acuity of the hypoxic respiratory failure? [ + ] Acute [ ] Chronic [ ] Respiratory failure ruled out [ ] Other, please specify [ ] Unable to determine MTDD
== END 2024-01-08 14:00 | disposition home or self-care (01) | DRG 177 ==
LOC: EC 22:49 → 6NMEDSUR 01-04 02:27 → OBSVTOIN 01-04 17:42 → 6NMEDSUR 01-04 20:05
PROVIDERS: ADMIT Hospitalist; ATTEND Hospitalist
DX: J69.0 Pneumonitis due to inhalation of food and vomit (principal); J96.01 Acute respiratory failure with hypoxia; Q90.9 Down syndrome, unspecified; I11.0 Hypertensive heart disease with heart failure; I50.9 Heart failure, unspecified; G80.9 Cerebral palsy, unspecified; E66.9 Obesity, unspecified; Z68.35 Body mass index [BMI] 35.0-35.9, adult; G31.84 Mild cognitive impairment of uncertain or unknown etiology; J98.01 Acute bronchospasm; E86.0 Dehydration; E87.6 Hypokalemia; R13.10 Dysphagia, unspecified; M21.371 Foot drop, right foot; M21.372 Foot drop, left foot; M19.90 Unspecified osteoarthritis, unspecified site; Z79.82 Long term (current) use of aspirin; Z79.810 Long term (current) use of selective estrogen receptor modulators (SERMs); Z79.899 Other long term (current) drug therapy
CPT/HCPCS: 36415; 71046; 80048; 80053; 83605; 83880; 84145; 85025; 87040; 87636; 93005; 94640; 94760; 96365; 96366; 96367; 96372; 99285

== ENCOUNTER 2024-01-13 13:06 | Inpatient (IN) | payer MEDICARE, OTHER ==
[2024-01-13 14:04] LABS: Basophils % (A) 0 %; Eosinophils # (A) 0.1 k/uL (0-0.7); Eosinophils % (A) 0 %; HCT 37.1 % (34.0-46.0); HGB 11.6 gm/dL (11.4-16.0); Lymphocytes # (A) 0.4 k/uL (1.0-4.8); Lymphocytes % (A) 2 %; MCH 28.7 pg (25.0-35.0); MCHC 31.3 g/dL (31.0-37.0); MCV 91.7 fL (80.0-100.0); Mean Platelet Volume 7.7; Monocytes # (A) 0.9 k/uL (0-1.0); Monocytes % (A) 6 %; Neutrophils # (A) 14.3 k/uL (1.3-7.7); Neutrophils % (A) 91 %; Platelet Count 268 k/uL (150-450); RBC 4.05 m/uL (3.80-5.40); RDW 14.9 % (11.5-15.5); WBC 15.8 k/uL (3.8-10.6)
[2024-01-13] MEDS: methylPREDNISolone SOD SUCCI 125 MG/2 ML VIAL IV STA (14:12)
[2024-01-13] MEDS: KETOROLAC 15 MG/ML 1 ML VIAL IVP STA (14:12)
[2024-01-13] MEDS: ACETAMINOPHEN TAB 325 MG TAB PO STA (14:12)
--- NOTE | 2024-01-13 14:12 | ED ---
General Adult HPI - General Chief complaint: Upper Respiratory Infection Stated complaint: RIYA Time Seen by Provider: 01/13/24 13:08 Source: patient, EMS, RN notes reviewed Mode of arrival: EMS Limitations: altered mental status, physical limitation - History of Present Illness Initial comments: 68-year-old female presents emergency department via EMS chief complaint of shortness of breath. Patient had increased creasing cough congestion. Patient was recently admitted. Patient has a history of Down syndrome, CHF. Patient's information is very limited though staff reports that he has been coughing, having posttussive emesis. Possible fever. - Related Data Home Medications Medication Instructions Recorded Confirmed Acetaminophen Tab [Tylenol] 650 mg PO Q4H PRN MDD 10 tabs 04/07/20 01/04/24 Baclofen [Lioresal] 20 mg PO HS@199904/07/20 01/04/24 Raloxifene [Evista] 60 mg PO DAILY@79904/07/20 01/04/24 ALPRAZolam [Xanax] 0.25 mg PO HS@199910/10/23 01/04/24 Aspirin EC [Ecotrin Low Dose] 81 mg PO DAILY@79910/10/23 01/04/24 Cranberry 450 mg PO HS@199910/10/23 01/04/24 Eucalyptus Oil/Menthol/Camphor 1 applic TOPICAL BID PRN 10/10/23 01/04/24 [Vicks Vaporub Ointment] Furosemide [Lasix] 40 mg PO DAILY@79910/10/23 01/04/24 Hydrocortisone/Aloe Vera 1 applic TOPICAL DIRECTED PRN 10/10/23 01/04/24 [Cortizone-10 with Aloe 1% Crm] Ibuprofen [Motrin] 600 mg PO TID PRN 10/10/23 01/04/24 Magnesium Hydroxide [Milk of 2,400 mg PO DAILY PRN 10/10/23 01/04/24 Magnesia] Nystatin 100,000 Unit/gm Powd 1 applic TOPICAL BID@08,199910/10/23 01/04/24 [Mycostatin Powder] Nystatin 100,000Unit/gm Cream 1 applic TOPICAL BID PRN 10/10/23 01/04/24 [Mycostatin Cream] Olopatadine HCl [Pataday] 1 drop BOTH EYES BID PRN 10/10/23 01/04/24 Potassium Chloride [Klor-Con M20] 20 meq PO DAILY@0810/10/23 01/04/24 Pyrithione Zinc 1% Shampoo 1 applic TOPICAL DAILY PRN 10/10/23 01/04/24 QUEtiapine FUMARATE [SEROquel] 400 mg PO HS@199910/10/23 01/04/24 SILVER sulfADIAZINE Cream 1 applic TOPICAL DAILY PRN 10/10/23 01/04/24 [Silvadene 1% Cream] Siltussin Sa 200 mg PO Q4H PRN 10/10/23 01/04/24 Simethicone [Gas-X] 125 mg PO BID PRN 10/10/23 01/04/24 Simvastatin [Zocor] 40 mg PO HS@199910/10/23 01/04/24 busPIRone HCl [Buspar] 10 mg PO BID@08,199910/10/23 01/04/24 polyethylene glycoL 3350 [Miralax] 17 gm PO DAILY@0800 10/10/23 01/04/24 ALPRAZolam [Xanax] 1 mg PO DIRECTED PRN 01/04/24 01/04/24 Albuterol Nebulized [Ventolin 2.5 mg INHALATION RT-TID PRN 01/04/24 01/04/24 Nebulized] Calcium Carbonate [Tums] 500 mg PO DIRECTED PRN 01/04/24 01/04/24 Carbamide Peroxide [Debrox Otic] 5 - 10 drops BOTH EARS BID PRN 01/04/24 01/04/24 Omeprazole 40 mg PO DAILY@0800 01/04/24 01/04/24 Sodium Chloride [Saline Mist] 1 spray EA NOSTRIL DIRECTED PRN 01/04/24 01/04/24 Stomach Relief 525-30ml 262.5 ml PO DAILY PRN 01/04/24 01/04/24 Thick-It Original Powder 1 dose PO DIRECTED PRN 01/04/24 01/04/24 guaiFENesin [guaiFENesin Oral 200 mg PO Q4H PRN 01/04/24 01/04/24 Solution] Allergies Allergy/AdvReac Type Severity Reaction Status Date / Time amoxicillin Allergy Unknown Verified 01/13/24 13:13 Review of Systems ROS Statement: Those systems with pertinent positive or pertinent negative responses have been documented in the HPI. ROS Other: All systems not noted in ROS Statement are negative. Past Medical History Past Medical History: Heart Failure, Osteoarthritis (OA) Additional Past Medical History / Comment(s): down syndrome, cerebral palsy, nonverbal, aspiration History of Any Multi-Drug Resistant Organisms: None Reported Past Surgical History: No Surgical Hx Reported Past Psychological History: No Psychological Hx Reported, Depression Smoking Status: Never smoker Past Alcohol Use History: None Reported Past Drug Use History: None Reported General Exam Limitations: altered mental status, physical limitation General appearance: alert, in no apparent distress Head exam: Present: atraumatic, normocephalic, normal inspection Eye exam: Present: normal appearance, PERRL, EOMI. Absent: scleral icterus, conjunctival injection, periorbital swelling Respiratory exam: Present: wheezes, rhonchi. Absent: normal lung sounds bilaterally, respiratory distress, rales, stridor Cardiovascular Exam: Present: normal rhythm, tachycardia, normal heart sounds. Absent: systolic murmur, diastolic murmur, rubs, gallop, clicks GI/Abdominal exam: Present: soft, normal bowel sounds. Absent: distended, tenderness, guarding, rebound, rigid Neurological exam: Present: alert Psychiatric exam: Present: agitated Skin exam: Present: warm, dry, intact, normal color. Absent: rash Course Vital Signs 01/13/24 01/13/24 01/13/24 13:07 13:13 14:30 Temperature 99.8 F H Pulse Rate 134 H 128 H Respiratory 22 20 20 Rate Blood Pressure 126/102 116/53 O2 Sat by Pulse 98 97 Oximetry 01/13/24 01/13/24 01/13/24 14:49 14:59 15:23 Temperature Pulse Rate 121 H 123 H 123 H Respiratory 16 Rate Blood Pressure 94/53 O2 Sat by Pulse 93 L Oximetry EKG Findings - EKG Comments: EKG Findings:: EKG performed at 13: 20 sinus tachycardia with short MS rate of 139 QRS 114 QRS 82 QT/QTc 329/410 - EKG Results: EKG: interpreted by [facility] Medical Decision Making - Medical Decision Making Was pt. sent in by a medical professional or institution (, PA, HUMAN RESOURCES INTERN, urgent care, hospital, or senior care...) When possible be specific @ -[facility] home Did you speak to anyone other than the patient for history (EMS, parent, family, police, friend...)? What history was obtained from this source @ -No Did you review nursing and triage notes (agree or disagree)? Why? @ -I reviewed and agree with nursing and triage notes Were old charts reviewed (outside hosp., previous admission, EMS record, old EKG, old radiological studies, urgent care reports/EKG's, senior care records)? Report findings @ -Reviewed prior CBC, comp, chest x-ray and EKG Differential Diagnosis (chest pain, altered mental status, abdominal pain women, abdominal pain men, vaginal bleeding, weakness, fever, dyspnea, syncope, headache, dizziness, GI bleed, back pain, seizure, CVA, palpatations, mental health, musculoskeletal)? @ -Differential Dyspnea: Coronary syndrome, arrhythmia, tamponade, asthma, COPD, pulmonary embolism, pneumonia, pneumothorax, pulmonary effusion, anaphylaxis, diabetic ketoacidosis, flailed chest, pulmonary contusion, diaphragmatic rupture, anemia, neuromuscular, this is not meant to be an all-inclusive list. EKG interpreted by me (3pts min.). @ -As above X-rays interpreted by me (1pt min.). @ -Chest x-ray shows no evidence of pneumonia CT interpreted by me (1pt min.). @ -None done U/S interpreted by me (1pt. min.). @ -None done What testing was considered but not performed or refused? (CT, X-rays, U/S, labs)? Why? @ -None What meds were considered but not given or refused? Why? @ -None Did you discuss the management of the patient with other professionals (professionals i.e. , PA, HUMAN RESOURCES INTERN, lab, RT, psych nurse, social services designee, sewer, teacher, minesweeping officer, case folder)? Give summary @ -Dr. Blackwood for admission secondary to hypotension, dehydration, influenza A with moderate respiratory distress Was smoking cessation discussed for >3mins.? @ -No Was critical care preformed (if so, how long)? @ -No Were there social determinants of health that impacted care today? How? (Homelessness, low income, unemployed, alcoholism, drug addiction, transportation, low edu. Level, literacy, decrease access to med. care, senior care, rehab)? @ -No Was there de-escalation of care discussed even if they declined (Discuss DNR or withdrawal of care, Hospice)? DNR status @ -No What co-morbidities impacted this encounter? (DM, HTN, Smoking, COPD, CAD, Cancer, CVA, ARF, Chemo, Hep., AIDS, mental health diagnosis, sleep apnea, morbid obesity)? @ -[Down syndrome Was patient admitted / discharged? Hospital course, mention meds given and route, prescriptions, significant lab abnormalities, going to OR and other pertinent info. @ -Admitted patient presented for increasing respiratory distress, cough patient is influenza A positive. Patient has mild hypoxia, lactic acidosis and hypomagnesemia. Patient was given fluid bolus, will be admitted for breathing treatments, further hydration and close monitoring Undiagnosed new problem with uncertain prognosis? @ -No Drug Therapy requiring intensive monitoring for toxicity (Heparin, Nitro, Insulin, Cardizem)? @ -No Were any procedures done? @ -No Diagnosis/symptom? @ -Influenza A, hypoxia, dehydration Acute, or Chronic, or Acute on Chronic? @ -Acute Uncomplicated (without systemic symptoms) or Complicated (systemic symptoms)? @ -Complicated Side effects of treatment? @ -No Exacerbation, Progression, or Severe Exacerbation? @ -No Poses a threat to life or bodily function? How? (Chest pain, USA, AL, pneumonia, PE, COPD, DKA, ARF, appy, cholecystitis, CVA, Diverticulitis, Homicidal, Suicidal, threat to staff... and all critical care pts) @ -Yes patient has influenza may cause respiratory failure - Lab Data Result diagrams: 01/13/24 13:50 01/13/24 13:50 Lab Results 01/13/24 01/13/24 01/13/24 Range/Units 13:50 13:50 13:50 WBC 15.8 H (3.8-10.6) k/uL RBC 4.05 (3.80-5.40) m/uL Hgb 11.6 (11.4-16.0) gm/dL Hct 37.1 (34.0-46.0) % MCV 91.7 (80.0-100.0) fL MCH 28.7 (25.0-35.0) pg MCHC 31.3 (31.0-37.0) g/dL RDW 14.9 (11.5-15.5) % Plt Count 268 (150-450) k/uL MPV 7.7 Neutrophils % 91 % Lymphocytes % 2 % Monocytes % 6 % Eosinophils % 0 % Basophils % 0 % Neutrophils # 14.3 H (1.3-7.7) k/uL Lymphocytes # 0.4 L (1.0-4.8) k/uL Monocytes # 0.9 (0-1.0) k/uL Eosinophils # 0.1 (0-0.7) k/uL Basophils # 0.0 (0-0.2) k/uL PT 10.1 (10.0-12.5) sec INR 0.9 (<1.2) APTT 22.5 (22.0-30.0) sec Sodium 137 (137-145) mmol/L Potassium 5.6 H (3.5-5.1) mmol/L Chloride 97 L (98-107) mmol/L Carbon Dioxide 26 (22-30) mmol/L Anion Gap 14 mmol/L BUN 36 H (7-17) mg/dL Creatinine 0.90 (0.52-1.04) mg/dL Est GFR (CKD-EPI)AfAm 77 (>60 ml/min/1.73 sqM) Est GFR (CKD-EPI)NonAf 67 (>60 ml/min/1.73 sqM) Glucose 110 H (74-99) mg/dL Plasma Lactic Acid Jeramy (0.7-2.0) mmol/L Calcium 8.8 (8.4-10.2) mg/dL Magnesium 1.5 L (1.6-2.3) mg/dL Total Bilirubin 1.2 (0.2-1.3) mg/dL AST 63 H (14-36) U/L ALT 23 (4-34) U/L Alkaline Phosphatase 60 (38-126) U/L Troponin I (0.000-0.034) ng/mL NT-Pro-B Natriuret Pep 138 pg/mL Total Protein 8.0 (6.3-8.2) g/dL Albumin 4.5 (3.5-5.0) g/dL Influenza Type A (PCR) (Not Detectd) Influenza Type B (PCR) (Not Detectd) RSV (PCR) (Not Detectd) SARS-CoV-2 (PCR) (Not Detectd) 01/13/24 01/13/24 01/13/24 Range/Units 13:50 13:50 13:50 WBC (3.8-10.6) k/uL RBC (3.80-5.40) m/uL Hgb (11.4-16.0) gm/dL Hct (34.0-46.0) % MCV (80.0-100.0) fL MCH (25.0-35.0) pg MCHC (31.0-37.0) g/dL RDW (11.5-15.5) % Plt Count (150-450) k/uL MPV Neutrophils % % Lymphocytes % % Monocytes % % Eosinophils % % Basophils % % Neutrophils # (1.3-7.7) k/uL Lymphocytes # (1.0-4.8) k/uL Monocytes # (0-1.0) k/uL Eosinophils # (0-0.7) k/uL Basophils # (0-0.2) k/uL PT (10.0-12.5) sec INR (<1.2) APTT (22.0-30.0) sec Sodium (137-145) mmol/L Potassium (3.5-5.1) mmol/L Chloride (98-107) mmol/L Carbon Dioxide (22-30) mmol/L Anion Gap mmol/L BUN (7-17) mg/dL Creatinine (0.52-1.04) mg/dL Est GFR (CKD-EPI)AfAm (>60 ml/min/1.73 sqM) Est GFR (CKD-EPI)NonAf (>60 ml/min/1.73 sqM) Glucose (74-99) mg/dL Plasma Lactic Acid Jeramy 3.9 H* (0.7-2.0) mmol/L Calcium (8.4-10.2) mg/dL Magnesium (1.6-2.3) mg/dL Total Bilirubin (0.2-1.3) mg/dL AST (14-36) U/L ALT (4-34) U/L Alkaline Phosphatase (38-126) U/L Troponin I <0.012 (0.000-0.034) ng/mL NT-Pro-B Natriuret Pep pg/mL Total Protein (6.3-8.2) g/dL Albumin (3.5-5.0) g/dL Influenza Type A (PCR) Detected A (Not Detectd) Influenza Type B (PCR) Not Detected (Not Detectd) RSV (PCR) Not Detected (Not Detectd) SARS-CoV-2 (PCR) Not Detected (Not Detectd) Disposition Clinical Impression: Influenza, Hypoxia, Dehydration, Hypomagnesemia Disposition: ADMITTED IP TO THIS HOSP Condition: Fair Referrals: Ozzie Azul MD [Primary Care Provider] - 1-2 days Time of Disposition: 15:33
[2024-01-13] MEDS: SODIUM CHLORIDE 0.9% 1,000 ML IV STA (14:13)
[2024-01-13] MEDS: LORazepam 2 MG/ML INJ IV STA (14:20)
[2024-01-13 14:22] LABS: INR 0.9 (<1.2); Partial Thromboplastin Time 22.5 sec (22.0-30.0); Prothrombin Time 10.1 sec (10.0-12.5)
--- NOTE | 2024-01-13 14:27 | XR ---
EXAMINATION TYPE: XR chest 2V DATE OF EXAM: 01/13/2024 2:14 PM CLINICAL INDICATION:Female, 68 years old with history of difficulty breathing; [facility] COMPARISON: 01/03/2024 TECHNIQUE: XR chest 2V. Frontal and lateral views of the chest.. FINDINGS: Exam limited by patient positioning, both arms are down and the right forearm and hand are in the fie ld-of-view. Lines/Tubes/Devices: EKG leads overlie the chest. No indwelling lines are seen. Heart/mediastinum: Heart size upper normal. Mediastinum appears stable. Pulmonary vascularity: Not increased, Lungs/Pleura: There is no evidence of pleural effusion, focal consolidation, or pneumothorax. Interst itial coarsening and chronic senescent parenchymal changes. Musculoskeletal: No acute osseous abnormality demonstrated in the limits of the exam. Degenerative c hanges of the spine and shoulders. Other findings: None. IMPRESSION: No acute cardiopulmonary abnormality evident.
[2024-01-13 14:28] LABS: ALT 23 U/L (4-34); AST 63 U/L (14-36); African American GFR (CKD) 77 (>60 ml/min/1.73 sqM); Albumin 4.5 g/dL (3.5-5.0); Alkaline Phosphatase 60 U/L (38-126); Anion Gap 14 mmol/L; Blood Urea Nitrogen 36 mg/dL (7-17); Calcium 8.8 mg/dL (8.4-10.2); Carbon Dioxide 26 mmol/L (22-30); Chloride 97 mmol/L (98-107); Glucose 110 mg/dL (74-99); Magnesium 1.5 mg/dL (1.6-2.3); Non-African American GFR(CKD) 67 (>60 ml/min/1.73 sqM); Sodium 137 mmol/L (137-145); Total Bilirubin 1.2 mg/dL (0.2-1.3)
[2024-01-13 14:29] LABS: Potassium 5.6 mmol/L (3.5-5.1)
[2024-01-13 14:34] LABS: NT-Pro-B-Type Natriuretic Pept 138 pg/mL
[2024-01-13] MEDS: IPRATROPIUM-ALBUTEROL 3 ML NEB INHALATION STA (14:49)
[2024-01-13] MEDS ORDERED: NALOXONE 0.4 MG/ML 1 ML VIAL IV PRN (15:34)
[2024-01-13] MEDS ORDERED: ONDANSETRON 4 MG/2 ML VIAL IVP PRN (15:34)
[2024-01-13] MEDS ORDERED: ACETAMINOPHEN TAB 325 MG TAB PO PRN (15:34)
[2024-01-13] MEDS: SODIUM CHLORIDE 0.9% 1,000 ML IV SCH (15:55)
[2024-01-13] MEDS: MAGNESIUM SULFATE-D5W PMX 1 GM in DEXTROSE/WATER 1 100ML.BAG IVPB ONE (15:55)
[2024-01-13] MEDS: SODIUM CHLORIDE 0.9% 500 ML 500 ML IV ONE ×2 (16:05→16:24)
--- NOTE | 2024-01-13 16:17 | ED ---
Medical Decision Making - Lab Data Result diagrams: 01/13/24 13:50 01/13/24 13:50 Lab Results 01/13/24 01/13/24 01/13/24 Range/Units 13:50 13:50 13:50 WBC 15.8 H (3.8-10.6) k/uL RBC 4.05 (3.80-5.40) m/uL Hgb 11.6 (11.4-16.0) gm/dL Hct 37.1 (34.0-46.0) % MCV 91.7 (80.0-100.0) fL MCH 28.7 (25.0-35.0) pg MCHC 31.3 (31.0-37.0) g/dL RDW 14.9 (11.5-15.5) % Plt Count 268 (150-450) k/uL MPV 7.7 Neutrophils % 91 % Lymphocytes % 2 % Monocytes % 6 % Eosinophils % 0 % Basophils % 0 % Neutrophils # 14.3 H (1.3-7.7) k/uL Lymphocytes # 0.4 L (1.0-4.8) k/uL Monocytes # 0.9 (0-1.0) k/uL Eosinophils # 0.1 (0-0.7) k/uL Basophils # 0.0 (0-0.2) k/uL PT 10.1 (10.0-12.5) sec INR 0.9 (<1.2) APTT 22.5 (22.0-30.0) sec Sodium 137 (137-145) mmol/L Potassium 5.6 H (3.5-5.1) mmol/L Chloride 97 L (98-107) mmol/L Carbon Dioxide 26 (22-30) mmol/L Anion Gap 14 mmol/L BUN 36 H (7-17) mg/dL Creatinine 0.90 (0.52-1.04) mg/dL Est GFR (CKD-EPI)AfAm 77 (>60 ml/min/1.73 sqM) Est GFR (CKD-EPI)NonAf 67 (>60 ml/min/1.73 sqM) Glucose 110 H (74-99) mg/dL Plasma Lactic Acid Jeramy (0.7-2.0) mmol/L Calcium 8.8 (8.4-10.2) mg/dL Magnesium 1.5 L (1.6-2.3) mg/dL Total Bilirubin 1.2 (0.2-1.3) mg/dL AST 63 H (14-36) U/L ALT 23 (4-34) U/L Alkaline Phosphatase 60 (38-126) U/L Troponin I (0.000-0.034) ng/mL NT-Pro-B Natriuret Pep 138 pg/mL Total Protein 8.0 (6.3-8.2) g/dL Albumin 4.5 (3.5-5.0) g/dL Influenza Type A (PCR) (Not Detectd) Influenza Type B (PCR) (Not Detectd) RSV (PCR) (Not Detectd) SARS-CoV-2 (PCR) (Not Detectd) 01/13/24 01/13/24 01/13/24 Range/Units 13:50 13:50 13:50 WBC (3.8-10.6) k/uL RBC (3.80-5.40) m/uL Hgb (11.4-16.0) gm/dL Hct (34.0-46.0) % MCV (80.0-100.0) fL MCH (25.0-35.0) pg MCHC (31.0-37.0) g/dL RDW (11.5-15.5) % Plt Count (150-450) k/uL MPV Neutrophils % % Lymphocytes % % Monocytes % % Eosinophils % % Basophils % % Neutrophils # (1.3-7.7) k/uL Lymphocytes # (1.0-4.8) k/uL Monocytes # (0-1.0) k/uL Eosinophils # (0-0.7) k/uL Basophils # (0-0.2) k/uL PT (10.0-12.5) sec INR (<1.2) APTT (22.0-30.0) sec Sodium (137-145) mmol/L Potassium (3.5-5.1) mmol/L Chloride (98-107) mmol/L Carbon Dioxide (22-30) mmol/L Anion Gap mmol/L BUN (7-17) mg/dL Creatinine (0.52-1.04) mg/dL Est GFR (CKD-EPI)AfAm (>60 ml/min/1.73 sqM) Est GFR (CKD-EPI)NonAf (>60 ml/min/1.73 sqM) Glucose (74-99) mg/dL Plasma Lactic Acid Jeramy 3.9 H* (0.7-2.0) mmol/L Calcium (8.4-10.2) mg/dL Magnesium (1.6-2.3) mg/dL Total Bilirubin (0.2-1.3) mg/dL AST (14-36) U/L ALT (4-34) U/L Alkaline Phosphatase (38-126) U/L Troponin I <0.012 (0.000-0.034) ng/mL NT-Pro-B Natriuret Pep pg/mL Total Protein (6.3-8.2) g/dL Albumin (3.5-5.0) g/dL Influenza Type A (PCR) Detected A (Not Detectd) Influenza Type B (PCR) Not Detected (Not Detectd) RSV (PCR) Not Detected (Not Detectd) SARS-CoV-2 (PCR) Not Detected (Not Detectd) Disposition Clinical Impression: Influenza, Hypoxia, Dehydration, Hypomagnesemia Disposition: ADMITTED IP TO THIS HOSP Condition: Fair Referrals: Ozzie Azul MD [Primary Care Provider] - 1-2 days Procedures - Sepsis Sepsis Focused Exam #1 Time Sepsis Criteria Met: 16:16 Sepsis Focused Exam Date: 01/13/24 Sepsis Focused Exam Time: 17:45 Sepsis Focused Exam Complete: Yes Vital Signs & RN Notes Reviewed: Yes Capillary Refill: < 2 Seconds: Fingers, Toes Peripheral Pulses: Normal: Radial (R), Radial (L) Skin Color: Normal for Patient Respiratory Exam: wheezes Cardiovascular Exam: normal rhythm, tachycardia
[2024-01-13] MEDS: IBUPROFEN 400 MG TAB PO PRN (16:34)
[2024-01-13] MEDS ORDERED: IBUPROFEN 600 MG TAB PO PRN (16:40)
[2024-01-13] MEDS ORDERED: CALCIUM CARBONATE 500 MG CHEWABLE PO PRN (16:40)
[2024-01-13] MEDS ORDERED: KETOTIFEN 0.025% OPHTH DROPS 5 ML BTL BOTH EYES PRN (16:40)
[2024-01-13] MEDS ORDERED: ALPRAZolam 1 MG TAB PO PRN (16:40)
[2024-01-13] MEDS ORDERED: diphenhydrAMINE 25 MG CAP PO PRN (16:40)
[2024-01-13] MEDS ORDERED: ALBUTEROL NEBULIZED 2.5 MG/3 ML INHALATION PRN (16:40)
--- NOTE | 2024-01-13 17:46 | P.HPIM ---
History of Present Illness H&P Date: 01/13/24 Chief Complaint: Fever cough This is a 68-year-old patient, follows with visiting physician Dr. Azul. Chronic stable medical conditions include cerebral palsy, Down syndrome, nonverbal, nonambulatory. Osteoarthritis. Patient is on a mechanically pured diet with t hickened liquids. And is prone to aspiration pneumonias. Patient just in the hospital from January 02 through January 07. With bilateral aspiration pneumonitis. And secondary bronchospasm. Patient is brought in by the EMS to the ER. From the [facility]. Increasing congestion cough. Patient does seem to follow simple commands. At baseline. Patient is tested for influenza A. Also spiking fever. Started on Tamiflu. Review of systems: Patient not able to communicate Social history: Lives at [facility]. Nonverbal. Nonambulatory. Physical examination: VITAL SIGNS: 1.7, 107, 20, 110 x 52, 95% on 2 L GENERAL: laying in bed,, with chesty cough. EYES: Pupils equal. Conjunctiva sage l. HEENT: External appearance of nose and ears normal, oral cavity dry. NECK: JVD unable to assess d; masses not palpable. HEART: First and second heart sounds are normal; no edema. LUNGS: Respiratory rate increased, decreased breath sounds ABDOMEN: Soft, nontender, liver spleen not palpable, no masses palpable. PSYCH: Unable to assess MUSCULOSKELETAL: Patient contracted in the hand with extension of metacarpophalangeal and proximal IP joints. Bilateral foot drop NEUROLOGICAL: Cranial nerves grossly intact; no facial asymmetry, chronic dysarthria INVESTIGATIONS, reviewed in the clinical context: January 12: White count 15.8 hemoglobin 11.6 platelets 268 sodium 137 potassium 5.6 BUN 36 creatinine 0.9 Lactic acid 3 point 9 repeat 1.9 Influenza type a PCR: Detected Influenza type B, RSV, COVID-19: Not detected EKG tracing personally reviewed by me-sinus tachycardia. Some ST-T wave changes. Chest x-ray film personally reviewed by me-some infiltrates Assessment and plan: -Acute bilateral influenza A pneumonitis causing sepsis Tamiflu. -Sepsis secondary to influenza A. IV fluids -Probable hypoxic respiratory failure from fluids A. Supplemental oxygen -Secondary bronchospasm secondary to aspiration pneumonia Bronchodilators -Chronic dysphagia At the baseline takes pured diet and honey thick liquids Provides feeding -Chronic cerebral palsy -Down syndrome -Cerebral palsy with severe cognitive impairment -Obesity BMI 35.1 -Bilateral foot drop, chronic -Chronic medical debility, patient nonambulatory -Primary/secondary osteoarthritis Pain medications as needed -Full code -Public guardian Given the complexity and severity of patient's condition expect the patient to be in the hospital at least for 2 overnights Past Medical History Past Medical History: Heart Failure, Osteoarthritis (OA) Additional Past Medical History / Comment(s): down syndrome, cerebral palsy, nonverbal, aspiration History of Any Multi-Drug Resistant Organisms: None Reported Past Surgical History: No Surgical Hx Reported Past Psychological History: No Psychological Hx Reported, Depression Smoking Status: Never smoker Past Alcohol Use History: None Reported Past Drug Use History: None Reported Medications and Allergies Home Medications Medication Instructions Recorded Confirmed Type Acetaminophen Tab [Tylenol] 650 mg PO Q4H PRN MDD 10 tabs 04/07/20 01/13/24 History Baclofen [Lioresal] 20 mg PO HS@199904/07/20 01/13/24 History Raloxifene [Evista] 60 mg PO DAILY@79904/07/20 01/13/24 History ALPRAZolam [Xanax] 0.25 mg PO HS@199910/10/23 01/13/24 History Aspirin EC [Ecotrin Low Dose] 81 mg PO DAILY@79910/10/23 01/13/24 History Cranberry 450 mg PO HS@199910/10/23 01/13/24 History Eucalyptus Oil/Menthol/Camphor 1 applic TOPICAL BID PRN 10/10/23 01/13/24 History [Vicks Vaporub Ointment] Furosemide [Lasix] 40 mg PO DAILY@79910/10/23 01/13/24 History Hydrocortisone/Aloe Vera 1 applic TOPICAL DIRECTED PRN 10/10/23 01/13/24 History [Cortizone-10 with Aloe 1% Crm] Ibuprofen [Motrin] 600 mg PO TID PRN 10/10/23 01/13/24 History Magnesium Hydroxide [Milk of 2,400 mg PO DAILY PRN 10/10/23 01/13/24 History Magnesia] Nystatin 100,000 Unit/gm Powd 1 applic TOPICAL BID@0800,199910/10/23 01/13/24 History [Mycostatin Powder] Nystatin 100,000Unit/gm Cream 1 applic TOPICAL BID PRN 10/10/23 01/13/24 History [Mycostatin Cream] Olopatadine HCl [Pataday] 1 drop BOTH EYES BID PRN 10/10/23 01/13/24 History Potassium Chloride [Klor-Con M20] 20 meq PO DAILY@0800 10/10/23 01/13/24 History Pyrithione Zinc 1% Shampoo 1 applic TOPICAL DAILY PRN 10/10/23 01/13/24 History QUEtiapine FUMARATE [SEROquel] 400 mg PO HS@199910/10/23 01/13/24 History SILVER sulfADIAZINE Cream 1 applic TOPICAL DAILY PRN 10/10/23 01/13/24 History [Silvadene 1% Cream] Siltussin Sa 200 mg PO Q4H PRN 10/10/23 01/13/24 History Simethicone [Gas-X] 125 mg PO BID PRN 10/10/23 01/13/24 History Simvastatin [Zocor] 40 mg PO HS@199910/10/23 01/13/24 History busPIRone HCl [Buspar] 10 mg PO BID@08,199910/10/23 01/13/24 History polyethylene glycoL 3350 [Miralax] 17 gm PO DAILY@0800 10/10/23 01/13/24 History ALPRAZolam [Xanax] 1 mg PO DIRECTED PRN 01/04/24 01/13/24 History Albuterol Nebulized [Ventolin 2.5 mg INHALATION RT-TID PRN 01/04/24 01/13/24 History Nebulized] Calcium Carbonate [Tums] 500 mg PO DIRECTED PRN 01/04/24 01/13/24 History Carbamide Peroxide [Debrox Otic] 5 - 10 drops BOTH EARS BID PRN 01/04/24 01/13/24 History Omeprazole 40 mg PO DAILY@0800 01/04/24 01/13/24 History Sodium Chloride [Saline Mist] 1 spray EA NOSTRIL DIRECTED PRN 01/04/24 01/13/24 History Stomach Relief 525-30ml 262.5 ml PO DAILY PRN 01/04/24 01/13/24 History Thick-It Original Powder 1 dose PO DIRECTED PRN 01/04/24 01/13/24 History guaiFENesin [guaiFENesin Oral 200 mg PO Q4H PRN 01/04/24 01/13/24 History Solution] Fexofenadine HCl [Rosi Allergy] 180 mg PO DAILY@0800 01/13/24 01/13/24 History Mucinex Cold/Flu/Sore Throat Liquid 20 ml PO Q6H PRN 01/13/24 01/13/24 History diphenhydrAMINE HCL 50 mg PO Q4-6H PRN 01/13/24 01/13/24 History metOLazone [Zaroxolyn] 5 mg PO DAILY@0800 01/13/24 01/13/24 History polyethylene glycoL 3350 [Miralax] 17 gm PO DAILY PRN 01/13/24 01/13/24 History predniSONE See Taper PO DAILY 01/13/24 01/13/24 History Allergies Allergy/AdvReac Type Severity Reaction Status Date / Time amoxicillin Allergy Unknown Verified 01/13/24 15:56 Physical Exam Vitals: Vital Signs Temp Pulse Resp BP Pulse Ox 01/13/24 17:00 108 H 18 99/61 94 L 01/13/24 16:37 112 H 20 81/57 91 L 01/13/24 16:01 115 H 20 79/55 92 L 01/13/24 15:53 101.7 F H 94 L 01/13/24 15:23 123 H 16 94/53 93 L 01/13/24 14:59 123 H 01/13/24 14:49 121 H 01/13/24 14:30 128 H 20 116/53 97 01/13/24 13:13 20 01/13/24 13:07 99.8 F H 134 H 22 126/102 98 Intake and Output 01/13/24 01/13/24 01/13/24 06:59 14:59 22:59 Other: Weight 58.967 kg Results CBC & Chem 7: 01/13/24 13:50 01/13/24 13:50 Labs: Abnormal Lab Results - Last 24 Hours (Table) 01/13/24 01/13/24 01/13/24 Range/Units 13:50 13:50 13:50 WBC 15.8 H (3.8-10.6) k/uL Neutrophils # 14.3 H (1.3-7.7) k/uL Lymphocytes # 0.4 L (1.0-4.8) k/uL Potassium 5.6 H (3.5-5.1) mmol/L Chloride 97 L (98-107) mmol/L BUN 36 H (7-17) mg/dL Glucose 110 H (74-99) mg/dL Plasma Lactic Acid Jeramy 3.9 H* (0.7-2.0) mmol/L Magnesium 1.5 L (1.6-2.3) mg/dL AST 63 H (14-36) U/L Influenza Type A (PCR) (Not Detectd) 01/13/24 Range/Units 13:50 WBC (3.8-10.6) k/uL Neutrophils # (1.3-7.7) k/uL Lymphocytes # (1.0-4.8) k/uL Potassium (3.5-5.1) mmol/L Chloride (98-107) mmol/L BUN (7-17) mg/dL Glucose (74-99) mg/dL Plasma Lactic Acid Jeramy (0.7-2.0) mmol/L Magnesium (1.6-2.3) mg/dL AST (14-36) U/L Influenza Type A (PCR) Detected A (Not Detectd)
[2024-01-13] MEDS: IPRATROPIUM-ALBUTEROL 3 ML NEB INHALATION PRN (20:12)
[2024-01-13] MEDS ORDERED: OSELTAMIVIR 75 MG CAP PO SCH (21:00)
[2024-01-13] MEDS: QUEtiapine 400 MG TAB PO SCH (22:30)
[2024-01-13] MEDS: ALPRAZolam 0.25 MG TAB PO SCH (22:30)
[2024-01-13] MEDS: busPIRone HCl 10 MG TAB PO SCH (23:58)
[2024-01-13] MEDS: BACLOFEN 10 MG TAB PO SCH (23:58)
[2024-01-13] MEDS: OSELTAMIVIR 30 MG CAP PO SCH (23:58)
[2024-01-13] MEDS: ATORVASTATIN 20 MG TAB PO SCH (23:58)
[2024-01-14 06:41] LABS: African American GFR (CKD) >90 (>60 ml/min/1.73 sqM); Anion Gap 12 mmol/L; Blood Urea Nitrogen 36 mg/dL (7-17); Calcium 8.2 mg/dL (8.4-10.2); Carbon Dioxide 22 mmol/L (22-30); Chloride 107 mmol/L (98-107); Glucose 110 mg/dL (74-99); Non-African American GFR(CKD) 80 (>60 ml/min/1.73 sqM); Sodium 141 mmol/L (137-145)
[2024-01-14 06:47] LABS: Potassium 3.5 mmol/L (3.5-5.1)
[2024-01-14] MEDS: RALOXIFENE 60 MG TAB PO SCH (07:46)
[2024-01-14] MEDS: FUROSEMIDE 40 MG TAB PO SCH (07:46)
[2024-01-14] MEDS: PANTOPRAZOLE 40 MG TABLET PO SCH (07:46)
[2024-01-14] MEDS: LORATADINE 10 MG TAB PO SCH (07:46)
[2024-01-14] MEDS: metOLazone 5 MG TAB PO SCH (07:46)
[2024-01-14] MEDS: ASPIRIN 81 MG PO SCH (07:46)
[2024-01-14] MEDS: POTASSIUM CHLORIDE ER 20 MEQ TAB.ER PO SCH (07:47)
[2024-01-14] MEDS: ACETAMINOPHEN TAB 325 MG TAB PO PRN (08:58)
--- NOTE | 2024-01-14 12:01 | P.PN ---
Progress Note - Text Progress Note Date: 01/14/24 Chief Complaint: Fever cough This is a 68-year-old patient, follows with visiting physician Dr. Azul. Chronic stable medical conditions include cerebral palsy, Down syndrome, nonverbal, nonambulatory. Osteoarthritis. Patient is on a mechanically pured diet with thickened liquids. And is prone to aspiration pneumonias. Patient just in the hospital from January 02 through January 07. With bilateral aspiration pneumonitis. And secondary bronchospasm. Patient is brought in by the EMS to the ER. From the [facility]. Increasing congestion cough. Patient does seem to follow simple commands. At baseline. Patient is tested for influenza A. Also spiking fever. Started on Tamiflu. January 13: Admitted with acute influenza A pneumonitis. Septic. On Tamiflu. This morning breathing a bit better. Less congested. Decreased fever. On 2 L nasal cannula. Did tolerate her breakfast. Appears more comfortable. Active Medications Acetaminophen (Acetaminophen Tab 325 Mg Tab) 650 mg PO Q4H PRN PRN Reason: Mild Pain or Fever > 100.5 Last Admin: 01/14/24 08:58 Dose: 650 mg Albuterol/Ipratropium (Ipratropium-Albuterol 3 Ml Neb) 3 ml INHALATION RT-QID PRN PRN Reason: Shortness Of Breath Or Wheezing Last Admin: 01/14/24 07:52 Dose: 3 ml Alprazolam (Alprazolam 0.25 Mg Tab) 0.25 mg PO HS@1999 [facility] Last Admin: 01/13/24 22:30 Dose: Not Given Alprazolam (Alprazolam 1 Mg Tab) 1 mg PO DIRECTED PRN PRN Reason: 1 hour prior to procedure Aspirin (Aspirin 81 Mg) 81 mg PO DAILY@08 [facility] Last Admin: 01/14/24 07:46 Dose: 81 mg Atorvastatin Calcium (Atorvastatin 20 Mg Tab) 20 mg PO HS@1999 [facility] Last Admin: 01/13/24 23:58 Dose: Not Given Baclofen (Baclofen 10 Mg Tab) 20 mg PO HS@1999 [facility] Last Admin: 01/13/24 23:58 Dose: Not Given Buspirone HCl (Buspirone Hcl 10 Mg Tab) 10 mg PO BID@00,1999 [facility] Last Admin: 01/14/24 07:47 Dose: 10 mg Calcium Carbonate/Glycine (Calcium Carbonate 500 Mg Chewable) 500 mg PO DAILY PRN PRN Reason: Heartburn Diphenhydramine HCl (Diphenhydramine 25 Mg Cap) 50 mg PO Q4H PRN PRN Reason: Allergy Symptoms Furosemide (Furosemide 40 Mg Tab) 40 mg PO DAILY@0800 [facility] Last Admin: 01/14/24 07:46 Dose: 40 mg Sodium Chloride (Saline 0.9%) 1,000 mls @ 75 mls/hr IV .[id number] [facility] Last Admin: 01/14/24 05:49 Dose: Not Given Ibuprofen (Ibuprofen 600 Mg Tab) 600 mg PO TID PRN PRN Reason: pain Ketotifen Fumarate (Ketotifen 0.025% Ophth Drops 5 Ml Btl) 1 drops BOTH EYES BID PRN PRN Reason: itching/redness Loratadine (Loratadine 10 Mg Tab) 10 mg PO DAILY@0800 [facility] Last Admin: 01/14/24 07:46 Dose: 10 mg Magnesium Hydroxide (Magnesium Hydroxide 2,400 Mg/30 Ml Cup) 2,400 mg PO DAILY PRN PRN Reason: Constipation Metolazone (Metolazone 5 Mg Tab) 5 mg PO DAILY@0800 [facility] Last Admin: 01/14/24 07:46 Dose: 5 mg Naloxone HCl (Naloxone 0.4 Mg/Ml 1 Ml Vial) 0.2 mg IV Q2M PRN PRN Reason: Opioid Reversal Ondansetron HCl (Ondansetron 4 Mg/2 Ml Vial) 4 mg IVP Q8HR PRN PRN Reason: Nausea And Vomiting Oseltamivir Phosphate (Oseltamivir 30 Mg Cap) 30 mg PO Q12HR [facility]; Protocol Stop: 01/18/24 09:01 Last Admin: 01/14/24 07:46 Dose: 30 mg Pantoprazole Sodium (Pantoprazole 40 Mg Tablet) 40 mg PO DAILY@0800 [facility] Last Admin: 01/14/24 07:46 Dose: 40 mg Potassium Chloride (Potassium Chloride Er 20 Meq Tab.Er) 20 meq PO DAILY@0800 [facility] Last Admin: 01/14/24 07:47 Dose: 20 meq Quetiapine Fumarate (Quetiapine 400 Mg Tab) 400 mg PO HS@2000 [facility] Last Admin: 01/13/24 22:30 Dose: Not Given Raloxifene HCl (Raloxifene 60 Mg Tab) 60 mg PO DAILY@08 [facility] Last Admin: 01/14/24 07:46 Dose: 60 mg Social history: Lives at [facility]. Nonverbal. Nonambulatory. Physical examination: VITAL SIGNS: 98.1, 98, 22, 1 3791, 98% on 2 L GENERAL: laying in bed,, far less congested EYES: Pupils equal. Conjunctiva sage l. HEENT: External appearance of nose and ears normal, oral cavity dry. NECK: JVD unable to assess d; masses not palpable. HEART: First and second heart sounds are normal; no edema. LUNGS: Respiratory rate increased, decreased breath sounds ABDOMEN: Soft, nontender, liver spleen not palpable, no masses palpable. PSYCH: Unable to assess MUSCULOSKELETAL: Patient contracted in the hand with extension of metacarpophalangeal and proximal IP joints. Bilateral foot drop NEUROLOGICAL: Cranial nerves grossly intact; no facial asymmetry, chronic dysarthria INVESTIGATIONS, reviewed in the clinical context: January 13: Potassium 3.5 creatinine 0.77 January 12: White count 15.8 hemoglobin 11.6 platelets 268 sodium 137 potassium 5.6 BUN 36 creatinine 0.9 Lactic acid 3 point 9 repeat 1.9 Influenza type a PCR: Detected Influenza type B, RSV, COVID-19: Not detected EKG tracing personally reviewed by me-sinus tachycardia. Some ST-T wave changes. Chest x-ray film personally reviewed by me-some infiltrates Assessment and plan: -Acute bilateral influenza A pneumonitis causing sepsis: Better Tamiflu. -Sepsis secondary to influenza A. IV fluids -Probable hypoxic respiratory failure from fluids A.: Better Supplemental oxygen -Secondary bronchospasm secondary to aspiration pneumonia Bronchodilators -Chronic dysphagia Baseline takes pured diet and honey thick liquids -Chronic cerebral palsy -Down syndrome -Cerebral palsy with severe cognitive impairment -Obesity BMI 35.1 -Bilateral foot drop, chronic -Chronic medical debility, patient nonambulatory -Primary/secondary osteoarthritis Pain medications as needed -Full code -Public guardian Continue current medication treatment plan. Improving Past Medical History Past Medical History: Heart Failure, Osteoarthritis (OA) Additional Past Medical History / Comment(s): down syndrome, cerebral palsy, nonverbal, aspiration History of Any Multi-Drug Resistant Organisms: None Reported Past Surgical History: No Surgical Hx Reported Past Psychological History: No Psychological Hx Reported, Depression Smoking Status: Never smoker Past Alcohol Use History: None Reported Past Drug Use History: None Reported
[2024-01-14] MEDS: MAGNESIUM HYDROXIDE 2,400 MG/30 ML CUP PO PRN (16:33)
[2024-01-14] MEDS: TAMSULOSIN 0.4 MG CAP.ER.24H PO SCH (19:28)
[2024-01-14] MEDS: IPRATROPIUM-ALBUTEROL 3 ML NEB INHALATION SCH (21:01)
[2024-01-15] MEDS: CLINDAMYCIN 600 MG in DEXTROSE 5% IN WATER 50 ML IVPB SCH (15:58)
--- NOTE | 2024-01-15 18:51 | P.PN ---
Progress Note - Text Progress Note Date: 01/15/24 Chief Complaint: Fever cough This is a 68-year-old patient, follows with visiting physician Dr. Azul. Chronic stable medical conditions include cerebral palsy, Down syndrome, nonverbal, nonambulatory. Osteoarthritis. Patient is on a mechanically pured diet with thickened liquids. And is prone to aspiration pneumonias. Patient just in the hospital from January 02 through January 07. With bilateral aspiration pneumonitis. And secondary bronchospasm. Patient is brought in by the EMS to the ER. From the [facility]. Increasing congestion cough. Patient does seem to follow simple commands. At baseline. Patient is tested for influenza A. Also spiking fever. Started on Tamiflu. January 13: Admitted with acute influenza A pneumonitis. Septic. On Tamiflu. This morning breathing a bit better. Less congested. Decreased fever. On 2 L nasal cannula. Did tolerate her breakfast. Appears more comfortable. January 14: Saw the patient this morning. Only drank some fluids this morning. Low-grade fever. Also refused her medications. Encourage oral intake. Some cellulitis left lower extremity. IV clindamycin. Active Medications Acetaminophen (Acetaminophen Tab 325 Mg Tab) 650 mg PO Q4H PRN PRN Reason: Mild Pain or Fever > 100.5 Last Admin: 01/15/24 06:47 Dose: 650 mg Albuterol/Ipratropium (Ipratropium-Albuterol 3 Ml Neb) 3 ml INHALATION RT-QID [facility] Last Admin: 01/15/24 15:14 Dose: Not Given Alprazolam (Alprazolam 0.25 Mg Tab) 0.25 mg PO HS@1999 [facility] Last Admin: 01/14/24 19:28 Dose: 0.25 mg Alprazolam (Alprazolam 1 Mg Tab) 1 mg PO DIRECTED PRN PRN Reason: 1 hour prior to procedure Aspirin (Aspirin 81 Mg) 81 mg PO DAILY@08 [facility] Last Admin: 01/15/24 08:23 Dose: 81 mg Atorvastatin Calcium (Atorvastatin 20 Mg Tab) 20 mg PO HS@1999 [facility] Last Admin: 01/14/24 19:28 Dose: 20 mg Baclofen (Baclofen 10 Mg Tab) 20 mg PO HS@1999 [facility] Last Admin: 01/14/24 19:28 Dose: 20 mg Buspirone HCl (Buspirone Hcl 10 Mg Tab) 10 mg PO BID@799,1999 [facility] Last Admin: 01/15/24 08:23 Dose: 10 mg Calcium Carbonate/Glycine (Calcium Carbonate 500 Mg Chewable) 500 mg PO DAILY PRN PRN Reason: Heartburn Diphenhydramine HCl (Diphenhydramine 25 Mg Cap) 50 mg PO Q4H PRN PRN Reason: Allergy Symptoms Furosemide (Furosemide 40 Mg Tab) 40 mg PO DAILY@0800 [facility] Last Admin: 01/15/24 08:23 Dose: 40 mg Sodium Chloride (Saline 0.9%) 1,000 mls @ 75 mls/hr IV .[id number] [facility] Last Admin: 01/15/24 08:51 Dose: Not Given Clindamycin Phosphate 600 mg/ (Dextrose/Water) 54 mls @ 50 mls/hr IVPB Q8HR [facility]; Protocol Last Admin: 01/15/24 15:58 Dose: 50 mls/hr Ibuprofen (Ibuprofen 600 Mg Tab) 600 mg PO TID PRN PRN Reason: pain Ketotifen Fumarate (Ketotifen 0.025% Ophth Drops 5 Ml Btl) 1 drops BOTH EYES BID PRN PRN Reason: itching/redness Loratadine (Loratadine 10 Mg Tab) 10 mg PO DAILY@08 [facility] Last Admin: 01/15/24 08:23 Dose: 10 mg Magnesium Hydroxide (Magnesium Hydroxide 2,400 Mg/30 Ml Cup) 2,400 mg PO DAILY PRN PRN Reason: Constipation Last Admin: 01/14/24 16:33 Dose: 2,400 mg Metolazone (Metolazone 5 Mg Tab) 5 mg PO DAILY@08 [facility] Last Admin: 01/15/24 08:24 Dose: 5 mg Naloxone HCl (Naloxone 0.4 Mg/Ml 1 Ml Vial) 0.2 mg IV Q2M PRN PRN Reason: Opioid Reversal Non-Formulary Medication (Pharmacy To Dose 1 Each Misc) 1 each MISCELLANE DIRECTED PRN PRN Reason: Fever Ondansetron HCl (Ondansetron 4 Mg/2 Ml Vial) 4 mg IVP Q8HR PRN PRN Reason: Nausea And Vomiting Oseltamivir Phosphate (Oseltamivir 30 Mg Cap) 30 mg PO Q12HR [facility]; Protocol Stop: 01/18/24 09:01 Last Admin: 01/15/24 08:24 Dose: 30 mg Pantoprazole Sodium (Pantoprazole 40 Mg Tablet) 40 mg PO DAILY@08 [facility] Last Admin: 01/15/24 08:23 Dose: 40 mg Potassium Chloride (Potassium Chloride Er 20 Meq Tab.Er) 20 meq PO DAILY@08 [facility] Last Admin: 01/15/24 08:24 Dose: 20 meq Quetiapine Fumarate (Quetiapine 400 Mg Tab) 400 mg PO HS@1999 [facility] Last Admin: 01/14/24 19:28 Dose: 400 mg Raloxifene HCl (Raloxifene 60 Mg Tab) 60 mg PO DAILY@799 [facility] Last Admin: 01/15/24 08:24 Dose: 60 mg Tamsulosin HCl (Tamsulosin 0.4 Mg Cap.Er.24h) 0.4 mg PO [facility] Last Admin: 01/14/24 19:28 Dose: 0.4 mg Social history: Lives at [facility]. Nonverbal. Nonambulatory. Physical examination: VITAL SIGNS: 1 spike of 100.4. 98.6, 96, 20, 146 x 61, 94% on 2 L GENERAL: laying in bed,, awake not in distress EYES: Pupils equal. Conjunctiva sage l. HEENT: External appearance of nose and ears normal, oral cavity dry. NECK: JVD unable to assess d; masses not palpable. HEART: First and second heart sounds are normal; no edema. LUNGS: Respiratory rate increased, decreased breath sounds ABDOMEN: Soft, nontender, liver spleen not palpable, no masses palpable. PSYCH: Unable to assess MUSCULOSKELETAL: Patient contracted in the hand with extension of metacarpophalangeal and proximal IP joints. Bilateral foot drop. Some cellulitis left lower leg NEUROLOGICAL: Cranial nerves grossly intact; no facial asymmetry, chronic dysarthria INVESTIGATIONS, reviewed in the clinical context: January 13: Potassium 3.5 creatinine 0.77 January 12: White count 15.8 hemoglobin 11.6 platelets 268 sodium 137 potassium 5.6 BUN 36 creatinine 0.9 Lactic acid 3 point 9 repeat 1.9 Influenza type a PCR: Detected Influenza type B, RSV, COVID-19: Not detected EKG tracing personally reviewed by me-sinus tachycardia. Some ST-T wave changes. Chest x-ray film personally reviewed by me-some infiltrates Assessment and plan: -Acute bilateral influenza A pneumonitis causing sepsis: Better Tamiflu. -Acute left lower extremity cellulitis IV clindamycin -Sepsis secondary to influenza A. IV fluids -Probable hypoxic respiratory failure from fluids A.: Better Supplemental oxygen -Secondary bronchospasm secondary to aspiration pneumonia Bronchodilators -Chronic dysphagia Baseline takes pured diet and honey thick liquids -Chronic cerebral palsy -Down syndrome -Cerebral palsy with severe cognitive impairment -Obesity BMI 35.1 -Bilateral foot drop, chronic -Chronic medical debility, patient nonambulatory -Primary/secondary osteoarthritis Pain medications as needed -Full code -Public guardian Encourage oral intake. IV clindamycin added. Other medications to continue Past Medical History Past Medical History: Heart Failure, Osteoarthritis (OA) Additional Past Medical History / Comment(s): down syndrome, cerebral palsy, nonverbal, aspiration History of Any Multi-Drug Resistant Organisms: None Reported Past Surgical History: No Surgical Hx Reported Past Psychological History: No Psychological Hx Reported, Depression Smoking Status: Never smoker Past Alcohol Use History: None Reported Past Drug Use History: None Reported
[2024-01-16 11:23] LABS: Basophils % (A) 0 %; Eosinophils % (A) 0 %; HCT 34.1 % (34.0-46.0); HGB 10.9 gm/dL (11.4-16.0); Hypochromasia Slight; Lymphocytes # (A) 0.9 k/uL (1.0-4.8); Lymphocytes % (A) 11 %; MCH 29.7 pg (25.0-35.0); MCHC 31.9 g/dL (31.0-37.0); MCV 93.1 fL (80.0-100.0); Mean Platelet Volume 7.8; Monocytes # (A) 0.3 k/uL (0-1.0); Monocytes % (A) 4 %; Neutrophils # (A) 6.4 k/uL (1.3-7.7); Neutrophils % (A) 82 %; Platelet Count 202 k/uL (150-450); RBC 3.66 m/uL (3.80-5.40); WBC 7.8 k/uL (3.8-10.6)
[2024-01-16 11:40] LABS: African American GFR (CKD) >90 (>60 ml/min/1.73 sqM); Anion Gap 10 mmol/L; Blood Urea Nitrogen 30 mg/dL (7-17); Calcium 8.6 mg/dL (8.4-10.2); Carbon Dioxide 27 mmol/L (22-30); Chloride 106 mmol/L (98-107); Glucose 118 mg/dL (74-99); Non-African American GFR(CKD) >90 (>60 ml/min/1.73 sqM); Potassium 3.2 mmol/L (3.5-5.1); Sodium 143 mmol/L (137-145)
[2024-01-16 13:51] VITALS: RESP 20
--- NOTE | 2024-01-16 15:43 | P.PN ---
Progress Note - Text Progress Note Date: 01/16/24 Chief Complaint: Fever cough This is a 68-year-old patient, follows with visiting physician Dr. Azul. Chronic stable medical conditions include cerebral palsy, Down syndrome, nonverbal, nonambulatory. Osteoarthritis. Patient is on a mechanically pured diet with thickened liquids. And is prone to aspiration pneumonias. Patient just in the hospital from January 02 through January 07. With bilateral aspiration pneumonitis. And secondary bronchospasm. Patient is brought in by the EMS to the ER. From the longterm. Increasing congestion cough. Patient does seem to follow simple commands. At baseline. Patient is tested for influenza A. Also spiking fever. Started on Tamiflu. January 13: Admitted with acute influenza A pneumonitis. Septic. On Tamiflu. This morning breathing a bit better. Less congested. Decreased fever. On 2 L nasal cannula. Did tolerate her breakfast. Appears more comfortable. January 14: Saw the patient this morning. Only drank some fluids this morning. Low-grade fever. Also refused her medications. Encourage oral intake. Some cellulitis left lower extremity. IV clindamycin. January 15: Patient had ice cream this morning. Refused other food. Took her medications. Breathing a bit better. Spoke to the nurse and the aide. Encourage oral intake. Active Medications Acetaminophen (Acetaminophen Tab 325 Mg Tab) 650 mg PO Q4H PRN PRN Reason: Mild Pain or Fever > 100.5 Last Admin: 01/15/24 06:47 Dose: 650 mg Albuterol/Ipratropium (Ipratropium-Albuterol 3 Ml Neb) 3 ml INHALATION RT-QID [facility] Last Admin: 01/16/24 11:33 Dose: 3 ml Alprazolam (Alprazolam 0.25 Mg Tab) 0.25 mg PO HS@1999 [facility] Last Admin: 01/15/24 20:12 Dose: 0.25 mg Alprazolam (Alprazolam 1 Mg Tab) 1 mg PO DIRECTED PRN PRN Reason: 1 hour prior to procedure Aspirin (Aspirin 81 Mg) 81 mg PO DAILY@0800 [facility] Last Admin: 01/16/24 09:45 Dose: 81 mg Atorvastatin Calcium (Atorvastatin 20 Mg Tab) 20 mg PO HS@1999 [facility] Last Admin: 01/15/24 20:12 Dose: 20 mg Baclofen (Baclofen 10 Mg Tab) 20 mg PO HS@1999 [facility] Last Admin: 01/15/24 20:12 Dose: 20 mg Buspirone HCl (Buspirone Hcl 10 Mg Tab) 10 mg PO BID@ [facility] Last Admin: 01/16/24 09:45 Dose: 10 mg Calcium Carbonate/Glycine (Calcium Carbonate 500 Mg Chewable) 500 mg PO DAILY PRN PRN Reason: Heartburn Diphenhydramine HCl (Diphenhydramine 25 Mg Cap) 50 mg PO Q4H PRN PRN Reason: Allergy Symptoms Furosemide (Furosemide 40 Mg Tab) 40 mg PO DAILY@08 [facility] Last Admin: 01/16/24 09:45 Dose: 40 mg Sodium Chloride (Saline 0.9%) 1,000 mls @ 75 mls/hr IV .[id number] [facility] Last Admin: 01/15/24 23:41 Dose: 75 mls/hr Clindamycin Phosphate 600 mg/ (Dextrose/Water) 54 mls @ 50 mls/hr IVPB Q8HR [facility]; Protocol Last Admin: 01/16/24 09:45 Dose: 50 mls/hr Ibuprofen (Ibuprofen 600 Mg Tab) 600 mg PO TID PRN PRN Reason: pain Ketotifen Fumarate (Ketotifen 0.025% Ophth Drops 5 Ml Btl) 1 drops BOTH EYES BID PRN PRN Reason: itching/redness Loratadine (Loratadine 10 Mg Tab) 10 mg PO DAILY@08 [facility] Last Admin: 01/16/24 09:45 Dose: 10 mg Magnesium Hydroxide (Magnesium Hydroxide 2,400 Mg/30 Ml Cup) 2,400 mg PO DAILY PRN PRN Reason: Constipation Last Admin: 01/14/24 16:33 Dose: 2,400 mg Metolazone (Metolazone 5 Mg Tab) 5 mg PO DAILY@08 [facility] Last Admin: 01/16/24 09:46 Dose: 5 mg Naloxone HCl (Naloxone 0.4 Mg/Ml 1 Ml Vial) 0.2 mg IV Q2M PRN PRN Reason: Opioid Reversal Non-Formulary Medication (Pharmacy To Dose 1 Each Misc) 1 each MISCELLANE DIRECTED PRN PRN Reason: Fever Ondansetron HCl (Ondansetron 4 Mg/2 Ml Vial) 4 mg IVP Q8HR PRN PRN Reason: Nausea And Vomiting Oseltamivir Phosphate (Oseltamivir 75 Mg Cap) 75 mg PO Q12HR [facility]; Protocol Stop: 01/18/24 21:01 Pantoprazole Sodium (Pantoprazole 40 Mg Tablet) 40 mg PO DAILY@799 [facility] Last Admin: 01/16/24 09:45 Dose: 40 mg Potassium Chloride (Potassium Chloride Er 20 Meq Tab.Er) 20 meq PO DAILY@08 [facility] Last Admin: 01/16/24 09:45 Dose: 20 meq Quetiapine Fumarate (Quetiapine 400 Mg Tab) 400 mg PO HS@1999 [facility] Last Admin: 01/15/24 20:12 Dose: 400 mg Raloxifene HCl (Raloxifene 60 Mg Tab) 60 mg PO DAILY@799 [facility] Last Admin: 01/16/24 09:46 Dose: 60 mg Tamsulosin HCl (Tamsulosin 0.4 Mg Cap.Er.24h) 0.4 mg PO [facility] Last Admin: 01/15/24 20:12 Dose: 0.4 mg Social history: Lives at [facility]. Nonverbal. Nonambulatory. Physical examination: VITAL SIGNS: 99.3, 88, 20, 124/59, 92% on 3 L GENERAL: laying in bed,, awake not in distress EYES: Pupils equal. Conjunctiva sage l. HEENT: External appearance of nose and ears normal, oral cavity dry. NECK: JVD unable to assess d; masses not palpable. HEART: First and second heart sounds are normal; no edema. LUNGS: Respiratory rate increased, decreased breath sounds ABDOMEN: Soft, nontender, liver spleen not palpable, no masses palpable. PSYCH: Unable to assess MUSCULOSKELETAL: Patient contracted in the hand with extension of metacarpophalangeal and proximal IP joints. Bilateral foot drop. Some cellulitis left lower leg NEUROLOGICAL: Cranial nerves grossly intact; no facial asymmetry, chronic dysarthria INVESTIGATIONS, reviewed in the clinical context: January 15: White count 7.8 hemoglobin 10.9 potassium 3.2 creatinine 0.59 Procalcitonin 0.52 January 13: Potassium 3.5 creatinine 0.77 January 12: White count 15.8 hemoglobin 11.6 platelets 268 sodium 137 potassium 5.6 BUN 36 creatinine 0.9 Lactic acid 3 point 9 repeat 1.9 Influenza type a PCR: Detected Influenza type B, RSV, COVID-19: Not detected EKG tracing personally reviewed by me-sinus tachycardia. Some ST-T wave changes. Chest x-ray film personally reviewed by me-some infiltrates Assessment and plan: -Acute bilateral influenza A pneumonitis causing sepsis: Better Tamiflu. -Acute left lower extremity cellulitis IV clindamycin -Sepsis secondary to influenza A.: Better IV fluids -Probable hypoxic respiratory failure from fluids A.: Better Supplemental oxygen -Secondary bronchospasm secondary to aspiration pneumonia Bronchodilators -Chronic dysphagia Baseline takes pured diet and honey thick liquids -Chronic cerebral palsy -Down syndrome -Cerebral palsy with severe cognitive impairment -Obesity BMI 35.1 -Bilateral foot drop, chronic -Chronic medical debility, patient nonambulatory -Primary/secondary osteoarthritis Pain medications as needed -Full code -Public guardian Spoke to the nurse and aide. Encourage oral intake. Hopefully discharge tomorrow. Past Medical History Past Medical History: Heart Failure, Osteoarthritis (OA) Additional Past Medical History / Comment(s): down syndrome, cerebral palsy, nonverbal, aspiration History of Any Multi-Drug Resistant Organisms: None Reported Past Surgical History: No Surgical Hx Reported Past Psychological History: No Psychological Hx Reported, Depression Smoking Status: Never smoker Past Alcohol Use History: None Reported Past Drug Use History: None Reported
[2024-01-16] MEDS: OSELTAMIVIR 75 MG CAP PO SCH (21:52)
[2024-01-17 08:02] VITALS: PULSE 107; TEMP 97.6
[2024-01-17 08:44] VITALS: BP 108/65
[2024-01-17] MEDS: POTASSIUM CHLORIDE ER 20 MEQ TAB.ER PO STA (11:11)
--- NOTE | 2024-01-17 22:00 | P.DS ---
Providers Date of admission: 01/13/24 16:11 Expected date of discharge: 01/17/24 Attending physician: Tomasz Blackwood Primary care physician: Ozzie Azul MD Hospital Course: Chief Complaint: Fever cough This is a 68-year-old patient, follows with visiting physician Dr. Azul. Chronic stable medical conditions include cerebral palsy, Down syndrome, nonverbal, nonambulatory. Osteoarthritis. Patient is on a mechanically pured diet with thickened liquids. And is prone to aspiration pneumonias. Patient just in the hospital from January 02 through January 07. With bilateral aspiration pneumonitis. And secondary bronchospasm. Patient is brought in by the EMS to the ER. From the [facility]. Increasing congestion cough. Patient does seem to follow simple commands. At baseline. Patient is tested for influenza A. Also spiking fever. Started on Tamiflu. January 13: Admitted with acute influenza A pneumonitis. Septic. On Tamiflu. This morning breathing a bit better. Less congested. Decreased fever. On 2 L nasal cannula. Did tolerate her breakfast. Appears more comfortable. January 14: Saw the patient this morning. Only drank some fluids this morning. Low-grade fever. Also refused her medications. Encourage oral intake. Some cellulitis left lower extremity. IV clindamycin. January 15: Patient had ice cream this morning. Refused other food. Took her medications. Breathing a bit better. Spoke to the nurse and the aide. Encourage oral intake. January 16: Comfortable. Breathing stable. Being discharged back to [facility]. Tamiflu discontinued. No need for any further clindamycin as cellulitis is healed. Social history: Lives at [facility]. Nonverbal. Nonambulatory. Physical examination: VITAL SIGNS: 97.6, 107, 18, 108 x 65, 90% on 3 L GENERAL: laying in bed,, comfortable EYES: Pupils equal. Conjunctiva sage l. HEENT: External appearance of nose and ears normal, oral cavity dry. NECK: JVD unable to assess d; masses not palpable. HEART: First and second heart sounds are normal; no edema. LUNGS: Respiratory rate normal, decreased breath sounds ABDOMEN: Soft, nontender, liver spleen not palpable, no masses palpable. PSYCH: Unable to assess MUSCULOSKELETAL: Patient contracted in the hand with extension of metacarpophalangeal and proximal IP joints. Bilateral foot drop. Some cellulitis left lower leg NEUROLOGICAL: Cranial nerves grossly intact; no facial asymmetry, chronic dysarthria INVESTIGATIONS, reviewed in the clinical context: January 15: White count 7.8 hemoglobin 10.9 potassium 3.2 creatinine 0.59 Procalcitonin 0.52 January 13: Potassium 3.5 creatinine 0.77 January 12: White count 15.8 hemoglobin 11.6 platelets 268 sodium 137 potassium 5.6 BUN 36 creatinine 0.9 Lactic acid 3 point 9 repeat 1.9 Influenza type a PCR: Detected Influenza type B, RSV, COVID-19: Not detected EKG tracing personally reviewed by me-sinus tachycardia. Some ST-T wave changes. Chest x-ray film personally reviewed by me-some infiltrates Assessment and plan: -Acute bilateral influenza A pneumonitis causing sepsis: Better Tamiflu.-Completed -Acute left lower extremity cellulitis: Improved IV clindamycin-discontinued -Sepsis secondary to influenza A.: Resolved IV fluids -Probable hypoxic respiratory failure from fluids A.: Better Supplemental oxygen -Secondary bronchospasm secondary to aspiration pneumonia Albuterol twice daily -Chronic dysphagia Baseline takes pured diet and honey thick liquids -Chronic cerebral palsy -Down syndrome -Cerebral palsy with severe cognitive impairment -Obesity BMI 35.1 -Bilateral foot drop, chronic -Chronic medical debility, patient nonambulatory -Primary/secondary osteoarthritis Pain medications as needed -Full code -Public guardian Disposition: [facility] Past Medical History Past Medical History: Heart Failure, Osteoarthritis (OA) Additional Past Medical History / Comment(s): down syndrome, cerebral palsy, nonverbal, aspiration History of Any Multi-Drug Resistant Organisms: None Reported Past Surgical History: No Surgical Hx Reported Past Psychological History: No Psychological Hx Reported, Depression Smoking Status: Never smoker Past Alcohol Use History: None Reported Past Drug Use History: None Reported Plan - Discharge Summary Discharge Rx Participant: No New Discharge Prescriptions: New Tamsulosin [Flomax] 0.4 mg PO HS #30 cap Albuterol Nebulized [Ventolin Nebulized] 2.5 mg INHALATION BID 8 Days #60 ml Continue Acetaminophen Tab [Tylenol] 650 mg PO Q4H PRN MDD 10 tabs PRN Reason: Pain Or Fever > 100.5 Raloxifene [Evista] 60 mg PO DAILY@0800 Baclofen [Lioresal] 20 mg PO HS@2000 Pyrithione Zinc 1% Shampoo 1 applic TOPICAL DAILY PRN PRN Reason: scalp Magnesium Hydroxide [Milk of Magnesia] 2,400 mg PO DAILY PRN PRN Reason: Constipation Simethicone [Gas-X] 125 mg PO BID PRN PRN Reason: gas relief Ibuprofen [Motrin] 600 mg PO TID PRN PRN Reason: pain QUEtiapine FUMARATE [SEROquel] 400 mg PO HS@2000 Potassium Chloride [Klor-Con M20] 20 meq PO DAILY@0800 polyethylene glycoL 3350 [Miralax] 17 gm PO DAILY@0800 Furosemide [Lasix] 40 mg PO DAILY@0800 Cranberry 450 mg PO HS@2000 busPIRone HCl [Buspar] 10 mg PO BID@0800,1999 Stomach Relief 525-30ml 262.5 ml PO DAILY PRN PRN Reason: Gi Upset Thick-It Original Powder 1 dose PO DIRECTED PRN PRN Reason: w/all liquids ALPRAZolam [Xanax] 1 mg PO DIRECTED PRN PRN Reason: 1 hour prior to procedure Carbamide Peroxide [Debrox Otic] 5 - 10 drops BOTH EARS BID PRN PRN Reason: excessive ear wax guaiFENesin [guaiFENesin Oral Solution] 200 mg PO Q4H PRN PRN Reason: Cough Omeprazole 40 mg PO DAILY@0800 Sodium Chloride [Saline Mist] 1 spray EA NOSTRIL DIRECTED PRN PRN Reason: sinus/nasal congestion Mucinex Cold/Flu/Sore Throat Liquid 20 ml PO Q6H PRN PRN Reason: Cough Fexofenadine HCl [Rosi Allergy] 180 mg PO DAILY@0800 polyethylene glycoL 3350 [Miralax] 17 gm PO DAILY PRN PRN Reason: Constipation predniSONE See Taper PO DAILY SILVER sulfADIAZINE Cream [Silvadene 1% Cream] 1 applic TOPICAL DAILY PRN PRN Reason: Skin Irritation Siltussin Sa 200 mg PO Q4H PRN PRN Reason: cough/congestion Olopatadine HCl [Pataday] 1 drop BOTH EYES BID PRN PRN Reason: itching/redness Nystatin 100,000Unit/gm Cream [Mycostatin Cream] 1 applic TOPICAL BID PRN PRN Reason: Skin Irritation Hydrocortisone/Aloe Vera [Cortizone-10 with Aloe 1% Crm] 1 applic TOPICAL DIRECTED PRN PRN Reason: insect bites & hives Simvastatin [Zocor] 40 mg PO HS@2000 Nystatin 100,000 Unit/gm Powd [Mycostatin Powder] 1 applic TOPICAL BID@ Aspirin EC [Ecotrin Low Dose] 81 mg PO DAILY@799 ALPRAZolam [Xanax] 0.25 mg PO HS@1999 Eucalyptus Oil/Menthol/Camphor [Vicks Vaporub Ointment] 1 applic TOPICAL BID PRN PRN Reason: Congestion Calcium Carbonate [Tums] 500 mg PO DIRECTED PRN PRN Reason: Heartburn Albuterol Nebulized [Ventolin Nebulized] 2.5 mg INHALATION RT-TID PRN PRN Reason: Shortness Of Breath diphenhydrAMINE HCL 50 mg PO Q4-6H PRN PRN Reason: Allergy Symptoms metOLazone [Zaroxolyn] 5 mg PO DAILY@0800 Discharge Medication List Acetaminophen Tab [Tylenol] 650 mg PO Q4H PRN MDD 10 tabs 04/07/20 [History] Baclofen [Lioresal] 20 mg PO HS@199904/07/20 [History] Raloxifene [Evista] 60 mg PO DAILY@79904/07/20 [History] ALPRAZolam [Xanax] 0.25 mg PO HS@199910/10/23 [History] Aspirin EC [Ecotrin Low Dose] 81 mg PO DAILY@79910/10/23 [History] Cranberry 450 mg PO HS@199910/10/23 [History] Eucalyptus Oil/Menthol/Camphor [Vicks Vaporub Ointment] 1 applic TOPICAL BID PRN 10/10/23 [History] Furosemide [Lasix] 40 mg PO DAILY@0810/10/23 [History] Hydrocortisone/Aloe Vera [Cortizone-10 with Aloe 1% Crm] 1 applic TOPICAL DIRECTED PRN 10/10/23 [History] Ibuprofen [Motrin] 600 mg PO TID PRN 10/10/23 [History] Magnesium Hydroxide [Milk of Magnesia] 2,400 mg PO DAILY PRN 10/10/23 [History] Nystatin 100,000 Unit/gm Powd [Mycostatin Powder] 1 applic TOPICAL BID@799,199910/10/23 [History] Nystatin 100,000Unit/gm Cream [Mycostatin Cream] 1 applic TOPICAL BID PRN 10/10/23 [History] Olopatadine HCl [Pataday] 1 drop BOTH EYES BID PRN 10/10/23 [History] Potassium Chloride [Klor-Con M20] 20 meq PO DAILY@0800 10/10/23 [History] Pyrithione Zinc 1% Shampoo 1 applic TOPICAL DAILY PRN 10/10/23 [History] QUEtiapine FUMARATE [SEROquel] 400 mg PO HS@199910/10/23 [History] SILVER sulfADIAZINE Cream [Silvadene 1% Cream] 1 applic TOPICAL DAILY PRN 10/10/23 [History] Siltussin Sa 200 mg PO Q4H PRN 10/10/23 [History] Simethicone [Gas-X] 125 mg PO BID PRN 10/10/23 [History] Simvastatin [Zocor] 40 mg PO HS@199910/10/23 [History] busPIRone HCl [Buspar] 10 mg PO BID@0800,199910/10/23 [History] polyethylene glycoL 3350 [Miralax] 17 gm PO DAILY@0800 10/10/23 [History] ALPRAZolam [Xanax] 1 mg PO DIRECTED PRN 01/04/24 [History] Albuterol Nebulized [Ventolin Nebulized] 2.5 mg INHALATION RT-TID PRN 01/04/24 [History] Calcium Carbonate [Tums] 500 mg PO DIRECTED PRN 01/04/24 [History] Carbamide Peroxide [Debrox Otic] 5 - 10 drops BOTH EARS BID PRN 01/04/24 [History] Omeprazole 40 mg PO DAILY@0801/04/24 [History] Sodium Chloride [Saline Mist] 1 spray EA NOSTRIL DIRECTED PRN 01/04/24 [History] Stomach Relief 525-30ml 262.5 ml PO DAILY PRN 01/04/24 [History] Thick-It Original Powder 1 dose PO DIRECTED PRN 01/04/24 [History] guaiFENesin [guaiFENesin Oral Solution] 200 mg PO Q4H PRN 01/04/24 [History] Fexofenadine HCl [Rosi Allergy] 180 mg PO DAILY@0800 01/13/24 [History] Mucinex Cold/Flu/Sore Throat Liquid 20 ml PO Q6H PRN 01/13/24 [History] diphenhydrAMINE HCL 50 mg PO Q4-6H PRN 01/13/24 [History] metOLazone [Zaroxolyn] 5 mg PO DAILY@0800 01/13/24 [History] polyethylene glycoL 3350 [Miralax] 17 gm PO DAILY PRN 01/13/24 [History] predniSONE See Taper PO DAILY 01/13/24 [History] Albuterol Nebulized [Ventolin Nebulized] 2.5 mg INHALATION BID 8 Days #60 ml 01/17/24 [Rx] Tamsulosin [Flomax] 0.4 mg PO HS #30 cap 01/17/24 [Rx] Follow up Appointment(s)/Referral(s): Ozzie Azul MD [Primary Care Provider] - 1-2 days (Office is not answering at time of discharge. Please call for follow-up appointment.) [facility] [NON-STAFF] - Patient Instructions/Handouts: Dehydration (DC), Influenza (DC) Activity/Diet/Wound Care/Special Instructions: Ambulance for in chart Discharge Disposition: HOME WITH HOME HEALTH SERVICES
--- NOTE | 2024-01-18 22:04 | CDI ---
Documentation Clarification Form Date: 01/18/2024 09:54:47 PM From: Lupis García Phone: Admit Date: 01/13/2024 04:11:00 PM Patient Name: Luz Maria Bynum Visit Number: [id number] Discharge Date: 01/17/2024 01:16:00 PM ATTENTION: The Clinical Documentation Specialists (CDI) and [facility] Coding Staff appreciate your assistance in clarifying documentation. Please respond to the clarification below the line at the bottom and electronically sign. The CDI & [facility] Coding staff will review the response and follow-up if needed. Please note: Queries are made part of the Legal Health Record. If you have any questions, please contact the author of this message via ITS. Dr. Tomasz Blackwood Probablehypoxic respiratory failure is documented per H&P and Progress Notes. Additional clarification is requested. Patient history/risk factors: 68yo F, sepsis due to acute bilateralfluApneumonitis, LLE cellulitis, bronchospasmd/tasp PNA, chronicdysphagia, Down syndrome, CP w severe cognitiveimpairment, Obesity, monique foot drop, primary/secondaryOA Clinical Indicators: O2 Sat by Pulse 93 L Oximetry Treatment: Supplemental oxygen After work up and study, please clarify which diagnosis is most appropriate? [ ] Hypoxic Respiratory Failure ruled out [ + ] Hypoxic Respiratory Failure is a valid diagnosis as evidenced by the following: [ +] Acute [ ] Unable to determine [ ] Other, please specify (Template Last Revised: October 2023) MTDD
--- NOTE | 2024-01-18 22:15 | CDI ---
Documentation Clarification Form Date: 01/18/2024 10:09:04 PM From: Lupis García Phone: Admit Date: 01/13/2024 04:11:00 PM Patient Name: Luz Maria Bynum Visit Number: [id number] Discharge Date: 01/17/2024 01:16:00 PM ATTENTION: The Clinical Documentation Specialists (CDI) and [facility] Coding Staff appreciate your assistance in clarifying documentation. Please respond to the clarification below the line at the bottom and electronically sign. The CDI & [facility] Coding staff will review the response and follow-up if needed. Please note: Queries are made part of the Legal Health Record. If you have any questions, please contact the author of this message via ITS. Dr. Tomasz Blackwood Your patient has the documented diagnosis of unspecified CHF ED Note and Progress Notes. Additional information regarding the acuity of CHF is requested. History/Risk Factors: 68yo F, sepsis d/t monique fluApneumonitis, LLE cellulitis, bronchospasmd/tasp PNA, Obesity, chronicdysphagia, Down syndrome, CP w severe cognitiveimpairment, monique foot drop, primary/secondaryOA Clinical Indicators: O2 Sat: Pulse 93 L Oximetry BNP: 138 Chest X Ray: Heart/mediastinum: Heart size upper normal. Mediastinum appears stable. Lungs/Pleura: There isno evidence ofpleural effusion, focal consolidation, or pneumothorax. Interstitial coarsening and chronic senescent parenchymal changes. Treatment: monitored In your professional opinion, can you please clarify the type of CHF if known? [ ] Chronic Systolic Heart Failure (reduced EF) [ ] Chronic Diastolic Heart Failure (preserved EF) [ ] Chronic Systolic & Diastolic Heart Failure [ ] Other, please specify [ + ] Unable to determine (Template Last Revised: November 2020) MTDD
== END 2024-01-17 13:16 | disposition home health service (06) | DRG 871 ==
LOC: EC 13:06 → 3SCARD 16:11 → 4SSUR 01-16 23:12
PROVIDERS: ADMIT Hospitalist; ATTEND Hospitalist
DX: A41.89 Other specified sepsis (principal); J10.01 Influenza due to other identified influenza virus with the same other identified influenza virus pneumonia; J69.0 Pneumonitis due to inhalation of food and vomit; J96.01 Acute respiratory failure with hypoxia; J44.0 Chronic obstructive pulmonary disease with (acute) lower respiratory infection; L03.116 Cellulitis of left lower limb; R13.19 Other dysphagia; G80.8 Other cerebral palsy; E66.9 Obesity, unspecified; Z68.35 Body mass index [BMI] 35.0-35.9, adult; J10.1 Influenza due to other identified influenza virus with other respiratory manifestations; E86.0 Dehydration; E83.42 Hypomagnesemia; M24.549 Contracture, unspecified hand; F80.89 Other developmental disorders of speech and language; M21.371 Foot drop, right foot; M21.372 Foot drop, left foot; M19.91 Primary osteoarthritis, unspecified site; M19.93 Secondary osteoarthritis, unspecified site; J98.01 Acute bronchospasm; R41.89 Other symptoms and signs involving cognitive functions and awareness; Z11.52 Encounter for screening for COVID-19; Q90.9 Down syndrome, unspecified; Z79.82 Long term (current) use of aspirin; Z79.899 Other long term (current) drug therapy; Z88.0 Allergy status to penicillin; I50.9 Heart failure, unspecified
CPT/HCPCS: 36415; 51702; 71046; 80048; 80053; 83605; 83735; 83880; 84145; 84484; 85025; 85610; 85730; 87636; 93005; 94640; 94760; 96361; 96365; 96375; 99285

== ENCOUNTER 2024-02-01 20:34 | Inpatient (IN) | payer MEDICARE, OTHER ==
--- NOTE | 2024-02-01 21:16 | ED ---
Nausea/Vomiting/Diarrhea HPI - General Chief complaint: Nausea/Vomiting/Diarrhea Stated complaint: NV Time Seen by Provider: 02/01/24 20:50 Source: EMS Mode of arrival: EMS Limitations: physical limitation - History of Present Illness Initial comments: 68-year-old female brought in via EMS from [facility] with chief complaint of vomiting. Report states that the patient has been vomiting for the last 5 days. Patient is nonverbal, history of Down syndrome and cerebral palsy.. She was recently admitted to our facility for influenza A resulting in sepsis. She was discharged on 01/16. Patient has frequent history of aspiration pneumonia. Staff reports that they heard "gurgling" from the patient while she was eating. - Related Data Home Medications Medication Instructions Recorded Confirmed Acetaminophen Tab [Tylenol] 650 mg PO Q4H PRN MDD 10 tabs 04/07/20 02/02/24 Baclofen [Lioresal] 20 mg PO HS@199904/07/20 02/02/24 Raloxifene [Evista] 60 mg PO DAILY@79904/07/20 02/02/24 ALPRAZolam [Xanax] 0.25 mg PO HS@199910/10/23 02/02/24 Aspirin EC [Ecotrin Low Dose] 81 mg PO DAILY@79910/10/23 02/02/24 Cranberry 450 mg PO HS@199910/10/23 02/02/24 Eucalyptus Oil/Menthol/Camphor 1 applic TOPICAL BID PRN 10/10/23 02/02/24 [Vicks Vaporub Ointment] Furosemide [Lasix] 40 mg PO DAILY@79910/10/23 02/02/24 Hydrocortisone/Aloe Vera 1 applic TOPICAL DIRECTED PRN 10/10/23 02/02/24 [Cortizone-10 with Aloe 1% Crm] Magnesium Hydroxide [Milk of 2,400 mg PO DAILY PRN 10/10/23 02/02/24 Magnesia] Nystatin 100,000 Unit/gm Powd 1 applic TOPICAL BID@799,199910/10/23 02/02/24 [Mycostatin Powder] Nystatin 100,000Unit/gm Cream 1 applic TOPICAL BID PRN 10/10/23 02/02/24 [Mycostatin Cream] Olopatadine HCl [Pataday] 1 drop BOTH EYES BID PRN 10/10/23 02/02/24 Potassium Chloride [Klor-Con M20] 20 meq PO DAILY@79910/10/23 02/02/24 Pyrithione Zinc 1% Shampoo 1 applic TOPICAL DAILY PRN 10/10/23 02/02/24 QUEtiapine FUMARATE [SEROquel] 400 mg PO HS@199910/10/23 02/02/24 SILVER sulfADIAZINE Cream 1 applic TOPICAL DAILY PRN 10/10/23 02/02/24 [Silvadene 1% Cream] Siltussin Sa 200 mg PO Q4H PRN 10/10/23 02/02/24 Simethicone [Gas-X] 125 mg PO BID PRN 10/10/23 02/02/24 Simvastatin [Zocor] 40 mg PO HS@199910/10/23 02/02/24 busPIRone HCl [Buspar] 10 mg PO BID@08,199910/10/23 02/02/24 polyethylene glycoL 3350 [Miralax] 17 gm PO DAILY@0810/10/23 02/02/24 ALPRAZolam [Xanax] 1 mg PO DIRECTED PRN 01/04/24 02/02/24 Calcium Carbonate [Tums] 500 mg PO DIRECTED PRN 01/04/24 02/02/24 Carbamide Peroxide [Debrox Otic] 5 - 10 drops BOTH EARS BID PRN 01/04/24 02/02/24 Omeprazole 40 mg PO DAILY@79901/04/24 02/02/24 Sodium Chloride [Saline Mist] 1 spray EA NOSTRIL DIRECTED PRN 01/04/24 02/02/24 Stomach Relief 525-30ml 262.5 ml PO DAILY PRN 01/04/24 02/02/24 Thick-It Original Powder 1 dose PO DIRECTED PRN 01/04/24 02/02/24 guaiFENesin [guaiFENesin Oral 200 mg PO Q4H PRN 01/04/24 02/02/24 Solution] Fexofenadine HCl [Rosi Allergy] 180 mg PO DAILY@0800 01/13/24 02/02/24 Mucinex Cold/Flu/Sore Throat Liquid 20 ml PO Q6H PRN 01/13/24 02/02/24 diphenhydrAMINE HCL 50 mg PO Q4-6H PRN 01/13/24 02/02/24 polyethylene glycoL 3350 [Miralax] 17 gm PO DAILY PRN 01/13/24 02/02/24 Albuterol Nebulized [Ventolin 2.5 mg INHALATION RT-Q6H PRN 02/02/24 02/02/24 Nebulized] Allergies Allergy/AdvReac Type Severity Reaction Status Date / Time amoxicillin Allergy Unknown Verified 02/02/24 09:24 Review of Systems ROS Statement: Those systems with pertinent positive or pertinent negative responses have been documented in the HPI. ROS Other: All systems not noted in ROS Statement are negative. Past Medical History Past Medical History: Heart Failure, Osteoarthritis (OA) Additional Past Medical History / Comment(s): down syndrome, cerebral palsy, nonverbal, aspiration History of Any Multi-Drug Resistant Organisms: None Reported Past Surgical History: No Surgical Hx Reported Past Anesthesia/Blood Transfusion Reactions: No Reported Reaction Past Psychological History: Depression Smoking Status: Never smoker Past Alcohol Use History: None Reported Past Drug Use History: None Reported General Exam Limitations: altered mental status, physical limitation General appearance: alert, in no apparent distress Head exam: Present: atraumatic, normocephalic Eye exam: Present: normal appearance, EOMI Neck exam: Present: normal inspection Respiratory exam: Present: normal lung sounds bilaterally. Absent: respiratory distress, wheezes, rales, rhonchi, stridor Cardiovascular Exam: Present: regular rate, normal rhythm, normal heart sounds. Absent: systolic murmur, diastolic murmur, rubs, gallop, clicks GI/Abdominal exam: Present: soft, tenderness, guarding. Absent: distended, rebound, rigid Neurological exam: Present: alert Skin exam: Present: warm, dry Course Vital Signs 02/01/24 02/02/24 02/02/24 20:39 00:41 00:52 Temperature 97.8 F Pulse Rate 74 96 Respiratory 18 24 Rate Blood Pressure 131/79 91/67 O2 Sat by Pulse 96 70 L 93 L Oximetry 02/02/24 02/02/24 02/02/24 01:00 02:00 03:00 Temperature Pulse Rate 96 100 104 H Respiratory 16 17 20 Rate Blood Pressure 115/62 128/58 109/68 O2 Sat by Pulse 100 98 95 Oximetry 02/02/24 02/02/2402/01/24 04:00 05:00 06:00 Temperature 98.7 F Pulse Rate 116 H 115 H 116 H Respiratory 23 20 16 Rate Blood Pressure 93/54 90/58 110/83 O2 Sat by Pulse 93 L 97 97 Oximetry 02/02/24 02/02/24 02/02/24 07:51 08:00 08:17 Temperature 99.7 F H Pulse Rate 101 H 106 H Respiratory 20 20 16 Rate Blood Pressure 90/43 100/40 O2 Sat by Pulse 95 94 L Oximetry 02/02/24 02/02/24 02/02/24 08:20 08:34 09:36 Temperature Pulse Rate 108 H 104 H Respiratory 16 16 Rate Blood Pressure 84/50 82/48 O2 Sat by Pulse 92 L 94 L 95 Oximetry 02/02/24 02/02/24 02/02/24 10:59 11:23 11:37 Temperature 99.0 F Pulse Rate 104 H 106 H 108 H Respiratory 18 Rate Blood Pressure 88/66 O2 Sat by Pulse 97 Oximetry 02/02/24 02/02/24 02/02/24 12:32 13:48 14:00 Temperature Pulse Rate 101 H 114 H 118 H Respiratory 16 22 22 Rate Blood Pressure 94/41 116/66 O2 Sat by Pulse 99 83 L 85 L Oximetry 02/02/24 02/02/24 02/02/24 14:06 14:13 14:36 Temperature Pulse Rate 114 H 113 H Respiratory 18 20 Rate Blood Pressure 130/72 O2 Sat by Pulse 90 L 95 92 L Oximetry 02/02/24 02/02/24 02/02/24 15:21 15:51 16:31 Temperature Pulse Rate 105 H 105 H 103 H Respiratory 20 16 Rate Blood Pressure 108/60 90/55 O2 Sat by Pulse 91 L 95 Oximetry 02/02/24 02/02/24 02/02/24 17:02 17:47 18:28 Temperature Pulse Rate 110 H 105 H 100 Respiratory 18 18 18 Rate Blood Pressure 82/71 102/65 95/35 O2 Sat by Pulse 94 L 98 96 Oximetry 02/02/24 20:21 Temperature Pulse Rate 106 H Respiratory Rate Blood Pressure O2 Sat by Pulse Oximetry Medical Decision Making - Medical Decision Making Was pt. sent in by a medical professional or institution (, PA, RATING OFFICER, urgent care, hospital, or jail...) When possible be specific @ -FDC Did you speak to anyone other than the patient for history (EMS, parent, family, police, friend...)? What history was obtained from this source @ -ems Did you review nursing and triage notes (agree or disagree)? Why? @ -I reviewed and agree with nursing and triage notes Were old charts reviewed (outside hosp., previous admission, EMS record, old EKG, old radiological studies, urgent care reports/EKG's, jail records)? Report findings @ -No old charts were reviewed Differential Diagnosis (chest pain, altered mental status, abdominal pain women, abdominal pain men, vaginal bleeding, weakness, fever, dyspnea, syncope, headache, dizziness, GI bleed, back pain, seizure, CVA, palpatations, mental health, musculoskeletal)? @ -Differential includes gastroenteritis, pancreatitis, cholecystitis, appendicitis, bowel obstruction, constipation, this is not an all-inclusive list EKG interpreted by me (3pts min.). @ -As above X-rays interpreted by me (1pt min.). @ -Chest x-ray shows bilateral airspace disease greater on the right CT interpreted by me (1pt min.). @ -CT abdomen and pelvis shows large amount of stool in the colon. No bowel obstruction. Normal appendix. Bibasilar airspace disease. Colonic diverticulosis. U/S interpreted by me (1pt. min.). @ -None done What testing was considered but not performed or refused? (CT, X-rays, U/S, labs)? Why? @ -None What meds were considered but not given or refused? Why? @ -None Did you discuss the management of the patient with other professionals (professionals i.e. , PA, RATING OFFICER, lab, RT, psych nurse, perinatal social worker, ben day artist, teacher, international first officer, case planner)? Give summary @ -I spoke with Dr. Blackwood who accepted admission Was smoking cessation discussed for >3mins.? @ -No Was critical care preformed (if so, how long)? @ -No Were there social determinants of health that impacted care today? How? (Homelessness, low income, unemployed, alcoholism, drug addiction, transportation, low edu. Level, literacy, decrease access to med. care, [facility], rehab)? @ -No Was there de-escalation of care discussed even if they declined (Discuss DNR or withdrawal of care, Hospice)? DNR status @ -No What co-morbidities impacted this encounter? (DM, HTN, Smoking, COPD, CAD, Cancer, CVA, ARF, Chemo, Hep., AIDS, mental health diagnosis, sleep apnea, morbid obesity)? @ -Down syndrome, cerebral palsy Was patient admitted / discharged? Hospital course, mention meds given and route, prescriptions, significant lab abnormalities, going to OR and other pertinent info. @ -68-year-old female sent from jail for nausea and vomiting. History of Down syndrome and cerebral palsy. Patient is nonverbal. On exam she appears to have some abdominal tenderness. CT is obtained which shows large amount of stool in the colon. She is negative for influenza, RSV, COVID. Urine shows evidence of UTI with large leukocytes. Amylase 113 lipase 368. Potassium is 3.2, patient is receiving IV replacement. BUN 55, patient is receiving IV fluids. WBC 13.4. While in the ER the patient had an aspiration episode after vomiting, she became severely hypoxic and required deep suctioning and nonrebreather. Patient improved and was weaned down to nasal cannula. She is started on antibiotics, ceftriaxone, and will be admitted. I discussed this smith e with my attending Dr. Vasquez Undiagnosed new problem with uncertain prognosis? @ -No Drug Therapy requiring intensive monitoring for toxicity (Heparin, Nitro, Insulin, Cardizem)? @ -No Were any procedures done? @ -No Diagnosis/symptom? @ -Aspiration pneumonia, UTI, nausea and vomiting, hypokalemia, constipation Acute, or Chronic, or Acute on Chronic? @ -Acute Uncomplicated (without systemic symptoms) or Complicated (systemic symptoms)? @ -Complicated Side effects of treatment? @ -No Exacerbation, Progression, or Severe Exacerbation? @ -No Poses a threat to life or bodily function? How? (Chest pain, [place], [place], pneumonia, PE, COPD, DKA, ARF, appy, cholecystitis, CVA, Diverticulitis, Homicidal, Suicidal, threat to staff... and all critical care pts) @ -Yes - Lab Data Result diagrams: 02/01/24 21:15 02/01/24 21:15 Lab Results 02/01/24 02/01/24 02/01/24 Range/Units 21:15 21:15 23:23 WBC 13.4 H (3.8-10.6) k/uL RBC 3.87 (3.80-5.40) m/uL Hgb 11.3 L (11.4-16.0) gm/dL Hct 34.6 (34.0-46.0) % MCV 89.4 (80.0-100.0) fL MCH 29.2 (25.0-35.0) pg MCHC 32.6 (31.0-37.0) g/dL RDW 15.1 (11.5-15.5) % Plt Count 163 (150-450) k/uL MPV 7.6 Neutrophils % 73 % Lymphocytes % 18 % Monocytes % 6 % Eosinophils % 1 % Basophils % 0 % Neutrophils # 9.7 H (1.3-7.7) k/uL Lymphocytes # 2.4 (1.0-4.8) k/uL Monocytes # 0.8 (0-1.0) k/uL Eosinophils # 0.2 (0-0.7) k/uL Basophils # 0.0 (0-0.2) k/uL Sodium 134 L (137-145) mmol/L Potassium 3.2 L (3.5-5.1) mmol/L Chloride 95 L (98-107) mmol/L Carbon Dioxide 29 (22-30) mmol/L Anion Gap 10 mmol/L BUN 55 H (7-17) mg/dL Creatinine 0.98 (0.52-1.04) mg/dL Est GFR (CKD-EPI)AfAm 69 (>60 ml/min/1.73 sqM) Est GFR (CKD-EPI)NonAf 60 (>60 ml/min/1.73 sqM) Glucose 154 H (74-99) mg/dL Calcium 8.1 L (8.4-10.2) mg/dL Total Bilirubin 0.6 (0.2-1.3) mg/dL AST 27 (14-36) U/L ALT 22 (4-34) U/L Alkaline Phosphatase 81 (38-126) U/L Total Protein 6.4 (6.3-8.2) g/dL Albumin 3.5 (3.5-5.0) g/dL Amylase 113 H (30-110) U/L Lipase 368 H (23-300) U/L Urine Color Colorless Urine Appearance Cloudy H (Clear) Urine pH 5.5 (5.0-8.0) Ur Specific [place] 1.023 (1.001-1.035) Urine Protein Negative (Negative) Urine Glucose (UA) Negative (Negative) Urine Ketones Negative (Negative) Urine Blood Small H (Negative) Urine Nitrite Negative (Negative) Urine Bilirubin Negative (Negative) Urine Urobilinogen <2.0 (<2.0) mg/dL Ur Leukocyte Esterase Large H (Negative) Urine RBC 4 (0-5) /hpf Urine WBC 119 H (0-5) /hpf Urine WBC Clumps Many H (None) /hpf Ur Squamous Epith Cells 3 (0-4) /hpf Urine Bacteria Rare H (None) /hpf Hyaline Casts 19 H (0-2) /lpf Urine Mucus Rare H (None) /hpf Influenza Type A (PCR) (Not Detectd) Influenza Type B (PCR) (Not Detectd) RSV (PCR) (Not Detectd) SARS-CoV-2 (PCR) (Not Detectd) 02/02/24 Range/Units 00:38 WBC (3.8-10.6) k/uL RBC (3.80-5.40) m/uL Hgb (11.4-16.0) gm/dL Hct (34.0-46.0) % MCV (80.0-100.0) fL MCH (25.0-35.0) pg MCHC (31.0-37.0) g/dL RDW (11.5-15.5) % Plt Count (150-450) k/uL MPV Neutrophils % % Lymphocytes % % Monocytes % % Eosinophils % % Basophils % % Neutrophils # (1.3-7.7) k/uL Lymphocytes # (1.0-4.8) k/uL Monocytes # (0-1.0) k/uL Eosinophils # (0-0.7) k/uL Basophils # (0-0.2) k/uL Sodium (137-145) mmol/L Potassium (3.5-5.1) mmol/L Chloride (98-107) mmol/L Carbon Dioxide (22-30) mmol/L Anion Gap mmol/L BUN (7-17) mg/dL Creatinine (0.52-1.04) mg/dL Est GFR (CKD-EPI)AfAm (>60 ml/min/1.73 sqM) Est GFR (CKD-EPI)NonAf (>60 ml/min/1.73 sqM) Glucose (74-99) mg/dL Calcium (8.4-10.2) mg/dL Total Bilirubin (0.2-1.3) mg/dL AST (14-36) U/L ALT (4-34) U/L Alkaline Phosphatase (38-126) U/L Total Protein (6.3-8.2) g/dL Albumin (3.5-5.0) g/dL Amylase (30-110) U/L Lipase (23-300) U/L Urine Color Urine Appearance (Clear) Urine pH (5.0-8.0) Ur Specific [place] (1.001-1.035) Urine Protein (Negative) Urine Glucose (UA) (Negative) Urine Ketones (Negative) Urine Blood (Negative) Urine Nitrite (Negative) Urine Bilirubin (Negative) Urine Urobilinogen (<2.0) mg/dL Ur Leukocyte Esterase (Negative) Urine RBC (0-5) /hpf Urine WBC (0-5) /hpf Urine WBC Clumps (None) /hpf Ur Squamous Epith Cells (0-4) /hpf Urine Bacteria (None) /hpf Hyaline Casts (0-2) /lpf Urine Mucus (None) /hpf Influenza Type A (PCR) Not Detected (Not Detectd) Influenza Type B (PCR) Not Detected (Not Detectd) RSV (PCR) Not Detected (Not Detectd) SARS-CoV-2 (PCR) Not Detected (Not Detectd) Disposition Clinical Impression: Aspiration into airway, Nausea & vomiting, UTI (urinary tract infection), Hypokalemia Disposition: ADMITTED IP TO THIS HOSP Condition: Serious Time of Disposition: 03:23
[2024-02-01] MEDS: SODIUM CHLORIDE 0.9% 1,000 ML IV STA (21:19)
[2024-02-01] MEDS: ONDANSETRON 4 MG/2 ML VIAL IVP STA (21:19)
[2024-02-01] MEDS: KETOROLAC 15 MG/ML 1 ML VIAL IVP STA (21:19)
[2024-02-01] MEDS: MORPHINE SULFATE 4 MG/ML SYRINGE IVP STA (21:20)
[2024-02-01 21:26] LABS: Basophils % (A) 0 %; Eosinophils # (A) 0.2 k/uL (0-0.7); Eosinophils % (A) 1 %; HCT 34.6 % (34.0-46.0); HGB 11.3 gm/dL (11.4-16.0); Lymphocytes # (A) 2.4 k/uL (1.0-4.8); Lymphocytes % (A) 18 %; MCH 29.2 pg (25.0-35.0); MCHC 32.6 g/dL (31.0-37.0); MCV 89.4 fL (80.0-100.0); Mean Platelet Volume 7.6; Monocytes # (A) 0.8 k/uL (0-1.0); Monocytes % (A) 6 %; Neutrophils # (A) 9.7 k/uL (1.3-7.7); Neutrophils % (A) 73 %; Platelet Count 163 k/uL (150-450); RBC 3.87 m/uL (3.80-5.40); RDW 15.1 % (11.5-15.5); WBC 13.4 k/uL (3.8-10.6)
[2024-02-01 21:40] LABS: ALT 22 U/L (4-34); African American GFR (CKD) 69 (>60 ml/min/1.73 sqM); Albumin 3.5 g/dL (3.5-5.0); Amylase 113 U/L (30-110); Anion Gap 10 mmol/L; Blood Urea Nitrogen 55 mg/dL (7-17); Calcium 8.1 mg/dL (8.4-10.2); Carbon Dioxide 29 mmol/L (22-30); Chloride 95 mmol/L (98-107); Glucose 154 mg/dL (74-99); Lipase 368 U/L (23-300); Non-African American GFR(CKD) 60 (>60 ml/min/1.73 sqM); Sodium 134 mmol/L (137-145); Total Bilirubin 0.6 mg/dL (0.2-1.3); Total Protein 6.4 g/dL (6.3-8.2)
[2024-02-01 21:45] LABS: AST 27 U/L (14-36); Alkaline Phosphatase 81 U/L (38-126); Potassium 3.2 mmol/L (3.5-5.1)
--- NOTE | 2024-02-01 23:05 | CT ---
EXAM: CT Abdomen and Pelvis With Intravenous Contrast CLINICAL HISTORY: ITS.REASON CT Reason: vomiting, RLQ pain on exam TECHNIQUE: Axial computed tomography images of the abdomen and pelvis with intravenous contrast. CTDI is 22.5 mGy and DLP is 895.7 mGy-cm. This CT exam was performed using one or more of the following dose reduction techniques: automated exposure control, adjustment of the mA and/or kV according to patient size, and/or use of iterative reconstruction technique. COMPARISON: 11/15/2023 FINDINGS: Lung bases: Mild nodular opacities in the right lower lobe. There is some groundglass attenuation lower lobes. Bibasilar subsegmental atelectasis/scarring.4. Mediastinum: Small sliding-type hiatal hernia. Patulous distal esophagus. ABDOMEN: Liver: No acute findings. No mass. Gallbladder and bile ducts: Unchanged gallbladder wall thickening. No calcified stones. No ductal dilation. Pancreas: Unremarkable. No mass. No ductal dilation. Spleen: Unremarkable. No splenomegaly. Adrenals: Unremarkable. No mass. Kidneys and ureters: Unremarkable. No solid mass. No hydronephrosis. Stomach and bowel: Large amount of stool in the colon. Colonic diverticulosis. No mucosal thickening. PELVIS: Appendix: No findings to suggest acute appendicitis. Bladder: Trabeculated bladder. Reproductive: Unremarkable as visualized. ABDOMEN and PELVIS: Intraperitoneal space: Unremarkable. No free air. No significant fluid collection. Bones/joints: Osteopenia. Degenerative changes in the spine. Chronic mild superior endplate compression deformity at L3. There is some degenerative listhesis. No dislocation. Soft tissues: Small umbilical hernia containing fat. Vasculature: Unremarkable. No abdominal aortic aneurysm. Lymph nodes: Unremarkable. No enlarged lymph nodes. IMPRESSION: 1. Large amount of stool in the colon. No bowel obstruction. 2. Normal appendix. 3. Bibasilar airspace disease. 4. Colonic diverticulosis.
[2024-02-01] MEDS: HYDROmorphone 1 MG/ML 1 ML SYRINGE IVP STA (23:44)
[2024-02-01] MEDS ORDERED: Potassium Replacement Protocol 1 EACH MISC MISCELLANE PRN (23:48)
[2024-02-02 00:15] LABS: Appearance,Urine Cloudy (Clear); Bacteria,Urine Rare /hpf; Bilirubin,Urine Negative (Negative); Blood,Urine Small (Negative); Color,Urine Colorless; Glucose,Urine (UA) Negative (Negative); Hyaline Casts,Urine 19 /lpf (0-2); Ketones,Urine Negative (Negative); Leukocyte Esterase,Urine Large (Negative); Mucus,Urine Rare /hpf; Nitrite,Urine Negative (Negative); PH, Urine 5.5 (5.0-8.0); Protein,Urine Negative (Negative); RBC,Urine 4 /hpf (0-5); Specific Gravity,Urine 1.023 (1.001-1.035); Squamous Epithelial Cell,Urine 3 /hpf (0-4); Urobilinogen,Urine <2.0 mg/dL (<2.0); WBC,Urine 119 /hpf (0-5)
[2024-02-02] MEDS: cefTRIAXone IN SWFI 1,000 MG/10 ML SYRINGE IVP STA (00:53)
[2024-02-02] MEDS ORDERED: METOCLOPRAMIDE 5 MG/ML 2 ML VIAL IVP PRN (01:08)
[2024-02-02] MEDS ORDERED: ONDANSETRON 4 MG/2 ML VIAL IVP PRN (01:08)
--- NOTE | 2024-02-02 01:20 | XR ---
EXAM: XR Chest, 1 View CLINICAL HISTORY: ITS.REASON XR Reason: dyspnea TECHNIQUE: Frontal view of the chest. COMPARISON: 01/03/2024 FINDINGS: Lungs: Bilateral perihilar and bibasilar opacities. Pleural space: No acute findings. No pneumothorax. Heart: Cardiac silhouette is stable. Bones/joints: Osteopenia. Scoliosis. IMPRESSION: Bilateral airspace disease greater on the right.
[2024-02-02] MEDS: SODIUM CHLORIDE 0.9% 1,000 ML IV SCH (01:31)
[2024-02-02] MEDS: POTASSIUM CHLORIDE 10 MEQ in WATER FOR INJECTION 1 100ML.BAG IVPB SCH (01:34)
[2024-02-02] MEDS ORDERED: NALOXONE 0.4 MG/ML 1 ML VIAL IV PRN (03:27)
[2024-02-02] MEDS: KETOROLAC 15 MG/ML 1 ML VIAL IVP PRN (06:55)
[2024-02-02] MEDS ORDERED: ACETAMINOPHEN TAB 325 MG TAB PO PRN (10:37)
[2024-02-02] MEDS ORDERED: SIMETHICONE 80 MG CHEWABLE PO PRN (10:37)
[2024-02-02] MEDS ORDERED: KETOTIFEN 0.025% OPHTH DROPS 5 ML BTL BOTH EYES PRN (10:37)
[2024-02-02] MEDS ORDERED: [UNRECOGNIZED DRUG - OTHER] PO PRN ×2 (10:37→10:53)
[2024-02-02] MEDS: ASPIRIN 81 MG PO SCH (11:02)
[2024-02-02] MEDS: PANTOPRAZOLE 40 MG TABLET PO SCH (11:02)
[2024-02-02] MEDS: busPIRone HCl 10 MG TAB PO SCH (11:03)
[2024-02-02] MEDS: ENOXAPARIN 40 MG/0.4 ML SYRINGE SQ SCH (11:07)
[2024-02-02] MEDS: ALBUTEROL NEBULIZED 2.5 MG/3 ML INHALATION PRN (11:23)
[2024-02-02] MEDS: NYSTATIN 100,000 UNIT/GM POWD 15 GM TOPICAL SCH (13:23)
[2024-02-02] MEDS: MORPHINE SULFATE 4 MG/ML SYRINGE IVP PRN (14:09)
--- NOTE | 2024-02-02 14:23 | P.CNPUL ---
History of Present Illness Consult date: 02/02/24 Requesting physician: Tomasz Blackwood Reason for consult: hypoxemia, abnormal CXR/CT Chief complaint: Nausea and vomiting History of present illness: This is a 68-year-old female patient with a history of cerebral palsy, Down syndrome. She is nonverbal and nonambulatory and resides in a adult foster care setting. She has been hospitalized here recently on a couple different occasions. She was just discharged on 01/17/2024 following an acute influenza A infection and pneumonitis. She has also had previous aspiration pneumonias. In the emergency room last evening after a 5-day history of vomiting. Staff reported hearing gurgling from the patient while she was eating. First chest x-ray her right hand is in the way of the right lung. Lobe x-ray reveals bilateral patchy infiltrates more so on the right upper and lower lobes.. Potassium 3.2. Bicarb 29. BUN 55. Creatinine 0.98. Glucose 154. Amylase 113. Lipase 368. Urinalysis cloudy with small blood and large leukocytes and many WBCs and rare bacteria. Viral screen negative. He is seen today in the emergency department. She is arousable. She is requiring high flow nasal cannula to maintain O2 saturations in the 90s. Required deep suctioning earlier but had a vasovagal response with bradycardia. Large amount of stool in the colon. No bowel obstruction. Bibasilar airspace disease. Colonic diverticulosis. And received Rocephin. 1 L fluid resuscitation. Currently on normal saline at 130 MLS per hour. Lovenox for DVT prophylaxis. Review of Systems ROS unobtainable: due to mental status Past Medical History Past Medical History: Heart Failure, Osteoarthritis (OA) Additional Past Medical History / Comment(s): down syndrome, cerebral palsy, nonverbal, aspiration History of Any Multi-Drug Resistant Organisms: None Reported Past Surgical History: No Surgical Hx Reported Past Anesthesia/Blood Transfusion Reactions: No Reported Reaction Past Psychological History: Depression Smoking Status: Never smoker Past Alcohol Use History: None Reported Past Drug Use History: None Reported Medications and Allergies Home Medications Medication Instructions Recorded Confirmed Type Acetaminophen Tab [Tylenol] 650 mg PO Q4H PRN MDD 10 tabs 04/07/20 02/02/24 History Baclofen [Lioresal] 20 mg PO HS@2000 04/07/20 02/02/24 History Raloxifene [Evista] 60 mg PO DAILY@79904/07/20 02/02/24 History ALPRAZolam [Xanax] 0.25 mg PO HS@199910/10/23 02/02/24 History Aspirin EC [Ecotrin Low Dose] 81 mg PO DAILY@79910/10/23 02/02/24 History Cranberry 450 mg PO HS@199910/10/23 02/02/24 History Eucalyptus Oil/Menthol/Camphor 1 applic TOPICAL BID PRN 10/10/23 02/02/24 Histor y [Vicks Vaporub Ointment] Furosemide [Lasix] 40 mg PO DAILY@79910/10/23 02/02/24 History Hydrocortisone/Aloe Vera 1 applic TOPICAL DIRECTED PRN 10/10/23 02/02/24 History [Cortizone-10 with Aloe 1% Crm] Magnesium Hydroxide [Milk of 2,400 mg PO DAILY PRN 10/10/23 02/02/24 History Magnesia] Nystatin 100,000 Unit/gm Powd 1 applic TOPICAL BID@799,199910/10/23 02/02/24 History [Mycostatin Powder] Nystatin 100,000Unit/gm Cream 1 applic TOPICAL BID PRN 10/10/23 02/02/24 History [Mycostatin Cream] Olopatadine HCl [Pataday] 1 drop BOTH EYES BID PRN 10/10/23 02/02/24 History Potassium Chloride [Klor-Con M20] 20 meq PO DAILY@00 10/10/23 02/02/24 History Pyrithione Zinc 1% Shampoo 1 applic TOPICAL DAILY PRN 10/10/23 02/02/24 History QUEtiapine FUMARATE [SEROquel] 400 mg PO HS@199910/10/23 02/02/24 History SILVER sulfADIAZINE Cream 1 applic TOPICAL DAILY PRN 10/10/23 02/02/24 History [Silvadene 1% Cream] Siltussin Sa 200 mg PO Q4H PRN 10/10/23 02/02/24 History Simethicone [Gas-X] 125 mg PO BID PRN 10/10/23 02/02/24 History Simvastatin [Zocor] 40 mg PO HS@199910/10/23 02/02/24 History busPIRone HCl [Buspar] 10 mg PO BID@0800,199910/10/23 02/02/24 History polyethylene glycoL 3350 [Miralax] 17 gm PO DAILY@0800 10/10/23 02/02/24 History ALPRAZolam [Xanax] 1 mg PO DIRECTED PRN 01/04/24 02/02/24 History Calcium Carbonate [Tums] 500 mg PO DIRECTED PRN 01/04/24 02/02/24 History Carbamide Peroxide [Debrox Otic] 5 - 10 drops BOTH EARS BID PRN 01/04/24 02/02/24 History Omeprazole 40 mg PO DAILY@0800 01/04/24 02/02/24 History Sodium Chloride [Saline Mist] 1 spray EA NOSTRIL DIRECTED PRN 01/04/24 02/02/24 History Stomach Relief 525-30ml 262.5 ml PO DAILY PRN 01/04/24 02/02/24 History Thick-It Original Powder 1 dose PO DIRECTED PRN 01/04/24 02/02/24 History guaiFENesin [guaiFENesin Oral 200 mg PO Q4H PRN 01/04/24 02/02/24 History Solution] Fexofenadine HCl [Rosi Allergy] 180 mg PO DAILY@0800 01/13/24 02/02/24 History Mucinex Cold/Flu/Sore Throat Liquid 20 ml PO Q6H PRN 01/13/24 02/02/24 History diphenhydrAMINE HCL 50 mg PO Q4-6H PRN 01/13/24 02/02/24 History polyethylene glycoL 3350 [Miralax] 17 gm PO DAILY PRN 01/13/24 02/02/24 History Albuterol Nebulized [Ventolin 2.5 mg INHALATION RT-Q6H PRN 02/02/24 02/02/24 History Nebulized] Allergies Allergy/AdvReac Type Severity Reaction Status Date / Time amoxicillin Allergy Unknown Verified 02/02/24 09:24 Physical Exam Vitals: Vital Signs Temp Pulse Resp BP Pulse Ox 02/02/24 14:06 114 H 18 130/72 90 L 02/02/24 14:00 118 H 22 85 L 02/02/24 13:48 114 H 22 116/66 83 L 02/02/24 12:32 101 H 16 94/41 99 04/26/24 11:37 108 H 02/02/24 11:23 106 H 02/02/24 10:59 99.0 F 104 H 18 88/66 97 02/02/24 09:36 104 H 16 82/48 95 02/02/24 08:34 108 H 16 84/50 94 L 02/02/24 08:20 92 L 02/02/24 08:17 106 H 16 100/40 94 L 02/02/24 08:00 20 02/02/24 07:51 99.7 F H 101 H 20 90/43 95 02/02/24 06:00 116 H 16 110/83 97 02/02/24 05:00 115 H 20 90/58 97 02/02/24 04:00 98.7 F 116 H 23 93/54 93 L 02/02/24 03:00 104 H 20 109/68 95 02/02/24 02:00 100 17 128/58 98 02/02/24 01:00 96 16 115/62 100 02/02/24 00:52 93 L 02/02/24 00:41 96 24 91/67 70 L 02/01/24 20:39 97.8 F 74 18 131/79 96 Intake and Output 02/01/24 02/02/24 02/02/24 22:59 06:59 14:59 Other: Weight 58.967 kg GENERAL EXAM: Awake, poor historian, 68-year-old female, on 6 L nasal cannula, in no apparent distress. HEAD: Normocephalic. EYES: Normal reaction of pupils, equal size. NOSE: Clear with pink turbinates. THROAT: No erythema or exudates. NECK: No masses, no JVD. CHEST: No chest wall deformity. LUNGS: Equal air entry with bilateral scattered rhonchi more so on the right. CVS: S1 and S2 normal with no audible murmur, regular rhythm. ABDOMEN: No hepatosplenomegaly, normal bowel sounds, no guarding or rigidity. SPINE: No scoliosis or deformity SKIN: No rashes CENTRAL NERVOUS SYSTEM: Able to assess s, tone is normal in all 4 extremities. EXTREMITIES: Contractures especially the right upper extremity, there is no peripheral edema. No clubbing, no cyanosis. Peripheral pulses are intact. Results - Laboratory Findings CBC and BMP: 02/01/24 21:15 02/01/24 21:15 Abnormal lab findings: Abnormal Labs 02/01/24 02/01/24 02/01/24 21:15 21:15 23:23 WBC 13.4 H Hgb 11.3 L Neutrophils # 9.7 H Sodium 134 L Potassium 3.2 L Chloride 95 L BUN 55 H Glucose 154 H Calcium 8.1 L Amylase 113 H Lipase 368 H Urine Appearance Cloudy H Urine Blood Small H Ur Leukocyte Esterase Large H Urine WBC 119 H Urine WBC Clumps Many H Urine Bacteria Rare H Hyaline Casts 19 H Urine Mucus Rare H - Diagnostic Findings Chest x-ray: image reviewed Assessment and Plan Assessment: Acute hypoxemic respiratory failure secondary to an acute community acquired versus aspiration pneumonia Nausea, vomiting and dehydration x 5 days Suspected urinary tract infection Recent discharge following an influenza A infection with sepsis History of lower extremity cellulitis Chronic dysphagia to be on a pured diet with honey thick liquids Cerebral palsy with severe cognitive impairment Down syndrome Chronic bilateral foot drop Nonverbal, nonambulatory Plan: The patient was seen and evaluated Chest x-ray, labs and medications reviewed Continue bronchodilators Check a procalcitonin Continue ceftriaxone and azithromycin Continue fluid resuscitation Titrate the FiO2 as tolerated Prognosis is guarded CODE STATUS should be addressed Has a public guardian She is at risk for intubation and ICU management We will continue to follow and make further recommendations based on her clinical status I have personally seen and examined the patient, performed the documentation and the assessment and plan as written. Number of minutes spent on the visit: 20.
[2024-02-02] MEDS: AZITHROMYCIN 500 MG in SODIUM CHLORIDE 0.9% 250 ML IVPB SCH (15:22)
--- NOTE | 2024-02-02 16:04 | P.HPIM ---
History of Present Illness H&P Date: 02/02/24 Chief Complaint: Congested This is a 68-year-old patient, follows with visiting physician Dr. Azul. Chronic stable medical conditions include cerebral palsy, Down syndrome, nonverbal, nonambulatory. Osteoarthritis. Patient is on a mechanically pured diet with thickened liquids. And is prone to aspiration pneumonias. in the hospital from January 02 through January 07. With bilateral aspiration pneumonitis. And secondary bronchospasm. Readmitted January 12 through January 16: Influenza A pneumonitis. Septic Patient now brought to the ER via EMS. Per the report: Nausea vomiting reported for last 5 days. About 3 times a day usually around mealtime. Being gurgling. Any attempt to feed her. Patient is on pured fluids with thickened liquids. This morning patient is rather congested. Tired. Lethargic. Review of systems: Cannot be obtained as patient not really verbal Social history: Lives at [facility]. Nonverbal. Nonambulatory. Physical examination: VITAL SIGNS: 99.7, 101, 20, 90/43, 95% on 6 L GENERAL: laying in bed,, short of breath, audibly congested EYES: Pupils equal. Conjunctiva sage l. HEENT: External appearance of nose and ears normal, oral cavity dry. NECK: JVD unable to assess d; masses not palpable. HEART: First and second heart sounds are normal; no edema. LUNGS: Respiratory rate increased, audible crackles, coarse breath sounds ABDOMEN: Soft, nontender, liver spleen not palpable, no masses palpable. PSYCH: Unable to assess MUSCULOSKELETAL: Patient contracted in the hand with extension of metacarpophalangeal and proximal IP joints. Bilateral foot drop. Some cellulitis left lower leg NEUROLOGICAL: Cranial nerves grossly intact; no facial asymmetry, chronic dysarthria INVESTIGATIONS, reviewed in the clinical context: Chest x-ray film personally reviewed by me-large infiltrate especially on the right side. January 31: White count 13.4 hemoglobin 11.3 platelets 163 sodium 134 potassium 3.2 BUN 55 creatinine 0.98 amylase 113 lipase 368 Influenza type A, type B, RSV, COVID-19: Not detected Assessment and plan: -Acute bilateral right greater than left aspiration pneumonia, and the patient surgery. Episodes of the same, causing acute hypoxic respiratory failure Ceftriaxone, azithromycin -Acute hypoxic respiratory failure from aspiration pneumonia Acute 6 L oxygen -Secondary bronchospasm secondary to aspiration pneumonia Albuterol nebulizer 4 times daily -Chronic dysphagia Baseline takes pured diet and honey thick liquids-supervised -Chronic cerebral palsy -Down syndrome -Cerebral palsy with severe cognitive impairment -Bilateral foot drop, chronic -Chronic medical debility, patient nonambulatory -Primary/secondary osteoarthritis Pain medications as needed -Full code -Public guardian Prognosis guarded. Continue current medications. Aspiration precautions. Supervised feeding. Past Medical History Past Medical History: Heart Failure, Osteoarthritis (OA) Additional Past Medical History / Comment(s): down syndrome, cerebral palsy, nonverbal, aspiration History of Any Multi-Drug Resistant Organisms: None Reported Past Surgical History: No Surgical Hx Reported Past Anesthesia/Blood Transfusion Reactions: No Reported Reaction Past Psychological History: Depression Smoking Status: Never smoker Past Alcohol Use History: None Reported Past Drug Use History: None Reported Medications and Allergies Home Medications Medication Instructions Recorded Confirmed Type Acetaminophen Tab [Tylenol] 650 mg PO Q4H PRN MDD 10 tabs 04/07/20 02/02/24 History Baclofen [Lioresal] 20 mg PO HS@199904/07/20 02/02/24 History Raloxifene [Evista] 60 mg PO DAILY@0804/07/20 02/02/24 History ALPRAZolam [Xanax] 0.25 mg PO HS@199910/10/23 02/02/24 History Aspirin EC [Ecotrin Low Dose] 81 mg PO DAILY@79910/10/23 02/02/24 History Cranberry 450 mg PO HS@199910/10/23 02/02/24 History Eucalyptus Oil/Menthol/Camphor 1 applic TOPICAL BID PRN 10/10/23 02/02/24 History [Vicks Vaporub Ointment] Furosemide [Lasix] 40 mg PO DAILY@79910/10/23 02/02/24 History Hydrocortisone/Aloe Vera 1 applic TOPICAL DIRECTED PRN 10/10/23 02/02/24 History [Cortizone-10 with Aloe 1% Crm] Magnesium Hydroxide [Milk of 2,400 mg PO DAILY PRN 10/10/23 02/02/24 History Magnesia] Nystatin 100,000 Unit/gm Powd 1 applic TOPICAL BID@08,199910/10/23 02/02/24 History [Mycostatin Powder] Nystatin 100,000Unit/gm Cream 1 applic TOPICAL BID PRN 10/10/23 02/02/24 History [Mycostatin Cream] Olopatadine HCl [Pataday] 1 drop BOTH EYES BID PRN 10/10/23 02/02/24 History Potassium Chloride [Klor-Con M20] 20 meq PO DAILY@0800 10/10/23 02/02/24 History Pyrithione Zinc 1% Shampoo 1 applic TOPICAL DAILY PRN 10/10/23 02/02/24 History QUEtiapine FUMARATE [SEROquel] 400 mg PO HS@199910/10/23 02/02/24 History SILVER sulfADIAZINE Cream 1 applic TOPICAL DAILY PRN 10/10/23 02/02/24 History [Silvadene 1% Cream] Siltussin Sa 200 mg PO Q4H PRN 10/10/23 02/02/24 History Simethicone [Gas-X] 125 mg PO BID PRN 10/10/23 02/02/24 History Simvastatin [Zocor] 40 mg PO HS@199910/10/23 02/02/24 History busPIRone HCl [Buspar] 10 mg PO BID@08,199910/10/23 02/02/24 History polyethylene glycoL 3350 [Miralax] 17 gm PO DAILY@0800 10/10/23 02/02/24 History ALPRAZolam [Xanax] 1 mg PO DIRECTED PRN 01/04/24 02/02/24 History Calcium Carbonate [Tums] 500 mg PO DIRECTED PRN 01/04/24 02/02/24 History Carbamide Peroxide [Debrox Otic] 5 - 10 drops BOTH EARS BID PRN 01/04/24 02/02/24 History Omeprazole 40 mg PO DAILY@0800 01/04/24 02/02/24 History Sodium Chloride [Saline Mist] 1 spray EA NOSTRIL DIRECTED PRN 01/04/24 02/02/24 History Stomach Relief 525-30ml 262.5 ml PO DAILY PRN 01/04/24 02/02/24 History Thick-It Original Powder 1 dose PO DIRECTED PRN 01/04/24 02/02/24 History guaiFENesin [guaiFENesin Oral 200 mg PO Q4H PRN 01/04/24 02/02/24 History Solution] Fexofenadine HCl [Rosi Allergy] 180 mg PO DAILY@0800 01/13/24 02/02/24 History Mucinex Cold/Flu/Sore Throat Liquid 20 ml PO Q6H PRN 01/13/24 02/02/24 History diphenhydrAMINE HCL 50 mg PO Q4-6H PRN 01/13/24 02/02/24 History polyethylene glycoL 3350 [Miralax] 17 gm PO DAILY PRN 01/13/24 02/02/24 History Albuterol Nebulized [Ventolin 2.5 mg INHALATION RT-Q6H PRN 02/02/24 02/02/24 History Nebulized] Allergies Allergy/AdvReac Type Severity Reaction Status Date / Time amoxicillin Allergy Unknown Verified 02/02/24 09:24 Physical Exam Vitals: Vital Signs Temp Pulse Resp BP Pulse Ox 02/02/24 09:36 104 H 16 82/48 95 02/02/24 08:34 108 H 16 84/50 94 L 02/02/24 08:20 92 L 02/02/24 08:17 106 H 16 100/40 94 L 02/02/24 08:00 20 02/02/24 07:51 99.7 F H 101 H 20 90/43 95 02/02/24 06:00 116 H 16 110/83 97 02/02/24 05:00 115 H 20 90/58 97 02/02/24 04:00 98.7 F 116 H 23 93/54 93 L 02/02/24 03:00 104 H 20 109/68 95 02/02/24 02:00 100 17 128/58 98 02/02/24 01:00 96 16 115/62 100 02/02/24 00:52 93 L 02/02/24 00:41 96 24 91/67 70 L 02/01/24 20:39 97.8 F 74 18 131/79 96 Intake and Output 02/01/24 02/02/24 02/02/24 22:59 06:59 14:59 Other: Weight 58.967 kg Results CBC & Chem 7: 02/01/24 21:15 02/01/24 21:15 Labs: Abnormal Lab Results - Last 24 Hours (Table) 02/01/24 02/01/24 02/01/24 Range/Units 21:15 21:15 23:23 WBC 13.4 H (3.8-10.6) k/uL Hgb 11.3 L (11.4-16.0) gm/dL Neutrophils # 9.7 H (1.3-7.7) k/uL Sodium 134 L (137-145) mmol/L Potassium 3.2 L (3.5-5.1) mmol/L Chloride 95 L (98-107) mmol/L BUN 55 H (7-17) mg/dL Glucose 154 H (74-99) mg/dL Calcium 8.1 L (8.4-10.2) mg/dL Amylase 113 H (30-110) U/L Lipase 368 H (23-300) U/L Urine Appearance Cloudy H (Clear) Urine Blood Small H (Negative) Ur Leukocyte Esterase Large H (Negative) Urine WBC 119 H (0-5) /hpf Urine WBC Clumps Many H (None) /hpf Urine Bacteria Rare H (None) /hpf Hyaline Casts 19 H (0-2) /lpf Urine Mucus Rare H (None) /hpf
[2024-02-02] MEDS: ALBUTEROL NEBULIZED 2.5 MG/3 ML INHALATION SCH (16:31)
--- NOTE | 2024-02-02 18:17 | XR ---
EXAMINATION TYPE: XR chest 1V portable DATE OF EXAM: 02/02/2024 Comparison: 02/02/2024 Clinical History: 68-year-old female ASPIRATION, NAUSEA AND VOMITING. Findings: Heart borderline enlarged. Hyperinflation. Multifocal airspace opacities are increasing in the bilate ral lower lungs and right upper lobe. No sizable pleural effusion. Impression: Worsening multifocal bilateral airspace disease.
[2024-02-02] MEDS: ALPRAZolam 0.25 MG TAB PO SCH (20:07)
[2024-02-02] MEDS: ATORVASTATIN 20 MG TAB PO SCH (20:07)
[2024-02-02] MEDS: BACLOFEN 10 MG TAB PO SCH (20:08)
[2024-02-02] MEDS: QUEtiapine 400 MG TAB PO SCH (20:08)
[2024-02-03] MEDS: LORazepam 2 MG/ML INJ IV STA (03:12)
[2024-02-03] MEDS: LORazepam 2 MG/ML INJ ONE (11:18)
[2024-02-03] MEDS: SUCCINYLCHOLINE CHLORIDE 200 MG/10 ML VIAL IV ONE (11:18)
[2024-02-03] MEDS: CISATRACURIUM 2 MG/ML 5 ML VIAL IV ONE ×2 (11:20→12:19)
[2024-02-03] MEDS: propofoL 100 ML IV ONE (11:30)
[2024-02-03] MEDS: RALOXIFENE 60 MG TAB PO SCH (11:32)
[2024-02-03] MEDS: SODIUM CHLORIDE 0.9% 1,000 ML IV ONE (11:38)
[2024-02-03] MEDS ORDERED: ARTIFICIAL TEARS-HYPROMELLOSE DROPS 15 ML BTL BOTH EYES PRN (11:53)
[2024-02-03] MEDS ORDERED: NALOXONE 0.4 MG/ML 1 ML VIAL IV PRN (11:53)
[2024-02-03] MEDS: NOREPINEPHRINE 4 MG in SODIUM CHLORIDE 0.9% 250 ML IV SCH (12:03)
--- NOTE | 2024-02-03 12:04 | XR ---
EXAMINATION TYPE: XR chest 1V portable DATE OF EXAM: 02/03/2024 Comparison: 02/02/2024 Clinical History: 68-year-old female INTUBATION Findings: ET tube satisfactory. Left CVC tip of upper right atrium. Heart borderline enlarged. Worsening multif ocal bilateral airspace disease now mostly confluent. No sizable pleural effusion on the frontal view . Impression: Worsening now confluent bilateral airspace disease.
[2024-02-03 12:13] LABS: ABG Base Excess -0.8 mmol/L; ABG HCO3 25 mmol/L (21-25); ABG Oxygen Saturation 97.3 % (94-97); ABG PCO2 48 mmHg (35-45); ABG PH 7.33 (7.35-7.45); ABG PO2 88 mmHg (83-108); ABG TCO2 27 mmol/L (19-24)
[2024-02-03] MEDS: CISATRACURIUM 200 MG in SODIUM CHLORIDE 0.9% 180 ML IV SCH (12:21)
[2024-02-03 12:24] LABS: Allen Test Performed? no
[2024-02-03] MEDS: IPRATROPIUM-ALBUTEROL 3 ML NEB INHALATION SCH (13:01)
--- NOTE | 2024-02-03 13:10 | PCN ---
PROCEDURE NOTE PROCEDURE PERFORMED: Right femoral arterial line. PREOPERATIVE DIAGNOSIS: Frequent blood draws and blood gas monitoring. POSTOPERATIVE DIAGNOSIS: Frequent blood draws and blood gas monitoring. We used the right femoral artery. There was informed consent and universal timeout. The patient's procedure took place in trauma room 1 ER. BISQUE KILN DRAWER: Dr. Ennis. FIRST MEMBERSHIP SALES MANAGER: Dr. Marcella Fowler. A time-out was completed verifying correct patient, procedure, site, positioning, and implant(s) or special equipment if applicable. DESCRIPTION OF PROCEDURE: Vishal's test was performed to ensure adequate perfusion. The patient's right groin was prepped and draped in sterile fashion. 1% Lidocaine was used to anesthetize the area. An 18G Arrow arterial line was introduced into the femoral artery. The catheter was threaded over the guide wire and the needle was removed with appropriate pulsatile blood return. Blood loss was minimal. The catheter was then sutured in place to the skin and a sterile dressing applied. Perfusion to the extremity distal to the point of catheter insertion was checked and found to be adequate. There were no major complications. There was good blood return and waveform. The catheter was sutured in place. Sterile dressing was applied by the nurse. The patient tolerated the procedure well and there were no complications. MMODL / IJN: [id number] /
--- NOTE | 2024-02-03 13:16 | PCN ---
PROCEDURE NOTE PROCEDURE PERFORMED: Left internal jugular triple-lumen catheter. PREOPERATIVE DIAGNOSIS: Administration of fluids and pressors. POSTOPERATIVE DIAGNOSIS: Administration of fluids and pressors. CEMENT CUTTER: Dr. Ennis. FIRST CAPTAIN/AIRLINE PILOT: Dr. Marcella Fowler. There was informed consent, universal timeout. The patient's procedure took place in trauma room #1 emergency room. A time-out was completed verifying correct patient, procedure, site, positioning, and implant(s) or special equipment if applicable. DESCRIPTION OF PROCEDURE: The patient was placed in a dependent position appropriate for triple lumen catheter placement based on the vein to be cannulated. The patient's left neck was prepped and draped in sterile fashion. 1% Lidocaine was used to anesthetize the surrounding skin area. A triple lumen 9F Cordis catheter was introduced into the left internal jugular vein using Seldinger technique. The catheter was threaded smoothly over the guide wire and appropriate blood return was obtained. Each lumen of the catheter was evacuated of air and flushed with sterile saline. The catheter was then sutured in place to the skin and a sterile dressing applied. Perfusion to the extremity distal to the point of catheter insertion was checked and found to be adequate. We went via posterior approach. There was good blood return and waveform. The catheter was sutured in place and sterile dressing was applied by the nurse. The tip of the catheter was seen at the junction of superior vena cava and right atrium. There was no major complication. MMODL / IJN: [id number] /
--- NOTE | 2024-02-03 13:22 | PCN ---
PROCEDURE NOTE PROCEDURES PERFORMED: Bronchoscopy airway exam, therapeutic lavage, check positioning of the endotracheal tube. PREOPERATIVE DIAGNOSIS: Respiratory failure. POSTOPERATIVE DIAGNOSIS: Respiratory failure. DREDGE BOAT ENGINEER: Dr. Ennis. FIRST ANIMAL HUSBANDRY TEACHER: Dr. Marcella Fowler. DESCRIPTION OF PROCEDURE: The patient was placed on 100% oxygen. The bronchoscope was inserted through the bronchoscope adapter, connected to the endotracheal tube. The endotracheal tube was too distal, against the wall of the tracheal virgie. It was pulled back 2.5 cm. Next, we confirmed proper positioning of the endotracheal tube. Next we did a thorough evaluation of both lungs. The right upper lobe and its 3 segments, right middle lobe and its 2 segments, right lower lobe and its 5 segments, left upper lobe and its 2 segments, lingula and its 2 segments and left lower lobe and its 4 segments. There were secretions noted throughout, I would say they were mild to moderate in severity. There was no dominant mass or tumor. There was no bleeding. The secretions were suctioned without difficulty. The bronchoscope was then withdrawn. The patient tolerated the procedure well without complication. MMODL / IJN: [id number] /
--- NOTE | 2024-02-03 13:52 | PCN ---
PROCEDURE NOTE PROCEDURE: Emergent intubation. PREOPERATIVE DIAGNOSIS: Respiratory failure. POSTOPERATIVE DIAGNOSIS: Respiratory failure. The patient was intubated with a #8 endotracheal tube. We used a standard laryngoscope with #3 Evan blade. Again, the patient's procedure took place in the ER, trauma room #1. There was informed consent universal timeout. SCROLL SAW OPERATOR: Dr. Ennis. FIRST TECHNOLOGY TRAINING ASSOCIATE: Dr. Marcella Fowler. DESCRIPTION OF PROCEDURE: We intubated the patient in standard fashion using #8 endotracheal tube. The tip of the endotracheal tube was seen going through the glottic opening into the trachea. Next, there were good breath sounds on both sides. The fighter pilot balloon was inflated. There was good color change on the quality and capnography device. The patient tolerated the procedure well. The endotracheal tube was secured. The position of the endotracheal tube was confirmed both bronchoscopically and also with chest x- ray. There was no immediate complication. The patient was connected to the ventilator. To intubate the patient safely, the patient received 2 mg of Ativan, 5 mg of morphine, 3 mL or 60 mg of succinylcholine and then after intubation, 10 mg of Nimbex. MMODL / IJN: [id number] / MTDD
--- NOTE | 2024-02-03 14:11 | P.PN ---
Subjective Progress Note Date: 02/03/24 This is a 68-year-old female patient with a history of cerebral palsy, Down syndrome. She is nonverbal and nonambulatory and resides in a adult foster care setting. She has been hospitalized here recently on a couple different occasions. She was just discharged on 01/17/2024 following an acute influenza A infection and pneumonitis. She has also had previous aspiration pneumonias. In the emergency room last evening after a 5-day history of vomiting. Staff reported hearing gurgling from the patient while she was eating. First chest x- ray her right hand is in the way of the right lung. Lobe x-ray reveals bilateral patchy infiltrates more so on the right upper and lower lobes.. Potassium 3.2. Bicarb 29. BUN 55. Creatinine 0.98. Glucose 154. Amylase 113. Lipase 368. Urinalysis cloudy with small blood and large leukocytes and many WBCs and rare bacteria. Viral screen negative. He is seen today in the emergency department. She is arousable. She is requiring high flow nasal cannula to maintain O2 saturations in the 90s. Required deep suctioning earlier but had a vasovagal response with bradycardia. Large amount of stool in the colon. No bowel obstruction. Bibasilar airspace disease. Colonic diverticulosis. And received Rocephin. 1 L fluid resuscitation. Currently on normal saline at 130 MLS per hour. Lovenox for DVT prophylaxis. The patient is seen today February 03, 2024 in follow-up in the emergency department. Throughout the day her oxygen requirements continued to climb. She was initially seen on Airvo high flow oxygen at 60 L and 90% FiO2. She was having trouble clearing her secretions. We did speak to her power of starch mangle tender who confirmed the patient is to remain a full code. She was then moved into a trauma room, intubated and placed on the mechanical ventilator. She did undergo bronchoscopy. She also had a left IJ triple-lumen catheter and a right femoral arterial line placed. Chest x-ray shows good Endo tube placement. Good left IJ catheter placement. Worsening multifocal bilateral airspace disease now mostly confluent. Urine culture revealed no growth. She received a #8 endotracheal tube. Current vent settings are assist-control mode at a rate of 20, tidal volume 350, FiO2 100% and a PEEP of 5. Serial blood gases revealed a PaO2 of 88, pCO2 48 and a pH of 7.33. Remains on DuoNeb inhalations, ceftriaxone and azithromycin. Procalcitonin was 11.3. Sedated on propofol currently at 20 mcg/kg/min. Lovenox for DVT prophylaxis. Objective - Vital Signs Vital signs: Vital Signs Temp 99 F 02/03/24 09:20 Pulse 102 H 02/03/24 13:11 Resp 20 02/03/24 13:00 BP 116/42 02/03/24 13:00 Pulse Ox 98 02/03/24 13:00 FiO2 100 02/03/24 12:01 Intake & Output 02/02/24 02/03/24 02/03/24 18:59 06:59 18:59 Intake Total 34.058 Output Total 120 Balance -85.942 Intake: Intake, IV Titration 34.058 Amount Norepinephrine 4 mg In 33.586 Sodium Chloride 0.9% 250 ml @ 0.05 MCG/KG/MIN 11. 233 mls/hr IV .[id number] [facility] Rx#:[id number] propofoL 1,000 mg In 0.472 Empty Bag 1 bag @ 20 MCG/ KG/MIN 7.076 mls/hr IV . Q14H8M [facility] Rx#:[id number] Output: Urine 120 Uretheral (Matta) 120 - Exam GENERAL EXAM: Intubated, sedated 68-year-old female, in no apparent distress. HEAD: Normocephalic. EYES: Normal reaction of pupils, equal size. NOSE: Clear with pink turbinates. THROAT: Oral endotracheal tube and gastric tube secured in place. No erythema or exudates. NECK: No masses, no JVD. CHEST: No chest wall deformity. LUNGS: Equal air entry with bilateral scattered rhonchi. CVS: S1 and S2 normal with no audible murmur, regular rhythm. ABDOMEN: No hepatosplenomegaly, normal bowel sounds, no guarding or rigidity. SPINE: No scoliosis or deformity SKIN: No rashes CENTRAL NERVOUS SYSTEM: Sedated, tone is normal in all 4 extremities. EXTREMITIES: Contractures and deformities due to cerebral palsy and Down syndrome. Peripheral pulses are intact. - Labs CBC & Chem 7: 02/01/24 21:15 02/01/24 21:15 Labs: Abnormal Lab Results - Last 24 Hours (Table) 02/02/24 02/03/24 Range/Units 10:01 12:11 ABG pH 7.33 L (7.35-7.45) ABG pCO2 48 H (35-45) mmHg ABG Total CO2 27 H (19-24) mmol/L ABG O2 Saturation 97.3 H (94-97) % Procalcitonin 11.30 H (0.02-0.09) ng/mL Microbiology - Last 24 Hours (Table) 02/02/24 00:17 Urine Culture - Final Urine,Catheterized Assessment and Plan Assessment: Acute hypoxemic respiratory failure secondary to an acute community acquired versus aspiration pneumonia requiring intubation and mechanical ventilatory support on 02/03/2024 Nausea, vomiting and dehydration x 5 days Suspected urinary tract infection Recent discharge following an influenza A infection with sepsis History of lower extremity cellulitis Chronic dysphagia to be on a pured diet with honey thick liquids Cerebral palsy with severe cognitive impairment Down syndrome Chronic bilateral foot drop Nonverbal, nonambulatory Plan: The patient was seen and evaluated Chest x-ray, ABGs, labs and medications reviewed Now intubated and on the ventilator Continue bronchodilators, antibiotics Titrate the FiO2 as tolerated Lovenox for DVT prophylaxis Prognosis is guarded To be a full code per her public guardian Bea Gonzalezgins We will continue to follow I have personally seen and examined the patient, performed the documentation and the assessment and plan as written. Number of minutes spent on the visit: 15.
--- NOTE | 2024-02-03 14:57 | P.PN ---
Progress Note - Text Progress Note Date: 02/03/24 Chief Complaint: Congested This is a 68-year-old patient, follows with visiting physician Dr. Azul. Chronic stable medical conditions include cerebral palsy, Down syndrome, nonverbal, nonambulatory. Osteoarthritis. Patient is on a mechanically pured diet with thickened liquids. And is prone to aspiration pneumonias. in the hospital from January 02 through January 07. With bilateral aspiration pneumonitis. And secondary bronchospasm. Readmitted January 12 through January 16: Influenza A pneumonitis. Septic Patient now brought to the ER via EMS. Per the report: Nausea vomiting reported for last 5 days. About 3 times a day usually around mealtime. Being gurgling. Any attempt to feed her. Patient is on pured fluids with thickened liquids. This morning patient is rather congested. Tired. Lethargic. February 02: Earlier this morning patient went into respiratory distress. Drowning and secretions. Dr. CLARK intubated the patient. Patient's caregivers at the bedside. I spoke to patient's guardian Re on the phone. Patient has been full code. They will be scheduling her hearing on Monday with jen Hernandez. I did emphasize that we also have to talk about possible terminal extubation/comfort measures depending on clinical course over the weekend. Current drips include Nimbex 0.998, propofol at 30 mics, norepinephrine at 0.13 mcg. Ventilator settings 100/5. Sedated with Nimbex and propofol. Active Medications Acetaminophen (Acetaminophen Tab 325 Mg Tab) 650 mg PO Q4H PRN PRN Reason: Pain or Fever > 100.5 Albuterol/Ipratropium (Ipratropium-Albuterol 3 Ml Neb) 3 ml INHALATION RT-Q4H [facility] Last Admin: 02/03/24 13:01 Dose: 3 ml Alprazolam (Alprazolam 0.25 Mg Tab) 0.25 mg PO HS@1999 [facility] Last Admin: 02/02/24 20:07 Dose: 0.25 mg Artificial Tears (Artificial Tears-Hypromellose Drops 15 Ml Btl) 1 drops BOTH EYES Q4HR PRN PRN Reason: Dry Eye(s) Aspirin (Aspirin 81 Mg) 81 mg PO DAILY@0800 [facility] Last Admin: 02/03/24 09:26 Dose: 81 mg Atorvastatin Calcium (Atorvastatin 20 Mg Tab) 20 mg PO HS@1999 [facility] Last Admin: 02/02/24 20:07 Dose: 20 mg Baclofen (Baclofen 10 Mg Tab) 20 mg PO HS@1999 [facility] Last Admin: 02/02/24 20:08 Dose: 20 mg Buspirone HCl (Buspirone Hcl 10 Mg Tab) 10 mg PO BID@799,1999 [facility] Last Admin: 02/03/24 09:26 Dose: 10 mg Enoxaparin Sodium (Enoxaparin 40 Mg/0.4 Ml Syringe) 40 mg SQ DAILY [facility] Last Admin: 02/03/24 09:26 Dose: 40 mg Sodium Chloride (Saline 0.9%) 1,000 mls @ 100 mls/hr IV .Q10H [facility] Last Admin: 02/03/24 11:38 Dose: 100 mls/hr Ceftriaxone Sodium 1 gm/ (Sodium Chloride) 50 mls @ 100 mls/hr IVPB Q24HR [facility]; Protocol Last Admin: 02/03/24 09:24 Dose: 100 mls/hr Azithromycin 500 mg/ Sodium (Chloride) 250 mls @ 250 mls/hr IVPB DAILY [facility]; Protocol Stop: 02/04/24 09:59 Last Admin: 02/03/24 12:02 Dose: 250 mls/hr Propofol 1,000 mg/ IV Solution 100 mls @ 7.076 mls/hr IV .Q14H8M [facility]; Protocol Last Titration: 02/03/24 11:35 Dose: 10 mcg/kg/min, 3.538 mls/hr Norepinephrine Bitartrate 4 mg (/ Sodium Chloride) 254 mls @ 11.233 mls/hr IV .[id number] [facility]; Protocol Last Titration: 02/03/24 14:49 Dose: 0.14 mcg/kg/min, 31.453 mls/hr Cisatracurium Besylate 200 mg/ (Sodium Chloride) 200 mls @ 3.538 mls/hr IV .Q24H [facility]; Protocol Last Admin: 02/03/24 12:21 Dose: 1 mcg/kg/min, 3.538 mls/hr Ketorolac Tromethamine (Ketorolac 15 Mg/Ml 1 Ml Vial) 15 mg IVP Q6HR PRN PRN Reason: Pain Stop: 02/07/24 01:49 Last Admin: 02/03/24 09:24 Dose: 15 mg Ketotifen Fumarate (Ketotifen 0.025% Ophth Drops 5 Ml Btl) 1 drops BOTH EYES BID PRN PRN Reason: itching/redness Metoclopramide HCl (Metoclopramide 5 Mg/Ml 2 Ml Vial) 5 mg IVP Q6HR PRN PRN Reason: Nausea And Vomiting Miscellaneous Information (Potassium Replacement Protocol 1 Each Misc) 1 each MISCELLANE DAILY PRN; Protocol PRN Reason: Per Protocol Morphine Sulfate (Morphine Sulfate 4 Mg/Ml Syringe) 4 mg IVP Q4HR PRN PRN Reason: Pain Last Admin: 02/03/24 11:17 Dose: 4 mg Morphine Sulfate (Morphine Sulfate 2 Mg/Ml Syringe) 2 mg IV Q2HR PRN PRN Reason: Moderate Pain (Scale 4 to 6) Naloxone HCl (Naloxone 0.4 Mg/Ml 1 Ml Vial) 0.2 mg IV Q2M PRN PRN Reason: Opioid Reversal Naloxone HCl (Naloxone 0.4 Mg/Ml 1 Ml Vial) 0.2 mg IV Q2M PRN PRN Reason: Opioid Reversal Non-Formulary Medication (Thick-It Original Powder) 1 dose PO DIRECTED PRN PRN Reason: w/all liquids Nystatin (Nystatin 100,000 Unit/Gm Powd 15 Gm) 1 applic TOPICAL BID@00,1999 [facility]; Protocol Last Admin: 02/03/24 12:01 Dose: Not Given Ondansetron HCl (Ondansetron 4 Mg/2 Ml Vial) 4 mg IVP Q6HR PRN PRN Reason: Nausea And Vomiting Pantoprazole Sodium (Pantoprazole 40 Mg Tablet) 40 mg PO DAILY@0800 [facility] Last Admin: 02/03/24 09:26 Dose: 40 mg Pantoprazole Sodium (Pantoprazole 40 Mg/10 Ml Vial) 40 mg IV DAILY [facility] Quetiapine Fumarate (Quetiapine 400 Mg Tab) 400 mg PO HS@1999 [facility] Last Admin: 02/02/24 20:08 Dose: 400 mg Raloxifene HCl (Raloxifene 60 Mg Tab) 60 mg PO DAILY@0800 [facility] Last Admin: 02/03/24 11:32 Dose: Not Given Silver Sulfadiazine (Silver Sulfadiazine 1% Cream 25 Gm Tube) 1 applic TOPICAL DAILY PRN PRN Reason: Skin Irritation Simethicone (Simethicone 80 Mg Chewable) 120 mg PO BID PRN PRN Reason: gas relief Social history: Lives at [facility]. Nonverbal. Nonambulatory. Physical examination: VITAL SIGNS: Afebrile, 104, 18, 121/47, 97% on the ventilator GENERAL: laying in bed,, intubated EYES: Pupils equal. Conjunctiva sage l. HEENT: External appearance of nose and ears normal, oral cavity dry. Endotracheal tube. NECK: JVD unable to assess d; masses not palpable. HEART: First and second heart sounds are normal; no edema. LUNGS: Respiratory rate increased, audible crackles, coarse breath sounds ABDOMEN: Soft, nontender, liver spleen not palpable, no masses palpable. PSYCH: Sedated MUSCULOSKELETAL: Patient contracted in the hand with extension of metacarpophalangeal and proximal IP joints. Bilateral foot drop. Some cellulitis left lower leg NEUROLOGICAL: Cranial nerves grossly intact; no facial asymmetry, chronic dysarthria INVESTIGATIONS, reviewed in the clinical context: Procalcitonin 11.3 Chest x-ray film personally reviewed by me-large infiltrate especially on the right side. January 31: White count 13.4 hemoglobin 11.3 platelets 163 sodium 134 potassium 3.2 BUN 55 creatinine 0.98 amylase 113 lipase 368 Influenza type A, type B, RSV, COVID-19: Not detected Assessment and plan: -Acute bilateral right greater than left aspiration pneumonia, and the patient surgery. Episodes of the same, causing acute hypoxic respiratory failure Ceftriaxone, azithromycin -Septic shock Patient on IV norepinephrine. -Acute hypoxic respiratory failure from aspiration pneumonia: Worsening. Patient now ventilator assist Patient intubated on February 02. -Secondary bronchospasm secondary to aspiration pneumonia Albuterol nebulizer 4 times daily -Chronic dysphagia Baseline takes pured diet and honey thick liquids-supervised -Chronic cerebral palsy -Down syndrome -Cerebral palsy with severe cognitive impairment -Bilateral foot drop, chronic -Chronic medical debility, patient nonambulatory -Primary/secondary osteoarthritis Pain medications as needed -Full code -Public guardian,Re Public guardian going on Monday to the court for discussion about status. Also to discuss terminal extubation/comfort care depending on clinical course over the weekend. Past Medical History Past Medical History: Heart Failure, Osteoarthritis (OA) Additional Past Medical History / Comment(s): down syndrome, cerebral palsy, nonverbal, aspiration History of Any Multi-Drug Resistant Organisms: None Reported Past Surgical History: No Surgical Hx Reported Past Anesthesia/Blood Transfusion Reactions: No Reported Reaction Past Psychological History: Depression Smoking Status: Never smoker Past Alcohol Use History: None Reported Past Drug Use History: None Reported
[2024-02-04 01:31] LABS: Glucose,Whole Blood 194 mg/dL (70-110)
[2024-02-04] MEDS: MORPHINE SULFATE 2 MG/ML SYRINGE IV PRN (01:42)
[2024-02-04] MEDS ORDERED: DEXTROSE 50% SYRINGE 50 ML IVP PRN ×2 (01:56)
[2024-02-04 05:02] LABS: Glucose,Whole Blood 166 mg/dL (70-110)
[2024-02-04] MEDS: INSULIN ASPART (NovoLOG) 100 UNIT/ML VIAL SQ SCH (05:03)
[2024-02-04 05:15] LABS: African American GFR (CKD) >90 (>60 ml/min/1.73 sqM); Anion Gap 7 mmol/L; Blood Urea Nitrogen 27 mg/dL (7-17); Carbon Dioxide 23 mmol/L (22-30); Chloride 116 mmol/L (98-107); Glucose 149 mg/dL (74-99); Non-African American GFR(CKD) >90 (>60 ml/min/1.73 sqM); Sodium 146 mmol/L (137-145)
[2024-02-04 05:32] LABS: ABG Base Excess -3.3 mmol/L; ABG HCO3 23 mmol/L (21-25); ABG Oxygen Saturation 99.2 % (94-97); ABG PCO2 42 mmHg (35-45); ABG PH 7.34 (7.35-7.45); ABG PO2 145 mmHg (83-108); ABG TCO2 24 mmol/L (19-24); Allen Test Performed? Yes
[2024-02-04 05:51] LABS: Basophils % (A) 0 %; Eosinophils % (A) 0 %; HCT 30.3 % (34.0-46.0); Hypochromasia Slight; Lymphocytes # (A) 0.8 k/uL (1.0-4.8); Lymphocytes % (A) 9 %; MCHC 31.3 g/dL (31.0-37.0); MCV 92.7 fL (80.0-100.0); Mean Platelet Volume 8.6; Monocytes # (A) 0.3 k/uL (0-1.0); Monocytes % (A) 3 %; Neutrophils % (A) 87 %; Platelet Count 107 k/uL (150-450); RBC 3.27 m/uL (3.80-5.40); RDW 15.5 % (11.5-15.5); WBC 9.2 k/uL (3.8-10.6)
[2024-02-04 05:55] LABS: HGB 9.5 gm/dL (11.4-16.0)
[2024-02-04 06:14] LABS: Calcium 6.2 mg/dL (8.4-10.2); Potassium 2.5 mmol/L (3.5-5.1)
[2024-02-04] MEDS: POTASSIUM BICARBONATE/CIT AC 20 MEQ TABLET.EFF NG-TUBE SCH ×2 (06:35→11:47)
[2024-02-04] MEDS ORDERED: POTASSIUM CHLORIDE ER 20 MEQ TAB.ER PO SCH (08:00)
[2024-02-04] MEDS: PANTOPRAZOLE 40 MG/10 ML VIAL IV SCH (08:11)
[2024-02-04] MEDS: CHLORHEXIDINE GLUCONATE 15 ML CUP MUCOUS MEM SCH (08:26)
[2024-02-04] MEDS: DEXTROSE 5% IN WATER 1,000 ML IV SCH (09:26)
[2024-02-04 11:27] LABS: Magnesium 1.9 mg/dL (1.6-2.3); Potassium 3.6 mmol/L (3.5-5.1)
[2024-02-04 11:29] LABS: Glucose,Whole Blood 171 mg/dL (70-110)
[2024-02-04] MEDS ORDERED: Magnesium Replacement Protocol 1 EACH MISC MISCELLANE PRN (11:36)
[2024-02-04] MEDS: MAGNESIUM SULFATE-D5W PMX 1 GM in DEXTROSE/WATER 1 100ML.BAG IVPB ONE (11:47)
--- NOTE | 2024-02-04 12:13 | P.PN ---
Subjective Progress Note Date: 02/04/24 This is a 68-year-old female patient with a history of cerebral palsy, Down syndrome. She is nonverbal and nonambulatory and resides in a adult foster care setting. She has been hospitalized here recently on a couple different occasions. She was just discharged on 01/17/2024 following an acute influenza A infection and pneumonitis. She has also had previous aspiration pneumonias. In the emergency room last evening after a 5-day history of vomiting. Staff reported hearing gurgling from the patient while she was eating. First chest x- ray her right hand is in the way of the right lung. Lobe x-ray reveals bilateral patchy infiltrates more so on the right upper and lower lobes.. Potassium 3.2. Bicarb 29. BUN 55. Creatinine 0.98. Glucose 154. Amylase 113. Lipase 368. Urinalysis cloudy with small blood and large leukocytes and many WBCs and rare bacteria. Viral screen negative. He is seen today in the emergency department. She is arousable. She is requiring high flow nasal cannula to maintain O2 saturations in the 90s. Required deep suctioning earlier but had a vasovagal response with bradycardia. Large amount of stool in the colon. No bowel obstruction. Bibasilar airspace disease. Colonic diverticulosis. And received Rocephin. 1 L fluid resuscitation. Currently on normal saline at 130 MLS per hour. Lovenox for DVT prophylaxis. The patient is seen today February 03, 2024 in follow-up in the emergency department. Throughout the day her oxygen requirements continued to climb. She was initially seen on Airvo high flow oxygen at 60 L and 90% FiO2. She was having trouble clearing her secretions. We did speak to her power of psychiatric social worker who confirmed the patient is to remain a full code. She was then moved into a trauma room, intubated and placed on the mechanical ventilator. She did undergo bronchoscopy. She also had a left IJ triple-lumen catheter and a right femoral arterial line placed. Chest x-ray shows good Endo tube placement. Good left IJ catheter placement. Worsening multifocal bilateral airspace disease now mostly confluent. Urine culture revealed no growth. She received a #8 endotracheal tube. Current vent settings are assist-control mode at a rate of 20, tidal volume 350, FiO2 100% and a PEEP of 5. Serial blood gases revealed a PaO2 of 88, pCO2 48 and a pH of 7.33. Remains on DuoNeb inhalations, ceftriaxone and azithromycin. Procalcitonin was 11.3. Sedated on propofol currently at 20 mcg/kg/min. Lovenox for DVT prophylaxis. The patient is seen today February 04, 2024 in follow-up in the intensive care unit. She remains intubated on the mechanical ventilator in assist-control mode at a rate of 20, tidal volume 350,, FiO2 80% and a PEEP of 5. Morning blood gases revealed a PaO2 of 145, pCO2 42, pH 7.32 and that was on 90% FiO2. She remains on norepinephrine at 4.7 mcg/min. Nimbex at 1.5 mcg/kg/min. Propofol at 40 mcg/kg/min. Normal saline at 100 MLS per hour. Tube feedings have been initiated. White count 9.2. Hemoglobin 9.5. Platelets 107. Sodium 146. Potassium 3.6. Bicarb 23. BUN 27. Creatinine 0.66. Glucose 149. Remains on bronchodilators. Continued on ceftriaxone. Lovenox for DVT prophylaxis. Objective - Vital Signs Vital signs: Vital Signs Temp 97.6 F 02/04/24 08:00 Pulse 89 02/04/24 11:00 Resp 20 02/04/24 11:00 BP 120/47 02/04/24 00:58 Pulse Ox 97 02/04/24 11:00 FiO2 70 02/04/24 09:15 Intake & Output 02/03/24 02/04/24 02/04/24 18:59 06:59 18:59 Intake Total 188.928 732.508 827.099 Output Total 370 825 195 Balance -181.072 -92.492 632.099 Weight 63.3 kg 63.3 kg Intake: IV 500 762 Azithromycin 500 mg In 250 Sodium Chloride 0.9% 250 ml @ 250 mls/hr IVPB DAILY [facility] Rx#:[id number] Dextrose 5% in Water 1, 150 000 ml @ 75 mls/hr IV . [id number] [facility] Rx#:[id number] Pressure bag 12 Sodium Chloride 0.9% 1, 500 300 000 ml @ 100 mls/hr IV . Q10H [facility] Rx#:[id number] cefTRIAXone 1 gm In 50 Sodium Chloride 0.9% 50 ml @ 100 mls/hr IVPB Q24HR [facility] Rx#:[id number] Intake, IV Titration 188.928 232.508 65.099 Amount Cisatracurium 200 mg In 67.782 Sodium Chloride 0.9% 180 ml @ 1 MCG/KG/MIN 3.538 mls/hr IV .Q24H [facility] Rx#: [id number] Norepinephrine 4 mg In 188.456 65.544 Sodium Chloride 0.9% 250 ml @ 0.05 MCG/KG/MIN 11. 233 mls/hr IV .[id number] [facility] Rx#:[id number] propofoL 1,000 mg In 0.472 99.182 65.099 Empty Bag 1 bag @ 20 MCG/ KG/MIN 7.076 mls/hr IV . Q14H8M [facility] Rx#:[id number] Output: Urine 370 825 195 Uretheral (Matta) 370 500 Other: Voiding Method Indwelling Catheter Indwelling Catheter ABP, PAP, CO, CI - Last Documented Arterial Blood Pressure 115/57 - Exam GENERAL EXAM: Intubated, sedated 68-year-old female, remains on the ventilator, in no apparent distress. HEAD: Normocephalic. EYES: Normal reaction of pupils, equal size. NOSE: Clear with pink turbinates. THROAT: Oral endotracheal tube and gastric tube secured in place. No erythema or exudates. NECK: No masses, no JVD. CHEST: No chest wall deformity. LUNGS: Equal air entry with bilateral scattered rhonchi. CVS: S1 and S2 normal with no audible murmur, regular rhythm. ABDOMEN: No hepatosplenomegaly, normal bowel sounds, no guarding or rigidity. SPINE: No scoliosis or deformity SKIN: No rashes CENTRAL NERVOUS SYSTEM: Sedated, tone is normal in all 4 extremities. EXTREMITIES: Contractures and deformities due to cerebral palsy and Down syndrome. Peripheral pulses are intact. - Labs CBC & Chem 7: 02/04/24 04:30 02/04/24 10:31 Labs: Abnormal Lab Results - Last 24 Hours (Table) 02/03/24 02/04/24 02/04/24 Range/Units 12:11 01:30 04:30 RBC 3.27 L (3.80-5.40) m/uL Hgb 9.5 L D (11.4-16.0) gm/dL Hct 30.3 L (34.0-46.0) % Plt Count 107 L (150-450) k/uL Neutrophils # 8.0 H (1.3-7.7) k/uL Lymphocytes # 0.8 L (1.0-4.8) k/uL ABG pH 7.33 L (7.35-7.45) ABG pCO2 48 H (35-45) mmHg ABG pO2 (83-108) mmHg ABG Total CO2 27 H (19-24) mmol/L ABG O2 Saturation 97.3 H (94-97) % Sodium (137-145) mmol/L Potassium (3.5-5.1) mmol/L Chloride (98-107) mmol/L BUN (7-17) mg/dL Glucose (74-99) mg/dL POC Glucose (mg/dL) 194 H (70-110) mg/dL Hemoglobin A1c (<=6.0) % Calcium (8.4-10.2) mg/dL Ionized Calcium Davian (4.5-5.3) mg/dL 02/04/24 02/04/24 02/04/24 Range/Units 04:30 04:30 05:01 RBC (3.80-5.40) m/uL Hgb (11.4-16.0) gm/dL Hct (34.0-46.0) % Plt Count (150-450) k/uL Neutrophils # (1.3-7.7) k/uL Lymphocytes # (1.0-4.8) k/uL ABG pH (7.35-7.45) ABG pCO2 (35-45) mmHg ABG pO2 (83-108) mmHg ABG Total CO2 (19-24) mmol/L ABG O2 Saturation (94-97) % Sodium 146 H (137-145) mmol/L Potassium 2.5 L* (3.5-5.1) mmol/L Chloride 116 H (98-107) mmol/L BUN 27 H (7-17) mg/dL Glucose 149 H (74-99) mg/dL POC Glucose (mg/dL) 166 H (70-110) mg/dL Hemoglobin A1c 6.3 H (<=6.0) % Calcium 6.2 L* (8.4-10.2) mg/dL Ionized Calcium Davian (4.5-5.3) mg/dL 02/04/24 02/04/24 02/04/24 Range/Units 05:28 10:31 11:27 RBC (3.80-5.40) m/uL Hgb (11.4-16.0) gm/dL Hct (34.0-46.0) % Plt Count (150-450) k/uL Neutrophils # (1.3-7.7) k/uL Lymphocytes # (1.0-4.8) k/uL ABG pH 7.34 L (7.35-7.45) ABG pCO2 (35-45) mmHg ABG pO2 145 H (83-108) mmHg ABG Total CO2 (19-24) mmol/L ABG O2 Saturation 99.2 H (94-97) % Sodium (137-145) mmol/L Potassium (3.5-5.1) mmol/L Chloride (98-107) mmol/L BUN (7-17) mg/dL Glucose (74-99) mg/dL POC Glucose (mg/dL) 171 H (70-110) mg/dL Hemoglobin A1c (<=6.0) % Calcium (8.4-10.2) mg/dL Ionized Calcium Davian 4.0 L (4.5-5.3) mg/dL Microbiology - Last 24 Hours (Table) 02/02/24 00:17 Urine Culture - Final Urine,Catheterized Assessment and Plan Assessment: Acute hypoxemic respiratory failure secondary to an acute community acquired versus aspiration pneumonia requiring intubation and mechanical ventilatory support on 02/03/2024 Nausea, vomiting and dehydration x 5 days Suspected urinary tract infection Recent discharge following an influenza A infection with sepsis History of lower extremity cellulitis Chronic dysphagia to be on a pured diet with honey thick liquids Cerebral palsy with severe cognitive impairment Down syndrome Chronic bilateral foot drop Nonverbal, nonambulatory Plan: The patient was seen and evaluated Chest x-ray, ABGs, labs and medications reviewed Continue bronchodilators, antibiotics PEEP increased to 8, FiO2 decreased to 70% Discontinue normal saline Initiate D5W at 75 MLS per hour Continue with tube feedings Lovenox for DVT prophylaxis Prognosis is guarded We will continue to follow I have personally seen and examined the patient, performed the documentation and the assessment and plan as written. Number of minutes spent on the visit: 15.
--- NOTE | 2024-02-04 15:20 | P.PN ---
Progress Note - Text Progress Note Date: 02/04/24 Chief Complaint: Congested This is a 68-year-old patient, follows with visiting physician Dr. Azul. Chronic stable medical conditions include cerebral palsy, Down syndrome, nonverbal, nonambulatory. Osteoarthritis. Patient is on a mechanically pured diet with thickened liquids. And is prone to aspiration pneumonias. in the hospital from January 02 through January 07. With bilateral aspiration pneumonitis. And secondary bronchospasm. Readmitted January 12 through January 16: Influenza A pneumonitis. Septic Patient now brought to the ER via EMS. Per the report: Nausea vomiting reported for last 5 days. About 3 times a day usually around mealtime. Being gurgling. Any attempt to feed her. Patient is on pured fluids with thickened liquids. This morning patient is rather congested. Tired. Lethargic. February 02: Earlier this morning patient went into respiratory distress. Drowning and secretions. Dr. CLARK intubated the patient. Patient's caregivers at the bedside. I spoke to patient's guardian Re on the phone. Patient has been full code. They will be scheduling her hearing on Monday with jen Hernandez. I did emphasize that we also have to talk about possible terminal extubation/comfort measures depending on clinical course over the weekend. Current drips include Nimbex 0.998, propofol at 30 mics, norepinephrine at 0.13 mcg. Ventilator settings 100/5. Sedated with Nimbex and propofol. February 03: ICU. Intubated. Caregiver at the bedside. Patient sedated. Mild secretions. Drips include Nimbex 1.5 mcg, norepinephrine 0.08 mcg, propofol at 40 mcg. Tube feeding running at 10 cc an hour. Patient's guardian Re has a court hearing tomorrow morning. No ionized calcium. 2 g of IV calcium gluconate IV piggyback. Active Medications Acetaminophen (Acetaminophen Tab 325 Mg Tab) 650 mg PO Q4H PRN PRN Reason: Pain or Fever > 100.5 Albuterol/Ipratropium (Ipratropium-Albuterol 3 Ml Neb) 3 ml INHALATION RT-Q4H [facility] Last Admin: 02/04/24 12:08 Dose: 3 ml Alprazolam (Alprazolam 0.25 Mg Tab) 0.25 mg PO HS@2000 [facility] Last Admin: 02/03/24 19:41 Dose: Not Given Artificial Tears (Artificial Tears-Hypromellose Drops 15 Ml Btl) 1 drops BOTH EYES Q4HR PRN PRN Reason: Dry Eye(s) Aspirin (Aspirin 81 Mg) 81 mg PO DAILY@0800 [facility] Last Admin: 02/04/24 08:11 Dose: 81 mg Atorvastatin Calcium (Atorvastatin 20 Mg Tab) 20 mg PO HS@1999 [facility] Last Admin: 02/03/24 19:41 Dose: Not Given Baclofen (Baclofen 10 Mg Tab) 20 mg PO HS@1999 [facility] Last Admin: 02/03/24 19:42 Dose: Not Given Buspirone HCl (Buspirone Hcl 10 Mg Tab) 10 mg PO BID@0800,1999 [facility] Last Admin: 02/04/24 08:12 Dose: 10 mg Chlorhexidine Gluconate (Chlorhexidine Gluconate 15 Ml Cup) 15 ml MUCOUS MEM BID [facility] Last Admin: 02/04/24 08:26 Dose: 15 ml Dextrose/Water (Dextrose 50% Syringe 50 Ml) 25 ml IVP PER PROTOCOL PRN; Protocol PRN Reason: Hypoglycemia Dextrose/Water (Dextrose 50% Syringe 50 Ml) 50 ml IVP PER PROTOCOL PRN; Protocol PRN Reason: Hypoglycemia Enoxaparin Sodium (Enoxaparin 40 Mg/0.4 Ml Syringe) 40 mg SQ DAILY [facility] Last Admin: 02/04/24 08:11 Dose: 40 mg Ceftriaxone Sodium 1 gm/ (Sodium Chloride) 50 mls @ 100 mls/hr IVPB Q24HR [facility]; Protocol Last Admin: 02/04/24 08:09 Dose: 100 mls/hr Propofol 1,000 mg/ IV Solution 100 mls @ 7.076 mls/hr IV .[id number] [facility]; Protocol Last Admin: 02/04/24 09:28 Dose: 40 mcg/kg/min, 14.152 mls/hr Norepinephrine Bitartrate 4 mg (/ Sodium Chloride) 254 mls @ 11.233 mls/hr IV .[id number] [facility]; Protocol Last Admin: 02/04/24 10:10 Dose: Not Given Cisatracurium Besylate 200 mg/ (Sodium Chloride) 200 mls @ 3.538 mls/hr IV .Q24H [facility]; Protocol Last Titration: 02/04/24 04:56 Dose: 1.5 mcg/kg/min, 5.307 mls/hr Dextrose/Water (Dextrose 5%-Water Iv Soln) 1,000 mls @ 75 mls/hr IV .[id number] [facility] Last Admin: 02/04/24 09:26 Dose: 75 mls/hr Insulin Aspart (Insulin Aspart (Novolog) 100 Unit/Ml Vial) 0 unit SQ Q6H [facility]; Protocol Last Admin: 02/04/24 11:47 Dose: 1 unit Ketorolac Tromethamine (Ketorolac 15 Mg/Ml 1 Ml Vial) 15 mg IVP Q6HR PRN PRN Reason: Pain Stop: 02/07/24 01:49 Last Admin: 02/03/24 09:24 Dose: 15 mg Ketotifen Fumarate (Ketotifen 0.025% Ophth Drops 5 Ml Btl) 1 drops BOTH EYES BID PRN PRN Reason: itching/redness Metoclopramide HCl (Metoclopramide 5 Mg/Ml 2 Ml Vial) 5 mg IVP Q6HR PRN PRN Reason: Nausea And Vomiting Miscellaneous Information (Potassium Replacement Protocol 1 Each Misc) 1 each MISCELLANE DAILY PRN; Protocol PRN Reason: Per Protocol Miscellaneous Information (Magnesium Replacement Protocol 1 Each Misc) 1 each MISCELLANE DAILY PRN; Protocol PRN Reason: Per Protocol Morphine Sulfate (Morphine Sulfate 4 Mg/Ml Syringe) 4 mg IVP Q4HR PRN PRN Reason: Pain Last Admin: 02/03/24 11:17 Dose: 4 mg Morphine Sulfate (Morphine Sulfate 2 Mg/Ml Syringe) 2 mg IV Q2HR PRN PRN Reason: Moderate Pain (Scale 4 to 6) Last Admin: 02/04/24 01:42 Dose: 2 mg Naloxone HCl (Naloxone 0.4 Mg/Ml 1 Ml Vial) 0.2 mg IV Q2M PRN PRN Reason: Opioid Reversal Naloxone HCl (Naloxone 0.4 Mg/Ml 1 Ml Vial) 0.2 mg IV Q2M PRN PRN Reason: Opioid Reversal Non-Formulary Medication (Thick-It Original Powder) 1 dose PO DIRECTED PRN PRN Reason: w/all liquids Nystatin (Nystatin 100,000 Unit/Gm Powd 15 Gm) 1 applic TOPICAL BID@0800,2000 [facility]; Protocol Last Admin: 02/04/24 08:11 Dose: 1 applic Ondansetron HCl (Ondansetron 4 Mg/2 Ml Vial) 4 mg IVP Q6HR PRN PRN Reason: Nausea And Vomiting Pantoprazole Sodium (Pantoprazole 40 Mg Tablet) 40 mg PO DAILY@0800 [facility] Last Admin: 02/04/24 08:12 Dose: Not Given Pantoprazole Sodium (Pantoprazole 40 Mg/10 Ml Vial) 40 mg IV DAILY [facility] Last Admin: 02/04/24 08:11 Dose: 40 mg Quetiapine Fumarate (Quetiapine 400 Mg Tab) 400 mg PO HS@1999 [facility] Last Admin: 02/03/24 19:42 Dose: Not Given Raloxifene HCl (Raloxifene 60 Mg Tab) 60 mg PO DAILY@0800 [facility] Last Admin: 02/04/24 08:12 Dose: 60 mg Silver Sulfadiazine (Silver Sulfadiazine 1% Cream 25 Gm Tube) 1 applic TOPICAL DAILY PRN PRN Reason: Skin Irritation Simethicone (Simethicone 80 Mg Chewable) 120 mg PO BID PRN PRN Reason: gas relief Social history: Lives at [facility]. Nonverbal. Nonambulatory. Physical examination: VITAL SIGNS: Afebrile, 98, 20, 107 x 49, 92% on the ventilator GENERAL: laying in bed,, intubated EYES: Pupils equal. Conjunctiva sage l. HEENT: External appearance of nose and ears normal, oral cavity dry. Endotracheal tube. NECK: JVD unable to assess d; masses not palpable. HEART: First and second heart sounds are normal; no edema. LUNGS: Respiratory rate increased, audible crackles, coarse breath sounds ABDOMEN: Soft, nontender, liver spleen not palpable, no masses palpable. PSYCH: Sedated MUSCULOSKELETAL: Patient contracted in the hand with extension of metacarpophalangeal and proximal IP joints. Bilateral foot drop. Some cellulitis left lower leg NEUROLOGICAL: Cranial nerves grossly intact; no facial asymmetry, chronic dysarthria INVESTIGATIONS, reviewed in the clinical context: February 03: White count 9.2 hemoglobin 9.5 platelets 107 sodium 146 potassium 2.5 BUN 27 creatinine 0.6 6 repeat potassium 3.6 ionized calcium 4 Procalcitonin 11.3 Chest x-ray film personally reviewed by me-large infiltrate especially on the right side. January 31: White count 13.4 hemoglobin 11.3 platelets 163 sodium 134 potassium 3.2 BUN 55 creatinine 0.98 amylase 113 lipase 368 Influenza type A, type B, RSV, COVID-19: Not detected Assessment and plan: -Acute bilateral right greater than left aspiration pneumonia, , causing acute hypoxic respiratory failure: Slow to respond Ceftriaxone, azithromycin -Septic shock: Slow to respond IV norepinephrine. -Acute hypoxic respiratory failure from aspiration pneumonia:: Ventilator assist: Slow to respond intubated on February 02. FiO2 70%. -Secondary bronchospasm secondary to aspiration pneumonia Albuterol nebulizer 4 times daily -Chronic dysphagia Baseline takes pured diet and honey thick liquids-supervised -Chronic cerebral palsy -Down syndrome -Cerebral palsy with severe cognitive impairment -Bilateral foot drop, chronic -Chronic medical debility, patient nonambulatory -Primary/secondary osteoarthritis Pain medications as needed -Full code -Public guardian,Re Continue pressor support with norepinephrine. Sedated with propofol and Nimbex. Gentle tube feeding. Prognosis guarded. Has a court hearing tomorrow. Past Medical History Past Medical History: Heart Failure, Osteoarthritis (OA) Additional Past Medical History / Comment(s): down syndrome, cerebral palsy, nonverbal, aspiration History of Any Multi-Drug Resistant Organisms: None Reported Past Surgical History: No Surgical Hx Reported Past Anesthesia/Blood Transfusion Reactions: No Reported Reaction Past Psychological History: Depression Smoking Status: Never smoker Past Alcohol Use History: None Reported Past Drug Use History: None Reported
--- NOTE | 2024-02-04 15:49 | XR ---
EXAMINATION TYPE: XR chest 1V DATE OF EXAM: 02/04/2024 5:15 AM CLINICAL INDICATION:Female, 68 years old with history of sob; [facility] COMPARISON: 02/03/2024 and before TECHNIQUE: XR chest 1V Portable AP radiograph of the chest.. FINDINGS: ET tube, left CVC, appear in stable satisfactory position. There is what appears to be an NG tube, ex tending into the left upper abdomen with its tip beyond the field of view. A rounded density projected over the mid chest is felt likely something extrinsic to the patient. Mon itor leads also present. Extrinsic densities can interfere with interpretation. Heart appears enlarged. Stable mediastinum. Position of the patient's right arm/hand limits evaluation of the lung. There is a similar appearance of what appears to be patchy and some confluent multifocal airspace opacities bilaterally. No visual ized pneumothorax. No significant pleural effusions. Osseous structures appear grossly unchanged. Diffuse degenerative changes of the shoulders and spine with mild apex right scoliosis. IMPRESSION: * Lines and tubes in place as above. * Multifocal bilateral airspace opacities bilaterally, without significant interval change.
[2024-02-04] MEDS: CALCIUM GLUCONATE IN NACL 2 GM in SALINE 1 100ML.BAG IVPB ONE (16:01)
[2024-02-04 17:36] LABS: Glucose,Whole Blood 165 mg/dL (70-110)
[2024-02-04] MEDS ORDERED: VANCOMYCIN IV PER PHARMACY 1 EACH MISC MISCELLANE PRN (23:45)
[2024-02-04] MEDS ORDERED: SODIUM CHLORIDE 0.9% 1,000 ML IV ONE (23:50)
[2024-02-04 23:59] LABS: Glucose,Whole Blood 172 mg/dL (70-110)
[2024-02-05] MEDS: MEROPENEM 1 GM in SODIUM CHLORIDE 0.9% 100 ML IVPB SCH (00:28)
[2024-02-05] MEDS: LACTATED RINGERS 1,000 ML IV ONE (00:44)
[2024-02-05] MEDS: VANCOMYCIN 1,250 MG in SODIUM CHLORIDE 0.9% 250 ML IVPB ONE (00:52)
--- NOTE | 2024-02-05 01:53 | XR ---
EXAM: XR Chest, 1 View CLINICAL HISTORY: SOB TECHNIQUE: Frontal view of the chest. COMPARISON: Single view portable chest 02/04/2024 FINDINGS: Limitations: Limited by obliquity. Lungs: Similar patchy confluent opacities throughout the lungs. No appreciable alteration, accounting for difference in projection technique. Pleural space: Unremarkable. No pneumothorax. No large pleural effusion. Heart: The cardiac silhouette appears slightly less prominent but is thought to be stable. Mediastinum: The mediastinal contours are stable. No definite tracheal deviation. Bones/joints: Unremarkable. No acute fracture. Tubes, lines and devices: The left internal jugular central venous catheter is stable in position with the tip at the cavoatrial junction. The endotracheal tube is noted approximately 3.1 cm from the virgie. Nasogastric tube tip cannot be seen but is below the diaphragm. IMPRESSION: Similar patchy confluent opacities throughout the lungs. No appreciable alteration, accounting for difference in projection technique. No evidence for developing pleural effusion or pneumothorax. No other significant alteration.
[2024-02-05] MEDS: VASOPRESSIN 60 UNIT in SODIUM CHLORIDE 0.9% 150 ML IV SCH (02:00)
[2024-02-05] MEDS ORDERED: EPINEPHrine 10 ML SYRINGE (0.1 MG/ML) ONE (02:07)
[2024-02-05] MEDS: EPINEPHrine 10 ML SYRINGE (0.1 MG/ML) ONE (03:36)
[2024-02-05] MEDS: CISATRACURIUM 2 MG/ML 5 ML VIAL IV ONE ×3 (03:37→03:38)
[2024-02-05 04:21] LABS: ABG PH 6.99 (7.35-7.45); Allen Test Performed? no
[2024-02-05 04:22] LABS: ABG PCO2 80 mmHg (35-45)
[2024-02-05 04:23] LABS: ABG Base Excess -11.7 mmol/L; ABG HCO3 20 mmol/L (21-25); ABG PO2 44 mmHg (83-108); ABG TCO2 22 mmol/L (19-24)
--- NOTE | 2024-02-05 04:32 | XR ---
EXAM: XR Chest, 1 View CLINICAL HISTORY: ITS.REASON XR Reason: possible mechanical obstruction TECHNIQUE: Frontal view of the chest. COMPARISON: February 05, 2024 IMPRESSION: 1. Unchanged support devices. 2. Cardiomegaly. 3. Unchanged patchy and confluent foci of airspace disease within the lungs. Findings may be infectious in nature. However, given interstitial changes that are also noted, findings may be due to accommodation of interstitial and alveolar pulmonary lumen.
[2024-02-05 04:34] LABS: ABG Base Excess -5.8 mmol/L; ABG HCO3 22 mmol/L (21-25); ABG Oxygen Saturation 94.1 % (94-97); ABG PCO2 56 mmHg (35-45); ABG PO2 74 mmHg (83-108); ABG TCO2 24 mmol/L (19-24)
[2024-02-05 04:38] LABS: Allen Test Performed? no
[2024-02-05 05:14] LABS: Basophils % (A) 0 %; Eosinophils # (A) 0.1 k/uL (0-0.7); Eosinophils % (A) 1 %; HCT 29.7 % (34.0-46.0); HGB 9.1 gm/dL (11.4-16.0); Hypochromasia Moderate; Lymphocytes # (A) 0.7 k/uL (1.0-4.8); Lymphocytes % (A) 5 %; MCH 29.2 pg (25.0-35.0); MCHC 30.7 g/dL (31.0-37.0); MCV 95.3 fL (80.0-100.0); Mean Platelet Volume 8.7; Monocytes # (A) 0.5 k/uL (0-1.0); Monocytes % (A) 4 %; Neutrophils % (A) 90 %; Platelet Count 109 k/uL (150-450); RBC 3.12 m/uL (3.80-5.40); RDW 15.6 % (11.5-15.5); WBC 13.4 k/uL (3.8-10.6)
[2024-02-05 05:20] LABS: ALT 31 U/L (4-34); AST 57 U/L (14-36); African American GFR (CKD) >90 (>60 ml/min/1.73 sqM); Albumin 1.9 g/dL (3.5-5.0); Alkaline Phosphatase 115 U/L (38-126); Anion Gap 4 mmol/L; Blood Urea Nitrogen 17 mg/dL (7-17); Calcium 6.5 mg/dL (8.4-10.2); Carbon Dioxide 22 mmol/L (22-30); Chloride 110 mmol/L (98-107); Glucose 200 mg/dL (74-99); Magnesium 1.8 mg/dL (1.6-2.3); Non-African American GFR(CKD) >90 (>60 ml/min/1.73 sqM); Sodium 136 mmol/L (137-145); Total Bilirubin 0.4 mg/dL (0.2-1.3); Total Protein 4.1 g/dL (6.3-8.2)
[2024-02-05 06:01] LABS: Glucose,Whole Blood 228 mg/dL (70-110)
[2024-02-05] MEDS: POTASSIUM BICARBONATE/CIT AC 20 MEQ TABLET.EFF NG-TUBE SCH (06:10)
[2024-02-05] MEDS: MAGNESIUM SULFATE-D5W PMX 1 GM in DEXTROSE/WATER 1 100ML.BAG IVPB ONE (06:19)
--- NOTE | 2024-02-05 07:48 | P.PN ---
Progress Note - Text Progress Note Date: 01/29/24 Date February 05, 2024 Time spent at the bedside, 1:30 AM, total 3:30 AM. I was called by my nurse practitioner, Seamus, that they were unable to ventilate this patient properly, and they were not getting adequate tidal volumes back from the patient. I told Or[place], to have the bedside bronchoscopy set up ready to go, and that I would come into the hospital to see this patient. I arrived to the hospital at 1:30 AM, and the patient was on the volume assist-control mode of ventilation, and exhaled tidal volumes are less than 100 cc. Peak airway pressures are quite high. The patient's vital signs are very unstable. I went ahead and did a bedside emergent bronchoscopy, to ensure that the tube was properly placed. The endotracheal tube was it within the trachea, centered pretty much in the lumen of the trachea, and it was above the tracheal virgie. We suctioned the patient at that point, hoping that removal of any airway secretions, would improve the situation, and it did not. Subsequent to that, the patient had worsening vital signs, and required cardiopulmonary resuscitation, which went on for quite some time. In addition, the patient received epinephrine, fluids, pressors in the form of vasopressin and norepinephrine, and was sedated with propofol, and paralyzed with Nimbex. We tried multiple different things at the bedside, within those 2 hours, including rechecking a chest x-ray, repositioning the patient herself, trying to reposition the endotracheal tube, and also trying different modalities of ventilation. Finally, I was able to settle on pressure regulated volume control ventilation, also known as VC plus, with tidal volumes of 275 cc, and an inspiratory time, of 0.8 seconds. With that, peak airway pressures were below 50, and, we were getting adequate tidal volumes to the patient. The repeat chest x-ray did not show any changes, other than worsening bilateral infiltrates. There was no pneumothorax. Repositioning the patient, and repositioning the endotracheal tube, had little effect on the patient's overall situation. Repeat blood gas done more than an hour after changing the mode of ventilation, showed a pO2 of 74, pCO2 of 56, and a pH of 7.2. This was on settings of VC plus, with a target tidal volume of 275 cc, inspiratory time 1.8 seconds, respiratory rate 30, 100%, and PEEP of 20. Peak airway pressures were 45. Static pressures were 42. The patient had very stiff lungs. Again there was no obvious pneumothorax on chest x-ray, and the only finding was worsening bilateral infiltrates. I used the bronchoscope 2 or 3 different times, to ensure that the patient's endotracheal tube was properly placed, and it was, and also to lavage the patient. No samples were collected. The patient also had supraventricular tachycardia, and we gave the patient some amiodarone, which seemed to settle the patient's heart rate down. I cannot, I spent from 1:30 AM, 3:30 AM at the bedside. Also, during this whole episode, we attempted to call the patient's medical decision-maker, but were unable to reach her. We did leave messages. When I left the patient at 3:30 AM, she was reasonably stable, with reasonable vital signs, including a systolic blood pressure of about 120, saturations of 90%, and a heart rate that was right around 110 bpm.
--- NOTE | 2024-02-05 08:05 | PCN ---
PROCEDURE NOTE PROCEDURE: Emergent bronchoscopy. PREOPERATIVE DIAGNOSIS: Inability to ventilate the patient, check placement of endotracheal tube. POSTOPERATIVE DIAGNOSIS: Inability to ventilate the patient, check placement of endotracheal tube. DESCRIPTION OF PROCEDURE: The procedure was done at about 1:45 in the morning, February 04. The patient's procedure was done at the bedside room 257. The patient was placed on 100%. The bronchoscope adapter was connected to the endotracheal tube. The bronchoscope was placed through the bronchoscope adapter, and passed through the endotracheal tube, out into the trachea. The trachea appeared relatively normal except for the fact that there was a moderate amount of tracheomalacia. The tube was noted to be in the lumen of the trachea, above the tracheal virgie. The tracheal virgie was relatively sharp. There were some secretions noted in the distal trachea, but there was no obstructing mass or tumor. Next, we did a thorough evaluation of both lungs including the right upper lobe and its 3 segments, the right middle lobe and its 2 segments, the right lower lobe and its 5 segments, left upper lobe proper and its 2 segments, lingula and its 2 segments, and left lower lobe and its 4 segments. There were secretions noted throughout. The airways were inflamed and erythematous. The secretions looked purulent. There was no dominant mass or tumor. Each of the bronchopulmonary segments was instilled with saline, and suctioned. We did this over and over until we were sure that all the secretions had been suctioned. Next, the bronchoscope was withdrawn. The patient tolerated the procedure well, and there was no immediate complication. At the time of the procedure, the patient was sedated with propofol and paralyzed with Nimbex. MMODL / IJN: [id number] /
--- NOTE | 2024-02-05 08:08 | XR ---
EXAMINATION TYPE: XR chest 1V portable DATE OF EXAM: 02/05/2024 COMPARISON: 02/05/2024 HISTORY: Shortness of breath TECHNIQUE: Single frontal view of the chest is obtained. FINDINGS: ET tube, NG tube and central line stable. Diffuse bilateral infiltrates stable. Diffuse os teopenia, arthropathy of the shoulder and degenerative changes of the spine. Mild cardiomegaly. IMPRESSION: Diffuse bilateral infiltrates stable correlate for diffuse pneumonia, pulmonary edema or ARDS.
[2024-02-05] MEDS ORDERED: bisacodyL 10 MG SUPP RECTAL PRN (09:33)
[2024-02-05] MEDS: FUROSEMIDE 10 MG/ML 2 ML VIAL IV ONE (09:49)
[2024-02-05] MEDS: SODIUM CHLORIDE 0.9% 1,000 ML IV SCH (09:50)
[2024-02-05 10:16] LABS: ABG Base Excess -6.6 mmol/L; ABG HCO3 23 mmol/L (21-25); ABG Oxygen Saturation 91.9 % (94-97); ABG PO2 77 mmHg (83-108); ABG TCO2 26 mmol/L (19-24); Allen Test Performed? Yes
[2024-02-05 10:23] LABS: ABG PCO2 78 mmHg (35-45); ABG PH 7.08 (7.35-7.45)
[2024-02-05] MEDS: LACTULOSE 20 GM/30 ML CUP PO SCH (10:57)
[2024-02-05] MEDS: SODIUM BICARB 8.4% 50 ML SYR (1 MEQ/ML) IV STA (10:58)
[2024-02-05 11:58] LABS: Glucose,Whole Blood 210 mg/dL (70-110)
[2024-02-05] MEDS: POTASSIUM BICARBONATE/CIT AC 20 MEQ TABLET.EFF PO ONE (13:11)
[2024-02-05] MEDS: DEXTROSE 5% IN WATER 1,000 ML with SODIUM BICARB (1 MEQ/ML) 150 ML IV SCH (13:11)
--- NOTE | 2024-02-05 13:32 | P.PN ---
Subjective Progress Note Date: 02/05/24 On today's evaluation of 02/05/2024, I am seeing the patient for a follow-up. The patient remains intubated on mechanical ventilator. The patient is a case of severe aspiration pneumonia complicated by ARDS. The patient has diffuse bilateral pulmonary infiltrates as noted on the chest x-ray. This started by episode of an aspiration pneumonia. She is known to have chronic dysphagia. She is a case of cerebral palsy with severe cognitive impairment and Down syndrome. She is chronically debilitated and she is essentially nonambulatory. This morning, her condition was terrible. She was on mechanical ventilator sedated with propofol running at 20 mcg/kg/min. At the same time, the patient was on assist-control mode at a rate of 30, tidal volume is at 275, FiO2 was at 100% with a PEEP of 20. The peak airway pressure was 47. The static airway pressure was 45. The patient had a blood gas that showed a pH of 7.2 with a pCO2 of 56 and pO2 of 74. Chest x-ray is consistent with ARDS and diffuse bilateral pulmonary filtrates. Hemodynamically, the patient was on D5 water at a rate of 75 cc an hour. The patient is also on norepinephrine running at 0.35 m sedated and paralyzed. She is on propofol and she is also on Nimbex running at 3. 5 mcg/kg/min. The patient is on norepinephrine running at 0.4 mcg/kg/min. Abdomen is distended. I reviewed the CAT scan of the abdomen that showed significant amount of stool impaction. EDP has not been measured. The patient has a triple-lumen catheter in place along with her left IJ. Antibiotic coverage included IV Zosyn and vancomycin. She is on Lovenox for DVT prophylaxis. In terms of her labs, the WBC count is at 13.4 with a hemoglobin 9.1 and a platelet count of 109. BUN is at 17 with a creatinine of 0.6 and a sodium levels at 136 and a potassium level is at 3.0. Blood sugars at 210. Based on the significant airway elevated pressures, and to avoid ventilator associated lung injury, I dropped the tidal volume down to 200. I dropped the PEEP down to 18. Repeat blood gas showed a pH of 7.08 with a pCO2 of 78 and pO2 of 77. She was kept on the percent FiO2 and based on that she was given 2 A of sodium bicarb and she will be started also on a bicarb infusion. The patient will be kept on pressors for now. Following those modifications, the peak airway pressure dropped down to 37 and the static airway pressure was around 32. Bronchoscopy was done by my partner on multiple occasions. The results are still pending in terms of the bronchioloalveolar lavage. No evidence of any anatomic obstruction of the orotracheal tube. Objective - Vital Signs Vital signs: Vital Signs Temp 96.8 F L 02/05/24 04:00 Pulse 87 02/05/24 07:00 Resp 11 L 02/05/24 02:45 BP 98/75 02/05/24 07:00 Pulse Ox 98 02/05/24 07:00 FiO2 100 02/05/24 04:00 Intake & Output 02/04/24 02/05/24 02/05/24 18:59 06:59 18:59 Intake Total 3570.205 1494.150 484.408 Output Total 545 555 40 Balance 5324.941 4621.150 444.408 Weight 63.3 kg 72.212 kg Intake: IV 1308 2161 256 Azithromycin 500 mg In 250 Sodium Chloride 0.9% 250 ml @ 250 mls/hr IVPB DAILY [facility] Rx#:[id number] Dextrose 5% in Water 1, 675 900 150 000 ml @ 75 mls/hr IV . [id number] [facility] Rx#:[id number] Lactated Ringers 1,000 ml 1000 @ 999 mls/hr IV .Q1H1M ONE Rx#:[id number] Meropenem 1 gm In Sodium 100 100 Chloride 0.9% 100 ml @ 33 .3 mls/hr IVPB Q8HR [facility] Rx#:[id number] Pressure bag 33 36 6 Sodium Chloride 0.9% 1, 300 000 ml @ 100 mls/hr IV . Q10H [facility] Rx#:[id number] Vancomycin 1,250 mg In 125 Sodium Chloride 0.9% 250 ml @ 125 mls/hr IVPB ONCE ONE Rx#:[id number] cefTRIAXone 1 gm In 50 Sodium Chloride 0.9% 50 ml @ 100 mls/hr IVPB Q24HR [facility] Rx#:[id number] Intake, IV Titration 185.714 8482.150 228.408 Amount Cisatracurium 200 mg In 58.908 57.758 0 Sodium Chloride 0.9% 180 ml @ 1 MCG/KG/MIN 3.538 mls/hr IV .Q24H [facility] Rx#: [id number] Norepinephrine 4 mg In 789.544 228.408 Sodium Chloride 0.9% 250 ml @ 0.05 MCG/KG/MIN 11. 233 mls/hr IV .[id number] [facility] Rx#:[id number] Vasopressin 60 unit In 6.962 Sodium Chloride 0.9% 150 ml @ 0.03 UNITS/MIN 4.59 mls/hr IV .Q24H [facility] Rx#: [id number] propofoL 1,000 mg In 157.795 146.886 Empty Bag 1 bag @ 20 MCG/ KG/MIN 7.076 mls/hr IV . Q14H8M [facility] Rx#:[id number] Tube Feeding 70 100 Other 60 90 Output: Urine 545 555 40 Other: Voiding Method Indwelling Catheter Indwelling Catheter ABP, PAP, CO, CI - Last Documented Arterial Blood Pressure 121/61 - Exam GENERAL EXAM: Intubated, sedated 68-year-old female, remains on the ventilator, in no apparent distress. The patient is currently sedated and paralyzed. The patient is currently on a combination of propofol and Nimbex. HEAD: Normocephalic. EYES: Normal reaction of pupils, equal size. NOSE: Clear with pink turbinates. THROAT: Oral endotracheal tube and gastric tube secured in place. No erythema or exudates. NECK: No masses, no JVD. CHEST: No chest wall deformity. LUNGS: Equal air entry with bilateral scattered rhonchi. Marked diminished breath sounds bilaterally. CVS: S1 and S2 normal with no audible murmur, regular rhythm. ABDOMEN: No hepatosplenomegaly, normal bowel sounds, no guarding or rigidity. SPINE: No scoliosis or deformity SKIN: No rashes CENTRAL NERVOUS SYSTEM: Sedated, tone is normal in all 4 extremities. EXTREMITIES: Contractures and deformities due to cerebral palsy and Down syndrome. Peripheral pulses are intact. The patient is currently sedated and paralyzed. - Labs CBC & Chem 7: 02/05/24 04:44 02/05/24 11:00 Labs: Abnormal Lab Results - Last 24 Hours (Table) 02/04/24 02/04/24 02/04/24 Range/Units 04:30 10:31 11:27 WBC (3.8-10.6) k/uL RBC (3.80-5.40) m/uL Hgb (11.4-16.0) gm/dL Hct (34.0-46.0) % MCHC (31.0-37.0) g/dL RDW (11.5-15.5) % Plt Count (150-450) k/uL Neutrophils # (1.3-7.7) k/uL Lymphocytes # (1.0-4.8) k/uL ABG pH (7.35-7.45) ABG pCO2 (35-45) mmHg ABG pO2 (83-108) mmHg ABG HCO3 (21-25) mmol/L ABG O2 Saturation (94-97) % Sodium (137-145) mmol/L Potassium (3.5-5.1) mmol/L Chloride (98-107) mmol/L Glucose (74-99) mg/dL POC Glucose (mg/dL) 171 H (70-110) mg/dL Hemoglobin A1c 6.3 H (<=6.0) % Calcium (8.4-10.2) mg/dL Ionized Calcium Davian 4.0 L (4.5-5.3) mg/dL AST (14-36) U/L Total Protein (6.3-8.2) g/dL Albumin (3.5-5.0) g/dL 02/04/24 02/04/24 02/05/24 Range/Units 17:35 23:58 03:06 WBC (3.8-10.6) k/uL RBC (3.80-5.40) m/uL Hgb (11.4-16.0) gm/dL Hct (34.0-46.0) % MCHC (31.0-37.0) g/dL RDW (11.5-15.5) % Plt Count (150-450) k/uL Neutrophils # (1.3-7.7) k/uL Lymphocytes # (1.0-4.8) k/uL ABG pH 6.99 L* (7.35-7.45) ABG pCO2 80 H* (35-45) mmHg ABG pO2 44 L* (83-108) mmHg ABG HCO3 20 L (21-25) mmol/L ABG O2 Saturation 60.0 L (94-97) % Sodium (137-145) mmol/L Potassium (3.5-5.1) mmol/L Chloride (98-107) mmol/L Glucose (74-99) mg/dL POC Glucose (mg/dL) 165 H 172 H (70-110) mg/dL Hemoglobin A1c (<=6.0) % Calcium (8.4-10.2) mg/dL Ionized Calcium Davian (4.5-5.3) mg/dL AST (14-36) U/L Total Protein (6.3-8.2) g/dL Albumin (3.5-5.0) g/dL 02/05/24 02/05/24 02/05/24 Range/Units 04:32 04:44 04:44 WBC 13.4 H (3.8-10.6) k/uL RBC 3.12 L (3.80-5.40) m/uL Hgb 9.1 L (11.4-16.0) gm/dL Hct 29.7 L (34.0-46.0) % MCHC 30.7 L (31.0-37.0) g/dL RDW 15.6 H (11.5-15.5) % Plt Count 109 L (150-450) k/uL Neutrophils # 12.0 H (1.3-7.7) k/uL Lymphocytes # 0.7 L (1.0-4.8) k/uL ABG pH 7.20 L (7.35-7.45) ABG pCO2 56 H (35-45) mmHg ABG pO2 74 L (83-108) mmHg ABG HCO3 (21-25) mmol/L ABG O2 Saturation (94-97) % Sodium 136 L (137-145) mmol/L Potassium 3.0 L (3.5-5.1) mmol/L Chloride 110 H (98-107) mmol/L Glucose 200 H (74-99) mg/dL POC Glucose (mg/dL) (70-110) mg/dL Hemoglobin A1c (<=6.0) % Calcium 6.5 L (8.4-10.2) mg/dL Ionized Calcium Davian (4.5-5.3) mg/dL AST 57 H (14-36) U/L Total Protein 4.1 L (6.3-8.2) g/dL Albumin 1.9 L (3.5-5.0) g/dL 02/05/24 Range/Units 06:00 WBC (3.8-10.6) k/uL RBC (3.80-5.40) m/uL Hgb (11.4-16.0) gm/dL Hct (34.0-46.0) % MCHC (31.0-37.0) g/dL RDW (11.5-15.5) % Plt Count (150-450) k/uL Neutrophils # (1.3-7.7) k/uL Lymphocytes # (1.0-4.8) k/uL ABG pH (7.35-7.45) ABG pCO2 (35-45) mmHg ABG pO2 (83-108) mmHg ABG HCO3 (21-25) mmol/L ABG O2 Saturation (94-97) % Sodium (137-145) mmol/L Potassium (3.5-5.1) mmol/L Chloride (98-107) mmol/L Glucose (74-99) mg/dL POC Glucose (mg/dL) 228 H (70-110) mg/dL Hemoglobin A1c (<=6.0) % Calcium (8.4-10.2) mg/dL Ionized Calcium Davian (4.5-5.3) mg/dL AST (14-36) U/L Total Protein (6.3-8.2) g/dL Albumin (3.5-5.0) g/dL Microbiology - Last 24 Hours (Table) 02/03/24 12:20 Gram Stain - Preliminary Sputum Assessment and Plan Plan: Acute hypoxemic respiratory failure secondary to an acute community acquired versus aspiration pneumonia requiring intubation and mechanical ventilatory support on 02/03/2024, the patient likely started off with an aspiration pneumonia and subsequently she developed severe ARDS. The PF ratio is under 100 and the patient has diffuse bilateral pulmonary filtrates and in the absence of cardiomyopathy and heart failure, this is consistent with pneumonia and ARDS. She is being currently ventilated with low tidal volume ventilation and the peak inspiratory pressure after the adjustments made were 38 and 31 respectively. T he patient has a PEEP of 18. The most recent blood gas showed significant respite acidosis, persistent hypercapnia and the patient will be started on a bicarb infusion. Acute hypotension, could be related to septic shock. Could be also related to the severe pulmonary restriction and elevated thoracic pressures which probably is impairing the patient's overall hemodynamics and cardiac output. Currently on norepinephrine. Currently on IV fluids. Abdominal distention, rule out abdominal compartmental syndrome contributing to her shock state. Based on the CAT scan of the abdomen, there is no evidence of any ascites and the patient has significant stool impaction. No bowel movement activity yet. Nausea, vomiting and dehydration x 5 days, likely secondary to above Suspected urinary tract infection Recent discharge following an influenza A infection with sepsis History of lower extremity cellulitis Chronic dysphagia to be on a pured diet with honey thick liquids Cerebral palsy with severe cognitive impairment Down syndrome Chronic bilateral foot drop Nonverbal, nonambulatory Plan: Keep the patient sedated on propofol and continue Nimbex for now The tidal volume to 200 The PEEP down to 18 Follow-up blood gases showed significant respiratory acidosis and the patient wa s started on a bicarb infusion Obtain a follow-up blood gas Continue with pressors for now Check abdominal pressures through the Matta catheter to rule out abdominal compartmental syndrome Start the patient on Dulcolax suppositories and lactulose 30 g 3 times a day until the patient establishes soft bowel movement Measured a CVP Give a dose of Lasix 40 mg IV push Continue with the pressors Continue Zosyn and vancomycin Hold on enteral feeding for now Extremely poor prognosis based on above-mentioned comorbidities. Not completely unreasonable to consider comfort care measures on this patient. The patient does not have a next of kin and legal guardianship is to be established. I would support comfort care measures for this patient based on the above- mentioned comorbidities and her significant debilitated condition at baseline. Will continue with supportive care Prognosis remains poor and this evaluation was done more than 30 minutes. Time with Patient: Greater than 30
--- NOTE | 2024-02-05 14:21 | P.EN ---
Patient doing poorly. Appropriate for comfort measures.
[2024-02-05 14:36] VITALS: BMI 35.6
[2024-02-05 14:47] LABS: Allen Test Performed? Yes
[2024-02-05 14:48] LABS: ABG PH 7.15 (7.35-7.45)
[2024-02-05 14:49] LABS: ABG Base Excess 0.4 mmol/L; ABG HCO3 28 mmol/L (21-25); ABG Oxygen Saturation 96.7 % (94-97); ABG PCO2 82 mmHg (35-45); ABG PO2 94 mmHg (83-108); ABG TCO2 31 mmol/L (19-24)
--- NOTE | 2024-02-05 15:17 | P.PN ---
Progress Note - Text Progress Note Date: 02/05/24 Chief Complaint: Congested This is a 68-year-old patient, follows with visiting physician Dr. Azul. Chronic stable medical conditions include cerebral palsy, Down syndrome, nonverbal, nonambulatory. Osteoarthritis. Patient is on a mechanically pured diet with thickened liquids. And is prone to aspiration pneumonias. in the hospital from January 02 through January 07. With bilateral aspiration pneumonitis. And secondary bronchospasm. Readmitted January 12 through January 16: Influenza A pneumonitis. Septic Patient now brought to the ER via EMS. Per the report: Nausea vomiting reported for last 5 days. About 3 times a day usually around mealtime. Being gurgling. Any attempt to feed her. Patient is on pured fluids with thickened liquids. This morning patient is rather congested. Tired. Lethargic. February 02: Earlier this morning patient went into respiratory distress. Drowning and secretions. Dr. CLARK intubated the patient. Patient's caregivers at the bedside. I spoke to patient's guardian Re on the phone. Patient has been full code. They will be scheduling her hearing on Monday with jen Hernandez. I did emphasize that we also have to talk about possible terminal extubation/comfort measures depending on clinical course over the weekend. Current drips include Nimbex 0.998, propofol at 30 mics, norepinephrine at 0.13 mcg. Ventilator settings 100/5. Sedated with Nimbex and propofol. February 03: ICU. Intubated. Caregiver at the bedside. Patient sedated. Mild secretions. Drips include Nimbex 1.5 mcg, norepinephrine 0.08 mcg, propofol at 40 mcg. Tube feeding running at 10 cc an hour. Patient's guardian Re has a court hearing tomorrow morning. No ionized calcium. 2 g of IV calcium gluconate IV piggyback. February 04: ICU. Patient had an episode of PEA last night. Was shocked twice. Given epinephrine. This morning doing poorly. FiO2 100 a PEEP of 18. Tube feeding has been held. Abdomen distended. This morning also the bronchoscopy by Dr. CLARK with little output. Current drips include propofol at 20 mics, vasopressin at 0.04 mics, norepinephrine at 0.5 mics and Nimbex at 3.5. Patient will be appropriate given her extremely poor prognosis for comfort measures. Public guardian will be presenting the case to the customer operations intern. Active Medications Acetaminophen (Acetaminophen Tab 325 Mg Tab) 650 mg PO Q4H PRN PRN Reason: Pain or Fever > 100.5 Albuterol/Ipratropium (Ipratropium-Albuterol 3 Ml Neb) 3 ml INHALATION RT-Q4H [facility] Last Admin: 02/05/24 12:19 Dose: 3 ml Alprazolam (Alprazolam 0.25 Mg Tab) 0.25 mg PO HS@1999 [facility] Last Admin: 02/04/24 19:48 Dose: 0.25 mg Artificial Tears (Artificial Tears-Hypromellose Drops 15 Ml Btl) 1 drops BOTH EYES Q4HR PRN PRN Reason: Dry Eye(s) Aspirin (Aspirin 81 Mg) 81 mg PO DAILY@0800 [facility] Last Admin: 02/05/24 08:22 Dose: 81 mg Atorvastatin Calcium (Atorvastatin 20 Mg Tab) 20 mg PO HS@1999 [facility] Last Admin: 02/04/24 19:48 Dose: 20 mg Baclofen (Baclofen 10 Mg Tab) 20 mg PO HS@1999 [facility] Last Admin: 02/04/24 19:48 Dose: 20 mg Bisacodyl (Bisacodyl 10 Mg Supp) 10 mg RECTAL DAILY PRN PRN Reason: Constipation Buspirone HCl (Buspirone Hcl 10 Mg Tab) 10 mg PO BID@0800,1999 [facility] Last Admin: 02/05/24 08:23 Dose: 10 mg Chlorhexidine Gluconate (Chlorhexidine Gluconate 15 Ml Cup) 15 ml MUCOUS MEM BID [facility] Last Admin: 02/05/24 08:22 Dose: 15 ml Dextrose/Water (Dextrose 50% Syringe 50 Ml) 25 ml IVP PER PROTOCOL PRN; Protocol PRN Reason: Hypoglycemia Dextrose/Water (Dextrose 50% Syringe 50 Ml) 50 ml IVP PER PROTOCOL PRN; Protocol PRN Reason: Hypoglycemia Enoxaparin Sodium (Enoxaparin 40 Mg/0.4 Ml Syringe) 40 mg SQ DAILY [facility] Last Admin: 02/05/24 08:22 Dose: 40 mg Propofol 1,000 mg/ IV Solution 100 mls @ 7.076 mls/hr IV .Q14H8M [facility]; Protocol Last Admin: 02/05/24 06:51 Dose: 20 mcg/kg/min, 7.076 mls/hr Norepinephrine Bitartrate 4 mg (/ Sodium Chloride) 254 mls @ 11.233 mls/hr IV .[id number] [facility]; Protocol Last Admin: 02/05/24 13:11 Dose: 0.5 mcg/kg/min, 112.332 mls/hr Cisatracurium Besylate 200 mg/ (Sodium Chloride) 200 mls @ 3.538 mls/hr IV .Q24H [facility]; Protocol Last Titration: 02/05/24 13:12 Dose: 3 mcg/kg/min, 10.614 mls/hr Meropenem 1 gm/ Sodium (Chloride) 100 mls @ 33.3 mls/hr IVPB Q8HR [facility]; Protocol Stop: 02/12/24 00:01 Last Admin: 02/05/24 08:22 Dose: 33.3 mls/hr Vasopressin 60 unit/ Sodium (Chloride) 153 mls @ 4.59 mls/hr IV .Q24H [facility]; Protocol Last Titration: 02/05/24 03:31 Dose: 0.04 units/min, 6.12 mls/hr Vancomycin HCl 1,250 mg/ (Sodium Chloride) 250 mls @ 125 mls/hr IVPB Q16H [facility] Sodium Bicarbonate 150 ml/ (Dextrose/Water) 1,150 mls @ 75 mls/hr IV .[id number] [facility] Last Admin: 02/05/24 13:11 Dose: 75 mls/hr Insulin Aspart (Insulin Aspart (Novolog) 100 Unit/Ml Vial) 0 unit SQ Q6H [facility]; Protocol Last Admin: 02/05/24 13:09 Dose: 2 unit Ketorolac Tromethamine (Ketorolac 15 Mg/Ml 1 Ml Vial) 15 mg IVP Q6HR PRN PRN Reason: Pain Stop: 02/07/24 01:49 Last Admin: 02/03/24 09:24 Dose: 15 mg Ketotifen Fumarate (Ketotifen 0.025% Ophth Drops 5 Ml Btl) 1 drops BOTH EYES BID PRN PRN Reason: itching/redness Lactulose (Lactulose 20 Gm/30 Ml Cup) 30 gm PO BID [facility] Last Admin: 02/05/24 10:57 Dose: 30 gm Metoclopramide HCl (Metoclopramide 5 Mg/Ml 2 Ml Vial) 5 mg IVP Q6HR PRN PRN Reason: Nausea And Vomiting Miscellaneous Information (Potassium Replacement Protocol 1 Each Misc) 1 each MISCELLANE DAILY PRN; Protocol PRN Reason: Per Protocol Miscellaneous Information (Magnesium Replacement Protocol 1 Each Misc) 1 each MISCELLANE DAILY PRN; Protocol PRN Reason: Per Protocol Morphine Sulfate (Morphine Sulfate 4 Mg/Ml Syringe) 4 mg IVP Q4HR PRN PRN Reason: Pain Last Admin: 02/03/24 11:17 Dose: 4 mg Morphine Sulfate (Morphine Sulfate 2 Mg/Ml Syringe) 2 mg IV Q2HR PRN PRN Reason: Moderate Pain (Scale 4 to 6) Last Admin: 02/04/24 16:57 Dose: 2 mg Naloxone HCl (Naloxone 0.4 Mg/Ml 1 Ml Vial) 0.2 mg IV Q2M PRN PRN Reason: Opioid Reversal Non-Formulary Medication (Thick-It Original Powder) 1 dose PO DIRECTED PRN PRN Reason: w/all liquids Nystatin (Nystatin 100,000 Unit/Gm Powd 15 Gm) 1 applic TOPICAL BID@0800,1999 [facility]; Protocol Last Admin: 02/05/24 08:40 Dose: 1 applic Ondansetron HCl (Ondansetron 4 Mg/2 Ml Vial) 4 mg IVP Q6HR PRN PRN Reason: Nausea And Vomiting Pantoprazole Sodium (Pantoprazole 40 Mg/10 Ml Vial) 40 mg IV DAILY [facility] Last Admin: 02/05/24 08:22 Dose: 40 mg Quetiapine Fumarate (Quetiapine 400 Mg Tab) 400 mg PO HS@1999 [facility] Last Admin: 02/04/24 19:48 Dose: 400 mg Raloxifene HCl (Raloxifene 60 Mg Tab) 60 mg PO DAILY@0800 [facility] Last Admin: 02/05/24 08:23 Dose: 60 mg Silver Sulfadiazine (Silver Sulfadiazine 1% Cream 25 Gm Tube) 1 applic TOPICAL DAILY PRN PRN Reason: Skin Irritation Simethicone (Simethicone 80 Mg Chewable) 120 mg PO BID PRN PRN Reason: gas relief Social history: Lives at [facility]. Nonverbal. Nonambulatory. Physical examination: VITAL SIGNS: 94.5, 98, 30, 111/52, 100% on ventilator GENERAL: laying in bed,, intubated EYES: Pupils equal. Conjunctiva sage l. HEENT: External appearance of nose and ears normal, oral cavity dry. Endotracheal tube. NECK: JVD unable to assess d; masses not palpable. HEART: First and second heart sounds are normal; no edema. LUNGS: Respiratory rate increased, decreased breath sound ABDOMEN: Soft, nontender, liver spleen not palpable, no masses palpable. PSYCH: Sedated MUSCULOSKELETAL: Patient contracted in the hand with extension of metacarpophalangeal and proximal IP joints. Bilateral foot drop. Some cellulitis left lower leg NEUROLOGICAL: Cranial nerves grossly intact; no facial asymmetry, chronic dysarthria INVESTIGATIONS, reviewed in the clinical context: February 04: ABG [pH 7.15 pCO2 82] white count 13.4 hemoglobin 9.1 platelets 109 sodium 136 potassium 3 creatinine 0.65 February 03: White count 9.2 hemoglobin 9.5 platelets 107 sodium 146 potassium 2.5 BUN 27 creatinine 0.6 6 repeat potassium 3.6 ionized calcium 4 Procalcitonin 11.3 Chest x-ray film personally reviewed by me-large infiltrate especially on the right side. January 31: White count 13.4 hemoglobin 11.3 platelets 163 sodium 134 potassium 3.2 BUN 55 creatinine 0.98 amylase 113 lipase 368 Influenza type A, type B, RSV, COVID-19: Not detected Assessment and plan: -Acute bilateral right greater than left aspiration pneumonia, , causing acute hypoxic respiratory failure: Worsening Ceftriaxone, azithromycin -Episode of PEA yesterday evening. Received epinephrine. -Septic shock: Slow to respond IV norepinephrine. IV vasopressin -Acute hypoxic respiratory failure from aspiration pneumonia:: Ventilator assist: Worsening intubated on February 02. FiO2 100% -Secondary bronchospasm secondary to aspiration pneumonia Albuterol nebulizer 4 times daily -Chronic dysphagia Baseline takes pured diet and honey thick liquids-supervised -Chronic cerebral palsy -Down syndrome -Cerebral palsy with severe cognitive impairment -Bilateral foot drop, chronic -Chronic medical debility, patient nonambulatory -Primary/secondary osteoarthritis Pain medications as needed -Full code -Public guardian,Re Patient continues to do poorly. Appropriate candidate for DNR/comfort measures. Public guardian has a hearing in front of the customer operations intern this afternoon. Tube feeding has been held because of abdominal distention. Past Medical History Past Medical History: Heart Failure, Osteoarthritis (OA) Additional Past Medical History / Comment(s): down syndrome, cerebral palsy, nonverbal, aspiration History of Any Multi-Drug Resistant Organisms: None Reported Past Surgical History: No Surgical Hx Reported Past Anesthesia/Blood Transfusion Reactions: No Reported Reaction Past Psychological History: Depression Smoking Status: Never smoker Past Alcohol Use History: None Reported Past Drug Use History: None Reported
[2024-02-05] MEDS: VANCOMYCIN 1,250 MG in SODIUM CHLORIDE 0.9% 250 ML IVPB SCH (16:21)
[2024-02-05 18:00] LABS: Glucose,Whole Blood 185 mg/dL (70-110)
[2024-02-05 20:53] LABS: Glucose,Whole Blood 211 mg/dL (70-110)
[2024-02-05 21:39] VITALS: TEMP 95
--- NOTE | 2024-02-05 21:54 | P.CONS ---
History of Present Illness - Reason for Consult Consult date: 02/05/24 Sepsis Requesting physician: Irwin Dallas - Chief Complaint Increasing shortness of breath x few days - History of Present Illness Patient is a 68-year-old female with a past medical history of any for cerebral palsy Down syndrome presented to the hospital 4 days ago from a local [facility] for evaluation of vomiting x 5 days patient on presentation to the hospital was afebrile did have 1 low-grade fever of 99.7 patient was tachycardic mildly hypoxic and did have a white count of 13.4 on admission patient did have a abdominal pelvis CT mild nodular opacity in the right lower lobe and some groundglass attenuation lower lobes large amount of stool burden normal appendix patient got intubated because of her worsening respiratory status patient did have elevated procalcitonin of 11.3 and has been treated with Rocephin and Zithromax patient did have a cardiac arrest last time requiring resuscitation and the patient has been bronched by pulmonary antibiotic has been broadened infectious was consulted earlier this morning for further management of antibiotic therapy patient at time of my evaluation is on the vent 100% FiO2 patient was mildly hypothermic. Temperature 94.5 F patient is currently on a high-dose pressor support to maintain her blood pressure no significant purulent secretions through the ET or diarrhea has been reported by the nursing staff Review of Systems Positive points has been mentioned in HPI complete review could not be obtained because patient intubated on the vent Past Medical History Past Medical History: Heart Failure, Osteoarthritis (OA) Additional Past Medical History / Comment(s): down syndrome, cerebral palsy, nonverbal, aspiration History of Any Multi-Drug Resistant Organisms: None Reported Past Surgical History: No Surgical Hx Reported Past Anesthesia/Blood Transfusion Reactions: No Reported Reaction Past Psychological History: Depression Smoking Status: Never smoker Past Alcohol Use History: None Reported Past Drug Use History: None Reported Medications and Allergies Allergies Allergy/AdvReac Type Severity Reaction Status Date / Time amoxicillin Allergy Unknown Verified 02/02/24 09:24 Physical Exam Vitals: Vital Signs Temp Pulse Resp BP Pulse Ox FiO2 02/05/24 09:02 100 02/05/24 09:01 82 02/05/24 08:51 81 02/05/24 07:00 87 98/75 98 02/05/24 06:45 105/52 98 02/05/24 06:30 80 97 02/05/24 06:15 82 95/64 98 02/05/24 06:00 106/49 98 02/05/24 05:45 84 96/66 97 02/05/24 05:30 104/73 96 02/05/24 05:15 86 105/53 95 02/05/24 05:00 137 H 103/61 95 02/05/24 04:45 100/49 94 L 02/05/24 04:30 104 H 93/58 92 L 02/05/24 04:15 94 103/54 90 L 02/05/24 04:00 96.8 F L 98/47 88 L 100 02/05/24 03:54 102 H 02/05/24 03:45 131 H 101/60 84 L 02/05/24 03:41 123 H 02/05/24 03:30 114/37 82 L 02/05/24 03:27 100 02/05/24 03:15 98 84/47 63 L 02/05/24 03:00 84/47 46 L 02/05/24 02:45 48 L 11 L 84/47 02/05/24 02:30 105 H 20 78/61 59 L 02/05/24 02:15 62 20 82/50 02/05/24 02:00 133 H 20 76/45 89 L 02/05/24 01:45 220 H 20 91/46 77 L 02/05/24 01:30 112 H 20 88/47 76 L 02/05/24 01:15 112 H 20 93/40 96 02/05/24 01:00 114 H 20 94/40 94 L 02/05/24 00:45 114 H 20 95/41 96 02/05/24 00:30 115 H 20 93/38 96 02/05/24 00:15 116 H 20 86/40 96 02/05/24 00:00 98 F 114 H 20 90/45 96 70 02/04/24 23:58 114 H 02/04/24 23:45 113 H 20 96/45 95 02/04/24 23:38 70 02/04/24 23:37 108 H 02/04/24 23:30 112 H 20 97/45 96 02/04/24 23:15 111 H 20 93/38 97 02/04/24 23:01 111 H 20 93/38 97 02/04/24 23:00 111 H 20 91/39 98 02/04/24 22:45 110 H 20 92/42 98 02/04/24 22:30 110 H 20 93/41 97 02/04/24 22:15 110 H 20 87/42 98 02/04/24 22:00 111 H 20 92/43 97 02/04/24 21:45 108 H 20 89/39 98 02/04/24 21:30 108 H 20 90/38 97 02/04/24 21:15 105 H 20 102/34 95 02/04/24 21:00 101 H 20 93/33 95 02/04/24 20:45 98 20 92/39 95 02/04/24 20:30 99 20 135/74 96 02/04/24 20:15 100 20 97 02/04/24 20:11 100 02/04/24 20:00 98.8 F 99 20 94 L 70 02/04/24 19:51 70 02/04/24 19:50 94 02/04/24 19:45 95 9 L 94 L 02/04/24 19:30 96 20 94 L 02/04/24 19:15 96 20 94 L 02/04/24 19:00 98 20 94 L 02/04/24 18:45 96 20 94 L 02/04/24 18:30 98 20 94 L 02/04/24 18:15 98 20 94 L 02/04/24 18:00 100 20 94 L 02/04/24 17:45 101 H 20 93 L 02/04/24 17:30 101 H 20 95 02/04/24 17:15 101 H 20 95 02/04/24 17:00 101 H 20 135/74 95 02/04/24 16:45 101 H 20 95 02/04/24 16:30 101 H 20 95 02/04/24 16:15 100 20 93 L 02/04/24 16:02 100 02/04/24 16:00 98.1 F 101 H 20 92 L 70 02/04/24 15:45 101 H 20 94 L 02/04/24 15:35 70 02/04/24 15:34 96 02/04/24 15:30 98 20 91 L 02/04/24 15:15 97 20 91 L 02/04/24 15:00 97 20 91 L 02/04/24 14:45 96 20 91 L 02/04/24 14:30 98 20 92 L 02/04/24 14:15 98 20 91 L 02/04/24 14:00 98 20 98 02/04/24 13:45 98 20 99 02/04/24 13:30 98 20 96 02/04/24 13:15 96 20 97 02/04/24 13:00 98 20 96 02/04/24 12:45 97 20 93 L 02/04/24 12:30 95 23 92 L 02/04/24 12:24 98 02/04/24 12:15 94 20 95 02/04/24 12:09 92 70 02/04/24 12:00 93 20 99 70 02/04/24 11:45 92 20 98 02/04/24 11:30 92 20 96 02/04/24 11:15 89 20 97 02/04/24 11:00 89 20 97 02/04/24 10:45 88 20 95 02/04/24 10:30 88 20 95 02/04/24 10:15 90 20 97 Intake and Output 02/04/24 02/05/24 02/05/24 22:59 06:59 14:59 Intake Total 5230.140 1498.623 484.408 Output Total 390 365 40 Balance 818.131 8707.623 444.408 Intake: IV 624 1849 256 Dextrose 5% in Water 1, 600 600 150 000 ml @ 75 mls/hr IV . [id number] [facility] Rx#:[id number] Lactated Ringers 1,000 ml 1000 @ 999 mls/hr IV .Q1H1M ONE Rx#:[id number] Meropenem 1 gm In Sodium 100 100 Chloride 0.9% 100 ml @ 33 .3 mls/hr IVPB Q8HR [facility] Rx#:[id number] Pressure bag 24 24 6 Vancomycin 1,250 mg In 125 Sodium Chloride 0.9% 250 ml @ 125 mls/hr IVPB ONCE ONE Rx#:[id number] Intake, IV Titration 525.131 627.623 228.408 Amount Cisatracurium 200 mg In 58.908 57.758 0 Sodium Chloride 0.9% 180 ml @ 1 MCG/KG/MIN 3.538 mls/hr IV .Q24H [facility] Rx#: [id number] Norepinephrine 4 mg In 286.669 502.875 228.408 Sodium Chloride 0.9% 250 ml @ 0.05 MCG/KG/MIN 11. 233 mls/hr IV .[id number] [facility] Rx#:[id number] Vasopressin 60 unit In 6.962 Sodium Chloride 0.9% 150 ml @ 0.03 UNITS/MIN 4.59 mls/hr IV .Q24H [facility] Rx#: [id number] propofoL 1,000 mg In 179.554 60.028 Empty Bag 1 bag @ 20 MCG/ KG/MIN 7.076 mls/hr IV . Q14H8M [facility] Rx#:[id number] Tube Feeding 80 60 Other 60 60 Output: Urine 390 365 40 Other: Voiding Method Indwelling Catheter Indwelling Catheter Weight 72.212 kg ABP, PAP, CO, CI - Last 8 Hours Arterial Blood Pressure 121/61 Arterial Blood Pressure 121/61 Arterial Blood Pressure 118/58 Arterial Blood Pressure 119/59 Arterial Blood Pressure 124/59 Arterial Blood Pressure 123/58 Arterial Blood Pressure 122/57 Arterial Blood Pressure 119/56 Arterial Blood Pressure 115/52 Arterial Blood Pressure 109/51 Arterial Blood Pressure 102/50 Arterial Blood Pressure 98/48 Arterial Blood Pressure 99/46 Arterial Blood Pressure 104/47 Arterial Blood Pressure 118/50 Arterial Blood Pressure 105/43 Arterial Blood Pressure 62/37 Arterial Blood Pressure 57/34 Arterial Blood Pressure 122/37 Arterial Blood Pressure 50/29 GENERAL DESCRIPTION: Elderly female intubated on the vent HEENT: Shows Pallor , no scleral icterus. Oral mucous membrane is dry. NECK: Trachea central, no thyromegaly. LUNGS: Unlabored breathing. Decreased breath sounds at the base HEART: S1, S2, regular rate and rhythm. No loud murmur ABDOMEN: Soft, no tenderness , guarding or rigidity, no organomegaly EXTREMITIES: No edema of feet. SKIN: No rash, no masses palpable. NEUROLOGICAL: The patient is sedated on the vent Results CBC & Chem 7: 02/06/24 04:31 02/06/24 04:31 Labs: Abnormal Lab Results - Last 24 Hours (Table) 02/04/24 02/04/24 02/04/24 Range/Units 04: 10:31 11:27 WBC (3.8-10.6) k/uL RBC (3.80-5.40) m/uL Hgb (11.4-16.0) gm/dL Hct (34.0-46.0) % MCHC (31.0-37.0) g/dL RDW (11.5-15.5) % Plt Count (150-450) k/uL Neutrophils # (1.3-7.7) k/uL Lymphocytes # (1.0-4.8) k/uL ABG pH (7.35-7.45) ABG pCO2 (35-45) mmHg ABG pO2 (83-108) mmHg ABG HCO3 (21-25) mmol/L ABG O2 Saturation (94-97) % Sodium (137-145) mmol/L Potassium (3.5-5.1) mmol/L Chloride (98-107) mmol/L Glucose (74-99) mg/dL POC Glucose (mg/dL) 171 H (70-110) mg/dL Hemoglobin A1c 6.3 H (<=6.0) % Calcium (8.4-10.2) mg/dL Ionized Calcium Davian 4.0 L (4.5-5.3) mg/dL AST (14-36) U/L Total Protein (6.3-8.2) g/dL Albumin (3.5-5.0) g/dL 02/04/24 02/04/24 02/05/24 Range/Units 17:35 23:58 03:06 WBC (3.8-10.6) k/uL RBC (3.80-5.40) m/uL Hgb (11.4-16.0) gm/dL Hct (34.0-46.0) % MCHC (31.0-37.0) g/dL RDW (11.5-15.5) % Plt Count (150-450) k/uL Neutrophils # (1.3-7.7) k/uL Lymphocytes # (1.0-4.8) k/uL ABG pH 6.99 L* (7.35-7.45) ABG pCO2 80 H* (35-45) mmHg ABG pO2 44 L* (83-108) mmHg ABG HCO3 20 L (21-25) mmol/L ABG O2 Saturation 60.0 L (94-97) % Sodium (137-145) mmol/L Potassium (3.5-5.1) mmol/L Chloride (98-107) mmol/L Glucose (74-99) mg/dL POC Glucose (mg/dL) 165 H 172 H (70-110) mg/dL Hemoglobin A1c (<=6.0) % Calcium (8.4-10.2) mg/dL Ionized Calcium Davian (4.5-5.3) mg/dL AST (14-36) U/L Total Protein (6.3-8.2) g/dL Albumin (3.5-5.0) g/dL 02/05/24 02/05/24 02/05/24 Range/Units 04:32 04:44 04:44 WBC 13.4 H (3.8-10.6) k/uL RBC 3.12 L (3.80-5.40) m/uL Hgb 9.1 L (11.4-16.0) gm/dL Hct 29.7 L (34.0-46.0) % MCHC 30.7 L (31.0-37.0) g/dL RDW 15.6 H (11.5-15.5) % Plt Count 109 L (150-450) k/uL Neutrophils # 12.0 H (1.3-7.7) k/uL Lymphocytes # 0.7 L (1.0-4.8) k/uL ABG pH 7.20 L (7.35-7.45) ABG pCO2 56 H (35-45) mmHg ABG pO2 74 L (83-108) mmHg ABG HCO3 (21-25) mmol/L ABG O2 Saturation (94-97) % Sodium 136 L (137-145) mmol/L Potassium 3.0 L (3.5-5.1) mmol/L Chloride 110 H (98-107) mmol/L Glucose 200 H (74-99) mg/dL POC Glucose (mg/dL) (70-110) mg/dL Hemoglobin A1c (<=6.0) % Calcium 6.5 L (8.4-10.2) mg/dL Ionized Calcium Davian (4.5-5.3) mg/dL AST 57 H (14-36) U/L Total Protein 4.1 L (6.3-8.2) g/dL Albumin 1.9 L (3.5-5.0) g/dL 02/05/24 Range/Units 06:00 WBC (3.8-10.6) k/uL RBC (3.80-5.40) m/uL Hgb (11.4-16.0) gm/dL Hct (34.0-46.0) % MCHC (31.0-37.0) g/dL RDW (11.5-15.5) % Plt Count (150-450) k/uL Neutrophils # (1.3-7.7) k/uL Lymphocytes # (1.0-4.8) k/uL ABG pH (7.35-7.45) ABG pCO2 (35-45) mmHg ABG pO2 (83-108) mmHg ABG HCO3 (21-25) mmol/L ABG O2 Saturation (94-97) % Sodium (137-145) mmol/L Potassium (3.5-5.1) mmol/L Chloride (98-107) mmol/L Glucose (74-99) mg/dL POC Glucose (mg/dL) 228 H (70-110) mg/dL Hemoglobin A1c (<=6.0) % Calcium (8.4-10.2) mg/dL Ionized Calcium Davian (4.5-5.3) mg/dL AST (14-36) U/L Total Protein (6.3-8.2) g/dL Albumin (3.5-5.0) g/dL Microbiology - Last 24 Hours (Table) 02/03/24 12:20 Gram Stain - Preliminary Sputum Assessment and Plan (1) Aspiration pneumonia Status: Acute Code(s): J69.0 - PNEUMONITIS DUE TO INHALATION OF FOOD AND VOMIT SNOMED Code(s): 863222613 (2) Penicillin allergy Status: Acute Code(s): Z88.0 - ALLERGY STATUS TO PENICILLIN SNOMED Code(s): 06399642 (3) Sepsis Status: Acute Code(s): A41.9 - SEPSIS, UNSPECIFIED ORGANISM SNOMED Code(s): 79571330 Plan: 1patient with sepsis/septic shock in this patient who did have hypothermia elevated white count tachycardia with initial admission to the hospital with likely aspiration pneumonia subsequently did have a cardiac arrest and this patient has been in the hospital we will need to cover for resistant gram- positive as well as gram-negative pathogen 2-patient has been started on meropenem and vancomycin should provide broader antibiotic coverage while waiting for the culture to finalize Prognosis remains to be guarded Family at the bedside question concern also We will follow on clinical condition and cultures to further adjust medication if needed Thank you for this consultation we will follow the patient along with you Dictation was produced using [email or web address] dictation software. please excuse any grammatical, word or spelling errors. Time with Patient: Greater than 30
[2024-02-06 00:01] LABS: Glucose,Whole Blood 151 mg/dL (70-110)
[2024-02-06 02:22] VITALS: BP 105/56
[2024-02-06 04:46] LABS: Basophils # (A) 0.1 k/uL (0-0.2); Basophils % (A) 1 %; Eosinophils # (A) 0.1 k/uL (0-0.7); Eosinophils % (A) 1 %; HCT 30.9 % (34.0-46.0); HGB 9.4 gm/dL (11.4-16.0); Hypochromasia Marked; Lymphocytes # (A) 1.5 k/uL (1.0-4.8); Lymphocytes % (A) 17 %; MCH 29.3 pg (25.0-35.0); MCHC 30.3 g/dL (31.0-37.0); MCV 96.6 fL (80.0-100.0); Mean Platelet Volume 10.2; Monocytes # (A) 0.4 k/uL (0-1.0); Monocytes % (A) 5 %; Neutrophils # (A) 6.5 k/uL (1.3-7.7); Neutrophils % (A) 75 %; Platelet Count 101 k/uL (150-450); RDW 15.5 % (11.5-15.5); WBC 8.6 k/uL (3.8-10.6)
[2024-02-06 05:09] LABS: ABG Base Excess -0.3 mmol/L; ABG HCO3 28 mmol/L (21-25); ABG Oxygen Saturation 96.8 % (94-97); ABG PO2 88 mmHg (83-108); ABG TCO2 31 mmol/L (19-24); Allen Test Performed? Yes
[2024-02-06 05:15] LABS: ABG PCO2 79 mmHg (35-45); ABG PH 7.16 (7.35-7.45)
[2024-02-06 05:19] LABS: ALT 404 U/L (4-34); African American GFR (CKD) 86 (>60 ml/min/1.73 sqM); Albumin 1.7 g/dL (3.5-5.0); Alkaline Phosphatase 133 U/L (38-126); Anion Gap 2 mmol/L; Blood Urea Nitrogen 19 mg/dL (7-17); Carbon Dioxide 28 mmol/L (22-30); Chloride 108 mmol/L (98-107); Glucose 142 mg/dL (74-99); Non-African American GFR(CKD) 74 (>60 ml/min/1.73 sqM); Potassium 4.2 mmol/L (3.5-5.1); Sodium 138 mmol/L (137-145); Total Bilirubin 0.4 mg/dL (0.2-1.3); Total Protein 3.7 g/dL (6.3-8.2)
[2024-02-06 05:32] LABS: AST 1085 U/L (14-36); Calcium 5.5 mg/dL (8.4-10.2)
[2024-02-06 06:00] LABS: Glucose,Whole Blood 150 mg/dL (70-110)
--- NOTE | 2024-02-06 07:53 | XR ---
EXAMINATION TYPE: XR chest 1V portable DATE OF EXAM: 02/06/2024 COMPARISON: 02/05/2024 HISTORY: Shortness of breath TECHNIQUE: Single frontal view of the chest is obtained. FINDINGS: ET tube, NG tube and central line stable. Diffuse bilateral infiltrates stable. Diffuse os teopenia, arthropathy of the shoulder and degenerative changes of the spine. Mild cardiomegaly. IMPRESSION: Diffuse bilateral infiltrates stable correlate for diffuse pneumonia, pulmonary edema or ARDS.
--- NOTE | 2024-02-06 09:49 | P.PN ---
Subjective Progress Note Date: 02/06/24 On today's evaluation of 02/05/2024, I am seeing the patient for a follow-up. The patient remains intubated on mechanical ventilator. The patient is a case of severe aspiration pneumonia complicated by ARDS. The patient has diffuse bilateral pulmonary infiltrates as noted on the chest x-ray. This started by episode of an aspiration pneumonia. She is known to have chronic dysphagia. She is a case of cerebral palsy with severe cognitive impairment and Down syndrome. She is chronically debilitated and she is essentially nonambulatory. This morning, her condition was terrible. She was on mechanical ventilator sedated with propofol running at 20 mcg/kg/min. At the same time, the patient was on assist-control mode at a rate of 30, tidal volume is at 275, FiO2 was at 100% with a PEEP of 20. The peak airway pressure was 47. The static airway pressure was 45. The patient had a blood gas that showed a pH of 7.2 with a pCO2 of 56 and pO2 of 74. Chest x-ray is consistent with ARDS and diffuse bilateral pulmonary filtrates. Hemodynamically, the patient was on D5 water at a rate of 75 cc an hour. The patient is also on norepinephrine running at 0.35 m sedated and paralyzed. She is on propofol and she is also on Nimbex running at 3. 5 mcg/kg/min. The patient is on norepinephrine running at 0.4 mcg/kg/min. Abdomen is distended. I reviewed the CAT scan of the abdomen that showed significant amount of stool impaction. EDP has not been measured. The patient has a triple-lumen catheter in place along with her left IJ. Antibiotic coverage included IV Zosyn and vancomycin. She is on Lovenox for DVT prophylaxis. In terms of her labs, the WBC count is at 13.4 with a hemoglobin 9.1 and a platelet count of 109. BUN is at 17 with a creatinine of 0.6 and a sodium levels at 136 and a potassium level is at 3.0. Blood sugars at 210. Based on the significant airway elevated pressures, and to avoid ventilator associated lung injury, I dropped the tidal volume down to 200. I dropped the PEEP down to 18. Repeat blood gas showed a pH of 7.08 with a pCO2 of 78 and pO2 of 77. She was kept on the percent FiO2 and based on that she was given 2 A of sodium bicarb and she will be started also on a bicarb infusion. The patient will be kept on pressors for now. Following those modifications, the peak airway pressure dropped down to 37 and the static airway pressure was around 32. Bronchoscopy was done by my partner on multiple occasions. The results are still pending in terms of the bronchioloalveolar lavage. No evidence of any anatomic obstruction of the orotracheal tube. On today's evaluation of 02/06/2024, the patient is being seen for a follow-up. Events from yesterday was noted. The patient had significant hypoxemia and difficulties in oxygenation and ventilation due to his severe ARDS and multisystem organ failure. She sustained a cardiac arrest with PEA rhythm for a total of 2 minutes and she was given CPR and rounds of epinephrine and following that there was return of spontaneous circulation. This morning, the patient is on propofol running at 20 mcg/kg/min and the patient is on Nimbex at 2.5 mcg/kg/min. The patient is hypotensive on norepinephrine running at 0.5 mcg/kg/min and the patient is on a physiologic dose of vasopressin. She remains on assist-control mode of mechanical ventilation. Rate is at 30 with a tidal volume of 200 and FiO2 is 100% with a PEEP of 18. Peak airway pressure is 57. The plateau airway pressure is 56. Chest x-ray is consistent with diffuse bilateral pulmonary filtrates consistent with ARDS. Blood gas from today shows a pH of 7.16 with a pCO2 of 79 and a pO2 of 88. The patient has a fluid balance of 4.5 L over the past 24 hours. The labs from today shows a WBC count of 8.6 with a hemoglobin 9.4 and a platelet count of 101. Sodium is at 138, serum bicarb is at 28 with a BUN of 19 and a creatinine of 0.8. Liver function tests are abnormal and the patient has sustained an acute hepatic injury/shock liver. AST is 1085, ALT is 404 and alkaline phosphatase is 133 with a bilirubin of 0.4. The patient's procalcitonin level was 11 at time of admission. She remains on the same antibiotic coverage for now. She remains on a combination of IV meropenem and vancomycin. The patient remains on a bicarb infusion which is running at a rate of 75 cc an hour.. She is currently afebrile. OG tube is in place. Feeding is in the form of vital AF at the rate of 10 cc an hour. Abdomen remains quite distended. She was given laxatives yesterday and she has not had any significant bowel movement yesterday. Abdominal pressures were checked yesterday and they were Quite elevated at 25 cm of water. Objective - Vital Signs Vital signs: Vital Signs Temp 95 F L 02/05/24 21:12 Pulse 75 02/06/24 09:00 Resp 30 H 02/06/24 09:00 BP 105/56 02/06/24 02:00 Pulse Ox 98 02/06/24 09:00 FiO2 100 02/06/24 08:14 Intake & Output 02/05/24 02/06/24 02/06/24 18:59 06:59 18:59 Intake Total 2802.547 2128.113 1049.853 Output Total 225 140 20 Balance 2577.547 0042.252 4458.853 Weight 72.212 kg 77.6 kg Intake: IV 286 961 334 Dextrose 5% in Water 1, 150 000 ml @ 75 mls/hr IV . [id number] [facility] Rx#:[id number] Dextrose 5% in Water 1, 825 225 000 ml @ 75 mls/hr IV . [id number] [facility] with Sodium Bicarb (1 Meq/ml) 150 ml Rx#:[id number] Meropenem 1 gm In Sodium 100 100 100 Chloride 0.9% 100 ml @ 33 .3 mls/hr IVPB Q8HR [facility] Rx#:[id number] Pressure bag 36 36 9 Intake, IV Titration 2516.547 1147.113 685.853 Amount Cisatracurium 200 mg In 109.796 181.853 Sodium Chloride 0.9% 180 ml @ 1 MCG/KG/MIN 3.538 mls/hr IV .Q24H [facility] Rx#: [id number] Dextrose 5% in Water 1, 750 75 000 ml @ 75 mls/hr IV . [id number] [facility] with Sodium Bicarb (1 Meq/ml) 150 ml Rx#:[id number] Meropenem 1 gm In Sodium 100 Chloride 0.9% 100 ml @ 33 .3 mls/hr IVPB Q8HR [facility] Rx#:[id number] Norepinephrine 4 mg In 1239.411 915.136 254 Sodium Chloride 0.9% 250 ml @ 0.05 MCG/KG/MIN 11. 233 mls/hr IV .[id number] [facility] Rx#:[id number] Vancomycin 1,250 mg In 250 250 Sodium Chloride 0.9% 250 ml @ 125 mls/hr IVPB Q16H [facility] Rx#:[id number] Vasopressin 60 unit In 115.464 Sodium Chloride 0.9% 150 ml @ 0.03 UNITS/MIN 4.59 mls/hr IV .Q24H [facility] Rx#: [id number] propofoL 1,000 mg In 67.34 41.513 Empty Bag 1 bag @ 20 MCG/ KG/MIN 7.076 mls/hr IV . [id number] [facility] Rx#:[id number] Tube Feeding 20 30 Output: Urine 225 140 20 Other: Voiding Method Indwelling Catheter Indwelling Catheter Indwelling Catheter ABP, PAP, CO, CI - Last Documented Arterial Blood Pressure 117/59 - Exam GENERAL EXAM: Intubated, sedated 68-year-old female, remains on the ventilator, in no apparent distress. The patient is currently sedated and paralyzed. The patient is currently on a combination of propofol and Nimbex. HEAD: Normocephalic. EYES: Normal reaction of pupils, equal size. NOSE: Clear with pink turbinates. THROAT: Oral endotracheal tube and gastric tube secured in place. No erythema o r exudates. NECK: No masses, no JVD. CHEST: No chest wall deformity. LUNGS: Equal air entry with bilateral scattered rhonchi. Marked diminished breath sounds bilaterally. CVS: S1 and S2 normal with no audible murmur, regular rhythm. ABDOMEN: No hepatosplenomegaly, normal bowel sounds, no guarding or rigidity. SPINE: No scoliosis or deformity SKIN: No rashes CENTRAL NERVOUS SYSTEM: Sedated, tone is normal in all 4 extremities. EXTREMITIES: Contractures and deformities due to cerebral palsy and Down syndrome. Peripheral pulses are intact. The patient is currently sedated and paralyzed. - Labs CBC & Chem 7: 02/06/24 04:31 02/06/24 04:31 Labs: Abnormal Lab Results - Last 24 Hours (Table) 02/05/24 02/05/24 02/05/24 Range/Units 10:13 11:55 14:25 RBC (3.80-5.40) m/uL Hgb (11.4-16.0) gm/dL Hct (34.0-46.0) % MCHC (31.0-37.0) g/dL Plt Count (150-450) k/uL ABG pH 7.08 L* 7.15 L* (7.35-7.45) ABG pCO2 78 H* 82 H* (35-45) mmHg ABG pO2 77 L (83-108) mmHg ABG HCO3 28 H (21-25) mmol/L ABG Total CO2 26 H 31 H (19-24) mmol/L ABG O2 Saturation 91.9 L (94-97) % Chloride (98-107) mmol/L BUN (7-17) mg/dL Glucose (74-99) mg/dL POC Glucose (mg/dL) 210 H (70-110) mg/dL Calcium (8.4-10.2) mg/dL AST (14-36) U/L ALT (4-34) U/L Alkaline Phosphatase (38-126) U/L Total Protein (6.3-8.2) g/dL Albumin (3.5-5.0) g/dL 02/05/24 02/05/24 02/06/24 Range/Units 17:59 20:52 00:00 RBC (3.80-5.40) m/uL Hgb (11.4-16.0) gm/dL Hct (34.0-46.0) % MCHC (31.0-37.0) g/dL Plt Count (150-450) k/uL ABG pH (7.35-7.45) ABG pCO2 (35-45) mmHg ABG pO2 (83-108) mmHg ABG HCO3 (21-25) mmol/L ABG Total CO2 (19-24) mmol/L ABG O2 Saturation (94-97) % Chloride (98-107) mmol/L BUN (7-17) mg/dL Glucose (74-99) mg/dL POC Glucose (mg/dL) 185 H 211 H 151 H (70-110) mg/dL Calcium (8.4-10.2) mg/dL AST (14-36) U/L ALT (4-34) U/L Alkaline Phosphatase (38-126) U/L Total Protein (6.3-8.2) g/dL Albumin (3.5-5.0) g/dL 02/06/24 02/06/24 02/06/24 Range/Units 04:31 04:31 05:06 RBC 3.20 L (3.80-5.40) m/uL Hgb 9.4 L (11.4-16.0) gm/dL Hct 30.9 L (34.0-46.0) % MCHC 30.3 L (31.0-37.0) g/dL Plt Count 101 L (150-450) k/uL ABG pH 7.16 L* (7.35-7.45) ABG pCO2 79 H* (35-45) mmHg ABG pO2 (83-108) mmHg ABG HCO3 28 H (21-25) mmol/L ABG Total CO2 31 H (19-24) mmol/L ABG O2 Saturation (94-97) % Chloride 108 H (98-107) mmol/L BUN 19 H (7-17) mg/dL Glucose 142 H (74-99) mg/dL POC Glucose (mg/dL) (70-110) mg/dL Calcium 5.5 L* (8.4-10.2) mg/dL AST 1085 H (14-36) U/L ALT 404 H (4-34) U/L Alkaline Phosphatase 133 H (38-126) U/L Total Protein 3.7 L (6.3-8.2) g/dL Albumin 1.7 L (3.5-5.0) g/dL 02/06/24 Range/Units 05:59 RBC (3.80-5.40) m/uL Hgb (11.4-16.0) gm/dL Hct (34.0-46.0) % MCHC (31.0-37.0) g/dL Plt Count (150-450) k/uL ABG pH (7.35-7.45) ABG pCO2 (35-45) mmHg ABG pO2 (83-108) mmHg ABG HCO3 (21-25) mmol/L ABG Total CO2 (19-24) mmol/L ABG O2 Saturation (94-97) % Chloride (98-107) mmol/L BUN (7-17) mg/dL Glucose (74-99) mg/dL POC Glucose (mg/dL) 150 H (70-110) mg/dL Calcium (8.4-10.2) mg/dL AST (14-36) U/L ALT (4-34) U/L Alkaline Phosphatase (38-126) U/L Total Protein (6.3-8.2) g/dL Albumin (3.5-5.0) g/dL Microbiology - Last 24 Hours (Table) 02/03/24 12:20 Gram Stain - Final Sputum Sputum Culture - Final Assessment and Plan Plan: Acute hypoxemic respiratory failure secondary to an acute community acquired versus aspiration pneumonia requiring intubation and mechanical ventilatory support on 02/03/2024, the patient likely started off with an aspiration pneumonia and subsequently she developed severe ARDS. The PF ratio is under 100 and the patient has diffuse bilateral pulmonary filtrates and in the absence of cardiomyopathy and heart failure, this is consistent with pneumonia and ARDS. She is being currently ventilated with low tidal volume ventilation. On today's evaluation, the patient is extremely noncompliant in terms of her lungs. Peak and plateau airway pressures are very much elevated. Unable to effectively oxygenate and ventilate the patient at this point in time. She continues to have significant respiratory acidosis. She is still maintained on a bicarb infusion. The prognosis is extremely poor. The patient is showing signs of multisystem organ failure. She remains in shock. Acute hypotension, could be related to septic shock. Could be also related to the severe pulmonary restriction and elevated thoracic pressures which probably is impairing the patient's overall hemodynamics and cardiac output. Currently on norepinephrine. The patient remains on high-dose pressors and the patient is also on vasopressin. Abdominal distention, rule out abdominal compartmental syndrome contributing to her shock state. The patient was started on appropriate laxatives. T scan of significant stool impaction. Intra-abdominal pressures are quite elevated at this point in time PEA cardiac arrest, post CPR and the patient remains on high-dose pressors Shock liver with elevation of the liver function tests. Nausea, vomiting and dehydration x 5 days, likely secondary to above Suspected urinary tract infection Recent discharge following an influenza A infection with sepsis History of lower extremity cellulitis Chronic dysphagia to be on a pured diet with honey thick liquids Cerebral palsy with severe cognitive impairment Down syndrome Chronic bilateral foot drop Nonverbal, nonambulatory Plan: This is a critically ill female patient with a extremely high mortality risk. The patient has severe ARDS/shock/multisystem organ failure. In addition, she has baseline debility related to cerebral palsy and Down syndrome. Awaiting recommendations from legal guardian in terms of care. Strongly support comfort care measures/end-of-life care this patient has had recovery is extremely low at this point in time. In fact, the patient is unable to oxygenate and ventilate appropriately related to her severe ARDS and restrictive lung physiology. Keep the patient sedated on propofol and continue Nimbex for now Keep same ventilator settings. No need for any adjustments at this point in time despite elevated peak and static airway pressure. Unfortunately, unable to make any adjustments to improve her airway pressures as the patient is in severe ARDS and her lungs are extremely noncompliant at this point in time. Continue bicarb infusion Continue with pressors for now and the patient is currently on a combination of norepinephrine and vasopressin Dulcolax suppositories and lactulose 30 g 3 times a day until the patient establishes soft bowel movement Measured a CVP Continue meropenem and vancomycin Very low rate enteral feeding for now Extremely poor prognosis based on above-mentioned comorbidities. Not completely unreasonable to consider comfort care measures on this patient. The patient does not have a next of kin and legal guardianship is to be established. I would support comfort care measures for this patient based on the above-me ntioned comorbidities and her significant debilitated condition at baseline. Will continue with supportive care Prognosis remains poor and this evaluation was done more than 30 minutes. Time with Patient: Greater than 30
[2024-02-06 11:34] LABS: Glucose,Whole Blood 174 mg/dL (70-110)
--- NOTE | 2024-02-06 11:42 | P.PN ---
Progress Note - Text Progress Note Date: 02/06/24 Chief Complaint: Congested This is a 68-year-old patient, follows with visiting physician Dr. Azul. Chronic stable medical conditions include cerebral palsy, Down syndrome, nonverbal, nonambulatory. Osteoarthritis. Patient is on a mechanically pured diet with thickened liquids. And is prone to aspiration pneumonias. in the hospital from January 02 through January 07. With bilateral aspiration pneumonitis. And secondary bronchospasm. Readmitted January 12 through January 16: Influenza A pneumonitis. Septic Patient now brought to the ER via EMS. Per the report: Nausea vomiting reported for last 5 days. About 3 times a day usually around mealtime. Being gurgling. Any attempt to feed her. Patient is on pured fluids with thickened liquids. This morning patient is rather congested. Tired. Lethargic. February 02: Earlier this morning patient went into respiratory distress. Drowning and secretions. Dr. CLARK intubated the patient. Patient's caregivers at the bedside. I spoke to patient's guardian Re on the phone. Patient has been full code. They will be scheduling her hearing on Monday with jen Hernandez. I did emphasize that we also have to talk about possible terminal extubation/comfort measures depending on clinical course over the weekend. Current drips include Nimbex 0.998, propofol at 30 mics, norepinephrine at 0.13 mcg. Ventilator settings 100/5. Sedated with Nimbex and propofol. February 03: ICU. Intubated. Caregiver at the bedside. Patient sedated. Mild secretions. Drips include Nimbex 1.5 mcg, norepinephrine 0.08 mcg, propofol at 40 mcg. Tube feeding running at 10 cc an hour. Patient's guardian Re has a court hearing tomorrow morning. No ionized calcium. 2 g of IV calcium gluconate IV piggyback. February 04: ICU. Patient had an episode of PEA last night. Was shocked twice. Given epinephrine. This morning doing poorly. FiO2 100 a PEEP of 18. Tube feeding has been held. Abdomen distended. This morning also the bronchoscopy by Dr. CLARK with little output. Current drips include propofol at 20 mics, vasopressin at 0.04 mics, norepinephrine at 0.5 mics and Nimbex at 3.5. Patient will be appropriate given her extremely poor prognosis for comfort measures. Public guardian will be presenting the case to the presiding judge. February 05: ICU. Patient continues to do poorly. Another episode of PEA last night. Currently on the ventilator intubated. FiO2 100 PEEP of 18. Drips include vasopressin 0.04 mcg, propofol 20 mcg, norepinephrine 0.5 mcg, Nimbex at 2.5. Tube feeding at 10 cc an hour. Abdomen is distended. Patient will be appropriate for comfort measures. With terminal extubation. Patient now has also developed ischemic hepatitis Active Medications Acetaminophen (Acetaminophen Tab 325 Mg Tab) 650 mg PO Q4H PRN PRN Reason: Pain or Fever > 100.5 Albuterol/Ipratropium (Ipratropium-Albuterol 3 Ml Neb) 3 ml INHALATION RT-Q4H [facility] Last Admin: 02/06/24 11:27 Dose: 3 ml Alprazolam (Alprazolam 0.25 Mg Tab) 0.25 mg PO HS@1999 [facility] Last Admin: 02/05/24 20:03 Dose: Not Given Artificial Tears (Artificial Tears-Hypromellose Drops 15 Ml Btl) 1 drops BOTH EYES Q4HR PRN PRN Reason: Dry Eye(s) Aspirin (Aspirin 81 Mg) 81 mg PO DAILY@08 [facility] Last Admin: 02/06/24 08:45 Dose: 81 mg Atorvastatin Calcium (Atorvastatin 20 Mg Tab) 20 mg PO HS@1999 [facility] Last Admin: 02/05/24 20:10 Dose: 20 mg Baclofen (Baclofen 10 Mg Tab) 20 mg PO HS@1999 [facility] Last Admin: 02/05/24 20:10 Dose: 20 mg Bisacodyl (Bisacodyl 10 Mg Supp) 10 mg RECTAL DAILY PRN PRN Reason: Constipation Buspirone HCl (Buspirone Hcl 10 Mg Tab) 10 mg PO BID@799,1999 [facility] Last Admin: 02/06/24 08:45 Dose: 10 mg Chlorhexidine Gluconate (Chlorhexidine Gluconate 15 Ml Cup) 15 ml MUCOUS MEM BID [facility] Last Admin: 02/06/24 08:47 Dose: 15 ml Dextrose/Water (Dextrose 50% Syringe 50 Ml) 25 ml IVP PER PROTOCOL PRN; Protocol PRN Reason: Hypoglycemia Dextrose/Water (Dextrose 50% Syringe 50 Ml) 50 ml IVP PER PROTOCOL PRN; Protocol PRN Reason: Hypoglycemia Enoxaparin Sodium (Enoxaparin 40 Mg/0.4 Ml Syringe) 40 mg SQ DAILY [facility] Last Admin: 02/06/24 08:45 Dose: 40 mg Propofol 1,000 mg/ IV Solution 100 mls @ 7.076 mls/hr IV .[id number] [facility]; Protocol Last Admin: 02/05/24 22:14 Dose: 20 mcg/kg/min, 7.076 mls/hr Norepinephrine Bitartrate 4 mg (/ Sodium Chloride) 254 mls @ 11.233 mls/hr IV .[id number] [facility]; Protocol Last Admin: 02/06/24 08:46 Dose: 0.4 mcg/kg/min, 89.866 mls/hr Cisatracurium Besylate 200 mg/ (Sodium Chloride) 200 mls @ 3.538 mls/hr IV .Q24H [facility]; Protocol Last Admin: 02/06/24 09:29 Dose: 3 mcg/kg/min, 10.614 mls/hr Meropenem 1 gm/ Sodium (Chloride) 100 mls @ 33.3 mls/hr IVPB Q8HR [facility]; Protocol Stop: 02/12/24 00:01 Last Admin: 02/06/24 08:50 Dose: 33.3 mls/hr Vasopressin 60 unit/ Sodium (Chloride) 153 mls @ 4.59 mls/hr IV .Q24H [facility]; Protocol Last Admin: 02/05/24 22:23 Dose: 0.04 units/min, 6.12 mls/hr Vancomycin HCl 1,250 mg/ (Sodium Chloride) 250 mls @ 125 mls/hr IVPB Q16H [facility] Last Admin: 02/06/24 08:52 Dose: 125 mls/hr Sodium Bicarbonate 150 ml/ (Dextrose/Water) 1,150 mls @ 75 mls/hr IV .[id number] [facility] Last Admin: 02/06/24 04:14 Dose: 75 mls/hr Insulin Aspart (Insulin Aspart (Novolog) 100 Unit/Ml Vial) 0 unit SQ Q6H [facility]; Protocol Last Admin: 02/06/24 06:03 Dose: Not Given Ketorolac Tromethamine (Ketorolac 15 Mg/Ml 1 Ml Vial) 15 mg IVP Q6HR PRN PRN Reason: Pain Stop: 02/07/24 01:49 Last Admin: 02/03/24 09:24 Dose: 15 mg Ketotifen Fumarate (Ketotifen 0.025% Ophth Drops 5 Ml Btl) 1 drops BOTH EYES BID PRN PRN Reason: itching/redness Lactulose (Lactulose 20 Gm/30 Ml Cup) 30 gm PO BID [facility] Last Admin: 02/06/24 08:45 Dose: 30 gm Metoclopramide HCl (Metoclopramide 5 Mg/Ml 2 Ml Vial) 5 mg IVP Q6HR PRN PRN Reason: Nausea And Vomiting Miscellaneous Information (Potassium Replacement Protocol 1 Each Misc) 1 each MISCELLANE DAILY PRN; Protocol PRN Reason: Per Protocol Miscellaneous Information (Magnesium Replacement Protocol 1 Each Misc) 1 each MISCELLANE DAILY PRN; Protocol PRN Reason: Per Protocol Miscellaneous Information (Vancomycin Trough Due 1 Each Misc) 0 each MISCELLANE DIRECTED ONE Stop: 02/07/24 16:01 Morphine Sulfate (Morphine Sulfate 4 Mg/Ml Syringe) 4 mg IVP Q4HR PRN PRN Reason: Pain Last Admin: 02/03/24 11:17 Dose: 4 mg Morphine Sulfate (Morphine Sulfate 2 Mg/Ml Syringe) 2 mg IV Q2HR PRN PRN Reason: Moderate Pain (Scale 4 to 6) Last Admin: 02/04/24 16:57 Dose: 2 mg Naloxone HCl (Naloxone 0.4 Mg/Ml 1 Ml Vial) 0.2 mg IV Q2M PRN PRN Reason: Opioid Reversal Non-Formulary Medication (Thick-It Original Powder) 1 dose PO DIRECTED PRN PRN Reason: w/all liquids Nystatin (Nystatin 100,000 Unit/Gm Powd 15 Gm) 1 applic TOPICAL BID@799,1999 [facility]; Protocol Last Admin: 02/06/24 08:46 Dose: 1 applic Ondansetron HCl (Ondansetron 4 Mg/2 Ml Vial) 4 mg IVP Q6HR PRN PRN Reason: Nausea And Vomiting Pantoprazole Sodium (Pantoprazole 40 Mg/10 Ml Vial) 40 mg IV DAILY [facility] Last Admin: 02/06/24 08:45 Dose: 40 mg Quetiapine Fumarate (Quetiapine 400 Mg Tab) 400 mg PO HS@1999 [facility] Last Admin: 02/05/24 20:28 Dose: 400 mg Raloxifene HCl (Raloxifene 60 Mg Tab) 60 mg PO DAILY@08 [facility] Last Admin: 02/06/24 08:46 Dose: 60 mg Silver Sulfadiazine (Silver Sulfadiazine 1% Cream 25 Gm Tube) 1 applic TOPICAL DAILY PRN PRN Reason: Skin Irritation Simethicone (Simethicone 80 Mg Chewable) 120 mg PO BID PRN PRN Reason: gas relief Social history: Lives at [facility]. Nonverbal. Nonambulatory. Physical examination: VITAL SIGNS: Afebrile, 75, 30, 117/59, 98% on the ventilator 100% GENERAL: laying in bed,, intubated. Generalized edema EYES: Pupils equal. Conjunctiva sage l. HEENT: External appearance of nose and ears normal, oral cavity dry. Endotracheal tube. NECK: JVD unable to assess d; masses not palpable. HEART: First and second heart sounds are normal; edema LUNGS: Respiratory rate increased, decreased breath sound ABDOMEN: Soft, nontender, liver spleen not palpable, no masses palpable. PSYCH: Sedated MUSCULOSKELETAL: Patient contracted in the hand with extension of metacarpophalangeal and proximal IP joints. Bilateral foot drop. NEUROLOGICAL: Cranial nerves grossly intact; no facial asymmetry, chronic dysarthria INVESTIGATIONS, reviewed in the clinical context: February 05: White count 8.6 hemoglobin 9.4 platelets 101 sodium 138 potassium 4.2 creatinine 0.82 AST 1085 ALT 404 albumin 1.7 February 04: ABG [pH 7.15 pCO2 82] white count 13.4 hemoglobin 9.1 platelets 109 sodium 136 potassium 3 creatinine 0.65 February 03: White count 9.2 hemoglobin 9.5 platelets 107 sodium 146 potassium 2.5 BUN 27 creatinine 0.6 6 repeat potassium 3.6 ionized calcium 4 Procalcitonin 11.3 Chest x-ray film personally reviewed by me-large infiltrate especially on the right side. January 31: White count 13.4 hemoglobin 11.3 platelets 163 sodium 134 potassium 3.2 BUN 55 creatinine 0.98 amylase 113 lipase 368 Influenza type A, type B, RSV, COVID-19: Not detected Assessment and plan: -Acute bilateral right greater than left aspiration pneumonia, , causing acute hypoxic respiratory failure: Not wearing Antibiotics have been changed to IV meropenem and vancomycin. -Episode of PEA yesterday evening. Recurrent. -Septic shock: Not able roving IV norepinephrine. IV vasopressin -Acute hypoxic respiratory failure from aspiration pneumonia:: Ventilator assist: Not improving intubated on February 02. FiO2 100% -Secondary bronchospasm secondary to aspiration pneumonia Albuterol nebulizer 4 times daily -Chronic dysphagia Baseline takes pured diet and honey thick liquids-supervised Currently tube feeding at 10 cc hour. -Chronic cerebral palsy -Down syndrome -Cerebral palsy with severe cognitive impairment -Bilateral foot drop, chronic -Chronic medical debility, patient nonambulatory -Primary/secondary osteoarthritis Pain medications as needed -Full code -Public guardian,Re Patient continues to do poorly. Upright. For comfort care. Awaiting input from Re the public guardian. Discussed briefly with Dr. Xie. Past Medical History Past Medical History: Heart Failure, Osteoarthritis (OA) Additional Past Medical History / Comment(s): down syndrome, cerebral palsy, nonverbal, aspiration History of Any Multi-Drug Resistant Organisms: None Reported Past Surgical History: No Surgical Hx Reported Past Anesthesia/Blood Transfusion Reactions: No Reported Reaction Past Psychological History: Depression Smoking Status: Never smoker Past Alcohol Use History: None Reported Past Drug Use History: None Reported
[2024-02-06] MEDS ORDERED: LORazepam 2 MG/ML INJ IV PRN (16:02)
[2024-02-06] MEDS: ATROPINE OPHTH SOLN 1% 5ML BTL SUBLINGUAL PRN (16:44)
[2024-02-06] MEDS: GLYCOPYRROLATE 0.2 MG/ML 2 ML VIAL IVP PRN (16:45)
[2024-02-06] MEDS: MORPHINE SULFATE 4 MG/ML SYRINGE IV PRN (16:45)
[2024-02-06 18:49] VITALS: PULSE 80; RESP 0
--- NOTE | 2024-02-07 09:45 | P.DS ---
Providers Date of admission: 02/02/24 03:59 Expected date of discharge: 02/06/24 () Attending physician: Tomasz Blackwood Consults: 02/02/24 08:09 Consult Physician Stat Consulting Provider: Luigi Butler Consult Reason/Comments: aspiration Do you want consulting provider notified?: Yes 02/04/24 23:48 Consult Physician Urgent Consulting Provider: Gabi Nick Consult Reason/Comments: multifocal pneumoinia; sepsis Do you want consulting provider notified?: Yes Primary care physician: Ozzie Azul MD Hospital Course: [facility] [address], [place] [address] Progress Note - Text Patient Name: Luz Maria Bynum Date of : 1955 Patient Status: Inpatient Attending Provider: Tomasz Blackwood Date: 02/06/24 11:38 Initialization Date: 02/06/24 11:38 Progress Note - Text Progress Note Date: 02/06/24 Chief Complaint: Congested This is a 68-year-old patient, follows with visiting physician Dr. Azul. Chronic stable medical conditions include cerebral palsy, Down syndrome, nonverbal, nonambulatory. Osteoarthritis. Patient is on a mechanically pured diet with thickened liquids. And is prone to aspiration pneumonias. in the hospital from January 02 through January 07. With bilateral aspiration pneumonitis. And secondary bronchospasm. Readmitted January 12 through January 16: Influenza A pneumonitis. Septic Patient now brought to the ER via EMS. Per the report: Nausea vomiting reported for last 5 days. About 3 times a day usually around mealtime. Being gurgling. Any attempt to feed her. Patient is on pured fluids with thickened liquids. This morning patient is rather congested. Tired. Lethargic. February 02: Earlier this morning patient went into respiratory distress. Drowning and secretions. Dr. CLARK intubated the patient. Patient's caregivers at the bedside. I spoke to patient's guardian Re on the phone. Patient has been full code. They will be scheduling her hearing on Monday with just Mary. I did emphasize that we also have to talk about possible terminal extubation/comfort measures depending on clinical course over the weekend. Current drips include Nimbex 0.998, propofol at 30 mics, norepinephrine at 0.13 mcg. Ventilator settings 100/5. Sedated with Nimbex and propofol. February 03: ICU. Intubated. Caregiver at the bedside. Patient sedated. Mild secretions. Drips include Nimbex 1.5 mcg, norepinephrine 0.08 mcg, propofol at 40 mcg. Tube feeding running at 10 cc an hour. Patient's guardian Re has a court hearing tomorrow morning. No ionized calcium. 2 g of IV calcium gluconate IV piggyback. February 04: ICU. Patient had an episode of PEA last night. Was shocked twice. Given epinephrine. This morning doing poorly. FiO2 100 a PEEP of 18. Tube feeding has been held. Abdomen distended. This morning also the bronchoscopy by Dr. CLARK with little output. Current drips include propofol at 20 mics, vasopressin at 0.04 mics, norepinephrine at 0.5 mics and Nimbex at 3.5. Patient will be appropriate given her extremely poor prognosis for comfort measures. Public guardian will be presenting the case to the bottom cager. February 05: ICU. Patient continues to do poorly. Another episode of PEA last night. Currently on the ventilator intubated. FiO2 100 PEEP of 18. Drips include vasopressin 0.04 mcg, propofol 20 mcg, norepinephrine 0.5 mcg, Nimbex at 2.5. Tube feeding at 10 cc an hour. Abdomen is distended. Patient will be appropriate for comfort measures. With terminal extubation. Patient now has also developed ischemic hepatitis Later in the day patient .-As per nurses note guardian Lupis was present. Social history: Lives at [facility]. Nonverbal. Nonambulatory. INVESTIGATIONS, reviewed in the clinical context: February 05: White count 8.6 hemoglobin 9.4 platelets 101 sodium 138 potassium 4.2 creatinine 0.82 AST 1085 ALT 404 albumin 1.7 February 04: ABG [pH 7.15 pCO2 82] white count 13.4 hemoglobin 9.1 platelets 109 sodium 136 potassium 3 creatinine 0.65 February 03: White count 9.2 hemoglobin 9.5 platelets 107 sodium 146 potassium 2.5 BUN 27 creatinine 0.6 6 repeat potassium 3.6 ionized calcium 4 Procalcitonin 11.3 Chest x-ray film personally reviewed by me-large infiltrate especially on the right side. January 31: White count 13.4 hemoglobin 11.3 platelets 163 sodium 134 potassium 3.2 BUN 55 creatinine 0.98 amylase 113 lipase 368 Influenza type A, type B, RSV, COVID-19: Not detected Cause of : Cerebral palsy Assessment and plan: -Acute bilateral right greater than left aspiration pneumonia, , causing acute hypoxic respiratory failure: Not wearing Antibiotics have been changed to IV meropenem and vancomycin. -Episode of PEA yesterday evening. Recurrent. -Septic shock: Not able roving IV norepinephrine. IV vasopressin -Acute hypoxic respiratory failure from aspiration pneumonia:: Ventilator assist: Not improving intubated on February 02. FiO2 100% -Secondary bronchospasm secondary to aspiration pneumonia Albuterol nebulizer 4 times daily -Chronic dysphagia Baseline takes pured diet and honey thick liquids-supervised Currently tube feeding at 10 cc hour. -Chronic cerebral palsy -Down syndrome -Cerebral palsy with severe cognitive impairment -Bilateral foot drop, chronic -Chronic medical debility, patient nonambulatory -Primary/secondary osteoarthritis Pain medications as needed -Public guardian, Lupis Position: Patient Past Medical History Past Medical History: Heart Failure, Osteoarthritis (OA) Additional Past Medical History / Comment(s): down syndrome, cerebral palsy, nonverbal, aspiration History of Any Multi-Drug Resistant Organisms: None Reported Past Surgical History: No Surgical Hx Reported Past Anesthesia/Blood Transfusion Reactions: No Reported Reaction Past Psychological History: Depression Smoking Status: Never smoker Past Alcohol Use History: None Reported Past Drug Use History: None Reported Patient Condition at Discharge: Serious Plan - Discharge Summary Discharge Rx Participant: No New Discharge Prescriptions: Discontinued Acetaminophen Tab [Tylenol] 650 mg PO Q4H PRN MDD 10 tabs PRN Reason: Pain Or Fever > 100.5 Raloxifene [Evista] 60 mg PO DAILY@0800 Baclofen [Lioresal] 20 mg PO HS@2000 Pyrithione Zinc 1% Shampoo 1 applic TOPICAL DAILY PRN PRN Reason: scalp Magnesium Hydroxide [Milk of Magnesia] 2,400 mg PO DAILY PRN PRN Reason: Constipation Simethicone [Gas-X] 125 mg PO BID PRN PRN Reason: gas relief QUEtiapine FUMARATE [SEROquel] 400 mg PO HS@2000 Potassium Chloride [Klor-Con M20] 20 meq PO DAILY@0800 polyethylene glycoL 3350 [Miralax] 17 gm PO DAILY@0800 Furosemide [Lasix] 40 mg PO DAILY@0800 Cranberry 450 mg PO HS@2000 busPIRone HCl [Buspar] 10 mg PO BID@0800,1999 Stomach Relief 525-30ml 262.5 ml PO DAILY PRN PRN Reason: Gi Upset Thick-It Original Powder 1 dose PO DIRECTED PRN PRN Reason: w/all liquids ALPRAZolam [Xanax] 1 mg PO DIRECTED PRN PRN Reason: 1 hour prior to procedure Carbamide Peroxide [Debrox Otic] 5 - 10 drops BOTH EARS BID PRN PRN Reason: excessive ear wax guaiFENesin [guaiFENesin Oral Solution] 200 mg PO Q4H PRN PRN Reason: Cough Omeprazole 40 mg PO DAILY@0800 Sodium Chloride [Saline Mist] 1 spray EA NOSTRIL DIRECTED PRN PRN Reason: sinus/nasal congestion Mucinex Cold/Flu/Sore Throat Liquid 20 ml PO Q6H PRN PRN Reason: Cough Fexofenadine HCl [Rosi Allergy] 180 mg PO DAILY@0800 polyethylene glycoL 3350 [Miralax] 17 gm PO DAILY PRN PRN Reason: Constipation SILVER sulfADIAZINE Cream [Silvadene 1% Cream] 1 applic TOPICAL DAILY PRN PRN Reason: Skin Irritation Siltussin Sa 200 mg PO Q4H PRN PRN Reason: cough/congestion Olopatadine HCl [Pataday] 1 drop BOTH EYES BID PRN PRN Reason: itching/redness Nystatin 100,000Unit/gm Cream [Mycostatin Cream] 1 applic TOPICAL BID PRN PRN Reason: Skin Irritation Hydrocortisone/Aloe Vera [Cortizone-10 with Aloe 1% Crm] 1 applic TOPICAL DIRECTED PRN PRN Reason: insect bites & hives Simvastatin [Zocor] 40 mg PO HS@1999 Nystatin 100,000 Unit/gm Powd [Mycostatin Powder] 1 applic TOPICAL BID@0800,1999 Aspirin EC [Ecotrin Low Dose] 81 mg PO DAILY@0800 ALPRAZolam [Xanax] 0.25 mg PO HS@2000 Eucalyptus Oil/Menthol/Camphor [Vicks Vaporub Ointment] 1 applic TOPICAL BID PRN PRN Reason: Congestion Calcium Carbonate [Tums] 500 mg PO DIRECTED PRN PRN Reason: Heartburn diphenhydrAMINE HCL 50 mg PO Q4-6H PRN PRN Reason: Allergy Symptoms Albuterol Nebulized [Ventolin Nebulized] 2.5 mg INHALATION RT-Q6H PRN PRN Reason: Bronchospasm Discharge Disposition: - Preliminary Cause of Preliminary Cause of : Cerebral palsy
[2024-02-07] MEDS ORDERED: VANCOMYCIN TROUGH DUE 1 EACH MISC MISCELLANE ONE (16:00)
--- NOTE | 2024-02-13 16:02 | P.PN ---
Subjective Progress Note Date: 02/06/24 Principal diagnosis: Reason for follow-up is sepsis and pneumonia Patient is a 68-year-old female with a past medical history of any for cerebral palsy Down syndrome presented to the hospital 5 days ago from a local [facility] for evaluation of vomiting x 5 days, treated for possible pneumonia subsequently patient have a cardiac arrest become hypothermic and hypotensive prompting infectious disease consultation for sepsis. On today's evaluation that is 02/06/2024 patient has been hypothermic, the patient remains to be on the vent requiring 100% FiO2 no significant purulent secretions through the ET diarrhea or any other changes reported by the nursing staff. Patient white count is 8.6 creatinine 0.82 liver enzymes elevated cultures are pending chest x-ray this morning diffuse bilateral infiltrate correlate for diffuse pneumonia Objective - Vital Signs Vital signs: Vital Signs Temp 95 F L 02/05/24 21:12 Pulse 75 02/06/24 13:00 Resp 30 H 02/06/24 13:00 BP 105/56 02/06/24 02:00 Pulse Ox 88 L 02/06/24 13:00 FiO2 100 02/06/24 12:00 Intake & Output 02/05/24 02/06/24 02/06/24 18:59 06:59 18:59 Intake Total 2802.547 2128.113 1758.588 Output Total 225 140 22 Balance 2577.547 3177.171 8297.588 Weight 72.212 kg 77.6 kg Intake: IV 286 961 646 Dextrose 5% in Water 1, 150 000 ml @ 75 mls/hr IV . [id number] [facility] Rx#:[id number] Dextrose 5% in Water 1, 825 525 000 ml @ 75 mls/hr IV . [id number] [facility] with Sodium Bicarb (1 Meq/ml) 150 ml Rx#:[id number] Meropenem 1 gm In Sodium 100 100 100 Chloride 0.9% 100 ml @ 33 .3 mls/hr IVPB Q8HR [facility] Rx#:[id number] Pressure bag 36 36 21 Intake, IV Titration 2516.547 9778.988 9987.588 Amount Cisatracurium 200 mg In 109.796 181.853 Sodium Chloride 0.9% 180 ml @ 1 MCG/KG/MIN 3.538 mls/hr IV .Q24H [facility] Rx#: [id number] Dextrose 5% in Water 1, 750 75 000 ml @ 75 mls/hr IV . [id number] [facility] with Sodium Bicarb (1 Meq/ml) 150 ml Rx#:[id number] Meropenem 1 gm In Sodium 100 Chloride 0.9% 100 ml @ 33 .3 mls/hr IVPB Q8HR [facility] Rx#:[id number] Norepinephrine 4 mg In 1239.411 915.136 551.435 Sodium Chloride 0.9% 250 ml @ 0.05 MCG/KG/MIN 11. 233 mls/hr IV .[id number] [facility] Rx#:[id number] Vancomycin 1,250 mg In 250 250 Sodium Chloride 0.9% 250 ml @ 125 mls/hr IVPB Q16H [facility] Rx#:[id number] Vasopressin 60 unit In 115.464 Sodium Chloride 0.9% 150 ml @ 0.03 UNITS/MIN 4.59 mls/hr IV .Q24H [facility] Rx#: [id number] propofoL 1,000 mg In 67.34 41.513 99.3 Empty Bag 1 bag @ 20 MCG/ KG/MIN 7.076 mls/hr IV . [id number] [facility] Rx#:[id number] Tube Feeding 20 30 Output: Urine 225 140 22 Other: Voiding Method Indwelling Catheter Indwelling Catheter Indwelling Catheter ABP, PAP, CO, CI - Last Documented Arterial Blood Pressure 111/55 - Exam GENERAL DESCRIPTION: Elderly female intubated on the vent RESPIRATORY SYSTEM: Unlabored breathing , decreased breath sounds at bases HEART: S1 S2 regular rate and rhythm , ABDOMEN: Soft , no tenderness EXTREMITIES: No edema feet - Labs CBC & Chem 7: 02/06/24 04:31 02/06/24 04:31 Labs: Abnormal Lab Results - Last 24 Hours (Table) 02/05/24 02/05/24 02/05/24 Range/Units 14:25 17:59 20:52 RBC (3.80-5.40) m/uL Hgb (11.4-16.0) gm/dL Hct (34.0-46.0) % MCHC (31.0-37.0) g/dL Plt Count (150-450) k/uL ABG pH 7.15 L* (7.35-7.45) ABG pCO2 82 H* (35-45) mmHg ABG HCO3 28 H (21-25) mmol/L ABG Total CO2 31 H (19-24) mmol/L Chloride (98-107) mmol/L BUN (7-17) mg/dL Glucose (74-99) mg/dL POC Glucose (mg/dL) 185 H 211 H (70-110) mg/dL Calcium (8.4-10.2) mg/dL AST (14-36) U/L ALT (4-34) U/L Alkaline Phosphatase (38-126) U/L Total Protein (6.3-8.2) g/dL Albumin (3.5-5.0) g/dL 02/06/24 02/06/24 02/06/24 Range/Units 00:00 04: 04:31 RBC 3.20 L (3.80-5.40) m/uL Hgb 9.4 L (11.4-16.0) gm/dL Hct 30.9 L (34.0-46.0) % MCHC 30.3 L (31.0-37.0) g/dL Plt Count 101 L (150-450) k/uL ABG pH (7.35-7.45) ABG pCO2 (35-45) mmHg ABG HCO3 (21-25) mmol/L ABG Total CO2 (19-24) mmol/L Chloride 108 H (98-107) mmol/L BUN 19 H (7-17) mg/dL Glucose 142 H (74-99) mg/dL POC Glucose (mg/dL) 151 H (70-110) mg/dL Calcium 5.5 L* (8.4-10.2) mg/dL AST 1085 H (14-36) U/L ALT 404 H (4-34) U/L Alkaline Phosphatase 133 H (38-126) U/L Total Protein 3.7 L (6.3-8.2) g/dL Albumin 1.7 L (3.5-5.0) g/dL 02/06/24 02/06/24 02/06/24 Range/Units 05:06 05:59 11:33 RBC (3.80-5.40) m/uL Hgb (11.4-16.0) gm/dL Hct (34.0-46.0) % MCHC (31.0-37.0) g/dL Plt Count (150-450) k/uL ABG pH 7.16 L* (7.35-7.45) ABG pCO2 79 H* (35-45) mmHg ABG HCO3 28 H (21-25) mmol/L ABG Total CO2 31 H (19-24) mmol/L Chloride (98-107) mmol/L BUN (7-17) mg/dL Glucose (74-99) mg/dL POC Glucose (mg/dL) 150 H 174 H (70-110) mg/dL Calcium (8.4-10.2) mg/dL AST (14-36) U/L ALT (4-34) U/L Alkaline Phosphatase (38-126) U/L Total Protein (6.3-8.2) g/dL Albumin (3.5-5.0) g/dL Microbiology - Last 24 Hours (Table) 02/03/24 12:20 Gram Stain - Final Sputum Sputum Culture - Final Assessment and Plan (1) Penicillin allergy Status: Acute Code(s): Z88.0 - ALLERGY STATUS TO PENICILLIN SNOMED Code(s): 67616951 (2) Aspiration pneumonia Status: Acute Code(s): J69.0 - PNEUMONITIS DUE TO INHALATION OF FOOD AND VOMIT SNOMED Code(s): 436095550 (3) Sepsis Status: Acute Code(s): A41.9 - SEPSIS, UNSPECIFIED ORGANISM SNOMED Code(s): 78937534 Plan: 1patient with sepsis/septic shock in this patient who did have hypothermia elevated white count tachycardia with initial admission to the hospital with likely aspiration pneumonia subsequently did have a cardiac arrest and this patient has been in the hospital we will need to cover for resistant gram- positive as well as gram-negative pathogen 2-patient is currently broadly covered with meropenem and vancomycin to continue prognosis remains to be guarded possible plan is for hospice/comfort which may be appropriate Dictation was produced using [employer] dictation software. please excuse any gr ammatical, word or spelling errors. Time with Patient: Less than 30
== END 2024-02-06 18:11 | disposition expired | DRG 871 ==
LOC: EC 20:34 → 4SSUR 02-02 03:59 → 3SCARD 02-02 23:06 → 2SICU 02-03 10:59
PROVIDERS: ADMIT Hospitalist; ATTEND Hospitalist
PROC: 0BH18EZ Insertion of Endotracheal Airway into Trachea, Via Natural or Artificial Opening Endoscopic (ICD-10-PCS; 2024-02-03)
PROC: 5A1945Z Respiratory Ventilation, 24-96 Consecutive Hours (ICD-10-PCS; 2024-02-03)
PROC: 04HY32Z Insertion of Monitoring Device into Lower Artery, Percutaneous Approach (ICD-10-PCS; 2024-02-03)
PROC: 4A133B1 Monitoring of Arterial Pressure, Peripheral, Percutaneous Approach (ICD-10-PCS; 2024-02-03)
PROC: 4A133J1 Monitoring of Arterial Pulse, Peripheral, Percutaneous Approach (ICD-10-PCS; 2024-02-03)
PROC: 02HV33Z Insertion of Infusion Device into Superior Vena Cava, Percutaneous Approach (ICD-10-PCS; 2024-02-03)
PROC: 3E043XZ Introduction of Vasopressor into Central Vein, Percutaneous Approach (ICD-10-PCS; 2024-02-03)
PROC: 0B9M8ZZ Drainage of Bilateral Lungs, Via Natural or Artificial Opening Endoscopic (ICD-10-PCS; 2024-02-03)
PROC: 0B9M8ZZ Drainage of Bilateral Lungs, Via Natural or Artificial Opening Endoscopic (ICD-10-PCS; 2024-02-05)
PROC: 3E033RZ Introduction of Antiarrhythmic into Peripheral Vein, Percutaneous Approach (ICD-10-PCS; 2024-02-05)
PROC: 5A12012 Performance of Cardiac Output, Single, Manual (ICD-10-PCS; principal; 2024-02-06)
DX: A41.9 Sepsis, unspecified organism (principal); J69.0 Pneumonitis due to inhalation of food and vomit; J80 Acute respiratory distress syndrome; R65.21 Severe sepsis with septic shock; K72.00 Acute and subacute hepatic failure without coma; E87.29 Other acidosis; I47.10 Supraventricular tachycardia, unspecified; N39.0 Urinary tract infection, site not specified; G80.8 Other cerebral palsy; K56.41 Fecal impaction; I46.8 Cardiac arrest due to other underlying condition; J39.8 Other specified diseases of upper respiratory tract; I50.9 Heart failure, unspecified; R13.19 Other dysphagia; Z66 Do not resuscitate; Z51.5 Encounter for palliative care; K57.30 Diverticulosis of large intestine without perforation or abscess without bleeding; E87.6 Hypokalemia; E86.0 Dehydration; R00.1 Bradycardia, unspecified; R68.0 Hypothermia, not associated with low environmental temperature; J98.01 Acute bronchospasm; R41.89 Other symptoms and signs involving cognitive functions and awareness; Q90.9 Down syndrome, unspecified; Z79.82 Long term (current) use of aspirin; M21.371 Foot drop, right foot; M21.372 Foot drop, left foot; M19.91 Primary osteoarthritis, unspecified site; M19.93 Secondary osteoarthritis, unspecified site; Z79.899 Other long term (current) drug therapy; Z88.0 Allergy status to penicillin; Z87.01 Personal history of pneumonia (recurrent)
CPT/HCPCS: 36415; 51702; 71045; 74177; 80048; 80053; 81001; 82150; 82330; 82805; 83036; 83690; 83735; 84132; 84145; 85025; 87040; 87070; 87086; 87205; 87636; 92950; 94002; 94003; 94640; 96361; 96365; 96366; 96367; 96368; 96372; 96375; 96376; 99285